=== PATIENT | female | born 1955 | race Caucasian/White ===

== ENCOUNTER 2021-01-20 15:51 | Inpatient (IN) | payer MEDICAID, SELFPAY ==
--- NOTE | ~2021-01-20 | CT_ITS ---
EXAMINATION: CT ANGIOGRAM ABDOMEN CT ANGIOGRAM PELVIS CT ANGIOGRAM LOWER EXTREMITIES CLINICAL INFORMATION: Pain out of proportion. Undetectable pedal pulses. TECHNIQUE: Noncontrast passenger flagman imaging of the abdomen, pelvis, and lower extremities was obtained. Following the administration of 100 mL of Omnipaque 350 intravenously, multiple axial images were then obtained through the abdomen, pelvis, and lower extremities. Repeat delayed axial imaging of the lower 70s below the knee was obtained secondary to issues with contrast bolus timing. Sagittal, coronal, and MIP oblique sagittal reformatted images were obtained on the CT workstation, uploaded to PACS, and reviewed. This CT examination was performed using dose optimization techniques as appropriate, variously including the following: *Automated exposure control. *Adjustment of mA and/or kV according to patient size (this includes techniques or standardized protocols for targeted exams where dose is matched to indication/reason for exam; i.e. extremities or head). *Use of iterative reconstruction technique. DLP: 643 mGy-cm. COMPARISON: CT abdomen and pelvis from 06/06/2017. Lower extremity ultrasound from 01/20/2021. FINDINGS: VASCULAR: Abdominal Aorta: The abdominal aorta is of normal contour and caliber without evidence of dissection. Celiac Trunk: A replaced left gastric and an accessory left hepatic artery arises directly from the aorta. A replaced right hepatic artery arises from the superior mesenteric artery. The hepatosplenic trunk and its branches opacify normally without evidence of dissection, obstruction, or flow-limiting stenosis. Mesenteric Arteries: As noted above, there is a replaced right hepatic artery arising from the SMA. Otherwise, the superior and inferior mesenteric arteries are normal in caliber with no focal stenosis or dissection. Renal Arteries: There is 2 right-sided and 1 left-sided renal arteries. No evidence of stenosis or dissection. Iliac Arteries: The iliac arteries are normal in course and caliber without evidence of focal stenosis or dissection. Right Lower Extremity: Normal opacification of the common femoral, superficial femoral, and profunda femoris arteries. There is a gradient decrease in opacification of the lower extremity arteries below the knee on initial CTA. However, subsequently on delayed imaging there is demonstrated normal caliber and opacification of the popliteal artery with normal trifurcation. Distal opacification of the anterior tibial, peroneal, and posterior tibial arteries. Partial opacification of the dorsalis pedis artery. Nonopacification of the plantar arch. Left Lower Extremity: Normal opacification of the common femoral, superficial femoral, and profunda femoris arteries. There is a gradient decrease in opacification of the lower extremity arteries below the knee on initial CTA. However, subsequently on delayed imaging there is demonstrated normal caliber and opacification of the popliteal artery with normal trifurcation. There is opacification of the anterior tibial, peroneal, and posterior tibial arteries to the level of the high ankle. Nonopacification of the dorsalis pedis artery and plantar arch. Venous Structures: The inferior vena cava and portal venous system are without demonstrated abnormalities. NONVASCULAR: CHEST: Visualized Lower Chest: Mild bilateral dependent atelectasis. Otherwise, no demonstrated abnormalities of the visualized lung bases or lower mediastinum. ABDOMEN/PELVIS: Liver, Biliary Ducts, and Gallbladder: The liver is normal in size and attenuation without focal hepatic lesions or biliary ductal dilatation. Status post cholecystectomy. Pancreas: Fatty atrophy of the pancreatic head. Otherwise, normal appearance of the pancreas. Adrenal Glands: The adrenal glands are normal in appearance. Spleen: The spleen is normal in appearance. Kidneys and Ureters: Chronic cortical scarring of the upper pole the right kidney. Otherwise, the kidneys demonstrate symmetric nephrograms. There is a 3.3 cm mildly complex subcapsular fluid collection posterior to the right kidney with macroscopic wall calcifications that appears similar to exam from 2017. There is a 0.3 cm nonobstructive stone in the lower pole the right kidney. No evidence of hydrocephalus. No ureterolithiasis or hydroureter. Urinary Bladder: The urinary bladder is partially distended without focal wall thickening. No bladder calculi are noted. Gastrointestinal System: Small hiatal hernia. The stomach is decompressed and therefore not well evaluated on this exam. The small bowel is of normal caliber without regions of abnormal wall enhancement. Mild pancolonic diverticulosis without evidence of diverticulitis. Otherwise, the colon is normal in appearance without focal wall thickening or pericolonic inflammatory change. The appendix is not definitively visualized. However, there is no inflammatory change in its expected location to suggest appendicitis. Genitourinary: No adnexal soft tissue masses. Intra-abdominal and Retroperitoneal Spaces: No intra-abdominal free fluid collections or gas. No mesenteric, retroperitoneal, or inguinal lymphadenopathy. MUSCULOSKELETAL: Moderate multilevel degenerative changes of the spine. Mild degenerative arthropathy of the hips and knees. No lytic or sclerotic osseous lesions demonstrated. Prior mesh repair of a right anterior abdominal wall hernia. Moderate cutaneous and subcutaneous edema of the lower extremities extending to the mid thigh bilaterally (slightly worse on the left than the right). No discrete fluid collection. Small bilateral knee joint effusions. No soft tissue masses demonstrated. CT/CT angio abd aorta runoff IMPRESSION: 1. No demonstrated focal occlusion or proximal stenosis of the lower extremity arteries. Contrast opacification of the distal vessels is somewhat delayed although there is runoff to the ankles bilaterally on delayed imaging. 2. Moderate bilateral lower extremity edema, slightly worse on the left than the right. 3. Chronic subcapsular fluid collection posterior to the right kidney. 4. Diverticulosis without evidence of diverticulitis.
--- NOTE | ~2021-01-20 | XR_ITS ---
EXAMINATION: XR ANKLE, LEFT CLINICAL INFORMATION: Pain COMPARISON: None TECHNIQUE: AP, lateral, and mortise views of the left ankle. FINDINGS: The bones and soft tissues are normal. No fracture. Alignment is anatomic. Joint spaces are maintained. No joint effusion. There is posterior calcaneal spur. Mild DJD intertarsal level. XR/XR ankle LT min 3V IMPRESSION: No fracture. There is posterior calcaneal spur. Mild degenerative changes of the intertarsal level.
--- NOTE | ~2021-01-20 | XR_ITS ---
EXAMINATION: XR FOOT, LEFT CLINICAL INFORMATION: Pain COMPARISON: None TECHNIQUE: AP, lateral, and oblique views of the left foot. FINDINGS: Small talar beaking raising possibility of intertarsal coalition. 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 No fracture. Small posterior calcaneal spur. XR/XR foot LT 2V IMPRESSION: Talar beaking raising possibility of intertarsal coalition. This could be investigated with cross-sectional imaging CT scan or MRI. DJD first metatarsophalangeal joint.
--- NOTE | ~2021-01-20 | US_ITS ---
EXAMINATION: US VENOUS ULTRASOUND WITH DOPPLER LOWER EXTREMITY, LEFT CLINICAL INFORMATION: Evaluate for deep venous thrombosis. Skin changes left lower extremity. COMPARISON: None TECHNIQUE: Ultrasound of the deep veins is performed from the hip to the calf with compression sonography and color and pulse Doppler assessment. Spectral analysis with color-flow imaging is performed. FINDINGS: The study is technically difficult. The anatomy is not well visualized. There is normal venous compression and respiratory variation and augmented flow. The visualized common femoral vein, superficial femoral vein, profunda femoral vein, popliteal vein, and the trifurcation region shows no evidence of deep venous thrombosis. There is no significant popliteal fossa cyst. If the patient's symptoms persist, followup ultrasound in 5 days 7 days might be of value to exclude proximal propagation from a non-visualized calf vein. US/US venous duplex LE LT IMPRESSION: No DVT demonstrated in the left lower extremity.
--- NOTE | ~2021-01-20 | US_ITS ---
EXAMINATION: COLOR-FLOW DUPLEX IMAGING OF THE UNILATERAL LEFT LOWER EXTREMITY ARTERIAL SYSTEM. VELOCITY MEASUREMENTS THROUGHOUT THE FEMORAL ARTERIES CLINICAL INFORMATION: This is a 65-year-old female with left lower extremity severe pain. Poor color. No palpable pedal pulses. Interventional Radiologist: Roosevelt Cardenas M.D., F.S.I.R., FMagdalene.C.R. LEFT FEMORAL RUNOFF VELOCITIES: The left common femoral artery measures 87 cm/s and biphasic. The left profunda femoral artery is 34 cm/s and is biphasic. Left proximal superficial femoral artery measures 103 cm/s and biphasic. Mid superficial femoral artery is 83 cm/s and biphasic. Distal left superficial femoral artery measures 88 cm/s and is biphasic. Left popliteal velocity measures 65 cm/s and is biphasic. The posterior tibial artery velocity measures 31 cm/s and was monophasic. US/US arterial duplex LE LT IMPRESSION: 1. No focal stenosis or filling defects are seen in the left lower extremity runoff. In this patient, the vascular duplex ultrasound gives better evaluation of the lower extremity arteries. The poor opacification of the calf arteries on the CT scan is likely due to contrast bolus timing. Therefore, the duplex ultrasound is more specific and does not demonstrate any obstruction.
[2021-01-20 16:14] VITALS: BP 136/49; BP 155/73; PULSE 71; PULSE 78; TEMP 36.9; O2SAT 97; BMI 28.3
[2021-01-20 16:25] VITALS: BP 136/49; PULSE 70; RESP 20; TEMP 36.9; O2SAT 97
--- NOTE | 2021-01-20 16:30 | PC.NURSE ---
Pt alert +oriented, VSS. Pt with LLL pain, swelling, redness started 5/7. Leg tender to touch. + pedal pulse bilaterally, unable to move toes of affected leg, able to move toes of unaffected leg without difficulty. Pt reports this is her baseline. Pt waiting to be seen by ED provider. This RN spoke with STEPHON Tijerina from service net to obtain history
--- NOTE | 2021-01-20 17:04 | ED_ITS ---
HPI - General Adult General Chief complaint: General Medical Stated complaint: left foot infection Time Seen by Provider: 01/20/21 16:42 Source: EMS and other (home visiting nurse) Mode of arrival: EMS Limitations: other (CVA at ) History of Present Illness HPI narrative: Patient comes emergency room complaining of left lower extremity pain, discoloration. Patient is unable to speak, had a CVA at baseline. I spoke with the patient's visiting nurse, patient lives in a skilled nursing, seems that yesterday patient started complaining of discomfort in her left lower extremity, this morning the staff noticed that the foot was dusky, swollen, very painful to palpation. They encouraged the patient to come to emergency room, however the patient declined and wanted to go shopping. When she returned from shopping, patient came in complaining of worsening pain in the foot and accepted to come to the emergency room. The staff states that the foot looked darker when she came back. Patient is on aspirin 81 mg, no other anticoagulation. Patient denies any trauma Related Data Home Medications Medication Instructions Recorded Confirmed No Known Home Meds 01/20/21 01/20/21 Allergies Allergy/AdvReac Type Severity Reaction Status Date / Time cephalexin [CEPHALEXIN] Allergy Unknown UNKNOWN Unverified 06/01/20 17:00 Review of Systems Review of Systems: Constitutional : No Weight loss, No Fever, No Chills, No Night Sweats, No Fatigue, No Malaise ENT/Mouth : No Hearing loss, No Ear Pain, No Nasal Congestion, No Sinus Pain, No Hoarseness, No sore throat, No Rhinorrhea, No Swallowing Difficulty Eyes: No Eye Pain, No Swelling, No Redness, No Foreign Body, No Discharge, No Vision Changes Cardiovascular : No Chest Pain, No SOB, No Dyspnea on Exertion, No Orthopnea, No Edema, No Palpitations Respiratory : No Cough, No Sputum, No Wheezing, No Smoke Exposure, No Dyspnea Gastrointestinal : No Nausea, No Vomiting, No Diarrhea, No Constipation, No abdominal Pain, No Hematochezia, No Melena Genitourinary : no irregular bleeding, No Dysuria, No Urinary Frequency, No Hematuria, No Urinary Incontinence, No Urgency, No Flank Pain, No Urinary Flow Changes, No Hesitancy Musculoskeletal : Complaining of left lower extremity severe pain, discoloration Skin : No Skin Lesions, No rash Neuro : No Weakness, No Numbness, No Paresthesias, No Loss of Consciousness, No Dizziness, No Headache Psych : No Anxiety/Panic, No Depression, No SI/HI/AH/VH, No Social Issues, Heme/Lymph: No Bruising, No Bleeding,No Lymphadenopathy Endocrine : No Polyuria, No Polydipsia, No Temperature Intolerance PMF Past Medical History Medical History CVA (cerebral vascular accident) Diabetes Hypertension Psychiatric diagnosis Social History Social History Smoking Status: Former smoker Use of substances other than those prescribed or required for medical reasons: No Advance Directives: No Advance Directives Information Provided: Yes Physical Exam Vital Signs: Vital Signs: Last Vital Signs Temp 98.5 F 01/20/21 16:25 Pulse 60 01/20/21 21:29 Resp 16 01/20/21 21:29 BP 110/58 L 01/20/21 21:29 Pulse Ox 97 01/20/21 18:00 Body Mass Index 28.3 Appearance: Alert. Oriented X3. No acute distress. Eyes: Pupils equal, round and reactive to light. ENT: Pharynx normal. Neck: Normal inspection. Neck supple. No lymph nodes noted. No crepitus CVS: Normal heart rate and rhythm. Pulses normal. Normal S1 and S2 Respiratory: No respiratory distress. Breath sounds normal. No Wheezing. No rales Abdomen: Soft and nontender. No rigidity. No distention. good BS x4 Skin: Skin warm and dry. See below Extremities: No lower extremity edema. Left foot and ankle are dusky, very painful to touch, no palpable pulses, however pedal pulses were detected with Doppler, right foot within normal limits. 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 Venous ultrasound pending. Patient's foot is cold, white blood cell count is normal, unlikely to be cellulitis. Venous ultrasound and x-rays pending. Venous ultrasound x-ray negative. Patient's foot is now the symptom for trigger as the right foot, still looks slightly discolored. I discussed the patient with our hospitalist, we will empirically treat for possible cellulitis. Patient continues having pain to touch over the foot and ankle. Sepsis is not suspected Medical Decision Making Lab Data Result diagrams: 01/20/21 17:09 01/20/21 17:09 Labs: Lab Results 01/20/21 01/20/21 01/20/21 Range/Units 17: 17:09 17:09 WBC 10.5 (4.8-10.8) X10*3/uL RBC 4.63 (4.20-5.50) X10*6/uL Hgb 12.5 (12.0-16.0) g/dl Hct 38.3 (37-47) % MCV 82.7 (80-98) fL MCH 27.0 (27.0-33.0) pg MCHC 32.6 (31.0-35.0) g/dl RDW 13.0 (11.0-16.0) % Plt Count 330 (160-400) X10*3/uL MPV 10.6 (9.4-12.3) fL Immature Gran % (Auto) 0.3 (0.0-0.4) % Neut % (Auto) 64.8 (45-73) % Lymph % (Auto) 26.6 (20-40) % [place] % (Auto) 5.4 (2-11) % Eos % (Auto) 2.5 (0-4) % Baso % (Auto) 0.4 (0-2) % Lymph # (Auto) 2.8 (1.2-4.9) X10*3/uL [place] # (Auto) 0.6 (0.1-1.2) X10*3/uL Eos # (Auto) 0.3 (0.0-0.4) X10*3/uL Baso # (Auto) 0.0 (0.0-0.2) X10*3/uL Abs Immat Gran (auto) 0.03 (0.00-0.03) X10*3/uL Absolute Neuts (auto) 6.8 (2.0-8.3) X10*3/uL Absolute Nucleated RBC 0.000 (0.0-0.012) X10*3/uL Nucleated RBC % (auto) 0.0 (0.0-0.2) /100WBC PT 12.4 (10.8-13.0) SEC INR 1.0 (0.9-1.1) APTT 38.0 (24.1-38.0) SEC Sodium 140 (135-145) mmol/L Potassium 4.2 (3.3-5.1) mmol/L Chloride 105 (96-108) mmol/L Carbon Dioxide 27 (22-29) mmol/L Anion Gap 12 (12-20) BUN 21 H (9-16) mg/dL Creatinine 0.63 (0.5-1.4) mg/dL Estim Creat Clear Calc 77.4 Estimated GFR > 60 Random Glucose 132 H (60-115) mg/dL Calcium 9.6 (8.4-10.2) mg/dL Total Bilirubin 0.6 (0.0-1.0) mg/dL Direct Bilirubin 0.2 (0.0-0.5) mg/dL AST 16 (5-31) U/L ALT 14 (0-31) U/L Alkaline Phosphatase 94 (39-117) U/L Total Protein 7.4 (6.5-8.0) g/dL Albumin 4.2 (3.5-5.0) g/dL Imaging Data Aorta with runoff CTA: Radiologist's impression: VASCULAR: Abdominal Aorta: The abdominal aorta is of normal contour and caliber without evidence of dissection. Celiac Trunk: A replaced left gastric and an accessory left hepatic artery arises directly from the aorta. A replaced right hepatic artery arises from the superior mesenteric artery. The hepatosplenic trunk and its branches opacify normally without evidence of dissection, obstruction, or flow-limiting stenosis. Mesenteric Arteries: As noted above, there is a replaced right hepatic artery arising from the SMA. Otherwise, the superior and inferior mesenteric arteries are normal in caliber with no focal stenosis or dissection. Renal Arteries: There is 2 right-sided and 1 left-sided renal arteries. No evidence of stenosis or dissection. Iliac Arteries: The iliac arteries are normal in course and caliber without evidence of focal stenosis or dissection. Right Lower Extremity: Normal opacification of the common femoral, superficial femoral, and profunda femoris arteries. There is a gradient decrease in opacification of the lower extremity arteries below the knee on initial CTA. However, subsequently on delayed imaging there is demonstrated normal caliber and opacification of the popliteal artery with normal trifurcation. Distal opacification of the anterior tibial, peroneal, and posterior tibial arteries. Partial opacification of the dorsalis pedis artery. Nonopacification of the plantar arch. Left Lower Extremity: Normal opacification of the common femoral, superficial femoral, and profunda femoris arteries. There is a gradient decrease in opacification of the lower extremity arteries below the knee on initial CTA. However, subsequently on delayed imaging there is demonstrated normal caliber and opacification of the popliteal artery with normal trifurcation. There is opacification of the anterior tibial, peroneal, and posterior tibial arteries to the level of the high ankle. Nonopacification of the dorsalis pedis artery and plantar arch. Venous Structures: The inferior vena cava and portal venous system are without demonstrated abnormalities. NONVASCULAR: CHEST: Visualized Lower Chest: Mild bilateral dependent atelectasis. Otherwise, no demonstrated abnormalities of the visualized lung bases or lower mediastinum. ABDOMEN/PELVIS: Liver, Biliary Ducts, and Gallbladder: The liver is normal in size and attenuation without focal hepatic lesions or biliary ductal dilatation. Status post cholecystectomy. Pancreas: Fatty atrophy of the pancreatic head. Otherwise, normal appearance of the pancreas. Adrenal Glands: The adrenal glands are normal in appearance. Spleen: The spleen is normal in appearance. Kidneys and Ureters: Chronic cortical scarring of the upper pole the right kidney. Otherwise, the kidneys demonstrate symmetric nephrograms. There is a 3.3 cm mildly complex subcapsular fluid collection posterior to the right kidney with macroscopic wall calcifications that appears similar to exam from 2017. There is a 0.3 cm nonobstructive stone in the lower pole the right kidney. No evidence of hydrocephalus. No ureterolithiasis or hydroureter. Urinary Bladder: The urinary bladder is partially distended without focal wall thickening. No bladder calculi are noted. Gastrointestinal System: Small hiatal hernia. The stomach is decompressed and therefore not well evaluated on this exam. The small bowel is of normal caliber without regions of abnormal wall enhancement. Mild pancolonic diverticulosis without evidence of diverticulitis. Otherwise, the colon is normal in appearance without focal wall thickening or pericolonic inflammatory change. The appendix is not definitively visualized. However, there is no inflammatory change in its expected location to suggest appendicitis. Genitourinary: No adnexal soft tissue masses. Intra-abdominal and Retroperitoneal Spaces: No intra-abdominal free fluid collections or gas. No mesenteric, retroperitoneal, or inguinal lymphadenopathy. MUSCULOSKELETAL: Moderate multilevel degenerative changes of the spine. Mild degenerative arthropathy of the hips and knees. No lytic or sclerotic osseous lesions demonstrated. Prior mesh repair of a right anterior abdominal wall hernia. Moderate cutaneous and subcutaneous edema of the lower extremities extending to the mid thigh bilaterally (slightly worse on the left than the right). No discrete fluid collection. Small bilateral knee joint effusions. No soft tissue masses demonstrated. CT/CT angio abd aorta runoff IMPRESSION: 1. No demonstrated focal occlusion or proximal stenosis of the lower extremity arteries. Contrast opacification of the distal vessels is somewhat delayed although there is runoff to the ankles bilaterally on delayed imaging. 2. Moderate bilateral lower extremity edema, slightly worse on the left than the right. 3. Chronic subcapsular fluid collection posterior to the right kidney. 4. Diverticulosis without evidence of diverticulitis. Lower extremity artery duplex: Radiologist's impression: LEFT FEMORAL RUNOFF VELOCITIES: The left common femoral artery measures 87 cm/s and biphasic. The left profunda femoral artery is 34 cm/s and is biphasic. Left proximal superficial femoral artery measures 103 cm/s and biphasic. Mid superficial femoral artery is 83 cm/s and biphasic. Distal left superficial femoral artery measures 88 cm/s and is biphasic. Left popliteal velocity measures 65 cm/s and is biphasic. The posterior tibial artery velocity measures 31 cm/s and was monophasic. US/US arterial duplex LE LT IMPRESSION: 1. No focal stenosis or filling defects are seen in the left lower extremity runoff. In this patient, the vascular duplex ultrasound gives better evaluation of the lower extremity arteries. The poor opacification of the calf arteries on the CT scan is likely due to contrast bolus timing. Therefore, the duplex ultrasound is more specific and does not demonstrate any obstruction. Venous ultrasound left lower extremity: Radiologist's impression: FINDINGS: The study is technically difficult. The anatomy is not well visualized. There is normal venous compression and respiratory variation and augmented flow. The visualized common femoral vein, superficial femoral vein, profunda femoral vein, popliteal vein, and the trifurcation region shows no evidence of deep venous thrombosis. There is no significant popliteal fossa cyst. If the patient's symptoms persist, followup ultrasound in 5 days 7 days might be of value to exclude proximal propagation from a non-visualized calf vein. US/US venous duplex LE LT IMPRESSION: No DVT demonstrated in the left lower extremity. Ankle x-ray: Radiologist's impression: FINDINGS: The bones and soft tissues are normal. No fracture. Alignment is anatomic. Joint spaces are maintained. No joint effusion. There is posterior calcaneal spur. Mild DJD intertarsal level. XR/XR ankle LT min 3V IMPRESSION: No fracture. There is posterior calcaneal spur. Mild degenerative changes of the intertarsal level. ECG Data Attestation: I personally reviewed and interpreted this ECG as follows: (And rhythm, heart 69, no ST segment depression or elevation, no T-wave inversion) Discharge Plan Discharge Clinical Impression: Acute pain of left foot Patient Disposition: Admitted As Inpatient
[2021-01-20] MEDS: ondansetron HCL 4 MG/2 ML VIAL IVPUSH (17:12)
[2021-01-20] MEDS: Morphine Sulfate 4 MG/ML CARTRIDGE IVPUSH (17:13)
--- NOTE | 2021-01-20 17:13 | PC.NURSE ---
+pedal pulses bilaterally via doppler, sl more diminished to affected foot (right side) Pt medicated for pain and nausea as charted. Awaiting angiogram
[2021-01-20 17:14] LABS: MANUAL DIFF FLAG NO
[2021-01-20 17:17] LABS: Basophils Percent Auto 0.4 % (0-2); Eosinophils Absolute Auto 0.3 X10*3/uL (0.0-0.4); Eosinophils Percent Auto 2.5 % (0-4); Hematocrit 38.3 % (37-47); Hemoglobin 12.5 g/dl (12.0-16.0); Imm Gran Abs Auto 0.03 X10*3/uL (0.00-0.03); Imm Gran Pct Auto 0.3 % (0.0-0.4); Lymphocytes Absolute Auto 2.8 X10*3/uL (1.2-4.9); Lymphocytes Percent Auto 26.6 % (20-40); Mean Corpuscular HGB Conc 32.6 g/dl (31.0-35.0); Mean Corpuscular Volume 82.7 fL (80-98); Mean Platelet Volume 10.6 fL (9.4-12.3); Monocytes Absolute Auto 0.6 X10*3/uL (0.1-1.2); Monocytes Percent Auto 5.4 % (2-11); Neutrophils Absolute Auto 6.8 X10*3/uL (2.0-8.3); Neutrophils Percent Auto 64.8 % (45-73); Platelet Count 330 X10*3/uL (160-400); Red Blood Count 4.63 X10*6/uL (4.20-5.50); White Blood Count 10.5 X10*3/uL (4.8-10.8)
--- NOTE | 2021-01-20 17:22 | ECG_ITS ---
Test Reason : DIZZYNESS Blood Pressure : / mmHG Vent. Rate : 069 BPM Atrial Rate : 069 BPM P-R Int : 132 ms QRS Dur : 104 ms QT Int : 382 ms P-R-T Axes : 043 -20 021 degrees QTc Int : 409 ms Normal sinus rhythm Minimal voltage criteria for LVH, may be normal variant Borderline ECG When compared with ECG of 05-APR-2019 19:53, Incomplete right bundle branch block is no longer Present Referred By: Paloma Lawson Electronically Signed By:PURNIMA NGUYEN
[2021-01-20] MEDS: iohexoL 350 MG/ML 100 ML INFUS..BTL IV (17:40)
[2021-01-20 17:42] LABS: Alanine Aminotransferase 14 U/L (0-31); Albumin Level 4.2 g/dL (3.5-5.0); Alkaline Phosphatase 94 U/L (39-117); Anion Gap 12 (12-20); Aspartate Amino Transferase 16 U/L (5-31); Bilirubin Direct 0.2 mg/dL (0.0-0.5); Bilirubin Total 0.6 mg/dL (0.0-1.0); Blood Urea Nitrogen 21 mg/dL (9-16); Calcium 9.6 mg/dL (8.4-10.2); Carbon Dioxide 27 mmol/L (22-29); Chloride 105 mmol/L (96-108); Creatinine Clr Calc Pharmacy 77.4; Estimated Glomerular Filt Rate > 60; Glucose Random 132 mg/dL (60-115); Potassium 4.2 mmol/L (3.3-5.1); Sodium 140 mmol/L (135-145); Total Protein 7.4 g/dL (6.5-8.0)
[2021-01-20 17:44] LABS: Prothrombin Time 12.4 SEC (10.8-13.0)
[2021-01-20 18:00] VITALS: BP 146/66; PULSE 73; RESP 20; O2SAT 97
[2021-01-20] MEDS: HYDROmorphone HCl 1 MG/ML SYRINGE IVPUSH (18:40)
[2021-01-20] MEDS: Prochlorperazine Edisylate 10 MG/2 ML VIAL IVPUSH (19:00)
[2021-01-20 20:01] VITALS: BP 102/50; PULSE 64; RESP 16
[2021-01-20 21:29] VITALS: BP 110/58; PULSE 60; RESP 16
[2021-01-20] MEDS: Doxycycline Hyclate 100 MG in 0.9 % Sodium Chloride 250 ML 166.67 MG IV (22:08)
--- NOTE | 2021-01-20 22:52 | PC.NURSE ---
PT REPOSITIONED TO RIGHT SIDE. PT FALLS BACK TO SLEEP IN NAD. PT AWAITING PENDING ADMISSION. VS OBTAINED. DOXYCYCLINE UP AND RUNNING ON PUMP W/O DIFFICULTY, SITE INTACT.
[2021-01-21] VITALS (9 sets, daily range): BP systolic 117–143; BP diastolic 58–83; PULSE 62–89; RESP 14–19; TEMP 36.1–36.8; O2SAT 95–99
[2021-01-21 01:48] LABS: COVID-19 Test Negative (Negative); IDNOW Serial# 9DD0AD1C
--- NOTE | 2021-01-21 03:26 | PC.NURSE ---
REPORT TO STEPHON GONZALEZ. PT TO FLOOR ON [facility] IN [facility].
[2021-01-21] MEDS: levoFLOXacin/D5W 750 MG/150 ML PIGGYBACK 100 MG IV (04:39)
[2021-01-21] MEDS: 0.9 % Sodium Chloride Flush 3 ML SYRINGE IVFLUSH ×3 (04:39→17:05)
[2021-01-21] MEDS: Enoxaparin Sodium 40 MG/0.4 ML SYRINGE SUBCUT (04:39)
[2021-01-21] MEDS: Morphine Sulfate 4 MG/ML CARTRIDGE 3 MG IVPUSH (05:30)
--- NOTE | 2021-01-21 05:54 | PM.IMHP ---
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 Patient is wheelchair-bound. Patient lives in a skilled nursing. It appears that patient started complaining of discomfort in her left lower extremity and this morning staff noticed that the foot was dusky swollen and very painful to palpation but patient refused to come to the hospital, she went out shopping, returned and was complaining of severe pain in her foot and therefore was transferred to the hospital. Patient denies any trauma to the foot, denies any fever or chills, no chest pain nausea or vomiting, no abdominal pain, no diarrhea, no urinary symptoms. On arrival to the ED patient WBC count of 98.5, heart rate of 71, blood pressure 136/49 satting 97% on room air. Labs overall unremarkable, COVID-19 negative, Imaging ankle x-ray showed no fracture, no misalignment, no joint effusion, Foot xray showed talar beaking raising possibility of intertarsal coalition venous duplex showed no left lower extremity DVT, Arterial duplex shows no focal stenosis or filling defects seen in the left lower extremity. Aorta with runoff CT a shows no demonstrated focal occlusion or proximal stenosis of the lower extremity arteries. Patient will be admitted for further management Review of Systems Review of Systems: Yes all other systems are reviewed and are negative FORMERLY [facility], [facility]–1983 Medical History CVA (cerebral vascular accident) Diabetes Hypertension Psychiatric diagnosis Social History Housing: Assisted Living Facility Do you presently have visiting nurse or other home services: Yes Smoking Status: Former smoker Use of substances other than those prescribed or required for medical reasons: No Advance Directives: No Advance Directives Information Provided: Yes Recently lost weight without trying: Yes How much weight loss: Unsure Eating poorly because of decreased appetite: No Nutrition screen score: 4 Nutrition Risks: Difficulty swallowing Patient : No : No Poor oral hygiene: No Meds Allergies Allergy/AdvReac Type Severity Reaction Status Date / Time cephalexin [CEPHALEXIN] Allergy Unknown UNKNOWN Unverified 06/01/20 17:00 Active Medications: Current Medications Generic Name Dose Route Start Last Admin Trade Name Pradeepq PRN Reason Stop Dose Admin Acetaminophen 650 mg 01/21/21 03:27 Acetaminophen 325 Mg Tablet PO Q6H PRN Pain, Mild (Pain Scale 1-3) Docusate Sodium 100 mg 01/21/21 03:27 Docusate Sodium 100 Mg Capsule PO DAILY PRN Constipation Enoxaparin Sodium 40 mg 01/21/21 04:00 01/21/21 04:39 Enoxaparin Sodium 40 Mg/0.4 Ml Syringe SUBCUT 40 mg Q24H ANASTASIA Administration Levofloxacin 750 mg in 150 mls @ 100 mls/hr 01/21/21 04:00 01/21/21 04:39 Levaquin IV 100 mls/hr Q24H ANASTASIA Administration Morphine Sulfate 3 mg 01/21/21 04:57 01/21/21 05:30 Morphine Sulfate 4 Mg/Ml Cartridge IVPUSH 3 mg Q4H PRN Administration Pain, Severe (Pain Scale 7-10) Ondansetron HCl 4 mg 01/21/21 03:27 Ondansetron Hcl 4 Mg/2 Ml Vial IVPUSH Q8H PRN Nausea and Vomiting Oxycodone HCl 5 mg 01/21/21 03:27 Oxycodone Hcl Immed Release 5 Mg Tablet PO Q6H PRN Pain, Severe (Pain Scale 7-10) Sodium Chloride 3 ml 01/21/21 03:27 01/21/21 04:39 0.9 % Sodium Chloride Flush 3 Ml Syringe IVFLUSH 3 ml QSHIFT ANASTASIA Administration Home Medications Medication Instructions Recorded Confirmed Last Taken Type No Known Home Meds 01/20/21 01/20/21 Unknown History Physical Exam Vital Signs and Narrative: Vital Signs: Last Vital Signs Temp 98.5 F 01/20/21 16:25 Pulse 76 01/21/21 02:00 Resp 16 01/21/21 05:30 BP 118/58 L 01/21/21 02:00 Pulse Ox 96 01/21/21 02:00 Body Mass Index 28.3 Const: Other: non-verbal General: cooperative and no acute distress Orientation/consciousness: patient oriented x3 Eyes: General: appearance normal, both eyes and all related structures Resp: Effort & Inspection: normal respiratory effort and able to speak in complete sentences Auscultation: clear to auscultation bilaterally Cardio: Rate: regular rate Rhythm: regular rhythm GI: Palpation (GI): Soft to palpation Auscultation: normal bowel sounds Skin: General skin exam: no rashes or lesions noted Neuro: General: patient oriented x3 Cognition (Neuro): normal cognition Extrem: Other: dusky, tender, cold lower extremity Results Labs CBC and Chem 7: 01/20/21 17:09 01/20/21 17:09 Labs: Laboratory Results - last 24 hr 01/20/21 01/20/21 01/20/21 17:09 17:09 17:09 MCV 82.7 MCH 27.0 MCHC 32.6 RDW 13.0 Plt Count 330 MPV 10.6 Immature Gran % (Auto) 0.3 Neut % (Auto) 64.8 Lymph % (Auto) 26.6 Sevier % (Auto) 5.4 Eos % (Auto) 2.5 Baso % (Auto) 0.4 Lymph # (Auto) 2.8 [place]vier # (Auto) 0.6 Eos # (Auto) 0.3 Baso # (Auto) 0.0 Abs Immat Gran (auto) 0.03 Absolute Neuts (auto) 6.8 Absolute Nucleated RBC 0.000 Nucleated RBC % (auto) 0.0 PT 12.4 INR 1.0 APTT 38.0 Anion Gap 12 Estim Creat Clear Calc 77.4 Estimated GFR > 60 Random Glucose 132 H Calcium 9.6 Total Bilirubin 0.6 Direct Bilirubin 0.2 AST 16 ALT 14 Alkaline Phosphatase 94 Total Protein 7.4 Albumin 4.2 COVID-19 (ANAHI) COVID-19 Clin Com 01/21/21 01:03 MCV MCH MCHC RDW Plt Count MPV Immature Gran % (Auto) Neut % (Auto) Lymph % (Auto) Sevier % (Auto) Eos % (Auto) Baso % (Auto) Lymph # (Auto) [place]vier # (Auto) Eos # (Auto) Baso # (Auto) Abs Immat Gran (auto) Absolute Neuts (auto) Absolute Nucleated RBC Nucleated RBC % (auto) PT INR APTT Anion Gap Estim Creat Clear Calc Estimated GFR Random Glucose Calcium Total Bilirubin Direct Bilirubin AST ALT Alkaline Phosphatase Total Protein Albumin COVID-19 (ANAHI) Negative COVID-19 Clin Com See Note Imaging Radiologist's Impressions: Impressions Aorta w/Runoff CTA 01/20/21 16:50 IMPRESSION: 1. No demonstrated focal occlusion or proximal stenosis of the lower extremity arteries. Contrast opacification of the distal vessels is somewhat delayed although there is runoff to the ankles bilaterally on delayed imaging. 2. Moderate bilateral lower extremity edema, slightly worse on the left than the right. 3. Chronic subcapsular fluid collection posterior to the right kidney. 4. Diverticulosis without evidence of diverticulitis. Duplex Scan Lower Extremity Artery 01/20/21 16:55 IMPRESSION: 1. No focal stenosis or filling defects are seen in the left lower extremity runoff. In this patient, the vascular duplex ultrasound gives better evaluation of the lower extremity arteries. The poor opacification of the calf arteries on the CT scan is likely due to contrast bolus timing. Therefore, the duplex ultrasound is more specific and does not demonstrate any obstruction. Foot X-Ray 01/20/21 20:04 IMPRESSION: Talar beaking raising possibility of intertarsal coalition. This could be investigated with cross-sectional imaging CT scan or MRI. DJD first metatarsophalangeal joint. Venous Duplex 01/20/21 20:04 IMPRESSION: No DVT demonstrated in the left lower extremity. Ankle X-Ray 01/20/21 20:10 IMPRESSION: No fracture. There is posterior calcaneal spur. Mild degenerative changes of the intertarsal level. 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
[2021-01-21 07:14] LABS: MANUAL DIFF FLAG NO
[2021-01-21 07:19] LABS: Basophils Percent Auto 0.3 % (0-2); Eosinophils Absolute Auto 0.2 X10*3/uL (0.0-0.4); Eosinophils Percent Auto 2.7 % (0-4); Hematocrit 37.9 % (37-47); Hemoglobin 12.1 g/dl (12.0-16.0); Imm Gran Abs Auto 0.03 X10*3/uL (0.00-0.03); Imm Gran Pct Auto 0.3 % (0.0-0.4); Lymphocytes Absolute Auto 2.1 X10*3/uL (1.2-4.9); Lymphocytes Percent Auto 24.4 % (20-40); Mean Corpuscular HGB Conc 31.9 g/dl (31.0-35.0); Mean Corpuscular Hemoglobin 26.8 pg (27.0-33.0); Mean Platelet Volume 11.8 fL (9.4-12.3); Monocytes Absolute Auto 0.4 X10*3/uL (0.1-1.2); Monocytes Percent Auto 5.1 % (2-11); Neutrophils Absolute Auto 5.8 X10*3/uL (2.0-8.3); Neutrophils Percent Auto 67.2 % (45-73); Platelet Count 200 X10*3/uL (160-400); Red Blood Count 4.51 X10*6/uL (4.20-5.50); Red Cell Distribution Width 12.9 % (11.0-16.0); White Blood Count 8.6 X10*3/uL (4.8-10.8)
[2021-01-21] MEDS: HYDROmorphone HCl 1 MG/ML SYRINGE IVPUSH (07:33)
[2021-01-21 07:56] LABS: Anion Gap 12 (12-20); Blood Urea Nitrogen 17 mg/dL (9-16); Carbon Dioxide 23 mmol/L (22-29); Chloride 107 mmol/L (96-108); Creatinine Clr Calc Pharmacy 82.5; Estimated Glomerular Filt Rate > 60; Glucose Random 141 mg/dL (60-115); Potassium 4.2 mmol/L (3.3-5.1); Sodium 138 mmol/L (135-145)
[2021-01-21] MEDS: ondansetron HCL 4 MG/2 ML VIAL IVPUSH ×2 (07:59→13:00)
[2021-01-21 08:05] LABS: Calcium 8.9 mg/dL (8.4-10.2)
[2021-01-21 08:35] LABS: Glucose, Whole Blood 156 mg/dL (60-115)
--- NOTE | 2021-01-21 11:03 | P.PNIM_ITS ---
Subjective Subjective Date of Service: 01/21/21 Interval History: Patient complaining of nausea and left foot pain, communicate through nodding, no other acute issues overnight. Unable to obtain detailed review of system since patient nonverbal Physical Exam Vital Signs: Vital Signs: Last Vital Signs Temp 97.8 F 01/21/21 08:00 Pulse 69 01/21/21 08:00 Resp 19 01/21/21 08:00 BP 135/78 01/21/21 08:00 Pulse Ox 95 01/21/21 08:00 Body Mass Index 28.3 General in pain, no acute distress. Neck no JVD. CVS regular rate rhythm, Respiratory lungs clear to auscultation, no respiratory distress Gastrointestinal abdomen soft, nontender, bowel sounds audible Extremities left foot mild swelling and mild erythema, mild bruising, no warmth. Neuro normal cognition. Skin no rash Objective Data Current Medications Generic Name Dose Route Start Last Admin Trade Name Freq PRN Reason Stop Dose Admin Acetaminophen 650 mg 01/21/21 03:27 Acetaminophen 325 Mg Tablet PO Q6H PRN Pain, Mild (Pain Scale 1-3) Docusate Sodium 100 mg 01/21/21 03:27 Docusate Sodium 100 Mg Capsule PO DAILY PRN Constipation Enoxaparin Sodium 40 mg 01/21/21 04:00 01/21/21 04:39 Enoxaparin Sodium 40 Mg/0.4 Ml Syringe SUBCUT 40 mg Q24H ANASTASIA Administration Hydromorphone HCl 0.5 mg 01/21/21 10:58 Hydromorphone Hcl 1 Mg/Ml Syringe IVPUSH Q4H PRN Pain, Severe (Pain Scale 7-10) Ibuprofen 400 mg 01/21/21 10:59 Ibuprofen 400 Mg Tablet PO Q6H PRN Pain, Moderate (Pain Scale 4-6 Insulin Human Lispro 0 unit 01/21/21 07:30 01/21/21 08:05 Insulin Lispro 100 Unit/Ml 3 Ml Vial SUBCUT Not Given QIDACHS [facility] Protocol Morphine Sulfate 3 mg 01/21/21 04:57 01/21/21 05:30 Morphine Sulfate 4 Mg/Ml Cartridge IVPUSH 3 mg Q4H PRN Administration Pain, Severe (Pain Scale 7-10) Ondansetron HCl 4 mg 01/21/21 10:58 Ondansetron Hcl 4 Mg/2 Ml Vial IVPUSH Q6H PRN Nausea and Vomiting Oxycodone HCl 5 mg 01/21/21 03:27 Oxycodone Hcl Immed Release 5 Mg Tablet PO Q6H PRN Pain, Severe (Pain Scale 7-10) Sodium Chloride 3 ml 01/21/21 03:27 01/21/21 09:10 0.9 % Sodium Chloride Flush 3 Ml Syringe IVFLUSH 3 ml QSHIFT ANASTASIA Administration Labs CBC & Chem 7: 01/21/21 06:39 01/21/21 06:39 Assessment and Plan (1) Acute pain of left foot: Status: Acute (2) Nausea and vomiting: Status: Acute Assessment and Plan: 65-year-old female with past medical history of CVA, aphasic, wheelchair-bound resident of [facility], presents to the hospital with acute left foot pain # acute pain of left foot with no history of injury or fall - unclear etiology, no evidence of fracture or misalignment on x-ray, no evidence of arterial or venous abnormality seen on lower extremity arterial duplex and venous duplex, normal pedal pulses No evidence of infection normal WBC count and no fevers - x-ray shows possible tarsal coalition, will treat patient with ibuprofen, ice and will reduce dose of Dilaudid since likely contributing to nausea vomiting. - await orthopedic surgery input for any further recommendation given possible tarsal coalition seen and foot x-ray # nausea and vomiting likely due to narcotic medications will check urinalysis to rule out UTI. # diabetes - stable blood sugars, continue low-dose sliding scale insulin and diabetic diet, no home medications documented # hypertension - stable BP not on any medication DVT prophylaxis:lovenox
[2021-01-21 11:44] LABS: Glucose, Whole Blood 189 mg/dL (60-115)
--- NOTE | 2021-01-21 12:07 | MHC.CM.PN ---
PATIENT LIVES IN A PENITENTIARY SETTING WITH THREE OTHER CLIENTS. SHE HAS [id number] STAFF AND A RIVER RAFTING GUIDE, DIANNE ([phone]) STAFF MEMBER TOMEKA ([phone]) REPORTS THAT PATIENT IS HER OWN GUARDIAN. PATIENT HAS DAILY VNA SERVICES THROUGH [facility] FOR HER INSULIN NEEDS. REFERRAL PLACED FOR AGENCY TO FOLLOW. CASE MANAGEMENT FOLLOWING FOR PATIENT'S RETURN TO PEN[facility]ENTIARY OF NOTE, CONTACT FOR BROTHER RENEE ([phone]) IS NO LONGER VALID.
[2021-01-21 13:36] LABS: Glucose Urine UA NEG (NEG); Leukocyte Esterase Urine NEG (NEG); Nitrite Urine NEG (NEG); PH 5.5 (5.0-8.0); Specific Gravity - Urine >= 1.030 (1.005-1.025); Urine Blood NEG (NEG); Urine Ketones 5 MG/DL (NEG); Urine Protein 2+ MG/DL (NEG-TRACE)
[2021-01-21 13:42] LABS: Appearance Urine CLEAR; Color Urine DARK YELLOW
[2021-01-21 13:52] LABS: Bacteria Urine 4+ /LPF; Squamous Epithelial Cell Urine 4+ /LPF
[2021-01-21 17:06] LABS: Glucose, Whole Blood 181 mg/dL (60-115)
[2021-01-21] MEDS: Insulin Lispro 100 UNIT/ML 3 ML VIAL SUBCUT (17:37)
[2021-01-21 20:30] LABS: Glucose, Whole Blood 108 mg/dL (60-115)
[2021-01-22] MEDS: 0.9 % Sodium Chloride Flush 3 ML SYRINGE IVFLUSH ×2 (00:20→09:12)
[2021-01-22] MEDS: Enoxaparin Sodium 40 MG/0.4 ML SYRINGE SUBCUT (03:21)
[2021-01-22 03:29] VITALS: BP 134/69; PULSE 75; RESP 18; TEMP 36.7; O2SAT 95
[2021-01-22 04:00] VITALS: RESP 18
--- NOTE | 2021-01-22 07:47 | P.CONOP_ITS ---
History of Present Illness HPI Consult date: 01/22/21 Consult reason: other (left foot pain ) Chief complaint: cellulitis, severe irritractable pain Narrative: Ms. Duckworth is a 65 yo female who presented to the ED with complaints of acute left foot pain. She has a PMH significant for a CVA which has caused her aphagia and is wheelchair bound. She is able to communicate with head nodding. It is unclear for how long this has been going on for. Review of Systems Review of Systems: Yes all other systems are reviewed and are negative [facility] Past Medical History Medical History CVA (cerebral vascular accident) Diabetes Hypertension Psychiatric diagnosis Social History Social History Housing: Assisted Living Facility Do you presently have visiting nurse or other home services: Yes Smoking Status: Former smoker Use of substances other than those prescribed or required for medical reasons: No Currently Displaying Signs/Symptoms of Drug Intoxication Withdrawal: No Advance Directives: No Advance Directives Information Provided: Yes Do you have thoughts of harming others: None Do you have a plan to hurt others: No Plan Recently lost weight without trying: Yes How much weight loss: Unsure Eating poorly because of decreased appetite: No Nutrition screen score: 4 Nutrition Risks: Difficulty swallowing Patient : No : No Poor oral hygiene: No service: No Current occupational status: disabled Meds Allergies Allergy/AdvReac Type Severity Reaction Status Date / Time cephalexin [CEPHALEXIN] Allergy Unknown UNKNOWN Unverified 06/01/20 17:00 Active Medications: Current Medications Generic Name Dose Route Start Last Admin Trade Name Freq PRN Reason Stop Dose Admin Acetaminophen 650 mg 01/21/21 03:27 Acetaminophen 325 Mg Tablet PO Q6H PRN Pain, Mild (Pain Scale 1-3) Docusate Sodium 100 mg 01/21/21 03:27 Docusate Sodium 100 Mg Capsule PO DAILY PRN Constipation Enoxaparin Sodium 40 mg 01/21/21 04:00 01/22/21 03:21 Enoxaparin Sodium 40 Mg/0.4 Ml Syringe SUBCUT 40 mg Q24H ANASTASIA Administration Hydromorphone HCl 0.5 mg 01/21/21 10:58 Hydromorphone Hcl 1 Mg/Ml Syringe IVPUSH Q4H PRN Pain, Severe (Pain Scale 7-10) Ibuprofen 400 mg 01/21/21 10:59 Ibuprofen 400 Mg Tablet PO Q6H PRN Pain, Moderate (Pain Scale 4-6 Insulin Human Lispro 0 unit 01/21/21 07:30 01/21/21 20:45 Insulin Lispro 100 Unit/Ml 3 Ml Vial SUBCUT Not Given QIDACHS [facility] Protocol Morphine Sulfate 3 mg 01/21/21 04:57 01/21/21 05:30 Morphine Sulfate 4 Mg/Ml Cartridge IVPUSH 3 mg Q4H PRN Administration Pain, Severe (Pain Scale 7-10) Ondansetron HCl 4 mg 01/21/21 10:58 01/21/21 13:00 Ondansetron Hcl 4 Mg/2 Ml Vial IVPUSH 4 mg Q6H PRN Administration Nausea and Vomiting Oxycodone HCl 5 mg 01/21/21 03:27 Oxycodone Hcl Immed Release 5 Mg Tablet PO Q6H PRN Pain, Severe (Pain Scale 7-10) Sodium Chloride 3 ml 01/21/21 03:27 01/22/21 00:20 0.9 % Sodium Chloride Flush 3 Ml Syringe IVFLUSH 3 ml QSHIFT [facility] Administration Home Medications Medication Instructions Recorded Confirmed Last Taken Type No Known Home Meds 01/20/21 01/20/21 Unknown History Physical Exam Vital Signs: Vital Signs: Last Vital Signs Temp 98.0 F 01/22/21 03:29 Pulse 75 01/22/21 03:29 Resp 18 01/22/21 04:00 BP 134/69 01/22/21 03:29 Pulse Ox 95 01/22/21 03:29 Body Mass Index 28.3 Const: General: cooperative, healthy appearing and no acute distress Resp: Effort & Inspection: normal respiratory effort and able to speak in complete sentences Cardio: Rate: regular rate Peripheral pulses: Peripheral pulses 2+ throughout GI: Palpation (GI): Soft to palpation Skin: Lesions: no lesions Rashes: no rashes Extrem: Other: Left foot erythema to the proximal ankle. Tenderness to palpation of all land quinones of the foot and ankle. She is unable to follow commands to dorsiflex or plantarflex. Sensation intact. Pedal pulse intact. Results Labs Result Diagrams: 01/21/21 06:39 01/21/21 06:39 Labs: Abnormal lab results 01/21/21 01/21/21 01/21/21 Range/Units 06:39 07:59 11:35 BUN 17 H (9-16) mg/dL POC Glucose 156 H 189 H (60-115) mg/dL Random Glucose 141 H (60-115) mg/dL Ur Specific [place] (1.005-1.025) Urine Protein (NEG-TRACE) MG/DL 01/21/21 01/21/21 Range/Units 13:24 16:54 BUN (9-16) mg/dL POC Glucose 181 H (60-115) mg/dL Random Glucose (60-115) mg/dL Ur Specific [place] >= 1.030 H (1.005-1.025) Urine Protein 2+ H (NEG-TRACE) MG/DL H & H 01/20/21 01/21/21 Range/Units 17:09 06:39 Hgb 12.5 12.1 (12.0-16.0) g/dl Hct 38.3 37.9 (37-47) % Coagulation 01/20/21 Range/Units 17:09 INR 1.0 (0.9-1.1) All other labs normal. Assessment and Plan (1) Cellulitis: Status: Acute Impression of the left foot at this time is cellulitis. X-rays of the left foot reviewed and are concerning for tarsal coalition and osteoarthritis. However, tarsal coalition is not something that typically causes acute left foot pain. No further orthopedic treatment needed at this time. Symptomatic treatment of left foot osteoarthritis. Medicine to continue treating for left foot cellulitis.
[2021-01-22 08:00] VITALS: BP 160/74; PULSE 77; RESP 15; TEMP 36.6; O2SAT 94
[2021-01-22 11:13] VITALS: BP 146/82; PULSE 73; RESP 16; TEMP 36.7; O2SAT 94
[2021-01-22 11:30] LABS: Glucose, Whole Blood 164 mg/dL (60-115)
[2021-01-22] MEDS: Insulin Lispro 100 UNIT/ML 3 ML VIAL SUBCUT (12:00)
--- NOTE | 2021-01-22 12:25 | PM.DS ---
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 DS: Diagnosis Discharge Diagnosis (1) Cellulitis: Status: Acute (2) Acute pain of left foot: Status: Acute DS: Medications Discharge Medications Home Medications: Previous Rx's Medication Instructions Recorded acetaminophen 650 mg PO Q6H PRN #60 tab 01/22/21 doxycycline monohydrate 100 mg PO BID #14 tab 01/22/21 DS: Summary Hospital Course Hospital Course: from the admission history and physical by hospitalist Katie Medrano, 01/20/21: This is a Citizen Of [place] 65-year-old female with 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 Patient is wheelchair-bound. Patient lives in a snf. It appears that patient started complaining of discomfort in her left lower extremity and this morning staff noticed that the foot was dusky swollen and very painful to palpation but patient refused to come to the hospital, she went out shopping, returned and was complaining of severe pain in her foot and therefore was transferred to the hospital. Patient denies any trauma to the foot, denies any fever or chills, no chest pain nausea or vomiting, no abdominal pain, no diarrhea, no urinary symptoms. On arrival to the ED patient WBC count of [9.8] heart rate of 71, blood pressure 136/49 satting 97% on room air. Labs overall unremarkable, COVID-19 negative, Imaging ankle x-ray showed no fracture, no misalignment, no joint effusion, Foot xray showed talar beaking raising possibility of intertarsal coalition venous duplex showed no left lower extremity DVT, Arterial duplex shows no focal stenosis or filling defects seen in the left lower extremity. Aorta with runoff CT a shows no demonstrated focal occlusion or proximal stenosis of the lower extremity arteries. Patient will be admitted for further management The patient was admitted to the medical/surigcal floor. Orthopedics was consulted and in their opinion, the patient most likely was suffering from acute cellulitis rather than chronic tarsal coalition. Ultimately, she was thought to have nonpurulent cellulitis and was started on doxycycline for a total of 7 days. Her pain improved during her hospitalization. She was prescribed acetaminophen for pain and should keep the left foot iced and elevated frequentlyShe should follow up with her primary care provider within 1 week and consider orthopedics referral if the pain does not resolve. Time Spent with Patient Time attestation: Total time spent providing and/or coordinating discharge services: 35 Discharge coordination time: Greater than 30 minutes Physical Exam Vital Signs: Vital Signs: Last Vital Signs Temp 98.1 F 01/22/21 11:13 Pulse 73 01/22/21 11:13 Resp 16 01/22/21 11:13 BP 146/82 H 01/22/21 11:13 Pulse Ox 94 01/22/21 11:13 Body Mass Index 28.3 Gen: in no acute distress HEENT: sclera anicteric, moist mucus membranes Neck: supple Lungs: clear to auscultation bilaterally Heart: regular rate and rhythm, no murmurs Abd: soft, non-tender, non-distended Ext: no edema Skin: warm/well-perfused, erythema of dorsum of L foot from midfoot to ankle with no purulence and no skin breaks, no ankle effusion Neuro: expressive aphasia, communicates with nods/shaking head DS: Data Data Completed and Pending Labs on day of discharge: Laboratory Results WBC 8.6 X10*3/uL (4.8-10.8) 01/21/21 06:39 RBC 4.51 X10*6/uL (4.20-5.50) 01/21/21 06:39 Hgb 12.1 g/dl (12.0-16.0) 01/21/21 06:39 Hct 37.9 % (37-47) 01/21/21 06:39 MCV 84.0 fL (80-98) 01/21/21 06:39 MCH 26.8 pg (27.0-33.0) L 01/21/21 06:39 MCHC 31.9 g/dl (31.0-35.0) 01/21/21 06:39 RDW 12.9 % (11.0-16.0) 01/21/21 06:39 Plt Count 200 X10*3/uL (160-400) D 01/21/21 06:39 MPV 11.8 fL (9.4-12.3) 01/21/21 06:39 Immature Gran % (Auto) 0.3 % (0.0-0.4) 01/21/21 06:39 Neut % (Auto) 67.2 % (45-73) 01/21/21 06:39 Lymph % (Auto) 24.4 % (20-40) 01/21/21 06:39 [place] % (Auto) 5.1 % (2-11) 01/21/21 06:39 Eos % (Auto) 2.7 % (0-4) 01/21/21 06:39 Baso % (Auto) 0.3 % (0-2) 01/21/21 06:39 Lymph # (Auto) 2.1 X10*3/uL (1.2-4.9) 01/21/21 06:39 [place] # (Auto) 0.4 X10*3/uL (0.1-1.2) 01/21/21 06:39 Eos # (Auto) 0.2 X10*3/uL (0.0-0.4) 01/21/21 06:39 Baso # (Auto) 0.0 X10*3/uL (0.0-0.2) 01/21/21 06:39 Abs Immat Gran (auto) 0.03 X10*3/uL (0.00-0.03) 01/21/21 06:39 Absolute Neuts (auto) 5.8 X10*3/uL (2.0-8.3) 01/21/21 06:39 Absolute Nucleated RBC 0.000 X10*3/uL (0.0-0.012) 01/21/21 06:39 Nucleated RBC % (auto) 0.0 /100WBC (0.0-0.2) 01/21/21 06:39 PT 12.4 SEC (10.8-13.0) 01/20/21 17:09 INR 1.0 (0.9-1.1) 01/20/21 17:09 APTT 38.0 SEC (24.1-38.0) 01/20/21 17:09 Sodium 138 mmol/L (135-145) 01/21/21 06:39 Potassium 4.2 mmol/L (3.3-5.1) 01/21/21 06:39 Chloride 107 mmol/L (96-108) 01/21/21 06:39 Carbon Dioxide 23 mmol/L (22-29) 01/21/21 06:39 Anion Gap 12 (12-20) 01/21/21 06:39 BUN 17 mg/dL (9-16) H 01/21/21 06:39 Creatinine 0.59 mg/dL (0.5-1.4) 01/21/21 06:39 Estim Creat Clear Calc 82.5 01/21/21 06:39 Estimated GFR > 60 01/21/21 06:39 POC Glucose 164 mg/dL (60-115) H 01/22/21 11:13 Random Glucose 141 mg/dL (60-115) H 01/21/21 06:39 Calcium 8.9 mg/dL (8.4-10.2) D 01/21/21 06:39 Total Bilirubin 0.6 mg/dL (0.0-1.0) 01/20/21 17:09 Direct Bilirubin 0.2 mg/dL (0.0-0.5) 01/20/21 17:09 AST 16 U/L (5-31) 01/20/21 17:09 ALT 14 U/L (0-31) 01/20/21 17:09 Alkaline Phosphatase 94 U/L (39-117) 01/20/21 17:09 Total Protein 7.4 g/dL (6.5-8.0) 01/20/21 17:09 Albumin 4.2 g/dL (3.5-5.0) 01/20/21 17:09 Urine Color DARK YELLOW 01/21/21 13:24 Urine Appearance CLEAR 01/21/21 13:24 Urine pH 5.5 (5.0-8.0) 01/21/21 13:24 Ur Specific [place] >= 1.030 (1.005-1.025) H 01/21/21 13:24 Urine Protein 2+ MG/DL (NEG-TRACE) H 01/21/21 13:24 Urine Glucose (UA) NEG MG/DL (NEG) 01/21/21 13:24 Urine Ketones 5 MG/DL (NEG) 01/21/21 13:24 Urine Blood NEG (NEG) 01/21/21 13:24 Urine Nitrite NEG (NEG) 01/21/21 13:24 Ur Leukocyte Esterase NEG (NEG) 01/21/21 13:24 Urine RBC 1-4 /HPF (0) 01/21/21 13:24 Urine WBC 1-4 /HPF (0-4) 01/21/21 13:24 Ur Squamous Epith Cells 4+ /LPF 01/21/21 13:24 Urine Bacteria 4+ /LPF 01/21/21 13:24 COVID-19 (ANAHI) Negative (Negative) 01/21/21 01:03 COVID-19 Clin Com See Note 01/21/21 01:03 Impressions Aorta w/Runoff CTA 01/20/21 16:50 IMPRESSION: 1. No demonstrated focal occlusion or proximal stenosis of the lower extremity arteries. Contrast opacification of the distal vessels is somewhat delayed although there is runoff to the ankles bilaterally on delayed imaging. 2. Moderate bilateral lower extremity edema, slightly worse on the left than the right. 3. Chronic subcapsular fluid collection posterior to the right kidney. 4. Diverticulosis without evidence of diverticulitis. Duplex Scan Lower Extremity Artery 01/20/21 16:55 IMPRESSION: 1. No focal stenosis or filling defects are seen in the left lower extremity runoff. In this patient, the vascular duplex ultrasound gives better evaluation of the lower extremity arteries. The poor opacification of the calf arteries on the CT scan is likely due to contrast bolus timing. Therefore, the duplex ultrasound is more specific and does not demonstrate any obstruction. Foot X-Ray 01/20/21 20:04 IMPRESSION: Talar beaking raising possibility of intertarsal coalition. This could be investigated with cross-sectional imaging CT scan or MRI. DJD first metatarsophalangeal joint. Venous Duplex 01/20/21 20:04 IMPRESSION: No DVT demonstrated in the left lower extremity. Ankle X-Ray 01/20/21 20:10 IMPRESSION: No fracture. There is posterior calcaneal spur. Mild degenerative changes of the intertarsal level. Discharge Plan Discharge Patient Disposition: Xfer Other Discharge Diagnosis: cellulitis, foot pain Referrals: Sushant Goldstein MD [Physician] - 1 Week Discharge Medications: New acetaminophen 325 mg Tablet 650 mg PO Q6H PRN (Reason: Pain, Mild (Pain Scale 1-3)) Qty: 60 RF: 0 doxycycline monohydrate 100 mg tablet 100 mg PO BID Qty: 14 RF: 0 Discharge Orders: Discharge Order (Routine); Ordered 01/22/21 Ordered By: Kim Baez Diet: diabetic diet and low salt diet Activity on Discharge: ice Stand Alone Forms: Patient Portal Discharge page Care Plan Goals: relief of left foot pain Health Concerns: acute left foot pain, suspected cellulitis Plan of Treatment: doxycycline 100 mg twice daily for 7 days acetaminophen as needed for pain ice and elevate L foot follow up with primary care doctor (Dr Camacho) in 1 week Assessment: see above
--- NOTE | 2021-01-22 12:49 | MHC.CM.PN ---
Addendum entered by Tayla Tomlin 01/22/21 13:25: Abril CALLE notified of DC and summary sent via [employer] Addendum entered by Tayla Tomlin 01/22/21 13:20: PRESCRIPTIONS FAXED TO [facility]. PT AWARE DC SET FOR 1500 BUT REQUESTS T/W TRY TO MAKE IT SOONER. Original Note: Pt will DC today back to assisted. Luis Antonio, assisted director, was notified via t/c ([phone]). Pts meds will need to be sent to [facility] on [facility] in [place] (P:[phone] F:[phone]) as pts meds must be bubble packed and delivered to assisted. Pt will require BLS transport. PCP: Sushant Goldstein in [place]
== END 2021-01-22 15:43 | disposition other institution (70) | DRG 383 ==
LOC: HO.ED 21:59 → HO.EDOVER 23:53 → HO.S3 01-21 02:00
PROVIDERS: Hospitalist; Admitting Provider Internal Medicine; Emergency Provider Emergency Medicine; PCP Family Medicine; Visit Provider Family Medicine
DX: L03.116 Cellulitis of left lower limb (principal); E11.9 Type 2 diabetes mellitus without complications; M79.672 Pain in left foot; I10 Essential (primary) hypertension; Z99.3 Dependence on wheelchair; Z20.822 Contact with and (suspected) exposure to COVID-19; I69.920 Aphasia following unspecified cerebrovascular disease; Z87.891 Personal history of nicotine dependence; Z79.899 Other long term (current) drug therapy
CPT/HCPCS: 36415; 73610; 73620; 75635; 80048; 80076; 81001; 82947; 85025; 85610; 85730; 87635; 93005; 93926; 93971; 96365; 96366; 96375; 99218; 99285; J1170; J1650; J1956; J2270; J2405; Q9967

== ENCOUNTER 2021-01-24 19:45 | Emergency (ER) | payer MEDICAID, SELFPAY ==
--- NOTE | 2021-01-24 19:49 | PC.NURSE ---
PRIOR TO PATIENT ARRIVAL,JEANNE (NURSING PROGRAM DIRECTOR) CALLS TO INFORM [facility] ED OF PATIENT'S IMPENDING ARRIVAL. LEAVES CALL BACK NUMBER:
[2021-01-24 20:01] VITALS: BP 155/73; BP 160/86; PULSE 75; PULSE 78; RESP 20; TEMP 36.2; O2SAT 100; O2SAT 97; BMI 75.3
--- NOTE | 2021-01-24 20:21 | PC.NURSE ---
PT C/O NAUSEA VOMITING ABD PAIN AND HEADACHE. PT REMAINS IN [facility]. CHARGE NURSE AWARE. NO STAFF PRESENT FROM [facility].
[2021-01-25 03:05] VITALS: BP 123/64; PULSE 66; RESP 16; O2SAT 99
--- NOTE | 2021-01-25 03:53 | ED.LOWEXIN ---
HPI - Extremity Injury (Lower) General Chief Complaint: Extremity Injury, Lower Stated Complaint: LT FOOT PAIN Time Seen by Provider: 01/25/21 03:47 Source: patient and EMS Mode of arrival: EMS Limitations: other (Unable to speak, chronic CVA) History of Present Illness HPI Narrative: Patient comes emergency room complaining of left foot pain. Patient states the whole foot hurts. Patient was admitted to the hospital from July 24 through the for the same etiology. Patient was diagnosed with cellulitis and doxycycline. I initially saw the patient when she came in on January 21, her foot looks much improved. Today her foot looks normal, as opposed to the last visit it looked purple. Patient is unable to give significant history due to her CVA. Related Data Previous Rx's Medication Instructions Recorded acetaminophen 650 mg PO Q6H PRN #60 tab 01/22/21 doxycycline monohydrate 100 mg PO BID #14 tab 01/22/21 Allergies Allergy/AdvReac Type Severity Reaction Status Date / Time cephalexin [CEPHALEXIN] Allergy Unknown UNKNOWN Unverified 01/24/21 20:08 Review of Systems Review of Systems: Yes Unobtainable due to mental condition [facility] Past Medical History Medical History CVA (cerebral vascular accident) Diabetes Hypertension Psychiatric diagnosis Social History Social History Housing: Assisted Living Facility Do you presently have visiting nurse or other home services: Yes Smoking Status: Former smoker Advance Directives: No Advance Directives Information Provided: No service: No Current occupational status: disabled Physical Exam Vital Signs: Vital Signs: Last Vital Signs Temp 97.1 F 01/24/21 20:01 Pulse 66 01/25/21 03:05 Resp 16 01/25/21 03:05 BP 123/64 01/25/21 03:05 Pulse Ox 99 01/25/21 03:05 Body Mass Index 75.3 Appearance: Alert. Oriented X3. No acute distress. Eyes: Pupils equal, round and reactive to light. ENT: Pharynx normal. Neck: Normal inspection. Neck supple. No lymph nodes noted. No crepitus CVS: Normal heart rate and rhythm. Pulses normal. Normal S1 and S2 Respiratory: No respiratory distress. Breath sounds normal. No Wheezing. No rales Abdomen: Soft and nontender. No rigidity. No distention. good BS x4 Skin: Skin warm and dry. Normal skin color. Normal skin turgor. Extremities: No lower extremity edema. Patient has bilateral pedal palpable pulses. Both feet are the same color, warm to touch. Neuro: patient has chronic extremity weakness on the left from CVA. Course Course Course Narrative: I discussed with the patient that per her discharge instructions, if the pain returned, she is to be seen by Orthopedics. During her admission she was evaluated by Orthopedics and recommended follow-up p.r.n. pain returning. Patient will be given IM morphine for pain, at this time, cellulitis is not suspected, the foot looks normal, good pulses. Patient already had a thorough workup including venous lower extremity ultrasound, arterial ultrasound, runoff, all negative. Discharge Plan Discharge Clinical Impression: Chronic pain in left foot Patient Disposition: Home, Self-Care Instructions: Arthralgia (ED) Additional Instructions: Continue taking your antibiotics as prescribed. Please call the orthopedics office to schedule a follow-up appointment. Please follow-up with your primary care physician tomorrow. If you have any worsening or new symptoms, please return to the emergency room or call 911 Prescriptions: No Action acetaminophen 325 mg Tablet 650 mg PO Q6H PRN (Reason: Pain, Mild (Pain Scale 1-3)) Qty: 60 RF: 0 doxycycline monohydrate 100 mg tablet 100 mg PO BID Qty: 14 RF: 0 Referrals: Akhil Smith MD [Physician] - 2 days
[2021-01-25] MEDS: Morphine Sulfate 2 MG/ML CARTRIDGE IM (04:12)
== END 2021-01-25 05:38 | disposition home or self-care (01) ==
PROVIDERS: Emergency Provider Emergency Medicine
DX: G89.29 Other chronic pain (principal); M79.672 Pain in left foot; E11.9 Type 2 diabetes mellitus without complications; I10 Essential (primary) hypertension; Z86.73 Personal history of transient ischemic attack (TIA), and cerebral infarction without residual deficits
CPT/HCPCS: 96372; 99284; J2270

== ENCOUNTER 2021-01-26 17:15 | Emergency (ER) | payer MEDICAID, SELFPAY ==
[2021-01-26 19:04] VITALS: BP 153/80; PULSE 70; RESP 16; TEMP 36.4; O2SAT 99; BMI 78.0
--- NOTE | 2021-01-26 20:07 | ED_ITS ---
HPI - Extremity Problem General Chief complaint: Extremity Problem <SUZETTE Krause - Last Filed: 01/26/21 21:12> Stated complaint: FOOT PAIN <SUZETTE Krause - Last Filed: 01/26/21 21:12> Time Seen by Provider: 01/26/21 20:05 <SUZETTE Krause - Last Filed: 01/26/21 21:12> Source: patient and EMS <SUZETTE Krause - Last Filed: 01/26/21 21:12> Mode of arrival: EMS <SUZETTE Krause - Last Filed: 01/26/21 21:12> Limitations: no limitations <SUZETTE Krause Last Filed: 01/26/21 21:12> History of Present Illness HPI Narrative: 65 y/o female presents back to the ER with persistent left foot pain. She was recently admitted here from 01/21 - 01/22 for left foot cellultiis. She had an extensive workup and was seen by Orthopedics. 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 LE U/S negative for DVT and CT with runoff showed no focal occlusion or stenosis of the arteries. Ortho thought it was more cellulitis so she was treated with doxycycline with improvement. She was seen here again last night for persistent left foot pain. <SUZETTE Krause - Last Filed: 01/26/21 21:12> MD Complaint: extremity pain <SUZETTE Krause - Last Filed: 01/26/21 21:12> Onset (ago): year(s) <SUZETTE Krause - Last Filed: 01/26/21 21:12> Pain Consistency: constant <SUZETTE Krause - Last Filed: 01/26/21 21:12> Location: left <SUZETTE Krause Last Filed: 01/26/21 21:12> Quality: aching <SUZETTE Krause Last Filed: 01/26/21 21:12> Radiation: proximal <SUZETTE Krause Last Filed: 01/26/21 21:12> Relieving factors: nothing <SUZETTE Krause Last Filed: 01/26/21 21:12> Exacerbating factors: nothing <SUZETTE Krause - Last Filed: 01/26/21 21:12> Associated symptoms: denies other symptoms <SUZETTE Krause - Last Filed: 01/26/21 21:12> Related Data Home medications: Previous Rx's Medication Instructions Recorded acetaminophen 650 mg PO Q6H PRN #60 tab 01/22/21 doxycycline monohydrate 100 mg PO BID #14 tab 01/22/21 ondansetron 4 mg PO Q8H PRN #10 tab 01/26/21 docusate sodium [Colace] 100 mg PO BID #30 cap 02/10/21 polyethylene glycol 3350 [Miralax] 17 g PO BID #238 g 02/10/21 <SUZETTE Krause - Last Filed: 01/26/21 21:12> Allergies/Adverse reactions: Allergies Allergy/AdvReac Type Severity Reaction Status Date / Time cephalexin [CEPHALEXIN] Allergy Unknown UNKNOWN Verified 02/03/21 19:46 <SUZETTE Krause - Last Filed: 01/26/21 21:12> Review of Systems Review of Systems: Constitutional: No Fever, No Chills Cardiovascular: No Chest Pain Gastrointestinal: + Nausea, + Vomiting, No Diarrhea, No abdominal Pain Musculoskeletal: + joint pain, + Myalgias Skin: No Skin Lesions, No rash Psych: + Anxiety/Panic, No Depression Heme/Lymph: No Bruising, No Lymphadenopathy <SUZETTE Krause Last Filed: 01/26/21 21:12> [facility] Past Medical History Attestation statement: The following information was validated with the patient. <SUZETTE Krause - Last Filed: 01/26/21 21:12> Medical History: Medical History CVA (cerebral vascular accident) Diabetes Hypertension Psychiatric diagnosis <SUZETTE Krause - Last Filed: 01/26/21 21:12> Social History Social History: Social History Housing: Assisted Living Facility Do you presently have visiting nurse or other home services: Yes Patient Tobacco Use Status: Former Tobacco user Advance Directives: No Advance Directives Information Provided: Yes service: No Current occupational status: disabled <SUZETTE Krause - Last Filed: 01/26/21 21:12> Physical Exam Vital Signs: Vital Signs: Last Vital Signs Temp 97.5 F 01/26/21 19:04 Pulse 70 01/26/21 19:04 Resp 16 01/26/21 19:04 BP 153/80 H 01/26/21 19:04 Pulse Ox 99 01/26/21 19:04 Body Mass Index 78.0 Appearance: Alert. Oriented X3. No acute distress. HEENT: normal inspection, dentition absent. CVS: Normal heart rate and rhythm. Pulses normal. Respiratory: No respiratory distress. Skin: Skin warm and dry. Normal skin color. Normal skin turgor. No rashes. Extremities: left foot with generalized erythema and mild tenderness, mild edema. 1+ DP pulses. cool to touch to mid-metzger. Neuro: aphasic, able to communicate with gestures and noises. alert. <SUZETTE Krause - Last Filed: 01/26/21 21:12> Vital Signs: Last Vital Signs Temp 97.5 F 01/26/21 19:04 Pulse 70 01/26/21 19:04 Resp 16 01/26/21 19:04 BP 153/80 H 01/26/21 19:04 Pulse Ox 99 01/26/21 19:04 Body Mass Index 78.0 <Dario Shaikh MD - Last Filed: 02/19/21 08:38> Course Course Course Narrative: 65 y/o female presenting with ongoing left foot pain. She is currently being treated for cellulitis. Her foot is cool but has adeuqate pulses. No new trauma. She had extensive workup recently and Ortho evaluation. No new changes. Will plan to medicate with SL Zofran for reports of nausea and IM Toradol for pain. Was plan to add keflex for additional cellulitis coverage, however she is allergic with unknown reaction. Foot is not hot, no concern for gas forming infection or osteo. Doxycycline is adequate coverage. Anticipate d/c home. <SUZETTE Krause - Last Filed: 01/26/21 21:12> I have reviewed the chart <Dario Shaikh MD - Last Filed: 02/19/21 08:38> Discharge Plan Discharge Clinical Impression: Acute pain of left foot Cellulitis Qualifiers: Site of cellulitis: extremity Site of cellulitis of extremity: lower extremity Laterality: left Qualified Code(s): L03.116 - Cellulitis of left lower limb <SUZETTE Krause - Last Filed: 01/26/21 21:12> Patient Disposition: Home, Self-Care <SUZETTE Krause - Last Filed: 01/26/21 21:12> Instructions: Cellulitis (ED), Arthralgia (ED) <SUZETTE Krause - Last Filed: 01/26/21 21:12> Additional Instructions: Keep your foot warm with blankets to help increase circulation. Take the prescribed medication as needed for nausea and vomiting. Continue taking the doxycycline as prescribed. Take Motrin and/or Tylenol as needed for pain. Follow up with your doctor on Friday. Follow up with the social security specialist. <SUZETTE Krause - Last Filed: 01/26/21 21:12> Prescriptions: New ondansetron 4 mg tablet,disintegrating 4 mg PO Q8H PRN (Reason: nausea and vomiting) Qty: 10 RF: 0 No Action acetaminophen 325 mg Tablet 650 mg PO Q6H PRN (Reason: Pain, Mild (Pain Scale 1-3)) Qty: 60 RF: 0 doxycycline monohydrate 100 mg tablet 100 mg PO BID Qty: 14 RF: 0 polyethylene glycol 3350 [Miralax] 17 gram/dose powder 17 g PO BID Qty: 238 RF: 0 docusate sodium [Colace] 100 mg capsule 100 mg PO BID Qty: 30 RF: 0 <SUZETTE Krause - Last Filed: 01/26/21 21:12> Referrals: Akhil Smith MD [Physician] - 2 days (foot pain) <SUZETTE Krause - Last Filed: 01/26/21 21:12> Interventions: ED Discharge Assessment Last Done: 01/26/21 21:55 <SUZETTE Krause - Last Filed: 01/26/21 21:12> Discharge Date/Time: 01/26/21 21:36 <SUZETTE Krause Last Filed: 01/26/21 21:12>
[2021-01-26] MEDS: Ketorolac Tromethamine 30 MG/ML VIAL IM (20:49)
--- NOTE | 2021-01-26 21:54 | PC.NURSE ---
PT EATING AND DRINKING WITHOUT ISSUE ATE HAM SANDWICH AND DRANK MILK. PT CLEARED TO GO HOME BY EMT.
== END 2021-01-26 21:36 | disposition home or self-care (01) ==
PROVIDERS: Emergency Provider Emergency Medicine
DX: L03.116 Cellulitis of left lower limb (principal); M79.672 Pain in left foot; Z79.899 Other long term (current) drug therapy; Z87.891 Personal history of nicotine dependence
CPT/HCPCS: 96372; 99284; J1885

== ENCOUNTER 2021-02-01 00:42 | Emergency (ER) | payer MEDICAID, SELFPAY ==
--- NOTE | ~2021-02-01 | CT_ITS ---
EXAMINATION: CT ABDOMEN AND PELVIS WITHOUT CONTRAST CLINICAL INFORMATION: Possible diffuse abdominal pain COMPARISON: 01/20/2021 TECHNIQUE: Multidetector volumetric imaging was performed from the superior aspect of the liver through the pubic symphysis. Sagittal and coronal reformatted images were obtained on the technologist's workstation. This CT examination was performed using dose optimization techniques as appropriate, variously including the following: *Automated exposure control *Adjustment of mA and/or kV according to patient size (this includes techniques or standardized protocols for targeted exams where dose is matched to indication/reason for exam; i.e. extremities or head) *Use of iterative reconstruction technique DLP: 1045 mGy-cm FINDINGS: LUNG BASES: The visualized lung bases are unremarkable. Coronary artery calcifications are present. LIVER, GALLBLADDER, AND BILIARY TREE: The liver is normal in size, shape, and attenuation. No focal hepatic lesion or biliary ductal dilatation is identified. Status post cholecystectomy. PANCREAS: There is partial fatty atrophy of the pancreas. SPLEEN: Unremarkable. ADRENAL GLANDS: Unremarkable. KIDNEYS AND URETERS: No hydronephrosis or obstructing calculus bilaterally. Small right lower pole renal calculi noted measuring up to 0.3 cm. Redemonstrated subcapsular fluid collection posterior to the lower right kidney measuring approximately 3.1 cm in diameter with some peripheral calcification, unchanged from prior. BLADDER: Unremarkable. GASTROINTESTINAL TRACT: There is mild colonic diverticulosis. The small and large bowel are otherwise unremarkable without evidence of obstruction or pericolonic inflammatory change. No free fluid or free air is seen. ABDOMINAL WALL: No significant hernia is appreciated. Status post right-sided abdominal wall hernia repair. LYMPH NODES: Normal. VASCULAR: Unremarkable. PELVIC VISCERA: Unremarkable. OSSEOUS STRUCTURES: Degenerative changes are noted in the spine. CT/CT abdomen pelvis wo con IMPRESSION: No acute findings identified in the abdomen/pelvis. Chronic changes as noted above.
[2021-02-01 00:53] VITALS: BP 132/49; PULSE 88; PULSE 89; RESP 18; TEMP 36.4; O2SAT 97; BMI 47.2
--- NOTE | 2021-02-01 02:22 | ED_ITS ---
HPI - Nausea/Vomiting/Diarrhea General Chief complaint: Nausea/Vomiting/Diarrhea Stated complaint: N/V/D X'S 2DAYS,NO FEVER,NO CONCERN FOR COVID Time Seen by Provider: 02/01/21 02:15 Source: EMS Mode of arrival: EMS Limitations: other (Nonverbal due to chronic CVA) History of Present Illness HPI Narrative: Patient is brought to emergency room by EMS from a group home. Per caretakers, the patient has been complaining vomiting and diarrhea. Patient is unable to speak due to a previous CVA, however she gestures that she has been vomiting, having diarrhea and seems to be having abdominal discomfort. When asked, patient denies fever Related Data Previous Rx's Medication Instructions Recorded acetaminophen 650 mg PO Q6H PRN #60 tab 01/22/21 doxycycline monohydrate 100 mg PO BID #14 tab 01/22/21 ondansetron 4 mg PO Q8H PRN #10 tab 01/26/21 Allergies Allergy/AdvReac Type Severity Reaction Status Date / Time cephalexin [CEPHALEXIN] Allergy Unknown UNKNOWN Verified 01/26/21 19:04 Review of Systems Review of Systems: Constitutional : Denies fever earing loss, No Ear Pain, No Nasal Congestion, No Sinus Pain, No Hoarseness, denies sore throat Eyes: Denies eye pain Cardiovascular : Denies chest pain or shortness of breath Respiratory : Denies cough Gastrointestinal : Complaining of vomiting and diarrhea, abdominal pain Genitourinary : Denies dysuria Musculoskeletal : Complaining of chronic left foot pain Skin : Denies rash Neuro : Chronic weakness from previous CVA Psych : Denies SI or HI Heme/Lymph: Denies easy bruising Endocrine : Denies polyuria or polydipsia PMFSH Past Medical History Medical History CVA (cerebral vascular accident) Diabetes Hypertension Psychiatric diagnosis Social History Social History Housing: Assisted Living Facility Do you presently have visiting nurse or other home services: Yes Smoking Status: Former smoker Advance Directives: No Advance Directives Information Provided: No Patient : No service: No Current occupational status: disabled Physical Exam Vital Signs: Vital Signs: Last Vital Signs Temp 97.6 F 02/01/21 00:53 Pulse 88 02/01/21 00:53 Resp 18 02/01/21 00:53 BP 132/49 L 02/01/21 00:53 Pulse Ox 97 02/01/21 00:53 Body Mass Index 47.2 Appearance: Alert. No acute distress. Eyes: Pupils equal, round and reactive to light. ENT: Pharynx normal. Neck: Normal inspection. Neck supple. No lymph nodes noted. No crepitus CVS: Normal heart rate and rhythm. Pulses normal. Normal S1 and S2 Respiratory: No respiratory distress. Breath sounds normal. No Wheezing. No rales Abdomen: Soft and nontender. Abdomen seems diffusely distended Skin: Skin warm and dry. Normal skin color. Normal skin turgor. Lower extremities: Lower extremities have good pedal pulses, normal temperature Neuro: Chronic neurological deficits due to CVA, Course Course Course Narrative: Labs are pending and CT scan is pending as well. Has received 1 L of normal saline, Zofran. Sign-out given to Dr. Gonzales Discharge Plan Discharge Prescriptions: No Action acetaminophen 325 mg Tablet 650 mg PO Q6H PRN (Reason: Pain, Mild (Pain Scale 1-3)) Qty: 60 RF: 0 doxycycline monohydrate 100 mg tablet 100 mg PO BID Qty: 14 RF: 0 ondansetron 4 mg tablet,disintegrating 4 mg PO Q8H PRN (Reason: nausea and vomiting) Qty: 10 RF: 0
[2021-02-01] MEDS: 0.9 % Sodium Chloride 1,000 ML 999 ML IVCONT (03:19)
[2021-02-01] MEDS: ondansetron HCL 4 MG/2 ML VIAL IVPUSH (03:27)
[2021-02-01 03:32] LABS: MANUAL DIFF FLAG NO
[2021-02-01 03:33] LABS: Basophils Absolute Auto 0.1 X10*3/uL (0.0-0.2); Basophils Percent Auto 0.4 % (0-2); Eosinophils Absolute Auto 0.3 X10*3/uL (0.0-0.4); Eosinophils Percent Auto 2.6 % (0-4); Hematocrit 37.7 % (37-47); Imm Gran Abs Auto 0.03 X10*3/uL (0.00-0.03); Imm Gran Pct Auto 0.2 % (0.0-0.4); Lymphocytes Absolute Auto 3.6 X10*3/uL (1.2-4.9); Lymphocytes Percent Auto 29.4 % (20-40); Mean Corpuscular HGB Conc 31.8 g/dl (31.0-35.0); Mean Corpuscular Hemoglobin 26.7 pg (27.0-33.0); Mean Corpuscular Volume 83.8 fL (80-98); Mean Platelet Volume 10.8 fL (9.4-12.3); Monocytes Absolute Auto 0.7 X10*3/uL (0.1-1.2); Monocytes Percent Auto 5.8 % (2-11); Neutrophils Absolute Auto 7.5 X10*3/uL (2.0-8.3); Neutrophils Percent Auto 61.6 % (45-73); Platelet Count 306 X10*3/uL (160-400); Red Cell Distribution Width 12.8 % (11.0-16.0); White Blood Count 12.2 X10*3/uL (4.8-10.8)
[2021-02-01 03:53] LABS: Lipase 44 U/L (8-78)
[2021-02-01 03:57] LABS: Alanine Aminotransferase 14 U/L (0-31); Albumin Level 3.9 g/dL (3.5-5.0); Alkaline Phosphatase 92 U/L (39-117); Anion Gap 13 (12-20); Aspartate Amino Transferase 13 U/L (5-31); Bilirubin Direct < 0.2 mg/dL (0.0-0.5); Bilirubin Total 0.2 mg/dL (0.0-1.0); Blood Urea Nitrogen 22 mg/dL (9-16); Calcium 9.4 mg/dL (8.4-10.2); Carbon Dioxide 28 mmol/L (22-29); Chloride 106 mmol/L (96-108); Creatinine Clr Calc Pharmacy 97.5; Estimated Glomerular Filt Rate > 60; Glucose Random 136 mg/dL (60-115); Potassium 4.5 mmol/L (3.3-5.1); Sodium 142 mmol/L (135-145); Total Protein 6.8 g/dL (6.5-8.0)
[2021-02-01 05:01] VITALS: BP 131/66; PULSE 72; RESP 18; O2SAT 97
[2021-02-01 05:09] LABS: Glucose Urine UA NEG (NEG); Leukocyte Esterase Urine NEG (NEG); Nitrite Urine NEG (NEG); PH 5.5 (5.0-8.0); Specific Gravity - Urine >= 1.030 (1.005-1.025); Urine Blood NEG (NEG); Urine Ketones NEG (NEG); Urine Protein NEG (NEG-TRACE)
[2021-02-01 05:11] LABS: Appearance Urine CLEAR; Color Urine YELLOW
--- NOTE | 2021-02-01 05:21 | PC.NURSE ---
MD AT BEDSIDE FOR REEVAL. PLAN TO DC HOME.
[2021-02-01 05:56] VITALS: BP 132/70; PULSE 85; RESP 20; O2SAT 97
== END 2021-02-01 06:52 | disposition skilled nursing facility (03) ==
PROVIDERS: Emergency Provider Emergency Medicine
DX: R10.9 Unspecified abdominal pain (principal); R11.2 Nausea with vomiting, unspecified; R19.7 Diarrhea, unspecified; E11.9 Type 2 diabetes mellitus without complications; I10 Essential (primary) hypertension; Z86.73 Personal history of transient ischemic attack (TIA), and cerebral infarction without residual deficits
CPT/HCPCS: 36415; 51701; 74176; 80048; 80076; 81003; 83690; 85025; 96361; 96374; 99283; 99284; J2405

== ENCOUNTER 2021-02-03 19:13 | Emergency (ER) | payer MEDICAID, SELFPAY ==
--- NOTE | ~2021-02-03 | XR_ITS ---
EXAMINATION: CR FOOT, LEFT CLINICAL INFORMATION: Pain. Injury. COMPARISON: Left foot films dated 01/20/2021. TECHNIQUE: 4 views of the left foot. FINDINGS: Diffuse osteopenia. No acute fracture or dislocation. Prominent dorsal soft tissue swelling. Moderate degenerative change at the first MTP joint. Exaggeration of the plantar arch. Talar beaking again seen. Prominent ossification along the Achilles tendon insertion site upon the calcaneus. Linear calcifications seen within the distal Achilles tendon with thickening of the Achilles tendon shadow, consistent with tendinopathy. XR/XR foot LT min 3V IMPRESSION: Dorsal soft tissue swelling over the midfoot. No definite underlying acute fracture appreciated.
[2021-02-03 19:37] VITALS: BP 146/75; BP 164/86; PULSE 78; PULSE 92; RESP 20; TEMP 36.6; O2SAT 97; O2SAT 98; BMI 25.7
--- NOTE | 2021-02-03 21:13 | ED.LOWEXIN ---
HPI - Extremity Injury (Lower) General Chief Complaint: Extremity Injury, Lower Stated Complaint: LT FOOT PAIN Time Seen by Provider: 02/03/21 21:13 Source: patient and EMS Mode of arrival: EMS Limitations: no limitations History of Present Illness HPI Narrative: chronic L foot pain prior surgeries states she fell last night and hurt her foot, NV intact, no other injuries MD complaint: foot injury Onset (ago): day(s) (last night) Injury: Left: foot Type of Injury: blunt Place: home Severity: moderate Relieving factors: nothing Exacerbating factors: weight bearing Context: fall Associated symptoms: swelling Other symptoms: none Related Data Previous Rx's Medication Instructions Recorded acetaminophen 650 mg PO Q6H PRN #60 tab 01/22/21 doxycycline monohydrate 100 mg PO BID #14 tab 01/22/21 ondansetron 4 mg PO Q8H PRN #10 tab 01/26/21 Allergies Allergy/AdvReac Type Severity Reaction Status Date / Time cephalexin [CEPHALEXIN] Allergy Unknown UNKNOWN Verified 02/03/21 19:46 Review of Systems Review of Systems: Constitutional : No Fever, No Chills ENT/Mouth : No Ear Pain, No Hoarseness, No sore throat Eyes: No Eye Pain, No Swelling, No Redness, No Foreign Body Cardiovascular : No Chest Pain, No SOB Respiratory : No Cough, No Dyspnea Gastrointestinal : No Nausea, No Vomiting, No Diarrhea, No abdominal Pain Genitourinary : No Dysuria, No Hematuria Musculoskeletal : positive joint pain, No Myalgias, No Joint Swelling Skin : No Skin lacerations, No rash Neuro : No Weakness, No Numbness, No Loss of Consciousness, No Dizziness, No Headache Psych : No Anxiety/Panic, No Depression All other systems reviewed and are negative [facility] Past Medical History Attestation statement: The following information was validated with the patient. Medical History CVA (cerebral vascular accident) Diabetes Hypertension Psychiatric diagnosis Social History Social History Housing: Assisted Living Facility Do you presently have visiting nurse or other home services: Yes Smoking Status: Former smoker Advance Directives: No Advance Directives Information Provided: No Patient : No service: No Current occupational status: disabled Physical Exam Vital Signs: Vital Signs: Last Vital Signs Temp 97.9 F 02/03/21 19:37 Pulse 78 02/03/21 19:37 Resp 20 02/03/21 19:37 BP 146/75 H 02/03/21 19:37 Pulse Ox 98 02/03/21 19:37 Body Mass Index 25.7 Appearance: Alert. Oriented X3. No acute distress. Eyes: Pupils equal, round and reactive to light. ENT: Pharynx normal. Neck: Normal inspection. Neck supple. CVS: Normal heart rate and rhythm. Pulses normal. Respiratory: No respiratory distress. Breath sounds normal. Abdomen: Soft and nontender. Skin: Skin warm and dry. Normal skin color. Normal skin turgor. Extremities: No lower extremity edema. No calf ttp L foot mild erythema NV intact, ttp along dorsum of foot, no warmth, no signs of ifnection Neuro: Oriented X 3. prior CVA, diff speaking MDM - Extremity Injury (Lower) MDM Narrative Medical decision making narrative: 65 yo female hx of DVA< chronic pain issues repeat visits for foot pain - states she fell and hurt her foot last night, NV intact, will give tylenol, xrays ordered and are negative, stable for DC Discharge Plan Discharge Clinical Impression: Acute pain of left foot, Foot sprain Patient Disposition: Home, Self-Care Instructions: Foot Sprain (ED) Additional Instructions: return to ED for any worsening symptoms or concerns Prescriptions: No Action acetaminophen 325 mg Tablet 650 mg PO Q6H PRN (Reason: Pain, Mild (Pain Scale 1-3)) Qty: 60 RF: 0 doxycycline monohydrate 100 mg tablet 100 mg PO BID Qty: 14 RF: 0 ondansetron 4 mg tablet,disintegrating 4 mg PO Q8H PRN (Reason: nausea and vomiting) Qty: 10 RF: 0 Referrals: Physician,Unknown [Primary Care Provider] - 2 days (if not better)
--- NOTE | 2021-02-03 22:09 | PC.NURSE ---
PT WILL BE HOMING BY EMS CALL THEY SHOULD BE HERE IN 1 HOUR.
--- NOTE | 2021-02-03 22:54 | PC.NURSE ---
PT REFUSED TYLENOL TOOK ZOFRAN FOR CRONIC NAUSEA TOLERATED JUICE AFTER ZOFRAN MD AREA. PT REFUSED WALKING BOOT SAID IT WAS TOO HEAVY PT WILL BE GOING HOME BY EMS FOR CRONIC FOOT PAIN.
== END 2021-02-03 23:01 | disposition home or self-care (01) ==
PROVIDERS: Emergency Provider Emergency Medicine
DX: S93.602A Unspecified sprain of left foot, initial encounter (principal); W22.09XA Striking against other stationary object, initial encounter; M79.672 Pain in left foot; E11.9 Type 2 diabetes mellitus without complications; I10 Essential (primary) hypertension; Y93.E1 Activity, personal bathing and showering; Y92.012 Bathroom of single-family (private) house as the place of occurrence of the external cause; Y99.9 Unspecified external cause status
CPT/HCPCS: 73630; 99283; 99284; 99285

== ENCOUNTER 2021-02-08 18:55 | Emergency (ER) | payer MEDICAID, SELFPAY ==
[2021-02-08 19:02] VITALS: BP 142/66; PULSE 84; RESP 18; TEMP 36.8; O2SAT 97; BMI 44.9
--- NOTE | 2021-02-08 19:35 | PC.NURSE ---
pt reports anxiety and nausea. pt denies sob/chest pain/diff breathing or sob.
--- NOTE | 2021-02-08 19:44 | ED.GENADULT ---
HPI - General Adult General Chief complaint: Anxiety Stated complaint: ANXIETY Time Seen by Provider: 02/08/21 19:15 History of Present Illness HPI narrative: Patient has a history of anxiety. Patient also had a history of CVA in the past. History of leg pain in the past. Patient has left-sided weakness secondary to the CVA. Denies any suicidal homicidal ideation. Patient from home. Related Data Previous Rx's Medication Instructions Recorded acetaminophen 650 mg PO Q6H PRN #60 tab 01/22/21 doxycycline monohydrate 100 mg PO BID #14 tab 01/22/21 ondansetron 4 mg PO Q8H PRN #10 tab 01/26/21 Allergies Allergy/AdvReac Type Severity Reaction Status Date / Time cephalexin [CEPHALEXIN] Allergy Unknown UNKNOWN Verified 02/03/21 19:46 Review of Systems Review of Systems: Constitutional: No Weight loss, No Fever, No Chills, No Night Sweats, No Fatigue, No Malaise ENT/Mouth: No Hearing loss, No Ear Pain, No Nasal Congestion, No Sinus Pain, No Hoarseness, No sore throat, No Rhinorrhea, No Swallowing Difficulty Eyes: No Eye Pain, No Swelling, No Redness, No Foreign Body, No Discharge, No Vision Changes Cardiovascular: No Chest Pain, No SOB, No Dyspnea on Exertion, No Orthopnea, No Edema, No Palpitations Respiratory: No Cough, No Sputum, No Wheezing, No Smoke Exposure, No Dyspnea Gastrointestinal: No Nausea, No Vomiting, No Diarrhea, No Constipation, No abdominal Pain, No Hematochezia, No Melena Genitourinary: no irregular bleeding, No Dysuria, No Urinary Frequency, No Hematuria, No Urinary Incontinence, No Urgency, No Flank Pain, No Urinary Flow Changes, No Hesitancy Musculoskeletal: No joint pain, No Myalgias, No Joint Swelling Skin: No Skin Lesions, No rash Neuro: No Weakness, No Numbness, No Paresthesias, No Loss of Consciousness, No Dizziness, No Headache Psych: No Anxiety/Panic, No Depression, No SI/HI/AH/VH, No Social Issues, Heme/Lymph: No Bruising, No Bleeding,No Lymphadenopathy Endocrine: No Polyuria, No Polydipsia, No Temperature Intolerance PMFSH Past Medical History Medical History CVA (cerebral vascular accident) Diabetes Hypertension Psychiatric diagnosis Social History Social History Housing: Assisted Living Facility Do you presently have visiting nurse or other home services: Yes Patient Tobacco Use Status: Former Tobacco user Smoked in Last 30 Days: No Use of substances other than those prescribed or required for medical reasons: No Patient : No service: No Current occupational status: disabled Physical Exam Vital Signs: Vital Signs: Last Vital Signs Temp 98.2 F 02/08/21 19:02 Pulse 84 02/08/21 19:02 Resp 18 02/08/21 19:02 BP 142/66 H 02/08/21 19:02 Pulse Ox 97 02/08/21 19:02 Body Mass Index 44.9 Appearance: Alert. Oriented X3. No acute distress. Eyes: Pupils equal, round and reactive to light. ENT: Pharynx normal. Neck: Normal inspection. Neck supple. No lymph nodes noted. No crepitus CVS: Normal heart rate and rhythm. Pulses normal. Normal S1 and S2 Respiratory: No respiratory distress. Breath sounds normal. No Wheezing. No rales Abdomen: Soft and nontender. No rigidity. No distention. good BS x4 Skin: Skin warm and dry. Normal skin color. Normal skin turgor. Extremities: No lower extremity edema. Neurovascular intact to all extremities. No Lacerations. No Rash Neuro: Oriented X 3. No motor deficit. No sensory deficit. Positive weakness in left upper and lower extremity. Positive slurred speech. Medical Decision Making MDM Narrative Medical decision making narrative: Patient fair peering no acute distress. Positive history of anxiety. Symptom improved on arrival. Will discharge patient back home. Currently in stable condition. Lab Data Labs: Lab Results 02/08/21 Range/Units 19:55 POC Glucose 235 H (60-115) mg/dL Discharge Plan Discharge Clinical Impression: Acute anxiety Patient Disposition: Home, Self-Care Instructions: Anxiety (ED) Prescriptions: No Action acetaminophen 325 mg Tablet 650 mg PO Q6H PRN (Reason: Pain, Mild (Pain Scale 1-3)) Qty: 60 RF: 0 doxycycline monohydrate 100 mg tablet 100 mg PO BID Qty: 14 RF: 0 ondansetron 4 mg tablet,disintegrating 4 mg PO Q8H PRN (Reason: nausea and vomiting) Qty: 10 RF: 0 Referrals: Physician,Unknown [Primary Care Provider] - 2 days Interventions: ED Discharge Assessment Last Done: 02/08/21 20:42 Discharge Date/Time: 02/08/21 20:43
[2021-02-08 19:59] LABS: Glucose, Whole Blood 235 mg/dL (60-115)
--- NOTE | 2021-02-08 20:14 | PC.NURSE ---
pt reports wanting to leave. plan to book ambulance back home.
--- NOTE | 2021-02-08 20:17 | PC.NURSE ---
per doug at action 30min eta
== END 2021-02-08 20:43 | disposition home or self-care (01) ==
PROVIDERS: Emergency Provider Emergency Medicine Emergency Medical Services
DX: F41.1 Generalized anxiety disorder (principal); F43.0 Acute stress reaction; E11.9 Type 2 diabetes mellitus without complications; I10 Essential (primary) hypertension; Z86.73 Personal history of transient ischemic attack (TIA), and cerebral infarction without residual deficits; Z79.899 Other long term (current) drug therapy
CPT/HCPCS: 82947; 99284

== ENCOUNTER 2021-02-10 11:38 | Emergency (ER) | payer MEDICAID, SELFPAY ==
--- NOTE | ~2021-02-10 | XR_ITS ---
EXAMINATION: XR ABDOMEN KUB CLINICAL INDICATION: Evaluate for stool burden COMPARISON: CT of the abdomen and pelvis 02/01/2021 TECHNIQUE: AP view of the abdomen. FINDINGS: There is surgical mesh in the right upper quadrant. There is a surgical clip in the pelvis. Nonobstructive bowel gas pattern. There is a moderate to large stool burden. No acute osseous abnormality. XR/XR KUB IMPRESSION: Nonobstructive bowel gas pattern. Large stool burden.
[2021-02-10 11:45] VITALS: BP 148/64; BP 170/82; PULSE 81; PULSE 88; RESP 20; TEMP 36.8; O2SAT 96; O2SAT 98; BMI 42.2
--- NOTE | 2021-02-10 12:22 | ECG_ITS ---
Test Reason : ANXIETY Blood Pressure : / mmHG Vent. Rate : 068 BPM Atrial Rate : 068 BPM P-R Int : 134 ms QRS Dur : 100 ms QT Int : 390 ms P-R-T Axes : 052 -15 033 degrees QTc Int : 414 ms Normal sinus rhythm Incomplete right bundle branch block Minimal voltage criteria for LVH, may be normal variant Borderline ECG When compared with ECG of 20-JAN-2021 18:49, Incomplete right bundle branch block is now Present Referred By: Pamela Miller Electronically Signed By:PURNIMA NGUYEN
--- NOTE | 2021-02-10 12:25 | ED_ITS ---
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 Patient comes from a long term where she resides. She is her own guardian. I called and spoke to the long term director who tells me the patient ran out of money today and ran out of minutes on her cellphone. She does say she has a pattern of calling the ambulance when this happens and has been seen in the ER here at [facility] and were seen many times for complaints of abdominal pain seeking morphine. She tells me the patient has been complaining of anxiety for quite some time as well as depression. She tells me that unfortunately the patient has declined all mental health care and as she is her own guardian and they cannot force it on her. The patient does not take any medications for her mental health. Patient does report anxiety but denies depression. Denies suicidal thoughts. She is complaining of some upper abdominal pain with some nausea but no vomiting. Per long term staff she has been eating normally. Last BM this morning. No diarrhea, constipation, fevers, chills, urinary symptoms Related Data Previous Rx's Medication Instructions Recorded acetaminophen 650 mg PO Q6H PRN #60 tab 01/22/21 doxycycline monohydrate 100 mg PO BID #14 tab 01/22/21 ondansetron 4 mg PO Q8H PRN #10 tab 01/26/21 docusate sodium [Colace] 100 mg PO BID #30 cap 02/10/21 polyethylene glycol 3350 [Miralax] 17 g PO BID #238 g 02/10/21 Allergies Allergy/AdvReac Type Severity Reaction Status Date / Time cephalexin [CEPHALEXIN] Allergy Unknown UNKNOWN Verified 02/03/21 19:46 Review of Systems Review of Systems: Yes all other systems are reviewed and are negative Constitutional: Constitutional: Reports no additional constitutional complaints, Denies body ache(s), Denies chills, Denies fever(s), Denies headache(s) and Denies weakness Eyes: Eyes: Reports no additional eye complaints and Denies change in vision ENT: Reports system reviewed and no additional complaints, except as documented, Denies dizziness, Denies headache(s), Denies nasal congestion, Denies nasal discharge and Denies neck pain Cardiovascular: Cardiovascular: Reports no additional cardiovascular complaints, Denies chest pain, Denies leg edema and Denies dyspnea Respiratory: Respiratory: Reports no additional respiratory complaints, Denies cough and Denies dyspnea Gastrointestinal: Gastrointestinal: Reports no additional gastrointestinal complaints, Reports abdominal pain, Denies diarrhea, Reports nausea and Denies vomiting Genitourinary: Genitourinary: Reports no additional female genitourinary complaints and Denies urinary incontinence Musculoskeletal: Musculoskeletal: Reports no additional musculoskeletal complaints, Denies back pain, Denies arthralgias, Denies joint swelling, Denies neck pain, Denies numbness and Denies tingling Integumentary/Breasts: Skin/Breast: Reports system reviewed and no additional complaints, except as docu and Denies rash Neurologic: Reports system reviewed and no additional complaints, except as documented, Denies Abnormal speech present, Denies dizziness, Denies headache(s), Denies numbness, Denies tingling and Denies weakness Psychiatric: Psychiatric: Reports anxiety, Denies depression, Denies homicidal ideation and Denies suicidal ideation [facility] Past Medical History Attestation statement: The following information was validated with the patient. Source: old records reviewed and nursing notes reviewed Medical History CVA (cerebral vascular accident) Diabetes Hypertension Psychiatric diagnosis Social History Social History Housing: Assisted Living Facility Do you presently have visiting nurse or other home services: Yes Patient Tobacco Use Status: Former Tobacco user Advance Directives: No Advance Directives Information Provided: Yes service: No Current occupational status: disabled Physical Exam Vital Signs: Vital Signs: Last Vital Signs Temp 98.2 F 02/10/21 11:45 Pulse 81 02/10/21 11:45 Resp 20 02/10/21 11:45 BP 170/82 H 02/10/21 11:45 Pulse Ox 98 02/10/21 11:45 Body Mass Index 42.2 Const: General: cooperative, healthy appearing, comfortable and no acute distress Orientation/consciousness: patient oriented x3 Limitations: no limitations HENMT: Head: Yes normal to inspection Ears: hearing grossly normal bilaterally General nose exam: Normal external nose present Face and sinu s: Yes normal facial exam Mouth: Normal oral and palatal mucosa present Throat: Yes posterior oropharynx normal Eyes: General: appearance normal, both eyes and all related structures Pupils: Equal, round and reactive pupils present Neck: Neck: Yes normal visual inspection Chest: Chest palpation & inspection: normal inspection of the chest Resp: Effort & Inspection: normal respiratory effort Auscultation: clear to auscultation bilaterally Cardio: Rate: regular rate Rhythm: regular rhythm Peripheral pulses: Peripheral pulses 2+ throughout GI: Inspection: Yes normal to inspection Palpation (GI): Soft to palpation and Tenderness to palpation present (GI) (Mild epigastric. No rebound or guarding) Auscultation: normal bowel sounds Back/Spine/Pelvis: Thoracic/Lumbar Spine: thoracic and lumbar spine normal to inspection Skin: General skin exam: no rashes or lesions noted Neuro: Other: Left-sided weakness at baseline. Aphasia at baseline General: patient oriented x3 Cranial nerves: Yes Equal, round and reactive pupils present Cognition (Neuro): normal cognition Speech: No Abnormal speech present Extrem: General: Yes normal to inspection, Yes no pedal edema and Yes no calf tenderness Psych: Other: ++++anxious Course Course Course Narrative: 65-year-old female here with past medical history of CVA with left-sided deficits, anxiety, depression and bipolar disease not currently taking any medications for her psychiatric diagnosis is here with complaints of anxiety, upper abdominal pain and nausea for the last several days. ON exam very anxious. Has some mild epigastric tenderess with no rebound or guarding. Denies SI. Spoke to long term staff and director who tell me this is a pattern for the patient in which she seeks care in the ER frequently requesting narcotics when she runs out of her monthly money and minutes on her phone. Also tell me patient is her own guardian and refuses all psychiatric care. Will check labs, EKG, UA, KUB 1330-Refusing all medications offered. Refusing all care offered by social work. Labs are pending. 1415-patient tells me she is nauseas and can't tolerate anything by mouth although long term staff tells me she is tolerating all PO at home. Will give dose of SL zofran. Seen by care team and no concerns for safety after discussion with patient and long term. Patient is refusing all outpatient resources. 1500-labs and urine are all unremarkable. The EKG shows no ischemic changes. KUB shows moderate to large amounts of constipation with no obstruction. I discussed these findings with the patient but she tells me that she does not have constipation and will not take medication for it. Lengthy discussion with patient about her opposition to all medical care although she called the ambulance to come here for her complaints and tells me she is seeking help. Discussed patient with long term staff and long term director who or where she will be returning via ambulance. MDM - Anxiety Medical Records Attestation: I reviewed the patient's medical records. Lab Data Attestation: I reviewed the patient's lab results. Result diagrams: 02/10/21 13:40 02/10/21 13:40 Labs: Lab Results 02/10/21 02/10/21 02/10/21 Range/Units 13:40 13:40 13:40 WBC 9.4 (4.8-10.8) X10*3/uL RBC 4.59 (4.20-5.50) X10*6/uL Hgb 12.3 (12.0-16.0) g/dl Hct 38.3 (37-47) % MCV 83.4 (80-98) fL MCH 26.8 L (27.0-33.0) pg MCHC 32.1 (31.0-35.0) g/dl RDW 12.6 (11.0-16.0) % Plt Count 299 (160-400) X10*3/uL MPV 10.4 (9.4-12.3) fL Immature Gran % (Auto) 0.3 (0.0-0.4) % Neut % (Auto) 66.1 (45-73) % Lymph % (Auto) 24.9 (20-40) % [place] % (Auto) 5.3 (2-11) % Eos % (Auto) 2.8 (0-4) % Baso % (Auto) 0.6 (0-2) % Lymph # (Auto) 2.3 (1.2-4.9) X10*3/uL [place] # (Auto) 0.5 (0.1-1.2) X10*3/uL Eos # (Auto) 0.3 (0.0-0.4) X10*3/uL Baso # (Auto) 0.1 (0.0-0.2) X10*3/uL Abs Immat Gran (auto) 0.03 (0.00-0.03) X10*3/uL Absolute Neuts (auto) 6.2 (2.0-8.3) X10*3/uL Absolute Nucleated RBC 0.000 (0.0-0.012) X10*3/uL Nucleated RBC % (auto) 0.0 (0.0-0.2) /100WBC Sodium 142 (135-145) mmol/L Potassium 4.0 (3.3-5.1) mmol/L Chloride 106 (96-108) mmol/L Carbon Dioxide 29 (22-29) mmol/L Anion Gap 11 L (12-20) BUN 20 H (9-16) mg/dL Creatinine 0.69 (0.5-1.4) mg/dL Estim Creat Clear Calc 87.6 Estimated GFR > 60 Random Glucose 183 H (60-115) mg/dL Calcium 9.6 (8.4-10.2) mg/dL Total Bilirubin 0.4 (0.0-1.0) mg/dL Direct Bilirubin < 0.2 (0.0-0.5) mg/dL AST 13 (5-31) U/L ALT 11 (0-31) U/L Alkaline Phosphatase 91 (39-117) U/L Troponin I High Sens < 3.5 (<3.5-17.0) ng/L Total Protein 6.9 (6.5-8.0) g/dL Albumin 3.9 (3.5-5.0) g/dL Lipase 37 (8-78) U/L Urine Color Urine Appearance Urine pH (5.0-8.0) Ur Specific [place] (1.005-1.025) Urine Protein (NEG-TRACE) MG/DL Urine Glucose (UA) (NEG) MG/DL Urine Ketones (NEG) MG/DL Urine Blood (NEG) Urine Nitrite (NEG) Ur Leukocyte Esterase (NEG) 02/10/21 Range/Units 14:38 WBC (4.8-10.8) X10*3/uL RBC (4.20-5.50) X10*6/uL Hgb (12.0-16.0) g/dl Hct (37-47) % MCV (80-98) fL MCH (27.0-33.0) pg MCHC (31.0-35.0) g/dl RDW (11.0-16.0) % Plt Count (160-400) X10*3/uL MPV (9.4-12.3) fL Immature Gran % (Auto) (0.0-0.4) % Neut % (Auto) (45-73) % Lymph % (Auto) (20-40) % [place] % (Auto) (2-11) % Eos % (Auto) (0-4) % Baso % (Auto) (0-2) % Lymph # (Auto) (1.2-4.9) X10*3/uL [place] # (Auto) (0.1-1.2) X10*3/uL Eos # (Auto) (0.0-0.4) X10*3/uL Baso # (Auto) (0.0-0.2) X10*3/uL Abs Immat Gran (auto) (0.00-0.03) X10*3/uL Absolute Neuts (auto) (2.0-8.3) X10*3/uL Absolute Nucleated RBC (0.0-0.012) X10*3/uL Nucleated RBC % (auto) (0.0-0.2) /100WBC Sodium (135-145) mmol/L Potassium (3.3-5.1) mmol/L Chloride (96-108) mmol/L Carbon Dioxide (22-29) mmol/L Anion Gap (12-20) BUN (9-16) mg/dL Creatinine (0.5-1.4) mg/dL Estim Creat Clear Calc Estimated GFR Random Glucose (60-115) mg/dL Calcium (8.4-10.2) mg/dL Total Bilirubin (0.0-1.0) mg/dL Direct Bilirubin (0.0-0.5) mg/dL AST (5-31) U/L ALT (0-31) U/L Alkaline Phosphatase (39-117) U/L Troponin I High Sens (<3.5-17.0) ng/L Total Protein (6.5-8.0) g/dL Albumin (3.5-5.0) g/dL Lipase (8-78) U/L Urine Color YELLOW Urine Appearance CLEAR Urine pH 6.0 (5.0-8.0) Ur Specific [place] 1.025 (1.005-1.025) Urine Protein NEG (NEG-TRACE) MG/DL Urine Glucose (UA) 500 H (NEG) MG/DL Urine Ketones NEG (NEG) MG/DL Urine Blood NEG (NEG) Urine Nitrite NEG (NEG) Ur Leukocyte Esterase NEG (NEG) Imaging Data Abdominal x-ray: Attestation: I personally reviewed and interpreted this imaging study as follows: Radiologist's impression: [address] [id number] ReportSigned Patient: Kurtis Duckworth#: [id number]: 1955cct:[id number]/Sex: 65 / FADM Date: 02/10/21Loc: HO.EDAttending Dr: Ordering Physician: NUVIA LORENZO NP Date of Service: 02/10/21 Procedure(s): XR KUB Accession Number(s): [id number] cc: NUVIA LORENZO NP~ EXAMINATION: XR ABDOMEN KUB CLINICAL INDICATION: Evaluate for stool burden COMPARISON: CT of the abdomen and pelvis 02/01/2021 TECHNIQUE: AP view of the abdomen. FINDINGS: There is surgical mesh in the right upper quadrant. There is a surgical clip in the pelvis. Nonobstructive bowel gas pattern. There is a moderate to large stool burden. No acute osseous abnormality. XR/XR KUB IMPRESSION: Nonobstructive bowel gas pattern. Large stool burden. ECG Data Attestation: I personally reviewed and interpreted this ECG as follows: ECG interpretation date: 02/10/21 ECG interpretation time: 13:44 Interpretation: NSR with rate 68, normal pr, normal qrs Discharge Plan Discharge Clinical Impression: Constipation, Anxiety Patient Disposition: Home, Self-Care Instructions: Constipation (ED), Anxiety (ED) Additional Instructions: Your lab work and urine tests look very good today. Your x-ray shows a lot of stool which is consistent with constipation. We are starting you on some medications to help him move your bowels. You were seen by a social sciences research scientist today and we offered to outpatient resources to help with your anxiety but you would climb use. Your also offered several medications to help with her abdominal pain and anxiety which she also refused today. Prescriptions: New polyethylene glycol 3350 [Miralax] 17 gram/dose powder 17 g PO BID Qty: 238 RF: 0 docusate sodium [Colace] 100 mg capsule 100 mg PO BID Qty: 30 RF: 0 No Action acetaminophen 325 mg Tablet 650 mg PO Q6H PRN (Reason: Pain, Mild (Pain Scale 1-3)) Qty: 60 RF: 0 doxycycline monohydrate 100 mg tablet 100 mg PO BID Qty: 14 RF: 0 ondansetron 4 mg tablet,disintegrating 4 mg PO Q8H PRN (Reason: nausea and vomiting) Qty: 10 RF: 0 Referrals: Sushant Goldstein MD [Primary Care Provider] - 2 days Interventions: ED Discharge Assessment Last Done: 02/10/21 15:47 Discharge Date/Time: 02/10/21 15:47
[2021-02-10 13:43] LABS: MANUAL DIFF FLAG NO
[2021-02-10 13:51] LABS: Basophils Absolute Auto 0.1 X10*3/uL (0.0-0.2); Basophils Percent Auto 0.6 % (0-2); Eosinophils Absolute Auto 0.3 X10*3/uL (0.0-0.4); Eosinophils Percent Auto 2.8 % (0-4); Hematocrit 38.3 % (37-47); Hemoglobin 12.3 g/dl (12.0-16.0); Imm Gran Abs Auto 0.03 X10*3/uL (0.00-0.03); Imm Gran Pct Auto 0.3 % (0.0-0.4); Lymphocytes Absolute Auto 2.3 X10*3/uL (1.2-4.9); Lymphocytes Percent Auto 24.9 % (20-40); Mean Corpuscular HGB Conc 32.1 g/dl (31.0-35.0); Mean Corpuscular Hemoglobin 26.8 pg (27.0-33.0); Mean Corpuscular Volume 83.4 fL (80-98); Mean Platelet Volume 10.4 fL (9.4-12.3); Monocytes Absolute Auto 0.5 X10*3/uL (0.1-1.2); Monocytes Percent Auto 5.3 % (2-11); Neutrophils Absolute Auto 6.2 X10*3/uL (2.0-8.3); Neutrophils Percent Auto 66.1 % (45-73); Platelet Count 299 X10*3/uL (160-400); Red Blood Count 4.59 X10*6/uL (4.20-5.50); Red Cell Distribution Width 12.6 % (11.0-16.0); White Blood Count 9.4 X10*3/uL (4.8-10.8)
[2021-02-10 14:14] LABS: Troponin-I High Sensitivity < 3.5 ng/L (<3.5-17.0)
[2021-02-10 14:22] LABS: Alanine Aminotransferase 11 U/L (0-31); Albumin Level 3.9 g/dL (3.5-5.0); Alkaline Phosphatase 91 U/L (39-117); Anion Gap 11 (12-20); Aspartate Amino Transferase 13 U/L (5-31); Bilirubin Direct < 0.2 mg/dL (0.0-0.5); Bilirubin Total 0.4 mg/dL (0.0-1.0); Blood Urea Nitrogen 20 mg/dL (9-16); Calcium 9.6 mg/dL (8.4-10.2); Carbon Dioxide 29 mmol/L (22-29); Chloride 106 mmol/L (96-108); Creatinine Clr Calc Pharmacy 87.6; Estimated Glomerular Filt Rate > 60; Glucose Random 183 mg/dL (60-115); Lipase 37 U/L (8-78); Sodium 142 mmol/L (135-145); Total Protein 6.9 g/dL (6.5-8.0)
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
[2021-02-10 14:44] LABS: Glucose Urine UA 500 MG/DL (NEG); Leukocyte Esterase Urine NEG (NEG); Nitrite Urine NEG (NEG); Specific Gravity - Urine 1.025 (1.005-1.025); Urine Blood NEG (NEG); Urine Ketones NEG (NEG); Urine Protein NEG (NEG-TRACE)
[2021-02-10 14:45] LABS: Appearance Urine CLEAR; Color Urine YELLOW
== END 2021-02-10 15:47 | disposition home or self-care (01) ==
PROVIDERS: Nurse Practitioner Family; Emergency Provider Emergency Medicine Emergency Medical Services; PCP Internal Medicine
DX: K59.00 Constipation, unspecified (principal); R10.13 Epigastric pain; F41.9 Anxiety disorder, unspecified; R11.0 Nausea; I69.320 Aphasia following cerebral infarction; I69.354 Hemiplegia and hemiparesis following cerebral infarction affecting left non-dominant side; I10 Essential (primary) hypertension; E11.9 Type 2 diabetes mellitus without complications; F33.9 Major depressive disorder, recurrent, unspecified
CPT/HCPCS: 36415; 74018; 80048; 80076; 81003; 83690; 84484; 85025; 93005; 99283; 99285

== ENCOUNTER 2021-02-22 16:55 | Emergency (ER) | payer MEDICAID, SELFPAY ==
--- NOTE | ~2021-02-22 | CT_ITS ---
EXAMINATION: CT ABDOMEN AND PELVIS WITHOUT CONTRAST CLINICAL INFORMATION: Question obstruction COMPARISON: CT abdomen 02/01/2021 TECHNIQUE: Multidetector volumetric imaging was performed from the superior aspect of the liver through the pubic symphysis. Sagittal and coronal reformatted images were obtained on the technologist's workstation. This CT examination was performed using dose optimization techniques as appropriate, variously including the following: *Automated exposure control *Adjustment of mA and/or kV according to patient size (this includes techniques or standardized protocols for targeted exams where dose is matched to indication/reason for exam; i.e. extremities or head) *Use of iterative reconstruction technique DLP: 902 mGy-cm FINDINGS: LUNG BASES: Mild bibasilar atelectasis. Normal heart size. No pericardial or pleural effusion. LIVER, GALLBLADDER, AND BILIARY TREE: The liver is normal in size, shape, and attenuation. No focal hepatic lesion or biliary ductal dilatation is present. Status postcholecystectomy. PANCREAS: Fatty atrophy of the pancreas. SPLEEN: Unremarkable. ADRENAL GLANDS: Unremarkable. KIDNEYS AND URETERS: Small right renal lower pole nonobstructing calculi larger measuring up to 3 mm. Redemonstrated is a sub capsular fluid collection posterior to the lower right kidney measuring approximately 3.1 cm in diameter, with some peripheral calcifications, not appreciably changed as compared to prior. No ureteral calculi. No hydronephrosis. BLADDER: Unremarkable. GASTROINTESTINAL TRACT: Mild colonic diverticulosis without evidence of diverticulitis. The small and large bowel loops otherwise appear unremarkable without obstruction or acute inflammatory changes. No free fluid. No free air. ABDOMINAL WALL: Status post right sided abdominal wall hernia repair. No significant hernia is appreciated. LYMPH NODES: No enlarged lymph nodes are seen. VASCULAR: Normal caliber aorta. PELVIC VISCERA: Unremarkable. OSSEOUS STRUCTURES: Degenerative changes in the spine. CT/CT abdomen pelvis wo con IMPRESSION: 1. No acute intra-abdominal findings seen. 2. Colonic diverticulosis without diverticulitis. 3. Chronic changes as detailed above.
[2021-02-22 17:03] VITALS: BMI 39.0
[2021-02-22 17:07] VITALS: BP 156/91; PULSE 76; RESP 16; TEMP 36.9; O2SAT 96
--- NOTE | 2021-02-22 17:35 | ECG_ITS ---
Test Reason : ABD PAIN Blood Pressure : / mmHG Vent. Rate : 070 BPM Atrial Rate : 070 BPM P-R Int : 128 ms QRS Dur : 100 ms QT Int : 392 ms P-R-T Axes : 041 -14 029 degrees QTc Int : 423 ms Normal sinus rhythm Incomplete right bundle branch block Borderline ECG When compared with ECG of 10-FEB-2021 13:44, No significant change was found Referred By: Clem Rojas Electronically Signed By:EVAN CASTORENA MD
[2021-02-22 17:59] VITALS: BP 155/82; PULSE 66; RESP 16; TEMP 36.6; O2SAT 97
[2021-02-22 18:32] LABS: MANUAL DIFF FLAG NO
[2021-02-22 18:39] LABS: Basophils Percent Auto 0.4 % (0-2); Eosinophils Absolute Auto 0.3 X10*3/uL (0.0-0.4); Eosinophils Percent Auto 2.7 % (0-4); Hematocrit 39.3 % (37-47); Hemoglobin 12.7 g/dl (12.0-16.0); Imm Gran Abs Auto 0.07 X10*3/uL (0.00-0.03); Imm Gran Pct Auto 0.6 % (0.0-0.4); Lymphocytes Absolute Auto 2.4 X10*3/uL (1.2-4.9); Lymphocytes Percent Auto 21.6 % (20-40); Mean Corpuscular HGB Conc 32.3 g/dl (31.0-35.0); Mean Corpuscular Hemoglobin 26.7 pg (27.0-33.0); Mean Corpuscular Volume 82.7 fL (80-98); Mean Platelet Volume 10.7 fL (9.4-12.3); Monocytes Absolute Auto 0.6 X10*3/uL (0.1-1.2); Monocytes Percent Auto 5.1 % (2-11); Neutrophils Absolute Auto 7.8 X10*3/uL (2.0-8.3); Neutrophils Percent Auto 69.6 % (45-73); Platelet Count 308 X10*3/uL (160-400); Red Blood Count 4.75 X10*6/uL (4.20-5.50); Red Cell Distribution Width 12.5 % (11.0-16.0); White Blood Count 11.2 X10*3/uL (4.8-10.8)
[2021-02-22 18:47] LABS: INTERNATIONAL NORM RATIO 1.1 (0.9-1.1); Prothrombin Time 12.7 SEC (10.8-13.0)
[2021-02-22 18:50] LABS: Partial Thromboplastin Time 37.1 SEC (24.1-38.0)
[2021-02-22 19:00] LABS: Alanine Aminotransferase 8 U/L (0-31); Alkaline Phosphatase 88 U/L (39-117); Aspartate Amino Transferase 14 U/L (5-31); Bilirubin Direct 0.2 mg/dL (0.0-0.5); Bilirubin Total 0.3 mg/dL (0.0-1.0); Lipase 75 U/L (8-78)
[2021-02-22 19:07] LABS: Troponin-I High Sensitivity < 3.5 ng/L (<3.5-17.0)
--- NOTE | 2021-02-22 21:35 | ED.NAVMDI ---
HPI - Nausea/Vomiting/Diarrhea General Chief complaint: Nausea/Vomiting/Diarrhea Stated complaint: WEAKNESS,NAUSEA,SEEN RECENTLY FOR SAME Time Seen by Provider: 02/22/21 17:11 Source: patient Mode of arrival: ambulatory Limitations: no limitations History of Present Illness HPI Narrative: Patient presents to the ED for mid abdominal pain with nausea and vomiting since early this morning. Patient was seen here recently for the same thing. Patient states no diarrhea, blood in stool, chest pain, shortness of breath, fever, or chills. Patient denies any dysuria or hematuria flank pain, fever, or chills. EMS informed us that prison the patient never vomiting throughout the whole day. Patient pointed to mid abdomen to say she have pain. Associated nausea: Yes Related Data Previous Rx's Medication Instructions Recorded acetaminophen 650 mg PO Q6H PRN #60 tab 01/22/21 doxycycline monohydrate 100 mg PO BID #14 tab 01/22/21 ondansetron 4 mg PO Q8H PRN #10 tab 01/26/21 docusate sodium [Colace] 100 mg PO BID #30 cap 02/10/21 polyethylene glycol 3350 [Miralax] 17 g PO BID #238 g 02/10/21 alum-mag hydroxide-simeth [Maalox 10 ml PO Q6H PRN #3000 ml 02/22/21 Advanced] famotidine [Pepcid] 20 mg PO BID #30 tab 02/22/21 Allergies Allergy/AdvReac Type Severity Reaction Status Date / Time cephalexin [CEPHALEXIN] Allergy Unknown UNKNOWN Verified 02/03/21 19:46 Review of Systems Review of Systems: Yes all other systems are reviewed and are negative Constitutional: Constitutional: Reports as per HPI and Reports no additional constitutional complaints Eyes: Eyes: Reports as per HPI and Reports no additional eye complaints ENT: Reports system reviewed and no additional complaints, except as documented and Reports as per HPI Cardiovascular: Cardiovascular: Reports as per HPI and Reports no additional cardiovascular complaints Respiratory: Respiratory: Reports as per HPI and Reports no additional respiratory complaints Gastrointestinal: Gastrointestinal: Reports as per HPI, Reports no additional gastrointestinal complaints, Reports abdominal pain (Mid gastric) and Reports nausea Musculoskeletal: Musculoskeletal: Reports no additional musculoskeletal complaints and Reports as per HPI Neurologic: Reports system reviewed and no additional complaints, except as documented and Reports as per HPI Psychiatric: Psychiatric: Reports no additional psychiatric complaints and Reports as per HPI [facility] Past Medical History Medical History CVA (cerebral vascular accident) Diabetes Hypertension Psychiatric diagnosis Social History Social History Housing: Assisted Living Facility Do you presently have visiting nurse or other home services: Yes Alcohol intake: unknown Patient Tobacco Use Status: Former Tobacco user Use of substances other than those prescribed or required for medical reasons: No Advance Directives: No Advance Directives Information Provided: No service: No Current occupational status: disabled Physical Exam Vital Signs: Vital Signs: Last Vital Signs Temp 97.9 F 02/22/21 17:59 Pulse 66 02/22/21 17:59 Resp 16 02/22/21 17:59 BP 155/82 H 02/22/21 17:59 Pulse Ox 97 02/22/21 17:59 Body Mass Index 39.0 Const: General: cooperative, healthy appearing, comfortable, no acute distress, well developed, alert and awake Orientation/consciousness: patient oriented x3 HENMT: Head: Yes normal to inspection, Yes No palpable skull fracture present, Yes normocephalic, Yes atraumatic and No abrasion Eyes: General: appearance normal, both eyes and all related structures Neck: Neck: Yes normal visual inspection, Yes full ROM, Yes no lymphadenopathy, Yes no meningeal signs, Yes trachea midline, Yes supple and No tender Chest: Chest palpation & inspection: normal inspection of the chest and normal palpation of entire chest wall Resp: Effort & Inspection: normal respiratory effort and able to speak in complete sentences Auscultation: clear to auscultation bilaterally Cardio: Jugular venous distension: no JVD Heart sounds: S1 normal heart sound present and S2 normal heart sound present GI: Inspection: Yes normal to inspection and No abdominal wall ecchymosis Palpation (GI): Soft to palpation, not firm, Tenderness to palpation present (GI) (Mid gastric) not in the epigastrum, not in the LLQ, not in the RLQ, not in the LUQ, not in the RUQ, not periumbilically, not suprapubicly, Shaw's sign negative, obturator sign negative, psoas sign negative, with no rebound tenderness and Rovsing's sign negative, no guarding and not rigid : General: No CVA tenderness and Yes no CVA tenderness Back/Spine/Pelvis: Back: no CVA tenderness, No CVA tenderness and No back tenderness Skin: General skin exam: no rashes or lesions noted and elasticity normal Neuro: Other: Patient is bedbound General: patient oriented x3, no meningeal signs and CN's II-XI intact bilaterally Cranial nerves: Yes CN's II-XII intact bilaterally Extrem: General: Yes normal to inspection and Yes full ROM Psych: Appearance: grossly normal, well kempt and not disheveled Course Course Course Narrative: Patient able to read lips. Patient patient able to make clear speech is upright on paper due to 2 strokes in the past. Will have medical evaluation. Reevaluation(s) Reevaluation #1: EKG negative STEMI. Troponin is negative. Liver enzymes and rest of chemistry is normal. Waiting for UA abdominal CT scan results Time: 18:21 Reevaluation #2: Abdominal CT scan negative for obstruction or any other abdominal etiology. UA negative for UTI. Patient is safe for discharge. Will give patient GI cocktail due to patient's stated history of acid reflux. Patient also like to eat after receiving meds. Patient is safe for discharge. Patient states having mid abdominal pain since this morning. Troponin after 6 hours of mid abdominal pain sensitive for negative heart attack. Time: 21:49 MDM - Nausea/Vomiting/Diarrhea MDM Narrative Medical decision making narrative: GERD Lab Data Result diagrams: 02/22/21 18:21 02/22/21 18:21 Labs: Lab Results 02/22/21 02/22/21 02/22/21 Range/Units 18:21 18:21 18:21 WBC 11.2 H (4.8-10.8) X10*3/uL RBC 4.75 (4.20-5.50) X10*6/uL Hgb 12.7 (12.0-16.0) g/dl Hct 39.3 (37-47) % MCV 82.7 (80-98) fL MCH 26.7 L (27.0-33.0) pg MCHC 32.3 (31.0-35.0) g/dl RDW 12.5 (11.0-16.0) % Plt Count 308 (160-400) X10*3/uL MPV 10.7 (9.4-12.3) fL Immature Gran % (Auto) 0.6 H (0.0-0.4) % Neut % (Auto) 69.6 (45-73) % Lymph % (Auto) 21.6 (20-40) % [place] % (Auto) 5.1 (2-11) % Eos % (Auto) 2.7 (0-4) % Baso % (Auto) 0.4 (0-2) % Lymph # (Auto) 2.4 (1.2-4.9) X10*3/uL [place] # (Auto) 0.6 (0.1-1.2) X10*3/uL Eos # (Auto) 0.3 (0.0-0.4) X10*3/uL Baso # (Auto) 0.0 (0.0-0.2) X10*3/uL Abs Immat Gran (auto) 0.07 H (0.00-0.03) X10*3/uL Absolute Neuts (auto) 7.8 (2.0-8.3) X10*3/uL Absolute Nucleated RBC 0.000 (0.0-0.012) X10*3/uL Nucleated RBC % (auto) 0.0 (0.0-0.2) /100WBC PT 12.7 (10.8-13.0) SEC INR 1.1 (0.9-1.1) APTT 37.1 (24.1-38.0) SEC Sodium 140 (135-145) mmol/L Potassium 4.0 (3.3-5.1) mmol/L Chloride 105 (96-108) mmol/L Carbon Dioxide 25 (22-29) mmol/L Anion Gap 14 (12-20) BUN 18 H (9-16) mg/dL Creatinine 0.62 (0.5-1.4) mg/dL Estim Creat Clear Calc 93.2 Estimated GFR > 60 Random Glucose 126 H (60-115) mg/dL Calcium 9.5 (8.4-10.2) mg/dL Total Bilirubin 0.3 (0.0-1.0) mg/dL Direct Bilirubin 0.2 (0.0-0.5) mg/dL AST 14 (5-31) U/L ALT 8 (0-31) U/L Alkaline Phosphatase 88 (39-117) U/L Troponin I High Sens (<3.5-17.0) ng/L Total Protein 7.0 (6.5-8.0) g/dL Albumin 4.0 (3.5-5.0) g/dL Lipase 75 (8-78) U/L Urine Color Urine Appearance Urine pH (5.0-8.0) Ur Specific [place] (1.005-1.025) Urine Protein (NEG-TRACE) MG/DL Urine Glucose (UA) (NEG) MG/DL Urine Ketones (NEG) MG/DL Urine Blood (NEG) Urine Nitrite (NEG) Ur Leukocyte Esterase (NEG) 02/22/21 02/22/21 Range/Units 18:21 21:30 WBC (4.8-10.8) X10*3/uL RBC (4.20-5.50) X10*6/uL Hgb (12.0-16.0) g/dl Hct (37-47) % MCV (80-98) fL MCH (27.0-33.0) pg MCHC (31.0-35.0) g/dl RDW (11.0-16.0) % Plt Count (160-400) X10*3/uL MPV (9.4-12.3) fL Immature Gran % (Auto) (0.0-0.4) % Neut % (Auto) (45-73) % Lymph % (Auto) (20-40) % [place] % (Auto) (2-11) % Eos % (Auto) (0-4) % Baso % (Auto) (0-2) % Lymph # (Auto) (1.2-4.9) X10*3/uL [place] # (Auto) (0.1-1.2) X10*3/uL Eos # (Auto) (0.0-0.4) X10*3/uL Baso # (Auto) (0.0-0.2) X10*3/uL Abs Immat Gran (auto) (0.00-0.03) X10*3/uL Absolute Neuts (auto) (2.0-8.3) X10*3/uL Absolute Nucleated RBC (0.0-0.012) X10*3/uL Nucleated RBC % (auto) (0.0-0.2) /100WBC PT (10.8-13.0) SEC INR (0.9-1.1) APTT (24.1-38.0) SEC Sodium (135-145) mmol/L Potassium (3.3-5.1) mmol/L Chloride (96-108) mmol/L Carbon Dioxide (22-29) mmol/L Anion Gap (12-20) BUN (9-16) mg/dL Creatinine (0.5-1.4) mg/dL Estim Creat Clear Calc Estimated GFR Random Glucose (60-115) mg/dL Calcium (8.4-10.2) mg/dL Total Bilirubin (0.0-1.0) mg/dL Direct Bilirubin (0.0-0.5) mg/dL AST (5-31) U/L ALT (0-31) U/L Alkaline Phosphatase (39-117) U/L Troponin I High Sens < 3.5 (<3.5-17.0) ng/L Total Protein (6.5-8.0) g/dL Albumin (3.5-5.0) g/dL Lipase (8-78) U/L Urine Color YELLOW Urine Appearance CLEAR Urine pH 6.0 (5.0-8.0) Ur Specific [place] >= 1.030 H (1.005-1.025) Urine Protein NEG (NEG-TRACE) MG/DL Urine Glucose (UA) NEG (NEG) MG/DL Urine Ketones NEG (NEG) MG/DL Urine Blood NEG (NEG) Urine Nitrite NEG (NEG) Ur Leukocyte Esterase NEG (NEG) ECG Data Interpretation: Normal sinus rhythm. Incomplete right bundle branch block. Ventricular rate 70. Pr interval 128. QRS of 100. QTC 423. Negative STEMI Discharge Plan Discharge Clinical Impression: GERD (gastroesophageal reflux disease), Abdominal pain Patient Disposition: Home, Self-Care Instructions: Gastroesophageal Reflux Disease (ED), Abdominal Pain (ED) Additional Instructions: Return to the ED immediately for worsening abdominal pain, nausea, vomiting, fever, chills, slurred speech, loss of vision, paralysis of extremities, flank pain, dysuria, hematuria, chest pain, shortness of breath, or any other concerning symptoms. Prescriptions: New famotidine [Pepcid] 20 mg tablet 20 mg PO BID Qty: 30 RF: 0 alum-mag hydroxide-simeth [Maalox Advanced] 200-200-20 mg/5 mL suspension 10 ml PO Q6H PRN (Reason: GERD) Qty: 3000 RF: 0 No Action acetaminophen 325 mg Tablet 650 mg PO Q6H PRN (Reason: Pain, Mild (Pain Scale 1-3)) Qty: 60 RF: 0 doxycycline monohydrate 100 mg tablet 100 mg PO BID Qty: 14 RF: 0 polyethylene glycol 3350 [Miralax] 17 gram/dose powder 17 g PO BID Qty: 238 RF: 0 docusate sodium [Colace] 100 mg capsule 100 mg PO BID Qty: 30 RF: 0 ondansetron 4 mg tablet,disintegrating 4 mg PO Q8H PRN (Reason: nausea and vomiting) Qty: 10 RF: 0 Referrals: Sushant Goldstein MD [Primary Care Provider] - 2 days (GERD. EKG negative for STEMI. Troponin negative. Abdominal CT came back normal. UA normal) Print Language: [place]
[2021-02-22 21:36] LABS: Glucose Urine UA NEG (NEG); Leukocyte Esterase Urine NEG (NEG); Nitrite Urine NEG (NEG); Specific Gravity - Urine >= 1.030 (1.005-1.025); Urine Blood NEG (NEG); Urine Ketones NEG (NEG); Urine Protein NEG (NEG-TRACE)
[2021-02-22 21:37] LABS: Appearance Urine CLEAR; Color Urine YELLOW
[2021-02-22] MEDS: Ketorolac Tromethamine 30 MG/ML VIAL IM (21:41)
[2021-02-22] MEDS: PHENobarb/Hyoscy/Atropine/Scop 10 ML ELIXIR PO (22:18)
[2021-02-22] MEDS: Famotidine 20 MG TABLET PO (22:18)
[2021-02-22] MEDS: Lidocaine HCl Viscous 2 % 15 ML SOLUTION MUCOUS MEM (22:18)
[2021-02-22] MEDS: Magnesium Hydrox/Alum Hydrox 30 ML ORAL.SUSP PO (22:18)
[2021-02-22 22:25] LABS: Anion Gap 14 (12-20); Blood Urea Nitrogen 18 mg/dL (9-16); Calcium 9.5 mg/dL (8.4-10.2); Carbon Dioxide 25 mmol/L (22-29); Chloride 105 mmol/L (96-108); Creatinine Clr Calc Pharmacy 93.2; Estimated Glomerular Filt Rate > 60; Glucose Random 126 mg/dL (60-115); Sodium 140 mmol/L (135-145)
== END 2021-02-22 23:54 | disposition home or self-care (01) ==
PROVIDERS: Physician Assistant; Emergency Provider Emergency Medicine; PCP Internal Medicine
DX: K21.9 Gastro-esophageal reflux disease without esophagitis (principal); R10.9 Unspecified abdominal pain; R11.0 Nausea; R53.1 Weakness; E11.9 Type 2 diabetes mellitus without complications; I10 Essential (primary) hypertension; Z87.891 Personal history of nicotine dependence
CPT/HCPCS: 36415; 51701; 74176; 80048; 80076; 81003; 83690; 84484; 85025; 85610; 85730; 93005; 96372; 99285; J1885

== ENCOUNTER 2021-03-01 18:28 | Emergency (ER) | payer MEDICAID, SELFPAY ==
--- NOTE | ~2021-03-01 | XR_ITS ---
EXAMINATION: XR ABDOMEN KUB CLINICAL INDICATION: Abdominal pain COMPARISON: Abdomen 02/10/2021 TECHNIQUE: AP view of the abdomen. FINDINGS: Surgical coils and surgical clips again noted right upper quadrant. No abnormal dilated bowel loop. Nonobstructive bowel pattern. Moderate volume of stool in the colon. No radiopaque urinary calculi. Multilevel degenerative spondylosis of the spine. Mild degenerative joint disease of hips. XR/XR KUB IMPRESSION: No acute abnormality the abdomen.
[2021-03-01 18:41] VITALS: BP 130/62; PULSE 75; RESP 18; TEMP 36.3; O2SAT 99; BMI 43.4
--- NOTE | 2021-03-01 18:48 | ED.NAVMDI ---
HPI - Nausea/Vomiting/Diarrhea General Chief complaint: Nausea/Vomiting/Diarrhea Stated complaint: nausea vomiting x 2 days Source: patient and EMS Mode of arrival: EMS Limitations: language barrier History of Present Illness HPI Narrative: 65-year-old female from a correction presents via EMS for nausea, vomiting, and abdominal pain. Has been worked up several times in the past 2 weeks for similar circumstances with negative CT scans. Patient stated that she has not been taking her medications because she did not feel well. She does not report any fevers, chills, chest pain or pressure, palpitations, shortness of breath, shortness of breath on exertion, abdominal distention, dysuria, hematuria, constipation, diarrhea, edema, dizziness, weakness, or any other concerning symptoms. MD elicited complaint: nausea, vomiting and abdominal pain Onset (ago): hour(s) (Several hours prior to arrival) Associated nausea: Yes Associated abdominal pain: Yes Location of pain: diffuse Pain consistency: intermittent Severity: mild Quality: cramping Exacerbating factors: vomiting Relieving factors: none Associated symptoms: denies other symptoms Related Data Previous Rx's Medication Instructions Recorded acetaminophen 650 mg PO Q6H PRN #60 tab 01/22/21 doxycycline monohydrate 100 mg PO BID #14 tab 01/22/21 ondansetron 4 mg PO Q8H PRN #10 tab 01/26/21 docusate sodium [Colace] 100 mg PO BID #30 cap 02/10/21 polyethylene glycol 3350 [Miralax] 17 g PO BID #238 g 02/10/21 alum-mag hydroxide-simeth [Maalox 10 ml PO Q6H PRN #3000 ml 02/22/21 Advanced] famotidine [Pepcid] 20 mg PO BID #30 tab 02/22/21 dicyclomine 20 mg PO BID PRN #20 tab 03/01/21 ondansetron HCl [Zofran] 4 mg PO Q8H PRN #20 tab 03/01/21 Allergies Allergy/AdvReac Type Severity Reaction Status Date / Time cephalexin [CEPHALEXIN] Allergy Unknown UNKNOWN Verified 02/03/21 19:46 Review of Systems Review of Systems: Constitutional: No Fever, No Chills ENT/Mouth: No Ear Pain, No Nasal Congestion, No sore throat Eyes: No Eye Pain, No Swelling, No Redness Cardiovascular: No Chest Pain, No SOB Respiratory: No Cough, No Sputum, No Dyspnea Gastrointestinal: Positive abdominal cramping, Positive Nausea, positive Vomiting, No Diarrhea, No Hematochezia, No Melena Genitourinary: No Dysuria, No Urinary Frequency, No Hematuria Musculoskeletal: No Myalgias Skin: No Skin Lesions, No rash Neuro: No Weakness, No Numbness, No Paresthesias, No Dizziness, No Headache Psych: positive Anxiety, positive Depression, positive SI/HI Heme/Lymph: No Lymphadenopathy Endocrine: No Polyuria, No Polydipsia Yes all other systems are reviewed and are negative Gastrointestinal: Gastrointestinal: Reports nausea PMFSH Past Medical History Attestation statement: The following information was validated with the patient. Source: old records reviewed Medical History CVA (cerebral vascular accident) Diabetes Hypertension Psychiatric diagnosis Social History Social History Housing: Assisted Living Facility Do you presently have visiting nurse or other home services: Yes Alcohol intake: unknown Patient Tobacco Use Status: Former Tobacco user Advance Directives: No Advance Directives Information Provided: Yes Patient : No service: No Current occupational status: disabled Physical Exam Vital Signs: Vital Signs: Last Vital Signs Temp 97.3 F 03/01/21 18:41 Pulse 75 03/01/21 18:41 Resp 18 03/01/21 18:41 BP 130/62 03/01/21 18:41 Pulse Ox 99 03/01/21 18:41 Body Mass Index 43.4 Appearance: Alert. Oriented X3. No acute distress. Eyes: Pupils equal, round and reactive to light. ENT: Pharynx normal. Neck: Normal inspection. Neck supple. CVS: Normal heart rate and rhythm. Pulses normal. Respiratory: No respiratory distress. Breath sounds normal. Abdomen: Soft and nontender. Skin: Skin warm and dry. Normal skin color. Normal skin turgor. Extremities: Left-sided weakness per baseline status post CVA Neuro: No motor deficit. No sensory deficit. Course Course Course Narrative: Patient presents via EMS for nausea, vomiting, and abdominal pain. Has been evaluated several times this past week for similar circumstances. Patient has not been compliant with her medications at the [facility]. This could possibly be behavioral rather than infectious or acute abdomen. CT scan on the was negative for acute findings. She does not report any fevers or chills, and is able to eat and drink without difficulty. Will order KUB, labs, and urinalysis. Labs are negative. KUB is negative. Plan of care is to discharge home with prescription for Zofran and Bentyl for abdominal pain and cramping. Patient verbalized understanding of and agrees to plan of care discharge home. MDM - Nausea/Vomiting/Diarrhea Differential Diagnosis Differential diagnosis: Likely gastroenteritis and dehydration Medical Records Attestation: I reviewed the patient's medical records. Lab Data Attestation: I reviewed the patient's lab results. Result diagrams: 03/01/21 19:29 03/01/21 19:29 Labs: Lab Results 03/01/21 03/01/21 Range/Units 19:29 19:29 WBC 10.9 H (4.8-10.8) X10*3/uL RBC 4.76 (4.20-5.50) X10*6/uL Hgb 12.7 (12.0-16.0) g/dl Hct 39.2 (37-47) % MCV 82.4 (80-98) fL MCH 26.7 L (27.0-33.0) pg MCHC 32.4 (31.0-35.0) g/dl RDW 12.5 (11.0-16.0) % Plt Count 251 (160-400) X10*3/uL MPV 11.0 (9.4-12.3) fL Immature Gran % (Auto) 0.4 (0.0-0.4) % Neut % (Auto) 65.6 (45-73) % Lymph % (Auto) 25.3 (20-40) % [place] % (Auto) 5.3 (2-11) % Eos % (Auto) 3.0 (0-4) % Baso % (Auto) 0.4 (0-2) % Lymph # (Auto) 2.8 (1.2-4.9) X10*3/uL [place] # (Auto) 0.6 (0.1-1.2) X10*3/uL Eos # (Auto) 0.3 (0.0-0.4) X10*3/uL Baso # (Auto) 0.0 (0.0-0.2) X10*3/uL Abs Immat Gran (auto) 0.04 H (0.00-0.03) X10*3/uL Absolute Neuts (auto) 7.2 (2.0-8.3) X10*3/uL Absolute Nucleated RBC 0.000 (0.0-0.012) X10*3/uL Nucleated RBC % (auto) 0.0 (0.0-0.2) /100WBC Sodium 140 (135-145) mmol/L Potassium 4.4 (3.3-5.1) mmol/L Chloride 106 (96-108) mmol/L Carbon Dioxide 26 (22-29) mmol/L Anion Gap 12 (12-20) BUN 22 H (9-16) mg/dL Creatinine 0.65 (0.5-1.4) mg/dL Estim Creat Clear Calc 94.6 Estimated GFR > 60 Random Glucose 114 (60-115) mg/dL Calcium 9.5 (8.4-10.2) mg/dL Total Bilirubin 0.5 (0.0-1.0) mg/dL Direct Bilirubin 0.2 (0.0-0.5) mg/dL AST 15 (5-31) U/L ALT 8 (0-31) U/L Alkaline Phosphatase 89 (39-117) U/L Total Protein 7.1 (6.5-8.0) g/dL Albumin 4.0 (3.5-5.0) g/dL Lipase 25 (8-78) U/L Imaging Data KUB: Attestation: I personally reviewed and interpreted this imaging study as follows: Radiologist's impression: EXAMINATION: XR ABDOMEN KUB CLINICAL INDICATION: Abdominal pain COMPARISON: Abdomen 02/10/2021 TECHNIQUE: AP view of the abdomen. FINDINGS: Surgical coils and surgical clips again noted right upper quadrant. No abnormal dilated bowel loop. Nonobstructive bowel pattern. Moderate volume of stool in the colon. No radiopaque urinary calculi. Multilevel degenerative spondylosis of the spine. Mild degenerative joint disease of hips. XR/XR KUB IMPRESSION: No acute abnormality the abdome Discharge Plan Discharge Clinical Impression: Abdominal pain Qualifiers: Abdominal location: generalized Qualified Code(s): R10.84 - Generalized abdominal pain Nausea & vomiting Qualifiers: Vomiting type: unspecified Vomiting Intractability: unspecified Qualified Code(s): R11.2 - Nausea with vomiting, unspecified Patient Disposition: Home, Self-Care Instructions: Acute Nausea and Vomiting (ED), Abdominal Pain (ED) Additional Instructions: You were evaluated for nausea and vomiting with abdominal pain. Please take Zofran as needed to help with nauseousness. Please take Bentyl for abdominal pain and cramping. Your lab values were normal. Thank you for choosing this emergency department for evaluation. Please follow-up with primary care physician as needed. Return to the emergency department for any new, concerning, or worsening symptoms. Prescriptions: New dicyclomine 20 mg tablet 20 mg PO BID PRN (Reason: Abdominal cramping and pain) Qty: 20 RF: 0 ondansetron HCl [Zofran] 4 mg tablet 4 mg PO Q8H PRN (Reason: nausea and vomiting) Qty: 20 RF: 0 No Action acetaminophen 325 mg Tablet 650 mg PO Q6H PRN (Reason: Pain, Mild (Pain Scale 1-3)) Qty: 60 RF: 0 doxycycline monohydrate 100 mg tablet 100 mg PO BID Qty: 14 RF: 0 polyethylene glycol 3350 [Miralax] 17 gram/dose powder 17 g PO BID Qty: 238 RF: 0 docusate sodium [Colace] 100 mg capsule 100 mg PO BID Qty: 30 RF: 0 ondansetron 4 mg tablet,disintegrating 4 mg PO Q8H PRN (Reason: nausea and vomiting) Qty: 10 RF: 0 famotidine [Pepcid] 20 mg tablet 20 mg PO BID Qty: 30 RF: 0 alum-mag hydroxide-simeth [Maalox Advanced] 200-200-20 mg/5 mL suspension 10 ml PO Q6H PRN (Reason: GERD) Qty: 3000 RF: 0 Interventions: ED Discharge Assessment Last Done: 03/01/21 22:31 Discharge Date/Time: 03/01/21 22:34
[2021-03-01 19:33] LABS: MANUAL DIFF FLAG NO
[2021-03-01 19:35] LABS: Basophils Percent Auto 0.4 % (0-2); Eosinophils Absolute Auto 0.3 X10*3/uL (0.0-0.4); Hematocrit 39.2 % (37-47); Hemoglobin 12.7 g/dl (12.0-16.0); Imm Gran Abs Auto 0.04 X10*3/uL (0.00-0.03); Imm Gran Pct Auto 0.4 % (0.0-0.4); Lymphocytes Absolute Auto 2.8 X10*3/uL (1.2-4.9); Lymphocytes Percent Auto 25.3 % (20-40); Mean Corpuscular HGB Conc 32.4 g/dl (31.0-35.0); Mean Corpuscular Hemoglobin 26.7 pg (27.0-33.0); Mean Corpuscular Volume 82.4 fL (80-98); Monocytes Absolute Auto 0.6 X10*3/uL (0.1-1.2); Monocytes Percent Auto 5.3 % (2-11); Neutrophils Absolute Auto 7.2 X10*3/uL (2.0-8.3); Neutrophils Percent Auto 65.6 % (45-73); Platelet Count 251 X10*3/uL (160-400); Red Blood Count 4.76 X10*6/uL (4.20-5.50); Red Cell Distribution Width 12.5 % (11.0-16.0); White Blood Count 10.9 X10*3/uL (4.8-10.8)
[2021-03-01 19:56] LABS: Alanine Aminotransferase 8 U/L (0-31); Alkaline Phosphatase 89 U/L (39-117); Anion Gap 12 (12-20); Aspartate Amino Transferase 15 U/L (5-31); Bilirubin Direct 0.2 mg/dL (0.0-0.5); Bilirubin Total 0.5 mg/dL (0.0-1.0); Blood Urea Nitrogen 22 mg/dL (9-16); Calcium 9.5 mg/dL (8.4-10.2); Carbon Dioxide 26 mmol/L (22-29); Chloride 106 mmol/L (96-108); Creatinine Clr Calc Pharmacy 94.6; Estimated Glomerular Filt Rate > 60; Glucose Random 114 mg/dL (60-115); Lipase 25 U/L (8-78); Potassium 4.4 mmol/L (3.3-5.1); Sodium 140 mmol/L (135-145); Total Protein 7.1 g/dL (6.5-8.0)
[2021-03-01] MEDS: Acetaminophen Oral Liquid 650 MG/20.3 ML SOLUTION PO (20:58)
[2021-03-01] MEDS: Dicyclomine HCl 10 MG CAPSULE 20 MG PO (20:58)
== END 2021-03-01 22:34 | disposition home or self-care (01) ==
PROVIDERS: Nurse Practitioner Family; Emergency Provider Emergency Medicine Emergency Medical Services; PCP Internal Medicine
DX: R10.84 Generalized abdominal pain (principal); R11.2 Nausea with vomiting, unspecified; E11.9 Type 2 diabetes mellitus without complications; I10 Essential (primary) hypertension; Z86.73 Personal history of transient ischemic attack (TIA), and cerebral infarction without residual deficits; Z79.899 Other long term (current) drug therapy
CPT/HCPCS: 36415; 74018; 80048; 80076; 83690; 85025; 99283

== ENCOUNTER 2021-03-10 19:39 | Emergency (ER) | payer MEDICAID, SELFPAY ==
[2021-03-10 19:55] VITALS: BP 152/70; BP 152/86; PULSE 80; PULSE 88; RESP 16; TEMP 37.2; O2SAT 97; O2SAT 98; BMI 36.6
--- NOTE | 2021-03-10 20:00 | ED.NAVMDI ---
HPI - Nausea/Vomiting/Diarrhea General Chief complaint: Nausea/Vomiting/Diarrhea Stated complaint: diarrhea Time Seen by Provider: 03/10/21 19:59 Source: patient Mode of arrival: EMS Limitations: no limitations History of Present Illness HPI Narrative: patient with frequent ED visits for nausea vomiting and diarrhea and abdominal pain was seen here on 03/01 for similar symptoms with workup negative in the past and last time also had 4-5 times diarrhea and 4-5 vomiting no fever no chills no urinary symptoms no flank pain Related Data Previous Rx's Medication Instructions Recorded acetaminophen 650 mg PO Q6H PRN #60 tab 01/22/21 doxycycline monohydrate 100 mg PO BID #14 tab 01/22/21 ondansetron 4 mg PO Q8H PRN #10 tab 01/26/21 docusate sodium [Colace] 100 mg PO BID #30 cap 02/10/21 polyethylene glycol 3350 [Miralax] 17 g PO BID #238 g 02/10/21 alum-mag hydroxide-simeth [Maalox 10 ml PO Q6H PRN #3000 ml 02/22/21 Advanced] famotidine [Pepcid] 20 mg PO BID #30 tab 02/22/21 dicyclomine 20 mg PO BID PRN #20 tab 03/01/21 ondansetron HCl [Zofran] 4 mg PO Q8H PRN #20 tab 03/01/21 Allergies Allergy/AdvReac Type Severity Reaction Status Date / Time cephalexin [CEPHALEXIN] Allergy Unknown UNKNOWN Verified 03/10/21 19:59 Review of Systems Review of Systems: Yes all other systems are reviewed and are negative PMFSH Past Medical History Medical History CVA (cerebral vascular accident) Diabetes Hypertension Psychiatric diagnosis Social History Social History Housing: Assisted Living Facility Do you presently have visiting nurse or other home services: Yes Alcohol intake: unknown Patient Tobacco Use Status: Former Tobacco user Advance Directives: No Patient : No service: No Current occupational status: disabled Physical Exam Vital Signs: Vital Signs: Last Vital Signs Temp 98.9 F 03/10/21 19:55 Pulse 82 03/10/21 20:30 Resp 16 03/10/21 20:30 BP 138/69 03/10/21 20:30 Pulse Ox 98 03/10/21 20:30 Body Mass Index 36.6 Appearance: Alert. Oriented X3. No acute distress. Eyes: PERRLA, No Nystagmus ENT: Pharynx normal. Oral Mucosa moist Neck: Normal inspection. Neck supple. CVS: Normal heart rate and rhythm. Pulses normal. Respiratory: No respiratory distress. Equal air entry bilateral, no wheezing/rales/rhonchi Abdomen: Soft and nontender. Bowel sounds are present, no mass palpable, no CVA tenderness Skin: Skin warm and dry. Normal skin color. Normal skin turgor. Extremities: No lower extremity edema. No calf tenderness Neuro: Oriented X 3. No motor deficit. Discharge Plan Discharge Clinical Impression: Gastroenteritis Patient Disposition: Home, Self-Care Instructions: Gastroenteritis (ED) Additional Instructions: drink plenty of fluids take medication for nausea as prescribed during last visit Prescriptions: No Action acetaminophen 325 mg Tablet 650 mg PO Q6H PRN (Reason: Pain, Mild (Pain Scale 1-3)) Qty: 60 RF: 0 doxycycline monohydrate 100 mg tablet 100 mg PO BID Qty: 14 RF: 0 polyethylene glycol 3350 [Miralax] 17 gram/dose powder 17 g PO BID Qty: 238 RF: 0 docusate sodium [Colace] 100 mg capsule 100 mg PO BID Qty: 30 RF: 0 dicyclomine 20 mg tablet 20 mg PO BID PRN (Reason: Abdominal cramping and pain) Qty: 20 RF: 0 ondansetron HCl [Zofran] 4 mg tablet 4 mg PO Q8H PRN (Reason: nausea and vomiting) Qty: 20 RF: 0 ondansetron 4 mg tablet,disintegrating 4 mg PO Q8H PRN (Reason: nausea and vomiting) Qty: 10 RF: 0 famotidine [Pepcid] 20 mg tablet 20 mg PO BID Qty: 30 RF: 0 alum-mag hydroxide-simeth [Maalox Advanced] 200-200-20 mg/5 mL suspension 10 ml PO Q6H PRN (Reason: GERD) Qty: 3000 RF: 0
[2021-03-10 20:30] VITALS: BP 138/69; PULSE 82; RESP 16; O2SAT 98
[2021-03-10] MEDS: Acetaminophen 325 MG TABLET 650 MG PO (21:53)
== END 2021-03-10 22:12 | disposition home or self-care (01) ==
PROVIDERS: Emergency Provider Internal Medicine
DX: K52.9 Noninfective gastroenteritis and colitis, unspecified (principal); I10 Essential (primary) hypertension; E11.9 Type 2 diabetes mellitus without complications; Z86.73 Personal history of transient ischemic attack (TIA), and cerebral infarction without residual deficits
CPT/HCPCS: 99282; 99284

== ENCOUNTER 2021-03-16 12:04 | Emergency (ER) | payer MEDICAID, SELFPAY ==
[2021-03-16 12:22] VITALS: BP 150/94; PULSE 74; RESP 20; TEMP 36.2; O2SAT 99; BMI 86.0
[2021-03-16 14:29] VITALS: BP 149/50; PULSE 60; RESP 18; TEMP 36.8; O2SAT 99
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
[2021-03-16] MEDS: Fluconazole 150 MG TABLET PO (16:36)
== END 2021-03-16 17:02 | disposition home or self-care (01) ==
PROVIDERS: Emergency Provider Emergency Medicine Emergency Medical Services; PCP Internal Medicine
DX: B37.49 Other urogenital candidiasis (principal); L03.314 Cellulitis of groin; I69.954 Hemiplegia and hemiparesis following unspecified cerebrovascular disease affecting left non-dominant side; I10 Essential (primary) hypertension; E11.9 Type 2 diabetes mellitus without complications
CPT/HCPCS: 99284

== ENCOUNTER 2021-04-20 14:27 | Emergency (ER) | payer MEDICAID, SELFPAY ==
--- NOTE | ~2021-04-20 | CT_ITS ---
EXAMINATION: CT ABDOMEN AND PELVIS WITHOUT CONTRAST CLINICAL INFORMATION: Right flank and lower quadrant pain. Dysuria. COMPARISON: [facility] 03/01/2021, CT abdomen and pelvis noncontrast 02/22/2021, CT abdomen and pelvis with IV contrast 06/06/2017. TECHNIQUE: Multidetector volumetric imaging was performed from the superior aspect of the liver through the pubic symphysis. No oral or intravenous contrast. Sagittal and coronal reformatted images were obtained on the technologist's workstation. This CT examination was performed using dose optimization techniques as appropriate, variously including the following: *Automated exposure control *Adjustment of mA and/or kV according to patient size (this includes techniques or standardized protocols for targeted exams where dose is matched to indication/reason for exam; i.e. extremities or head) *Use of iterative reconstruction technique DLP: 1164 mGy-cm FINDINGS: LUNG BASES: The visualized lung bases are unremarkable. LIVER, GALLBLADDER, AND BILIARY TREE: The liver is upper limits of normal size and smooth in contour and homogeneous. There is no focal hepatic parenchymal lesion or intrahepatic ductal dilatation. The gallbladder is surgically absent. The common duct is unremarkable. PANCREAS: There is fatty infiltration in the pancreatic head and neck similar to prior exams. No pancreatic ductal distention or peripancreatic inflammatory changes. SPLEEN: Unremarkable. ADRENAL GLANDS: Unremarkable. KIDNEYS AND URETERS: The the kidneys are stable. There is no hydronephrosis, hydroureter, or perinephric stranding. The right kidney again has a chronic subcapsular fluid collection posterior medial lower pole measuring approximately 2 x 3 x 4 cm. There is peripheral rim calcification and internal density 3 HU. There are 2 small nonobstructing calculi right lower pole, the larger 4 x 5 mm. No right ureteral calculi. 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 There are no left urinary tract calculi. BLADDER: Unremarkable. GASTROINTESTINAL TRACT: There are no inflammatory changes in the bowel or mesentery. No ascites or fluid collection. No pneumatosis or free air. The appendix is not visualized and not seen on prior CT. No inflammatory changes around terminal ileum or cecum. ABDOMINAL WALL: No significant hernia demonstrated. There is an stable oval oval rim with central fat in the right subcutaneous space in the area of prior hernia upper abdomen with adjacent abdominal mesh. No recurrent hernia. LYMPH NODES: No lymphadenopathy. VASCULAR: Unremarkable. PELVIC VISCERA: Unremarkable. OSSEOUS STRUCTURES: Degenerative changes spine. No acute bony abnormality. Small bone island right ilium stable. CT/CT abdomen pelvis wo con IMPRESSION: 1. No hydronephrosis or perinephric stranding. Small nonobstructing calculi right renal lower pole. Chronic right subcapsular fluid collection stable. 2. No inflammatory changes in bowel or mesentery. No ascites or fluid collection. 3. Prior cholecystectomy. No ductal dilatation.
--- NOTE | 2021-04-20 15:20 | ED.GENADULT ---
HPI - General Adult General Chief complaint: General Medical Stated complaint: crisis eval Time Seen by Provider: 04/20/21 15:14 Source: patient, EMS, RN notes reviewed and old records reviewed Mode of arrival: EMS Limitations: altered mental status History of Present Illness HPI narrative: 65 y/o wheelchair bound female with history of CVA in childhood with residual left sided hemiparesis and aphasia, history of DM, HTN, foot cellulitis, who presents to the ER via EMS from her senior living with right sided flank pain. When speaking with the patient who communicates with head nods and shakes reports right sided flank pain that started today as well we right sided abdominal pain, nausea and painful urination. She denies fevers, vomiting, blood in her urine. MD complaint: right sided flank pain Onset (ago): hour(s) Location: abdomen Radiation: non-radiation Severity: moderate Pain Consistency: constant Relieving factors: none Exacerbating factors: movement Associated symptoms: nausea/vomiting Treatments prior to arrival: none Related Data Home Medications Medication Instructions Recorded Confirmed sulfamethoxazole 800 1 tab PO BID 04/20/21 04/20/21 mg-trimethoprim 160 mg tablet Previous Rx's Medication Instructions Recorded ondansetron 4 mg disintegrating 4 mg PO Q8H PRN #10 tab 01/26/21 tablet famotidine 20 mg tablet (Pepcid) 20 mg PO BID #30 tab 02/22/21 diphenhydramine HCl 25 mg tablet 50 mg PO TID PRN #90 tab 03/16/21 (Benadryl Allergy) Allergies Allergy/AdvReac Type Severity Reaction Status Date / Time cephalexin [CEPHALEXIN] Allergy Unknown UNKNOWN Verified 03/10/21 19:59 Review of Systems Constitutional: Constitutional: Denies chills and Denies fever(s) Eyes: Eyes: Reports no additional eye complaints ENT: Denies dizziness Cardiovascular: Cardiovascular: Denies chest pain and Denies dyspnea Respiratory: Respiratory: Denies cough and Denies dyspnea Gastrointestinal: Gastrointestinal: Reports abdominal pain, Denies constipation, Denies diarrhea, Reports nausea and Denies vomiting Genitourinary: Genitourinary: Denies hematuria, Reports dysuria, Reports flank pain and Reports urinary urgency Neurologic: Denies dizziness Psychiatric: Psychiatric: Reports anxiety PMFSH Past Medical History Attestation statement: The following information was validated with the patient. Medical History CVA (cerebral vascular accident) Diabetes Hypertension Psychiatric diagnosis Social History Social History Housing: Assisted Living Facility Do you presently have visiting nurse or other home services: Yes Alcohol intake: unknown Patient Tobacco Use Status: Former Tobacco user Advance Directives: No Advance Directives Information Provided: No service: No Current occupational status: disabled Physical Exam Vital Signs: Vital Signs: Last Vital Signs Pulse 72 04/20/21 15:36 Resp 20 04/20/21 15:36 BP 139/75 04/20/21 15:36 Pulse Ox 98 04/20/21 15:36 Body Mass Index 33.2 Appearance: Alert. No acute distress. Eyes: Pupils equal, round and reactive to light. ENT: Pharynx normal. Neck: Normal inspection. Neck supple. CVS: Normal heart rate and rhythm. Pulses normal. Respiratory: No respiratory distress. Breath sounds normal. Abdomen: Obese, Soft with right sided flank tenderness, mild right lower quadrant tenderness, no rebound or guarding, normal BS x4. Skin: Skin warm and dry. Normal skin color. Normal skin turgor. No rashes. Extremities: No lower extremity edema. Neuro: Awake and alert, left sided weakness, aphasic, nods and shakes head to communicate, follows commands. Course Course Course Narrative: 65 y/o female presenting with right sided flank pain radiating to right lower abdomen along with painful urination. Concern for possible kidney stone vs pyelonephritis vs MSK pain. Doubt acute appendicitis. Will check UA and labs as well as CT and/pelvis. She does not appear to be septic, non-toxic appearing. She is on chronic oxycodone 10 mg Q6 PRN. Will order dose now as well as small dose IM toradol for pain. Reevaluation(s) Reevaluation #1: CT abd/pelvis is negative for acute causes of pain. UA and labs are pending. Signed out to Neetu DOAN who will assume care and f/u results. Discharge Plan Discharge Clinical Impression: Flank pain Prescriptions: No Action ondansetron 4 mg tablet,disintegrating 4 mg PO Q8H PRN (Reason: nausea and vomiting) Qty: 10 RF: 0 famotidine [Pepcid] 20 mg tablet 20 mg PO BID Qty: 30 RF: 0 diphenhydramine HCl [Benadryl Allergy] 25 mg tablet 50 mg PO TID PRN (Reason: itching) Qty: 90 RF: 0 sulfamethoxazole-trimethoprim 800-160 mg tablet 1 tab PO BID RF: 0
[2021-04-20 15:36] VITALS: BP 139/75; PULSE 72; RESP 20; O2SAT 98; BMI 33.2
[2021-04-20 15:52] VITALS: BP 146/72; PULSE 71; RESP 18; TEMP 36.7; O2SAT 95
[2021-04-20] MEDS: Ondansetron ODT 4 MG TAB.RAPDIS TRANSLINGU (17:02)
[2021-04-20] MEDS: oxyCODONE HCl Immed Release 5 MG TABLET 10 MG PO (17:56)
[2021-04-20] MEDS: Ketorolac Tromethamine 15 MG/ML VIAL IM (17:57)
[2021-04-20 18:41] LABS: MANUAL DIFF FLAG NO
[2021-04-20 19:04] LABS: Basophils Percent Auto 0.4 % (0-2); Eosinophils Absolute Auto 0.3 X10*3/uL (0.0-0.4); Eosinophils Percent Auto 2.5 % (0-4); Hematocrit 37.2 % (37-47); Hemoglobin 12.1 g/dl (12.0-16.0); Imm Gran Abs Auto 0.05 X10*3/uL (0.00-0.03); Imm Gran Pct Auto 0.5 % (0.0-0.4); Lymphocytes Absolute Auto 2.6 X10*3/uL (1.2-4.9); Lymphocytes Percent Auto 26.4 % (20-40); Mean Corpuscular HGB Conc 32.5 g/dl (31.0-35.0); Mean Corpuscular Hemoglobin 26.8 pg (27.0-33.0); Mean Corpuscular Volume 82.5 fL (80-98); Monocytes Absolute Auto 0.5 X10*3/uL (0.1-1.2); Monocytes Percent Auto 5.1 % (2-11); Neutrophils Absolute Auto 6.4 X10*3/uL (2.0-8.3); Neutrophils Percent Auto 65.1 % (45-73); Platelet Count 284 X10*3/uL (160-400); Red Blood Count 4.51 X10*6/uL (4.20-5.50); Red Cell Distribution Width 12.9 % (11.0-16.0); White Blood Count 9.9 X10*3/uL (4.8-10.8)
[2021-04-20 19:23] LABS: Alanine Aminotransferase 15 U/L (0-31); Alkaline Phosphatase 87 U/L (39-117); Anion Gap 11 (12-20); Aspartate Amino Transferase 18 U/L (5-31); Bilirubin Direct 0.2 mg/dL (0.0-0.5); Bilirubin Total 0.5 mg/dL (0.0-1.0); Blood Urea Nitrogen 23 mg/dL (9-16); Calcium 9.1 mg/dL (8.4-10.2); Carbon Dioxide 27 mmol/L (22-29); Chloride 107 mmol/L (96-108); Creatinine Clr Calc Pharmacy 77.7; Estimated Glomerular Filt Rate > 60; Glucose Random 112 mg/dL (60-115); Magnesium 1.9 mg/dL (1.6-2.6); Potassium 4.3 mmol/L (3.3-5.1); Sodium 141 mmol/L (135-145); Total Protein 6.8 g/dL (6.5-8.0)
[2021-04-20 19:51] VITALS: BP 138/84; PULSE 71; RESP 18; TEMP 36.7; O2SAT 98
--- NOTE | 2021-04-20 19:52 | PC.NURSE ---
client ate 80% of dinner, pending candy assistant finance manager disposition home. Client is in nad, denies any pain at this time.
[2021-04-20 20:13] LABS: Influenza A PCR NEGATIVE (Negative); Influenza B PCR NEGATIVE (Negative); Resp Syncy Virus RNA Qual PCR NEGATIVE (Negative); SARS COV2 PCR INHOUSE NEGATIVE (Negative)
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
== END 2021-04-20 22:17 | disposition home or self-care (01) ==
PROVIDERS: Physician Assistant; Emergency Provider Emergency Medicine Emergency Medical Services
DX: R10.9 Unspecified abdominal pain (principal); E11.9 Type 2 diabetes mellitus without complications; I10 Essential (primary) hypertension; I69.954 Hemiplegia and hemiparesis following unspecified cerebrovascular disease affecting left non-dominant side; I69.920 Aphasia following unspecified cerebrovascular disease; Z99.3 Dependence on wheelchair; Z20.822 Contact with and (suspected) exposure to COVID-19
CPT/HCPCS: 0241U; 36415; 74176; 80048; 80076; 83735; 85025; 96372; 99284; J1885

== ENCOUNTER 2021-05-06 13:04 | Emergency (ER) | payer MEDICAID, SELFPAY ==
[2021-05-06 13:14] VITALS: BP 164/80; PULSE 74; RESP 18; TEMP 36.6; O2SAT 97; BMI 41.3
[2021-05-06 13:21] VITALS: BP 147/72; PULSE 74; O2SAT 98
--- NOTE | 2021-05-06 13:29 | ED_ITS ---
HPI - General Adult General Chief complaint: Back Pain/Injury Stated complaint: back pain Time Seen by Provider: 05/06/21 13:18 History of Present Illness HPI narrative: Patient comes complaining of right-sided back pain with movement and urinating more frequently than normal She is a resident of a intermediate and has pre-existing aphasia, and left-sided weakness and does not ambulate or speak but has good comprehension Related Data Home Medications Medication Instructions Recorded Confirmed sulfamethoxazole 800 1 tab PO BID 04/20/21 04/20/21 mg-trimethoprim 160 mg tablet Previous Rx's Medication Instructions Recorded ondansetron 4 mg disintegrating 4 mg PO Q8H PRN #10 tab 01/26/21 tablet famotidine 20 mg tablet (Pepcid) 20 mg PO BID #30 tab 02/22/21 diphenhydramine HCl 25 mg tablet 50 mg PO TID PRN #90 tab 03/16/21 (Benadryl Allergy) Allergies Allergy/AdvReac Type Severity Reaction Status Date / Time cephalexin [CEPHALEXIN] Allergy Unknown UNKNOWN Verified 03/10/21 19:59 Review of Systems Review of Systems: Positive for back pain and urinary frequency No fever no chills no dizziness no weakness no fainting no feeling faint no headache no neck pain no chest pain no shortness of breath no abdominal pain no burning with urination no pain with urination no blood in the urine no skin rash no joint pains no new weakness Yes all other systems are reviewed and are negative [facility] Past Medical History Source: nursing notes reviewed Medical History CVA (cerebral vascular accident) Diabetes Hypertension Psychiatric diagnosis Social History Social History Housing: Assisted Living Facility Do you presently have visiting nurse or other home services: Yes Alcohol intake: unknown Patient Tobacco Use Status: Former Tobacco user Advance Directives: No Advance Directives Information Provided: No Patient : No service: No Current occupational status: disabled Physical Exam Vital Signs: Vital Signs: Last Vital Signs Temp 98.0 F 05/06/21 14:01 Pulse 60 05/06/21 14:01 Resp 18 05/06/21 15:51 BP 140/64 H 05/06/21 14:01 Pulse Ox 97 05/06/21 14:01 Body Mass Index 41.3 General appearance is no acute distress, the patient cannot express herself verbally but has very good understanding and responds appropriately to questions Head is normocephalic atraumatic The neck is supple The chest is clear There is no tenderness to chest wall Heart no murmur Abdomen soft nontender The back there is some tenderness to the right paraspinal soft tissue upper gluteal area, the skin is normal color no redness no warmth no wound no rash, pain is reproduced with certain movements There is no focal bony tenderness, there is no CVA tenderness Extremities no tender nests swelling or deformity There is left-sided weakness, the patient is aphasic but does understand well, there is normal range of motion in right lower extremity and right arm Course Course Course Narrative: Urinalysis was normal Patient was improved after analgesic morphine administration, and was discharged home at her baseline She does have analgesics to use as needed and the should be appropriate for her back pain Medical Decision Making Lab Data Labs: Lab Results 05/06/21 Range/Units 14:32 Urine Color YELLOW Urine Appearance CLEAR Urine pH 6.0 (5.0-8.0) Ur Specific [place] >= 1.030 H (1.005-1.025) Urine Protein TRACE (NEG-TRACE) MG/DL Urine Glucose (UA) NEG (NEG) MG/DL Urine Ketones NEG (NEG) MG/DL Urine Blood NEG (NEG) Urine Nitrite NEG (NEG) Ur Leukocyte Esterase NEG (NEG) Discharge Plan Discharge Clinical Impression: Back pain Patient Disposition: Home, Self-Care Additional Instructions: We gave medication for pain relief There is no sign of any dangerous infection The urine was clear with no sign of infection You can use the prescribed medicines at the intermediate for pain Return if worse Prescriptions: No Action ondansetron 4 mg tablet,disintegrating 4 mg PO Q8H PRN (Reason: nausea and vomiting) Qty: 10 RF: 0 famotidine [Pepcid] 20 mg tablet 20 mg PO BID Qty: 30 RF: 0 diphenhydramine HCl [Benadryl Allergy] 25 mg tablet 50 mg PO TID PRN (Reason: itching) Qty: 90 RF: 0 sulfamethoxazole-trimethoprim 800-160 mg tablet 1 tab PO BID RF: 0 Interventions: ED Discharge Assessment Last Done: 05/06/21 15:52 Discharge Date/Time: 05/06/21 15:59
[2021-05-06 13:45] VITALS: RESP 17
[2021-05-06] MEDS: Morphine Sulfate 4 MG/ML CARTRIDGE SUBCUT (13:45)
[2021-05-06 14:01] VITALS: BP 140/64; PULSE 60; RESP 18; TEMP 36.7; O2SAT 97
[2021-05-06 14:45] LABS: Glucose Urine UA NEG (NEG); Leukocyte Esterase Urine NEG (NEG); Nitrite Urine NEG (NEG); Specific Gravity - Urine >= 1.030 (1.005-1.025); Urine Blood NEG (NEG); Urine Ketones NEG (NEG); Urine Protein TRACE MG/DL (NEG-TRACE)
[2021-05-06 14:46] LABS: Appearance Urine CLEAR; Color Urine YELLOW
[2021-05-06 15:01] VITALS: RESP 17
--- NOTE | 2021-05-06 15:18 | PC.NURSE ---
THIS RN GAVE REPORT TO SHIPPING SUPERVISOR AT [facility] LETTING THEM KNOW PATIENT WILL BE RETURNING VIA AMBULANCE.
[2021-05-06] MEDS: Morphine Sulfate 2 MG/ML CARTRIDGE SUBCUT (15:35)
[2021-05-06 15:51] VITALS: RESP 18
== END 2021-05-06 15:59 | disposition home or self-care (01) ==
PROVIDERS: Physician Assistant Medical; Emergency Provider Emergency Medicine; PCP Internal Medicine
DX: M54.5 Low back pain (principal); R35.0 Frequency of micturition; I10 Essential (primary) hypertension; Z79.899 Other long term (current) drug therapy; Z87.891 Personal history of nicotine dependence; Z86.73 Personal history of transient ischemic attack (TIA), and cerebral infarction without residual deficits
CPT/HCPCS: 81003; 96372; 99284; J2270

== ENCOUNTER 2021-05-17 20:45 | Emergency (ER) | payer MEDICAID, SELFPAY ==
--- NOTE | ~2021-05-17 | CT_ITS ---
EXAMINATION: CT ABDOMEN AND PELVIS WITHOUT CONTRAST CLINICAL INFORMATION: Abdominal pain. COMPARISON: CT scan abdomen pelvis 04/20/2021 TECHNIQUE: Multidetector volumetric imaging was performed from the superior aspect of the liver through the pubic symphysis. Sagittal and coronal reformatted images were obtained on the technologist's workstation. This CT examination was performed using dose optimization techniques as appropriate, variously including the following: *Automated exposure control *Adjustment of mA and/or kV according to patient size (this includes techniques or standardized protocols for targeted exams where dose is matched to indication/reason for exam; i.e. extremities or head) *Use of iterative reconstruction technique DLP: 1026 mGy-cm FINDINGS: LUNG BASES: The visualized lung bases are unremarkable. LIVER, GALLBLADDER, AND BILIARY TREE: The liver is normal in size, shape, and attenuation. No focal hepatic lesion or biliary ductal dilatation is present. Status post cholecystectomy PANCREAS: Fatty atrophy of the pancreas. No acute abnormality of pancreas. No inflammation or mass. No pancreatic duct dilatation. SPLEEN: Unremarkable. ADRENAL GLANDS: Unremarkable. KIDNEYS AND URETERS: Right kidney: Chronic subcapsular fluid collection at the posterior medial lower pole unchanged measuring approximately 2 x 3 x 4 cm. This collection has peripheral rim calcifications. There are 2 small nonobstructive stones in the lower pole the right kidney. Largest measuring about 3 mm. No hydronephrosis. No ureteral stone. Left kidney: Left kidney is normal size and contour. No renal or ureteral calculus. No hydronephrosis. 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 BLADDER: Unremarkable. GASTROINTESTINAL TRACT: There are scattered diverticula of the left colon. There is no diverticulitis. There is no bowel wall thickening /edema. There is no bowel obstruction. There is a moderate volume of stool in the colon. The appendix is nonvisualized . The small bowel loops are unremarkable. The stomach is normal. There is no hiatal hernia. ABDOMINAL WALL: Surgical mesh right upper quadrant abdomen. Stable oval subcutaneous nodule containing fat adjacent to the surgical mesh. LYMPH NODES: Normal. VASCULAR: Unremarkable. PELVIC VISCERA: Unremarkable. OSSEOUS STRUCTURES: Multilevel degenerative spondylosis spine. CT/CT abdomen pelvis wo con IMPRESSION: 1. No acute abnormality. 2. 2 small nonobstructive stones lower pole right kidney unchanged since prior study. No hydronephrosis. Stable subcapsular chronic fluid collection in the lower pole right kidney. 3. Diverticulosis of the colon. No acute changes of bowel. 4. Surgical mesh right upper quadrant abdomen. Adjacent small fat-containing nodule in the subcutaneous tissue. 5. Status post cholecystectomy. No bile duct dilatation.
[2021-05-17 20:48] VITALS: BP 148/92; PULSE 86; O2SAT 97
[2021-05-17 21:40] VITALS: BP 94/59; PULSE 75; RESP 18; TEMP 36.8; O2SAT 97; BMI 36.1
--- NOTE | 2021-05-17 22:11 | PC.NURSE ---
ASSISTED PT TO BATHROOM AND BACK TO WAITING ROOM. PT HAS DIFFICULTY AMBULATING AND WAS ABLE TO STAND AND PIVOT FROM WHEELCHAIR WITH 1 ASSIST.. URINE SAMPLE COLLECTED AND SENT.
[2021-05-17 22:14] LABS: Glucose Urine UA >=1000 MG/DL (NEG); Leukocyte Esterase Urine NEG (NEG); Nitrite Urine NEG (NEG); Specific Gravity - Urine 1.015 (1.005-1.025); Urine Blood NEG (NEG); Urine Ketones NEG (NEG); Urine Protein NEG (NEG-TRACE)
[2021-05-17 22:15] LABS: Appearance Urine CLEAR; Color Urine YELLOW
[2021-05-17 22:20] LABS: RBC Urine 0 /HPF (0); Squamous Epithelial Cell Urine 1+ /LPF; WBC Urine 0 /HPF (0-4)
--- NOTE | 2021-05-17 23:41 | ED_ITS ---
HPI - Nausea/Vomiting/Diarrhea General Chief complaint: Abdominal Pain Stated complaint: abd pain Time Seen by Provider: 05/17/21 23:39 Source: patient and EMS Mode of arrival: EMS Limitations: no limitations History of Present Illness HPI Narrative: 65-year-old female came in for evaluation of nausea, vomiting, diarrhea, abdominal pain. Patient's symptoms started 2 days ago. Constant, describes the pain as diffuse crampy pain, associated with nausea, vomiting and diarrhea. Nothing makes the pain worse or better. Patient of in a skilled nursing reportedly there is a sick contact with similar symptoms at the skilled nursing. Related Data Home Medications Medication Instructions Recorded Confirmed sulfamethoxazole 800 1 tab PO BID 04/20/21 04/20/21 mg-trimethoprim 160 mg tablet Previous Rx's Medication Instructions Recorded ondansetron 4 mg disintegrating 4 mg PO Q8H PRN #10 tab 01/26/21 tablet famotidine 20 mg tablet (Pepcid) 20 mg PO BID #30 tab 02/22/21 diphenhydramine HCl 25 mg tablet 50 mg PO TID PRN #90 tab 03/16/21 (Benadryl Allergy) Allergies Allergy/AdvReac Type Severity Reaction Status Date / Time cephalexin [CEPHALEXIN] Allergy Unknown Vomiting Verified 05/17/21 21:40 Review of Systems Review of Systems: All other systems are reviewed and are negative Constitutional: Reports as per HPI and Reports no additional constitutional complaints Eyes: Reports as per HPI and Reports no additional eye complaints Reports system reviewed and no additional complaints, except as documented Cardiovascular: Reports as per HPI and Reports no additional cardiovascular complaints Respiratory: Reports as per HPI and Reports no additional respiratory complaints Gastrointestinal: Reports as per HPI and Reports no additional gastrointestinal complaints Genitourinary: Reports no additional female genitourinary complaints Musculoskeletal: Reports no additional musculoskeletal complaints Skin/Breast: Reports system reviewed and no additional complaints, except as docu Psychiatric: Reports no additional psychiatric complaints Endocrine: Reports no additional endocrine complaints Hematologic/Lymphatic: Reports no additional hematologic/lymphatic complaints Allergic/Immunologic: Reports no additional allergic/immunologic complaints Reports system reviewed and no additional complaints, except as documented and Reports Abnormal speech present [facility] Past Medical History Medical History CVA (cerebral vascular accident) Diabetes Hypertension Psychiatric diagnosis Social History Social History Housing: Assisted Living Facility Do you presently have visiting nurse or other home services: Yes Alcohol intake: unknown Patient Tobacco Use Status: Former Tobacco user Advance Directives: Yes Advance Directives Information Provided: Yes Advance Directives on File: Yes Advance Directives Date on File: 03/17/21 Patient : No service: No Current occupational status: disabled Physical Exam Vital Signs: Vital Signs: Last Vital Signs Temp 97.5 F 05/18/21 00:00 Pulse 70 05/18/21 00:00 Resp 17 05/18/21 00:00 BP 172/74 H 05/18/21 00:00 Pulse Ox 97 05/18/21 00:00 Body Mass Index 36.1 Vital signs have been reviewed as appeared to be correct. Blood pressure normal. Heart rate normal. Respiration rate normal. Temperature normal. Oxygen saturation normal. Appearance: Alert. Oriented X3. No acute distress. Head: Normal external exam. Normocephalic. Atraumatic. No Mayer signs noted. No raccoon eyes noted Eyes: PERRLA. EOMI. Conjunctiva and sclera normal. Eyelids normal. ENT: TM's Normal. Pharynx normal. Uvula midline. Moist mucous membranes. No trismus noted. No drooling noted. No muffled voice noted. Neck: Normal inspection. Neck supple. FROM. No adenopathy. Thyroid Normal. No meningeal signs. No neck mass noted. CVS: Normal heart rate and rhythm. Heart sound normal. No murmurs noted. Pulses normal throughout. Respiratory: No respiratory distress. Painless inspiration. Breath sounds normal. No wheezes/rales/rhonchi noted. Chest nontender. No accessory muscle usage noted or decreased air movement noted. Abdomen: Soft and nontender. Bowel sounds normal in all 4 quadrants. No distention noted. No organomegaly noted. No visible injury noted. Back: No CVA tenderness. Full range of motion noted. Skin: Skin warm and dry. Normal skin color. Normal skin turgor. No rashes/lesions/lacerations noted. Extremities: No lower extremity edema. Extremities exhibit normal range of motion. Extremities nontender. Neuro: Oriented X 3. Cranial nerve exam: II-XII are grossly intact No motor deficit. No sensory deficit. Reflexes normal. Course Course Course Narrative: Assessment and plan. 65-year-old female came in for evaluation of abdominal pain, nausea, vomiting, nonbloody watery diarrhea. Patient in the emergency department received IV fluid, and Toradol, patient's symptoms has improved, able to tolerate p.o. intake, labs are unremarkable, CT abdomen pelvis was unremarkable. Impression: Patient contracted gastroenteritis likely to be viral, able to tolerate p.o. intake. Will discharge to skilled nursing. MDM - Nausea/Vomiting/Diarrhea Lab Data Attestation: I reviewed the patient's lab results. Result diagrams: 05/18/21 00:10 05/18/21 00:56 Labs: Lab Results 05/17/21 05/17/21 05/18/21 Range/Units 22:06 23:56 00:10 WBC 9.7 (4.8-10.8) X10*3/uL RBC 4.66 (4.20-5.50) X10*6/uL Hgb 12.4 (12.0-16.0) g/dl Hct 38.3 (37-47) % MCV 82.2 (80-98) fL MCH 26.6 L (27.0-33.0) pg MCHC 32.4 (31.0-35.0) g/dl RDW 13.0 (11.0-16.0) % Plt Count 241 (160-400) X10*3/uL MPV 11.0 (9.4-12.3) fL Immature Gran % (Auto) 0.4 (0.0-0.4) % Neut % (Auto) 65.0 (45-73) % Lymph % (Auto) 26.4 (20-40) % [place] % (Auto) 5.9 (2-11) % Eos % (Auto) 1.8 (0-4) % Baso % (Auto) 0.5 (0-2) % Lymph # (Auto) 2.6 (1.2-4.9) X10*3/uL [place] # (Auto) 0.6 (0.1-1.2) X10*3/uL Eos # (Auto) 0.2 (0.0-0.4) X10*3/uL Baso # (Auto) 0.1 (0.0-0.2) X10*3/uL Abs Immat Gran (auto) 0.04 H (0.00-0.03) X10*3/uL Absolute Neuts (auto) 6.3 (2.0-8.3) X10*3/uL Absolute Nucleated RBC 0.000 (0.0-0.012) X10*3/uL Nucleated RBC % (auto) 0.0 (0.0-0.2) /100WBC Sodium (135-145) mmol/L Potassium (3.3-5.1) mmol/L Chloride (96-108) mmol/L Carbon Dioxide (22-29) mmol/L Anion Gap (12-20) BUN (9-16) mg/dL Creatinine (0.5-1.4) mg/dL Estim Creat Clear Calc Estimated GFR Random Glucose (60-115) mg/dL Calcium (8.4-10.2) mg/dL Total Bilirubin (0.0-1.0) mg/dL Direct Bilirubin (0.0-0.5) mg/dL AST (5-31) U/L ALT (0-31) U/L Alkaline Phosphatase (39-117) U/L Total Protein (6.5-8.0) g/dL Albumin (3.5-5.0) g/dL Lipase (8-78) U/L Urine Color YELLOW Urine Appearance CLEAR Urine pH 7.0 (5.0-8.0) Ur Specific [place] 1.015 (1.005-1.025) Urine Protein NEG (NEG-TRACE) MG/DL Urine Glucose (UA) >=1000 H (NEG) MG/DL Urine Ketones NEG (NEG) MG/DL Urine Blood NEG (NEG) Urine Nitrite NEG (NEG) Ur Leukocyte Esterase NEG (NEG) Urine RBC 0 (0) /HPF Urine WBC 0 (0-4) /HPF Ur Squamous Epith Cells 1+ /LPF Urine Bacteria NONE /LPF COVID-19 (ANAHI) Negative (Negative) COVID-19 Clin Com See Note 05/18/21 Range/Units 00:56 WBC (4.8-10.8) X10*3/uL RBC (4.20-5.50) X10*6/uL Hgb (12.0-16.0) g/dl Hct (37-47) % MCV (80-98) fL MCH (27.0-33.0) pg MCHC (31.0-35.0) g/dl RDW (11.0-16.0) % Plt Count (160-400) X10*3/uL MPV (9.4-12.3) fL Immature Gran % (Auto) (0.0-0.4) % Neut % (Auto) (45-73) % Lymph % (Auto) (20-40) % [place] % (Auto) (2-11) % Eos % (Auto) (0-4) % Baso % (Auto) (0-2) % Lymph # (Auto) (1.2-4.9) X10*3/uL [place] # (Auto) (0.1-1.2) X10*3/uL Eos # (Auto) (0.0-0.4) X10*3/uL Baso # (Auto) (0.0-0.2) X10*3/uL Abs Immat Gran (auto) (0.00-0.03) X10*3/uL Absolute Neuts (auto) (2.0-8.3) X10*3/uL Absolute Nucleated RBC (0.0-0.012) X10*3/uL Nucleated RBC % (auto) (0.0-0.2) /100WBC Sodium 142 (135-145) mmol/L Potassium 4.2 (3.3-5.1) mmol/L Chloride 109 H (96-108) mmol/L Carbon Dioxide 26 (22-29) mmol/L Anion Gap 11 L (12-20) BUN 17 H (9-16) mg/dL Creatinine 0.75 (0.5-1.4) mg/dL Estim Creat Clear Calc 73.7 Estimated GFR > 60 Random Glucose 165 H D (60-115) mg/dL Calcium 9.4 (8.4-10.2) mg/dL Total Bilirubin 0.3 (0.0-1.0) mg/dL Direct Bilirubin < 0.2 (0.0-0.5) mg/dL AST 16 (5-31) U/L ALT 15 (0-31) U/L Alkaline Phosphatase 88 (39-117) U/L Total Protein 6.6 (6.5-8.0) g/dL Albumin 3.9 (3.5-5.0) g/dL Lipase 47 (8-78) U/L Urine Color Urine Appearance Urine pH (5.0-8.0) Ur Specific [place] (1.005-1.025) Urine Protein (NEG-TRACE) MG/DL Urine Glucose (UA) (NEG) MG/DL Urine Ketones (NEG) MG/DL Urine Blood (NEG) Urine Nitrite (NEG) Ur Leukocyte Esterase (NEG) Urine RBC (0) /HPF Urine WBC (0-4) /HPF Ur Squamous Epith Cells /LPF Urine Bacteria /LPF COVID-19 (ANAHI) (Negative) COVID-19 Clin Com Imaging Data CT scan - abdomen: Radiologist's impression: 1. No acute abnormality. 2. 2 small nonobstructive stones lower pole right kidney unchanged since prior study. No hydronephrosis. Stable subcapsular chronic fluid collection in the lower pole right kidney. 3. Diverticulosis of the colon. No acute changes of bowel. 4. Surgical mesh right upper quadrant abdomen. Adjacent small fat-containing nodule in the subcutaneous tissue. 5. Status post cholecystectomy. No bile duct dilatation.? Discharge Plan Discharge Clinical Impression: Gastroenteritis Patient Disposition: Home, Self-Care Instructions: Gastroenteritis (ED) Prescriptions: No Action ondansetron 4 mg tablet,disintegrating 4 mg PO Q8H PRN (Reason: nausea and vomiting) Qty: 10 RF: 0 famotidine [Pepcid] 20 mg tablet 20 mg PO BID Qty: 30 RF: 0 diphenhydramine HCl [Benadryl Allergy] 25 mg tablet 50 mg PO TID PRN (Reason: itching) Qty: 90 RF: 0 sulfamethoxazole-trimethoprim 800-160 mg tablet 1 tab PO BID RF: 0 Referrals: Physician,Unknown [Primary Care Provider] - 2 days
[2021-05-18] VITALS: BP 172/74; PULSE 70; RESP 17; TEMP 36.4; O2SAT 97
[2021-05-18 00:15] LABS: MANUAL DIFF FLAG NO
[2021-05-18 00:16] LABS: Basophils Absolute Auto 0.1 X10*3/uL (0.0-0.2); Basophils Percent Auto 0.5 % (0-2); Eosinophils Absolute Auto 0.2 X10*3/uL (0.0-0.4); Eosinophils Percent Auto 1.8 % (0-4); Hematocrit 38.3 % (37-47); Hemoglobin 12.4 g/dl (12.0-16.0); Imm Gran Abs Auto 0.04 X10*3/uL (0.00-0.03); Imm Gran Pct Auto 0.4 % (0.0-0.4); Lymphocytes Absolute Auto 2.6 X10*3/uL (1.2-4.9); Lymphocytes Percent Auto 26.4 % (20-40); Mean Corpuscular HGB Conc 32.4 g/dl (31.0-35.0); Mean Corpuscular Hemoglobin 26.6 pg (27.0-33.0); Mean Corpuscular Volume 82.2 fL (80-98); Monocytes Absolute Auto 0.6 X10*3/uL (0.1-1.2); Monocytes Percent Auto 5.9 % (2-11); Neutrophils Absolute Auto 6.3 X10*3/uL (2.0-8.3); Platelet Count 241 X10*3/uL (160-400); Red Blood Count 4.66 X10*6/uL (4.20-5.50); White Blood Count 9.7 X10*3/uL (4.8-10.8)
[2021-05-18] MEDS: 0.9 % Sodium Chloride 1,000 ML 999 ML IVCONT (00:29)
[2021-05-18] MEDS: ondansetron HCL 4 MG/2 ML VIAL IVPUSH (00:30)
[2021-05-18 00:31] LABS: COVID-19 Test Negative (Negative); IDNOW Serial# 55D5AD1C
[2021-05-18] MEDS: Ketorolac Tromethamine 15 MG/ML VIAL 30 MG IVPUSH (00:59)
[2021-05-18 01:40] LABS: Alanine Aminotransferase 15 U/L (0-31); Albumin Level 3.9 g/dL (3.5-5.0); Alkaline Phosphatase 88 U/L (39-117); Anion Gap 11 (12-20); Aspartate Amino Transferase 16 U/L (5-31); Bilirubin Direct < 0.2 mg/dL (0.0-0.5); Bilirubin Total 0.3 mg/dL (0.0-1.0); Blood Urea Nitrogen 17 mg/dL (9-16); Calcium 9.4 mg/dL (8.4-10.2); Carbon Dioxide 26 mmol/L (22-29); Chloride 109 mmol/L (96-108); Creatinine Clr Calc Pharmacy 73.7; Estimated Glomerular Filt Rate > 60; Glucose Random 165 mg/dL (60-115); Lipase 47 U/L (8-78); Potassium 4.2 mmol/L (3.3-5.1); Sodium 142 mmol/L (135-145); Total Protein 6.6 g/dL (6.5-8.0)
--- NOTE | 2021-05-18 02:18 | PC.NURSE ---
PT SLEEPING FOLLOWING MEDICATION, FLUIDS AND APPLE JUICE. NO VOMITING WITNESSED WHILE PT PRESENT IN ER.
--- NOTE | 2021-05-18 03:15 | PC.NURSE ---
IV REMOVED, PT TRANSFERRED TO EMS STRETCHER. PT TRANSFERRED BACK TO LONG-TERM BY EMS.
[2021-05-18 03:17] VITALS: BP 138/65; PULSE 76; RESP 16; O2SAT 95
== END 2021-05-18 03:18 | disposition home or self-care (01) ==
PROVIDERS: Emergency Provider Emergency Medicine
DX: K52.9 Noninfective gastroenteritis and colitis, unspecified (principal); Z20.822 Contact with and (suspected) exposure to COVID-19; Z79.899 Other long term (current) drug therapy
CPT/HCPCS: 36415; 74176; 80048; 80076; 81001; 83690; 85025; 87635; 96361; 96374; 96375; 99284; J1885; J2405

== ENCOUNTER 2021-05-26 11:51 | Emergency (ER) | payer MEDICAID, SELFPAY ==
--- NOTE | ~2021-05-26 | XR_ITS ---
EXAMINATION: XR ABDOMEN KUB CLINICAL INDICATION: Chronic right abdominal pain. COMPARISON: CT abdomen pelvis 05/17/2021. TECHNIQUE: AP view of the abdomen. FINDINGS: There is scattered stool and gas in the colon without distention. A solitary prominent small bowel loop is seen in left midabdomen. There is no organomegaly. No radiopaque calculi visualized. There cholecystectomy changes noted. There is focal mass seen in the right upper quadrant from abdominal wall hernia repair. XR/XR KUB IMPRESSION: There is mild constipation. Evidence of previous cholecystectomy and right upper quadrant hernia mesh. No radiopaque renal calculi seen.
[2021-05-26 12:00] VITALS: BP 117/54; BP 170/76; PULSE 77; PULSE 88; RESP 16; TEMP 36.9; O2SAT 96; O2SAT 97; BMI 37.0
--- NOTE | 2021-05-26 12:33 | ECG_ITS ---
Test Reason : ABD PAIN Blood Pressure : / mmHG Vent. Rate : 069 BPM Atrial Rate : 069 BPM P-R Int : 126 ms QRS Dur : 102 ms QT Int : 380 ms P-R-T Axes : 043 -08 029 degrees QTc Int : 407 ms Normal sinus rhythm Incomplete right bundle branch block Borderline ECG When compared with ECG of 22-FEB-2021 18:28, No significant change was found Referred By: Paloma Lawson Electronically Signed By:RADHAMES GRAVES
--- NOTE | 2021-05-26 12:50 | ED.ABDPAIN ---
HPI - Abdominal Pain General Chief Complaint: Abdominal Pain Stated Complaint: abd pain x 3 days Time Seen by Provider: 05/26/21 12:22 Source: EMS Mode of arrival: EMS Limitations: other (Nonverbal, due to stroke) History of Present Illness HPI narrative: Patient comes to the emergency room complaining of right abdominal pain. Patient has been evaluated multiple times for abdominal pain. Unfortunately, patient is unable to verbalize anything due to her old stroke. Patient points towards the right abdomen. Patient was seen here 1 week ago with the same issues. Patient had a CT scan done which did not show any acute pathology. For EMS, seems that the patient has been complaining of nausea/vomiting for [facility] Related Data Home Medications Medication Instructions Recorded Confirmed sulfamethoxazole 800 1 tab PO BID 04/20/21 04/20/21 mg-trimethoprim 160 mg tablet Previous Rx's Medication Instructions Recorded ondansetron 4 mg disintegrating 4 mg PO Q8H PRN #10 tab 01/26/21 tablet famotidine 20 mg tablet (Pepcid) 20 mg PO BID #30 tab 02/22/21 diphenhydramine HCl 25 mg tablet 50 mg PO TID PRN #90 tab 03/16/21 (Benadryl Allergy) Allergies Allergy/AdvReac Type Severity Reaction Status Date / Time cephalexin [CEPHALEXIN] Allergy Unknown Vomiting Verified 05/17/21 21:40 Review of Systems Review of Systems Yes Unobtainable due to mental condition Physical Exam Vital Signs: Vital Signs: Last Vital Signs Temp 98.5 F 05/26/21 12:00 Pulse 77 05/26/21 12:00 Resp 16 05/26/21 12:00 BP 117/54 L 05/26/21 12:00 Pulse Ox 97 05/26/21 12:00 Body Mass Index 37.0 Const: Other: Appearance: Alert. Oriented X3. No acute distress. Eyes: Pupils equal, round and reactive to light. ENT: Pharynx normal. Neck: Normal inspection. Neck supple. No lymph nodes noted. No crepitus CVS: Normal heart rate and rhythm. Pulses normal. Normal S1 and S2 Respiratory: No respiratory distress. Breath sounds normal. No Wheezing. No rales Abdomen: Soft, no distention, no rigidity, no guarding, no rebound, seems nontender, seems to not have any flank pain on the right side Skin: Skin warm and dry. Normal skin color. Normal skin turgor. Extremities: No lower extremity edema. Chronic left lower extremity discoloration, purplish hue bilateral Neuro: Oriented X 3. No motor deficit. No sensory deficit. Moving all extermities. No slurred speech. Course Course Course Narrative: Patient's nurse called the prison to get more information about the patient's recurrent abdominal pain. We were informed that the patient goes to 3 different hospitals 3 times a week, including [facility], [facility] and [facility]. It seems that patient has problem of seeking opioids, according to prison. Patient usually requests IV morphine. Patient has an appointment pending with Gastroenterology, her PCP. Patient's labs are at base line. Urine pending I was informed by the patient's nurse that she walked into the patient's room. Around requested a urine sample. Patient said pain . Patient's RN offered Tylenol, pt got upset and threw her pulse ox at the patient's face, declined to give a urine sample. MDM - Abdominal Pain Lab Data Result diagrams: 05/26/21 14:10 05/26/21 14:10 Labs: Lab Results 05/26/21 05/26/21 05/26/21 Range/Units 14:10 14:10 14:10 WBC 10.1 (4.8-10.8) X10*3/uL RBC 4.65 (4.20-5.50) X10*6/uL Hgb 12.3 (12.0-16.0) g/dl Hct 37.8 (37-47) % MCV 81.3 (80-98) fL MCH 26.5 L (27.0-33.0) pg MCHC 32.5 (31.0-35.0) g/dl RDW 13.1 (11.0-16.0) % Plt Count 264 (160-400) X10*3/uL MPV 10.7 (9.4-12.3) fL Immature Gran % (Auto) 0.6 H (0.0-0.4) % Neut % (Auto) 73.3 H (45-73) % Lymph % (Auto) 19.4 L (20-40) % [place] % (Auto) 4.4 (2-11) % Eos % (Auto) 2.0 (0-4) % Baso % (Auto) 0.3 (0-2) % Lymph # (Auto) 2.0 (1.2-4.9) X10*3/uL [place] # (Auto) 0.4 (0.1-1.2) X10*3/uL Eos # (Auto) 0.2 (0.0-0.4) X10*3/uL Baso # (Auto) 0.0 (0.0-0.2) X10*3/uL Abs Immat Gran (auto) 0.06 H (0.00-0.03) X10*3/uL Absolute Neuts (auto) 7.4 (2.0-8.3) X10*3/uL Absolute Nucleated RBC 0.000 (0.0-0.012) X10*3/uL Nucleated RBC % (auto) 0.0 (0.0-0.2) /100WBC Sodium 140 (135-145) mmol/L Potassium 4.2 (3.3-5.1) mmol/L Chloride 104 (96-108) mmol/L Carbon Dioxide 28 (22-29) mmol/L Anion Gap 12 (12-20) BUN 18 H (9-16) mg/dL Creatinine 0.68 (0.5-1.4) mg/dL Estim Creat Clear Calc 82.5 Estimated GFR > 60 Random Glucose 144 H (60-115) mg/dL Calcium 9.8 (8.4-10.2) mg/dL Total Bilirubin 0.3 (0.0-1.0) mg/dL Direct Bilirubin 0.2 (0.0-0.5) mg/dL AST 20 (5-31) U/L ALT 17 (0-31) U/L Alkaline Phosphatase 98 (39-117) U/L Total Protein 7.1 (6.5-8.0) g/dL Albumin 4.1 (3.5-5.0) g/dL Discharge Plan Discharge Clinical Impression: Chronic abdominal pain Patient Disposition: Home, Self-Care Instructions: Abdominal Pain (ED) Additional Instructions: Please follow-up with your primary care physician tomorrow. If you have any worsening or new symptoms, please return to the emergency room or call 911 Prescriptions: No Action ondansetron 4 mg tablet,disintegrating 4 mg PO Q8H PRN (Reason: nausea and vomiting) Qty: 10 RF: 0 famotidine [Pepcid] 20 mg tablet 20 mg PO BID Qty: 30 RF: 0 diphenhydramine HCl [Benadryl Allergy] 25 mg tablet 50 mg PO TID PRN (Reason: itching) Qty: 90 RF: 0 sulfamethoxazole-trimethoprim 800-160 mg tablet 1 tab PO BID RF: 0 PMFSH Past Medical History Medical History Bipolar disorder CVA (cerebral vascular accident) Diabetes Hypertension Psychiatric diagnosis Social History Social History Housing: Assisted Living Facility Do you presently have visiting nurse or other home services: Yes Alcohol intake: never Patient Tobacco Use Status: Former Tobacco user Use of substances other than those prescribed or required for medical reasons: No Advance Directives: Yes Advance Directives on File: Yes Advance Directives Date on File: 03/17/21 service: No Current occupational status: disabled
[2021-05-26] MEDS: Ondansetron ODT 4 MG TAB.RAPDIS TRANSLINGU (13:16)
--- NOTE | 2021-05-26 13:25 | PC.NURSE ---
attempt to call correction x 3 no answer, call placed to director anna on paperwork provided and she states why are you calling me and how did you get my number. awaiting call back from cheko the director. pt denies being able to swallow pills. unsure of diet and medications d/t no information other than limited paperwork provided from ems.
--- NOTE | 2021-05-26 13:35 | PC.NURSE ---
[facility] contacted again- director of content and programming states pt is at the er 3 times a week requesting ivs and iv pain medications. states she takes po meds tid and eats a regular diet. md stevens
[2021-05-26 14:15] LABS: MANUAL DIFF FLAG NO
[2021-05-26 14:18] LABS: Basophils Percent Auto 0.3 % (0-2); Eosinophils Absolute Auto 0.2 X10*3/uL (0.0-0.4); Hematocrit 37.8 % (37-47); Hemoglobin 12.3 g/dl (12.0-16.0); Imm Gran Abs Auto 0.06 X10*3/uL (0.00-0.03); Imm Gran Pct Auto 0.6 % (0.0-0.4); Lymphocytes Percent Auto 19.4 % (20-40); Mean Corpuscular HGB Conc 32.5 g/dl (31.0-35.0); Mean Corpuscular Hemoglobin 26.5 pg (27.0-33.0); Mean Corpuscular Volume 81.3 fL (80-98); Mean Platelet Volume 10.7 fL (9.4-12.3); Monocytes Absolute Auto 0.4 X10*3/uL (0.1-1.2); Monocytes Percent Auto 4.4 % (2-11); Neutrophils Absolute Auto 7.4 X10*3/uL (2.0-8.3); Neutrophils Percent Auto 73.3 % (45-73); Platelet Count 264 X10*3/uL (160-400); Red Blood Count 4.65 X10*6/uL (4.20-5.50); Red Cell Distribution Width 13.1 % (11.0-16.0); White Blood Count 10.1 X10*3/uL (4.8-10.8)
[2021-05-26 14:30] LABS: Anion Gap 12 (12-20); Blood Urea Nitrogen 18 mg/dL (9-16); Calcium 9.8 mg/dL (8.4-10.2); Carbon Dioxide 28 mmol/L (22-29); Chloride 104 mmol/L (96-108); Creatinine Clr Calc Pharmacy 82.5; Estimated Glomerular Filt Rate > 60; Glucose Random 144 mg/dL (60-115); Potassium 4.2 mmol/L (3.3-5.1); Sodium 140 mmol/L (135-145)
[2021-05-26 14:32] LABS: Alanine Aminotransferase 17 U/L (0-31); Albumin Level 4.1 g/dL (3.5-5.0); Alkaline Phosphatase 98 U/L (39-117); Aspartate Amino Transferase 20 U/L (5-31); Bilirubin Direct 0.2 mg/dL (0.0-0.5); Bilirubin Total 0.3 mg/dL (0.0-1.0); Total Protein 7.1 g/dL (6.5-8.0)
--- NOTE | 2021-05-26 15:03 | PC.NURSE ---
pt reports pain- offered tylenol. pt refusing. asked to provide urine sample. pt threw pulse ox at this rn. aware. plan for dc home.
== END 2021-05-26 18:15 | disposition home or self-care (01) ==
PROVIDERS: Emergency Provider Emergency Medicine
DX: G89.29 Other chronic pain (principal); R10.9 Unspecified abdominal pain; Z76.5 Malingerer [conscious simulation]; I10 Essential (primary) hypertension; E11.9 Type 2 diabetes mellitus without complications; Z86.73 Personal history of transient ischemic attack (TIA), and cerebral infarction without residual deficits
CPT/HCPCS: 36415; 74018; 80048; 80076; 85025; 93005; 99283; 99284

== ENCOUNTER 2021-06-21 13:15 | Emergency (ER) | payer MEDICAID, SELFPAY ==
[2021-06-21 14:54] VITALS: BP 121/94; BP 146/96; PULSE 81; PULSE 88; RESP 18; TEMP 37; O2SAT 98; BMI 29.9
[2021-06-21 17:19] LABS: Glucose, Whole Blood 118 mg/dL (60-115)
[2021-06-21 18:19] VITALS: BP 132/65; PULSE 88; RESP 16; TEMP 36.8; BMI 38.2
[2021-06-21 22:02] VITALS: BP 150/77; PULSE 68; RESP 18; TEMP 36.4; O2SAT 97
--- NOTE | 2021-06-21 22:35 | ED.GENADULT ---
HPI - General Adult General Chief complaint: General Medical Stated complaint: LOW BACK PAIN X'S 1 MONTH Source: patient and EMS Mode of arrival: EMS Limitations: physical limitation (Left-sided weakness per baseline) History of Present Illness HPI narrative: 65-year-old female presents with multiple complaints, states that her blood sugar is high, and that she has chronic back pain. Patient states that she is more concerned about her back pain that her blood sugar. She was evaluated an [facility] last night for upper respiratory symptoms and has been steroids. Onset (ago): month(s) Location: back Radiation: non-radiation Severity: moderate Severity scale (1-10): 5 Quality: aching Pain Consistency: constant Relieving factors: none Exacerbating factors: movement Associated symptoms: denies other symptoms Treatments prior to arrival: none Related Data Home Medications Medication Instructions Recorded Confirmed sulfamethoxazole 800 1 tab PO BID 04/20/21 04/20/21 mg-trimethoprim 160 mg tablet Previous Rx's Medication Instructions Recorded ondansetron 4 mg disintegrating 4 mg PO Q8H PRN #10 tab 01/26/21 tablet famotidine 20 mg tablet (Pepcid) 20 mg PO BID #30 tab 02/22/21 diphenhydramine HCl 25 mg tablet 50 mg PO TID PRN #90 tab 03/16/21 (Benadryl Allergy) Allergies Allergy/AdvReac Type Severity Reaction Status Date / Time cephalexin [CEPHALEXIN] Allergy Unknown Vomiting Verified 06/21/21 14:54 Review of Systems Review of Systems: Constitutional: No Fever, No Chills ENT/Mouth: No Ear Pain, No Hoarseness, No sore throat Eyes: No Eye Pain, No Swelling, No Redness, No Foreign Body Cardiovascular: No Chest Pain, No SOB Respiratory: No Cough, No Dyspnea Gastrointestinal: No Nausea, No Vomiting, No Diarrhea, No abdominal Pain Genitourinary: No Dysuria, No Hematuria Musculoskeletal: positive lower back pain, No Myalgias, No Joint Swelling Skin: No Skin lacerations, No rash Neuro: No Weakness, No Numbness, No Paresthesias, No Loss of Consciousness, No Dizziness, No Headache Psych: No Anxiety/Panic, No Depression Heme/Lymph: no easy bruising, no Lymphadenopathy Endocrine: No Polyuria, No Polydipsia Yes all other systems are reviewed and are negative [facility] Past Medical History Source: old records reviewed Medical History Bipolar disorder CVA (cerebral vascular accident) Diabetes Hypertension Psychiatric diagnosis Social History Social History Housing: Assisted Living Facility Do you presently have visiting nurse or other home services: Yes Alcohol intake: never Patient Tobacco Use Status: Former Tobacco user Advance Directives: Yes Advance Directives on File: Yes Advance Directives Date on File: 03/17/21 Patient : No service: No Current occupational status: disabled Physical Exam Vital Signs: Vital Signs: Last Vital Signs Temp 97.5 F 06/21/21 22:02 Pulse 68 06/21/21 22:02 Resp 18 06/21/21 22:02 BP 150/77 H 06/21/21 22:02 Pulse Ox 97 06/21/21 22:02 Body Mass Index 38.2 Other: Appearance: Alert.? Oriented X3.? No acute distress.? Eyes: Pupils equal, round and reactive to light. ENT: Pharynx normal. Neck: Normal inspection.? Neck supple. No lymph nodes noted. No crepitus CVS: Normal heart rate and rhythm.? Pulses normal. Normal S1 and S2 Respiratory: No respiratory distress.? Breath sounds normal. No Wheezing. No rales Abdomen: Soft, no distention, no rigidity, no guarding, no rebound, seems nontender, seems to not have any flank pain on the right side Skin: Skin warm and dry.? Normal skin color.? Normal skin turgor. Extremities: No lower extremity edema.? Chronic left lower extremity discoloration, purplish hue bilateral. Left-sided contracture noted per baseline. Neuro: Oriented X 3.? No motor deficit.? No sensory deficit. Moving all extermities. Speech is aphasic but is able to make her needs known per patient baseline Course Course Course Narrative: 65-year-old female presents to the emergency department multiple times, approximately 3 times a week rotating between hospitals. EMS report states that she felt dizzy with elevated blood sugar and is currently on steroids. During my evaluation, patient stated that she did not feel dizzy that she has 10/10 back pain. She has been evaluated for back pain in the past. We will order urinalysis to rule out UTI. I feel that this patient is medication seeking, and has had this behavior in the past. Patient is ambulatory, afebrile, vital signs are within normal limits. Appears nontoxic and is acting per her baseline. This patient is well-known to this facility. Plan of care is Toradol and discharged home. Patient dissatisfied with care, requesting narcotics, patient request was respectfully declined. Patient discharged to intermediate. Medical Decision Making Differential Diagnosis Differential Diagnosis: UTI, chronic back pain Medical Records Medical records reviewed: Yes I reviewed the patient's medical records. Lab Data Lab results reviewed: Yes I reviewed the patient's lab results. 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 Please follow-up with pain management for chronic pain. I referred you to Dr. Veliz. Thank you for choosing this emergency department for evaluation. Please follow-up with primary care physician as needed. Return to the emergency department for any new, concerning, or worsening symptoms. Prescriptions: No Action ondansetron 4 mg tablet,disintegrating 4 mg PO Q8H PRN (Reason: nausea and vomiting) Qty: 10 RF: 0 famotidine [Pepcid] 20 mg tablet 20 mg PO BID Qty: 30 RF: 0 diphenhydramine HCl [Benadryl Allergy] 25 mg tablet 50 mg PO TID PRN (Reason: itching) Qty: 90 RF: 0 sulfamethoxazole-trimethoprim 800-160 mg tablet 1 tab PO BID RF: 0 Referrals: Simone Veliz MD [Physician] - 2 days (Chronic pain)
[2021-06-21 23:03] LABS: Appearance Urine CLEAR; Color Urine YELLOW; Glucose Urine UA 100 MG/DL (NEG); Leukocyte Esterase Urine NEG (NEG); Nitrite Urine NEG (NEG); Specific Gravity - Urine >= 1.030 (1.005-1.025); Urine Blood NEG (NEG); Urine Ketones NEG (NEG); Urine Protein NEG (NEG-TRACE)
[2021-06-21] MEDS: Ketorolac Tromethamine 15 MG/ML VIAL 30 MG IM (23:28)
[2021-06-21 23:33] LABS: Glucose, Whole Blood 130 mg/dL (60-115)
== END 2021-06-22 01:45 | disposition home or self-care (01) ==
PROVIDERS: Nurse Practitioner Family; Emergency Provider Emergency Medicine
DX: S39.012D Strain of muscle, fascia and tendon of lower back, subsequent encounter (principal); X58.XXXD Exposure to other specified factors, subsequent encounter; R47.01 Aphasia; E11.9 Type 2 diabetes mellitus without complications; I10 Essential (primary) hypertension; Z86.73 Personal history of transient ischemic attack (TIA), and cerebral infarction without residual deficits
CPT/HCPCS: 81003; 82947; 96372; 99284; J1885

== ENCOUNTER 2021-07-16 21:00 | Emergency (ER) | payer MEDICAID, SELFPAY ==
--- NOTE | ~2021-07-16 | XR_ITS ---
EXAMINATION: XR CHEST CLINICAL INFORMATION: Chest pain COMPARISON: 06/24/2017 TECHNIQUE: Frontal view of the chest was obtained. FINDINGS: No significant abnormality is noted involving the heart, lungs, mediastinum, bony thorax or soft tissues. XR/XR chest 1V IMPRESSION: Unremarkable examination.
--- NOTE | ~2021-07-16 | CT_ITS ---
EXAMINATION: CT CHEST WITHOUT CONTRAST CLINICAL INFORMATION: Chest wall pain COMPARISON: Chest radiograph earlier today, CT abdomen pelvis 05/17/2021 TECHNIQUE: Multidetector volumetric CT imaging of the chest was done. Axial MIP volume rendering provided. Sagittal and coronal reformatted images were obtained. This CT examination was performed using dose optimization techniques as appropriate, variously including the following: *Automated exposure control *Adjustment of mA and/or kV according to patient size (this includes techniques or standardized protocols for targeted exams where dose is matched to indication/reason for exam; i.e. extremities or head) *Use of iterative reconstruction technique DLP: 448 mGy-cm FINDINGS: LUNGS: There is a calcified subpleural right upper lobe small granuloma present. The lungs are otherwise clear with no evidence of inflammation or nodules. MEDIASTINUM: Heart size normal. A dense focus of calcification is present in the mid left anterior descending artery. No mediastinal or hilar lymphadenopathy. PLEURA: There is no pleural effusion. No pleural mass or thickening. AXILLA/CHEST WALL: No lymphadenopathy. No chest wall masses seen. UPPER ABDOMEN: A small hiatal hernia is present. Previous abdominal wall surgery is seen with multiple clips. Patient status post median sternotomy. OSSEOUS STRUCTURES: Degenerative changes present in the spine. No bony destructive lesions. No rib fractures. CT/CT chest wo con IMPRESSION: A cause for the patient's chest wall pain has not been found. Incidental findings as described above.
[2021-07-16 21:11] VITALS: BP 146/100; BP 146/82; PULSE 74; PULSE 75; RESP 18; TEMP 36.6; O2SAT 97; O2SAT 99; BMI 36.3
--- NOTE | 2021-07-16 21:20 | ED_ITS ---
HPI - Chest Pain General Chief Complaint: Chest Pain Stated Complaint: CP Time Seen by Provider: 07/16/21 21:09 Source: patient Mode of arrival: EMS History of Present Illness HPI narrative: This is a 65-year-old female with history of hypertension, diabetes, asthma who presents with substernal chest pressure for 2 days that radiates into her left arm and has been associated with deep inspiration as well as movement, patient reports cough, subjective fever as well as chills but denies any nausea/vomiting/abdominal pain. Patient also reports some pain on urination. Related Data Home Medications Medication Instructions Recorded Confirmed sulfamethoxazole 800 1 tab PO BID 04/20/21 04/20/21 mg-trimethoprim 160 mg tablet Previous Rx's Medication Instructions Recorded ondansetron 4 mg disintegrating 4 mg PO Q8H PRN #10 tab 01/26/21 tablet famotidine 20 mg tablet (Pepcid) 20 mg PO BID #30 tab 02/22/21 diphenhydramine HCl 25 mg tablet 50 mg PO TID PRN #90 tab 03/16/21 (Benadryl Allergy) Allergies Allergy/AdvReac Type Severity Reaction Status Date / Time cephalexin [CEPHALEXIN] Allergy Unknown Vomiting Verified 06/21/21 14:54 Review of Systems Review of Systems: Pertinent positives and negatives as stated in HPI 10 point review of systems is otherwise negative. COUNTS INCLUDE 234 BEDS AT THE [facility] Past Medical History Source: nursing notes reviewed Medical History Bipolar disorder CVA (cerebral vascular accident) Diabetes Hypertension Psychiatric diagnosis Social History Social History Housing: Assisted Living Facility Do you presently have visiting nurse or other home services: Yes Alcohol intake: never Patient Tobacco Use Status: Former Tobacco user Advance Directives: Yes Advance Directives on File: Yes Advance Directives Date on File: 03/17/21 Patient : No service: No Current occupational status: disabled Physical Exam Vital Signs: Vital Signs: Last Vital Signs Temp 97.9 F 07/16/21 21:11 Pulse 75 07/16/21 21:11 Resp 18 07/16/21 21:11 BP 146/100 H 07/16/21 21:11 Pulse Ox 97 07/16/21 21:11 Body Mass Index 36.3 VITAL SIGNS: Reviewed. GENERAL: Elderly, chronically ill, mild distress secondary to pain HEAD: Normocephalic/atraumatic EYES: PERRLA, EOMI OROPHARYNX: no oral lesions noted, posterior pharynx clear NECK: Supple, no adenopathy LUNGS: Normal breath sounds, no tachypnea, no wheeze/rhonchi/rales noted. SpO2<97> CARDIOVASCULAR: Regular rate and rhythm without noted murmurs, no JVD or lower extremity edema. ABDOMEN: Obese, Soft, non-tender, non-distended with bowel sounds. MUSCULOSKELETAL: No tenderness, deformities, or effusions noted on gross inspection. EXTREMITIES: No cyanosis, clubbing or edema. SKIN: Inspection of the skin reveals no rashes. NEUROLOGIC: Alert and oriented x 4. Baseline left-sided hemiparesis, speech aphasia Course Course Course Narrative: 65-year-old female with history and clinical presentation most suggestive of pneumonia, and less likely ischemia or acid reflux. She denies traumatic events. Review of all investigations negative for acute findings. On re-evaluation patient reports improvement in pain after provided with analgesics. MDM - Chest Pain Lab Data Result diagrams: 07/16/21 22:20 07/16/21 22:20 Labs: Lab Results 07/16/21 07/16/21 07/16/21 Range/Units 21:47 22:20 22:20 WBC 9.0 (4.8-10.8) X10*3/uL RBC 4.51 (4.20-5.50) X10*6/uL Hgb 12.0 (12.0-16.0) g/dl Hct 36.7 L (37.0-47.0) % MCV 81.4 (80.0-98.0) fL MCH 26.6 L (27.0-33.0) pg MCHC 32.7 (31.0-35.0) g/dl RDW 13.1 (11.0-16.0) % Plt Count 289 (160-400) X10*3/uL MPV 10.4 (9.4-12.3) fL Immature Gran % (Auto) 0.3 (0.0-0.4) % Neut % (Auto) 64.8 (45-73) % Lymph % (Auto) 25.4 (20-40) % Burke % (Auto) 6.6 (2-11) % Eos % (Auto) 2.6 (0-4) % Baso % (Auto) 0.3 (0-2) % Lymph # (Auto) 2.3 (1.2-4.9) X10*3/uL Burke # (Auto) 0.6 (0.1-1.2) X10*3/uL Eos # (Auto) 0.2 (0.0-0.4) X10*3/uL Baso # (Auto) 0.0 (0.0-0.2) X10*3/uL Abs Immat Gran (auto) 0.03 (0.00-0.03) X10*3/uL Absolute Neuts (auto) 5.83 (2.0-8.3) x10*3/uL Absolute Nucleated RBC 0.000 (0.0-0.012) X10*3/uL Nucleated RBC % (auto) 0.0 (0.0-0.2) /100WBC Sodium 141 (135-145) mmol/L Potassium 4.1 (3.3-5.1) mmol/L Chloride 109 H (96-108) mmol/L Carbon Dioxide 25 (22-29) mmol/L Anion Gap 11 L (12-20) BUN 19 H (9-16) mg/dL Creatinine 0.69 (0.5-1.4) mg/dL Estim Creat Clear Calc 97.2 Estimated GFR > 60 Random Glucose 195 H (60-115) mg/dL Lactic Acid (0.5-2.0) mmol/L Calcium 9.1 D (8.4-10.2) mg/dL Troponin I High Sens (<3.5-17.0) ng/L Influenza Type A (PCR) NEGATIVE (Negative) Influenza Type B (PCR) NEGATIVE (Negative) RSV RNA Qual (PCR) NEGATIVE (Negative) SARS-CoV-2 RNA (RT-PCR) NEGATIVE (Negative) 07/16/21 07/16/21 Range/Units 22:20 22:20 WBC (4.8-10.8) X10*3/uL RBC (4.20-5.50) X10*6/uL Hgb (12.0-16.0) g/dl Hct (37.0-47.0) % MCV (80.0-98.0) fL MCH (27.0-33.0) pg MCHC (31.0-35.0) g/dl RDW (11.0-16.0) % Plt Count (160-400) X10*3/uL MPV (9.4-12.3) fL Immature Gran % (Auto) (0.0-0.4) % Neut % (Auto) (45-73) % Lymph % (Auto) (20-40) % Burke % (Auto) (2-11) % Eos % (Auto) (0-4) % Baso % (Auto) (0-2) % Lymph # (Auto) (1.2-4.9) X10*3/uL Burke # (Auto) (0.1-1.2) X10*3/uL Eos # (Auto) (0.0-0.4) X10*3/uL Baso # (Auto) (0.0-0.2) X10*3/uL Abs Immat Gran (auto) (0.00-0.03) X10*3/uL Absolute Neuts (auto) (2.0-8.3) x10*3/uL Absolute Nucleated RBC (0.0-0.012) X10*3/uL Nucleated RBC % (auto) (0.0-0.2) /100WBC Sodium (135-145) mmol/L Potassium (3.3-5.1) mmol/L Chloride (96-108) mmol/L Carbon Dioxide (22-29) mmol/L Anion Gap (12-20) BUN (9-16) mg/dL Creatinine (0.5-1.4) mg/dL Estim Creat Clear Calc Estimated GFR Random Glucose (60-115) mg/dL Lactic Acid 1.2 (0.5-2.0) mmol/L Calcium (8.4-10.2) mg/dL Troponin I High Sens < 3.5 (<3.5-17.0) ng/L Influenza Type A (PCR) (Negative) Influenza Type B (PCR) (Negative) RSV RNA Qual (PCR) (Negative) SARS-CoV-2 RNA (RT-PCR) (Negative) ECG Data ECG #1: Attestation: I personally reviewed and interpreted this ECG as follows: Prior ECG tracings: available for review (05/26/2021 no acute changes on comparison) Interpretation: Normal sinus rhythm, incomplete right bundle branch block, HR-73, no STEMI, AR/QRS/QTC are within normal limits. Discharge Plan Discharge Clinical Impression: Chest pain, atypical Patient Disposition: [facility] Instructions: Chest Wall Pain (ED), Chest Pain (ED) Additional Instructions: 1. Resume all home medications. 2. Recommend Tylenol/ibuprofen as needed for pain control. 3. Follow-up with your primary care provider tomorrow morning for re-evaluation and further outpatient management. Return to the ER for acute worsening of symptoms. Prescriptions: No Action ondansetron 4 mg tablet,disintegrating 4 mg PO Q8H PRN (Reason: nausea and vomiting) Qty: 10 RF: 0 famotidine [Pepcid] 20 mg tablet 20 mg PO BID Qty: 30 RF: 0 diphenhydramine HCl [Benadryl Allergy] 25 mg tablet 50 mg PO TID PRN (Reason: itching) Qty: 90 RF: 0 sulfamethoxazole-trimethoprim 800-160 mg tablet 1 tab PO BID RF: 0
--- NOTE | 2021-07-16 21:53 | PC.NURSE ---
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
[2021-07-16 22:25] LABS: MANUAL DIFF FLAG NO
[2021-07-16 22:26] LABS: Basophils Percent Auto 0.3 % (0-2); Eosinophils Absolute Auto 0.2 X10*3/uL (0.0-0.4); Eosinophils Percent Auto 2.6 % (0-4); Hematocrit 36.7 % (37.0-47.0); Imm Gran Abs Auto 0.03 X10*3/uL (0.00-0.03); Imm Gran Pct Auto 0.3 % (0.0-0.4); Lymphocytes Absolute Auto 2.3 X10*3/uL (1.2-4.9); Lymphocytes Percent Auto 25.4 % (20-40); Mean Corpuscular HGB Conc 32.7 g/dl (31.0-35.0); Mean Corpuscular Hemoglobin 26.6 pg (27.0-33.0); Mean Corpuscular Volume 81.4 fL (80.0-98.0); Mean Platelet Volume 10.4 fL (9.4-12.3); Monocytes Absolute Auto 0.6 X10*3/uL (0.1-1.2); Monocytes Percent Auto 6.6 % (2-11); Neutrophils Absolute Auto 5.83 x10*3/uL (2.0-8.3); Neutrophils Percent Auto 64.8 % (45-73); Platelet Count 289 X10*3/uL (160-400); Red Blood Count 4.51 X10*6/uL (4.20-5.50); Red Cell Distribution Width 13.1 % (11.0-16.0)
[2021-07-16 22:36] LABS: Lactic Acid 1.2 mmol/L (0.5-2.0)
[2021-07-16 22:39] LABS: Anion Gap 11 (12-20); Blood Urea Nitrogen 19 mg/dL (9-16); Calcium 9.1 mg/dL (8.4-10.2); Carbon Dioxide 25 mmol/L (22-29); Chloride 109 mmol/L (96-108); Creatinine Clr Calc Pharmacy 97.2; Estimated Glomerular Filt Rate > 60; Glucose Random 195 mg/dL (60-115); Potassium 4.1 mmol/L (3.3-5.1); Sodium 141 mmol/L (135-145)
[2021-07-16 22:43] LABS: Influenza A PCR NEGATIVE (Negative); Influenza B PCR NEGATIVE (Negative); Resp Syncy Virus RNA Qual PCR NEGATIVE (Negative); SARS COV2 PCR INHOUSE NEGATIVE (Negative)
[2021-07-16 22:45] LABS: Troponin-I High Sensitivity < 3.5 ng/L (<3.5-17.0)
--- NOTE | 2021-07-16 23:36 | PC.NURSE ---
Pt off to CT on hospital bed.
[2021-07-16] MEDS: Ketorolac Tromethamine 15 MG/ML VIAL IM (23:58)
--- NOTE | 2021-07-17 00:02 | PC.NURSE ---
Pt medicated per NOV. Pt aware of plan to await CT results.
[2021-07-17 01:45] VITALS: BP 146/62; PULSE 64; RESP 16; O2SAT 97
== END 2021-07-17 01:56 | disposition skilled nursing facility (03) ==
PROVIDERS: Emergency Provider Student in an Organized Health Care Education/Training Program
DX: R07.89 Other chest pain (principal); I10 Essential (primary) hypertension; E11.9 Type 2 diabetes mellitus without complications; J45.909 Unspecified asthma, uncomplicated; Z86.73 Personal history of transient ischemic attack (TIA), and cerebral infarction without residual deficits; Z20.822 Contact with and (suspected) exposure to COVID-19
CPT/HCPCS: 0241U; 36415; 71045; 71250; 80048; 83605; 84484; 85025; 87040; 96361; 96374; 99284; J1885

== ENCOUNTER 2021-08-13 08:16 | Emergency (ER) | payer MEDICAID, SELFPAY ==
--- NOTE | ~2021-08-13 | CT_ITS ---
EXAMINATION: CT ABDOMEN AND PELVIS WITHOUT CONTRAST CLINICAL INFORMATION: Abdominal pain. Enlarged liver. COMPARISON: Previous CT of the abdomen and pelvis most recent May 2021 TECHNIQUE: Multidetector volumetric imaging was performed from the superior aspect of the liver through the pubic symphysis. Sagittal and coronal reformatted images were obtained on the technologist's workstation. This CT examination was performed using dose optimization techniques as appropriate, variously including the following: *Automated exposure control *Adjustment of mA and/or kV according to patient size (this includes techniques or standardized protocols for targeted exams where dose is matched to indication/reason for exam; i.e. extremities or head) *Use of iterative reconstruction technique DLP: 1120 mGy-cm FINDINGS: LUNG BASES: The visualized lung bases are unremarkable. LIVER, GALLBLADDER, AND BILIARY TREE: The liver is slightly enlarged, right lobe measuring 19 cm in length. The liver is normal in contour and attenuation. No focal hepatic lesion or biliary ductal dilatation is present. The gallbladder has been removed. PANCREAS: There is fatty infiltration of the head of the pancreas. Pancreas is otherwise unremarkable. SPLEEN: Unremarkable. ADRENAL GLANDS: Unremarkable. KIDNEYS AND URETERS: There are 2 stones in the lower pole of the right kidney. There is a chronic subcapsular fluid collection adjacent to the posterior lower pole of the right kidney. This has peripheral wall calcification and appears unchanged. This measures approximately 2 x 3 cm in AP and transverse dimension. There is a duplicated left renal collecting system. BLADDER: Unremarkable. GASTROINTESTINAL TRACT: There is diverticulosis of the colon. The small and large bowel are otherwise unremarkable. The appendix is is not seen. The stomach is unremarkable. ABDOMINAL WALL: There is evidence of previous right upper quadrant abdominal wall hernia repair with mesh. There is increased attenuation in the overlying fat probably representing postoperative change or fat necrosis. Unchanged. There is a small umbilical hernia containing fat. LYMPH NODES: Normal. VASCULAR: Unremarkable. PELVIC VISCERA: Unremarkable. OSSEOUS STRUCTURES: There are degenerative changes of the spine. CT/CT abdomen pelvis wo con IMPRESSION: Slightly enlarged liver. Right renal stones. Stable old subcapsular fluid collection adjacent to the lower pole right kidney with peripheral wall calcification. Diverticulosis. Fleischner guidelines were followed.
[2021-08-13 08:19] VITALS: BP 140/67; PULSE 67; RESP 18; TEMP -13.6; TEMP 7.6; O2SAT 100; BMI 39.0
--- NOTE | 2021-08-13 08:19 | ED_ITS ---
HPI - Nausea/Vomiting/Diarrhea General Chief complaint: Nausea/Vomiting/Diarrhea Stated complaint: DIARRHEA X3 DAYS (POSSIBLE BLOOD IN STOOL) Time Seen by Provider: 08/13/21 08:18 Source: EMS Mode of arrival: EMS Limitations: altered mental status History of Present Illness HPI Narrative: Patient at a skilled nursing, non verbal sent in for diarrhea MD elicited complaint: nausea, vomiting and diarrhea Onset (ago): day(s) Associated nausea: Yes Associated abdominal pain: Yes Location of pain: diffuse Severity: mild Associated symptoms: malaise and nausea/vomiting Related Data Home Medications Medication Instructions Recorded Confirmed sulfamethoxazole 800 1 tab PO BID 04/20/21 04/20/21 mg-trimethoprim 160 mg tablet Previous Rx's Medication Instructions Recorded ondansetron 4 mg disintegrating 4 mg PO Q8H PRN #10 tab 01/26/21 tablet famotidine 20 mg tablet (Pepcid) 20 mg PO BID #30 tab 02/22/21 diphenhydramine HCl 25 mg tablet 50 mg PO TID PRN #90 tab 03/16/21 (Benadryl Allergy) Allergies Allergy/AdvReac Type Severity Reaction Status Date / Time cephalexin [CEPHALEXIN] Allergy Unknown Vomiting Verified 06/21/21 14:54 Review of Systems Constitutional: Constitutional: Reports no additional constitutional complaints Eyes: Eyes: Reports no additional eye complaints ENT: Denies dizziness Cardiovascular: Cardiovascular: Reports no additional cardiovascular complaints Respiratory: Respiratory: Reports as per HPI Gastrointestinal: Gastrointestinal: Reports nausea Genitourinary: Genitourinary: Reports no additional female genitourinary complaints Musculoskeletal: Musculoskeletal: Reports no additional musculoskeletal complaints Integumentary/Breasts: Skin/Breast: Denies rash Neurologic: Reports system reviewed and no additional complaints, except as documented and Denies dizziness Psychiatric: Psychiatric: Denies anxiety PMFSH Past Medical History Medical History Bipolar disorder CVA (cerebral vascular accident) Diabetes Hypertension Psychiatric diagnosis Social History Social History Housing: Assisted Living Facility Do you presently have visiting nurse or other home services: Yes Alcohol intake: never Patient Tobacco Use Status: Former Tobacco user Advance Directives: Yes Advance Directives on File: Yes Advance Directives Date on File: 03/17/21 service: No Current occupational status: disabled Physical Exam Vital Signs: Vital Signs: Last Vital Signs Temp 7.6 F L 08/13/21 08:19 Pulse 67 08/13/21 08:19 Resp 18 08/13/21 08:19 BP 140/67 H 08/13/21 08:19 Pulse Ox 100 08/13/21 08:19 Body Mass Index 39.0 Const: Other: obese female chronically ill, non verbal from old CVA Nutritional Appearance: obese Limitations: behavioral limitations, language barrier and physical limitations HENMT: Head: Yes normal to inspection Ears: external ears normal General nose exam: Normal external nose present Mouth: Normal oral and palatal mucosa present and oropharynx normal Throat: Yes posterior oropharynx normal Eyes: General: appearance normal, both eyes and all related structures Neck: Other: supple Neck: Yes normal visual inspection Chest: Chest palpation & inspection: normal inspection of the chest Resp: Auscultation: clear to auscultation bilaterally Cardio: Jugular venous distension: no JVD Rate: regular rate Rhythm: regular rhythm Heart sounds: S1 normal heart sound present and S2 normal heart sound present GI: Other: obese diffuse tenderness but soft, right hepatomegaly tender Auscultation: normal bowel sounds : General: Yes no CVA tenderness Back/Spine/Pelvis: Back: no CVA tenderness Skin: General skin exam: no rashes or lesions noted Neuro: Other: non verbal from stroke old left hemiparesis Extrem: General: Yes normal to inspection Psych: Appearance: grossly normal Course Reevaluation(s) Reevaluation #1: still awaiting blood draw Time: 10:24 Reevaluation #2: no abnormalities in her LFT's will obtain a CT scan of abdoment Time: 11:46 Reevaluation #3: CT scan negative, vitals and bloods negative. No acute disease will dc home. Time: 13:20 MDM - Nausea/Vomiting/Diarrhea Lab Data Result diagrams: 08/13/21 11:13 08/13/21 11:13 Labs: Lab Results 08/13/21 08/13/21 08/13/21 Range/Units 08:30 11:13 11:13 WBC 8.4 (4.8-10.8) X10*3/uL RBC 5.00 (4.20-5.50) X10*6/uL Hgb 13.2 (12.0-16.0) g/dl Hct 41.0 (37.0-47.0) % MCV 82.0 (80.0-98.0) fL MCH 26.4 L (27.0-33.0) pg MCHC 32.2 (31.0-35.0) g/dl RDW 13.1 (11.0-16.0) % Plt Count 195 D (160-400) X10*3/uL MPV 11.5 (9.4-12.3) fL Immature Gran % (Auto) 0.4 (0.0-0.4) % Neut % (Auto) 65.9 (45-73) % Lymph % (Auto) 25.9 (20-40) % Door % (Auto) 5.1 (2-11) % Eos % (Auto) 2.3 (0-4) % Baso % (Auto) 0.4 (0-2) % Lymph # (Auto) 2.2 (1.2-4.9) X10*3/uL Door # (Auto) 0.4 (0.1-1.2) X10*3/uL Eos # (Auto) 0.2 (0.0-0.4) X10*3/uL Baso # (Auto) 0.0 (0.0-0.2) X10*3/uL Abs Immat Gran (auto) 0.03 (0.00-0.03) X10*3/uL Absolute Neuts (auto) 5.5 (2.0-8.3) x10*3/uL Absolute Nucleated RBC 0.000 (0.0-0.012) X10*3/uL Nucleated RBC % (auto) 0.0 (0.0-0.2) /100WBC Sodium 139 (135-145) mmol/L Potassium 4.5 (3.3-5.1) mmol/L Chloride 106 (96-108) mmol/L Carbon Dioxide 24 (22-29) mmol/L Anion Gap 14 (12-20) BUN 18 H (9-16) mg/dL Creatinine 0.67 (0.5-1.4) mg/dL Estim Creat Clear Calc 85.1 Estimated GFR > 60 POC Glucose 174 H (60-115) mg/dL Random Glucose 195 H (60-115) mg/dL Calcium 9.5 (8.4-10.2) mg/dL Total Bilirubin 0.5 (0.0-1.0) mg/dL Direct Bilirubin 0.2 (0.0-0.5) mg/dL AST 23 (5-31) U/L ALT 23 (0-31) U/L Alkaline Phosphatase 83 (39-117) U/L Total Protein 7.4 (6.5-8.0) g/dL Albumin 4.0 (3.5-5.0) g/dL Lipase 33 (8-78) U/L Imaging Data CT scan - abdomen: Radiologist's impression: IMPRESSION: Slightly enlarged liver. Right renal stones. Stable old subcapsular fluid collection adjacent to the lower pole right kidney with peripheral wall calcification. Diverticulosis. ? Fleischner guidelines were followed. Discharge Plan Discharge Clinical Impression: Abdominal pain Qualifiers: Abdominal location: unspecified location Qualified Code(s): R10.9 - Unspecified abdominal pain Patient Disposition: Home, Self-Care Instructions: Abdominal Pain (ED) Additional Instructions: tylenol for pain Prescriptions: No Action ondansetron 4 mg tablet,disintegrating 4 mg PO Q8H PRN (Reason: nausea and vomiting) Qty: 10 RF: 0 famotidine [Pepcid] 20 mg tablet 20 mg PO BID Qty: 30 RF: 0 diphenhydramine HCl [Benadryl Allergy] 25 mg tablet 50 mg PO TID PRN (Reason: itching) Qty: 90 RF: 0 sulfamethoxazole-trimethoprim 800-160 mg tablet 1 tab PO BID RF: 0 Referrals: Sushant Goldstein MD [Primary Care Provider] - 1 week
[2021-08-13 08:33] LABS: Glucose, Whole Blood 174 mg/dL (60-115)
[2021-08-13] MEDS: 0.9 % Sodium Chloride 1,000 ML 999 ML IVCONT ×2 (09:31→12:09)
[2021-08-13] MEDS: ondansetron HCL 4 MG/2 ML VIAL IVPUSH (09:35)
[2021-08-13] MEDS: Ketorolac Tromethamine 30 MG/ML VIAL IVPUSH (10:51)
[2021-08-13 11:16] LABS: MANUAL DIFF FLAG NO
[2021-08-13 11:20] LABS: Basophils Percent Auto 0.4 % (0-2); Eosinophils Absolute Auto 0.2 X10*3/uL (0.0-0.4); Eosinophils Percent Auto 2.3 % (0-4); Hemoglobin 13.2 g/dl (12.0-16.0); Imm Gran Abs Auto 0.03 X10*3/uL (0.00-0.03); Imm Gran Pct Auto 0.4 % (0.0-0.4); Lymphocytes Absolute Auto 2.2 X10*3/uL (1.2-4.9); Lymphocytes Percent Auto 25.9 % (20-40); Mean Corpuscular HGB Conc 32.2 g/dl (31.0-35.0); Mean Corpuscular Hemoglobin 26.4 pg (27.0-33.0); Mean Platelet Volume 11.5 fL (9.4-12.3); Monocytes Absolute Auto 0.4 X10*3/uL (0.1-1.2); Monocytes Percent Auto 5.1 % (2-11); Neutrophils Absolute Auto 5.5 x10*3/uL (2.0-8.3); Neutrophils Percent Auto 65.9 % (45-73); Platelet Count 195 X10*3/uL (160-400); Red Cell Distribution Width 13.1 % (11.0-16.0); White Blood Count 8.4 X10*3/uL (4.8-10.8)
[2021-08-13 11:39] LABS: Alanine Aminotransferase 23 U/L (0-31); Alkaline Phosphatase 83 U/L (39-117); Anion Gap 14 (12-20); Aspartate Amino Transferase 23 U/L (5-31); Bilirubin Direct 0.2 mg/dL (0.0-0.5); Bilirubin Total 0.5 mg/dL (0.0-1.0); Blood Urea Nitrogen 18 mg/dL (9-16); Calcium 9.5 mg/dL (8.4-10.2); Carbon Dioxide 24 mmol/L (22-29); Chloride 106 mmol/L (96-108); Creatinine Clr Calc Pharmacy 85.1; Estimated Glomerular Filt Rate > 60; Glucose Random 195 mg/dL (60-115); Lipase 33 U/L (8-78); Potassium 4.5 mmol/L (3.3-5.1); Sodium 139 mmol/L (135-145); Total Protein 7.4 g/dL (6.5-8.0)
--- NOTE | 2021-08-13 11:48 | PC.NURSE ---
pt c/o of abdominal pain, diarrhea, nausea, dizziness x3 days. pt is from jail and reports the pain comes and goes a lot. she denies sob/headache/dizziness. pt is a difficult stick which resulted in delayed blood draws. meds given as documented, fluids hung. pt alert and oriented. hx of stroke.
[2021-08-13 13:54] VITALS: BP 170/86; PULSE 64; RESP 16; TEMP 36.6; O2SAT 97
--- NOTE | 2021-08-13 14:02 | PC.NURSE ---
report given to receiving nurse STEPHON Minor. pt will be transported to room 379 by special needs tutor. pt alert and oriented, vss, denies pain.
--- NOTE | 2021-08-13 15:17 | PC.NURSE ---
pt given lunch. iv fluids infusion completed, tolerated well. pt medically cleared for discharge. ambulance booked pt aware, report given to care home by this telegraphic typewriter operator. pt currently awaiting ambulance arrival.
== END 2021-08-13 16:15 | disposition home or self-care (01) ==
PROVIDERS: Emergency Provider Emergency Medicine; PCP Internal Medicine
DX: R19.7 Diarrhea, unspecified (principal); I10 Essential (primary) hypertension; R11.2 Nausea with vomiting, unspecified; Z79.899 Other long term (current) drug therapy; Z87.891 Personal history of nicotine dependence
CPT/HCPCS: 36415; 74176; 80048; 80076; 82947; 83690; 85025; 96361; 96374; 96375; 99283; 99284; J1885; J2405

== ENCOUNTER 2021-09-15 19:22 | Emergency (ER) | payer MEDICAID, SELFPAY ==
--- NOTE | 2021-09-15 23:06 | ED.ABDPAIN ---
HPI - Abdominal Pain General Chief Complaint: Abdominal Pain Stated Complaint: abdominal pain Source: patient and EMS Mode of arrival: EMS Limitations: no limitations History of Present Illness HPI narrative: 66-year-old female presents via EMS for abdominal pain. MD elicited complaint: abdominal pain Pertinent past history: kidney stones Onset (ago): year(s) Pain Consistency: constant Location: diffuse Severity: severe Pain scale (0-10): 10 Quality: aching Migration to: no migration Relieving factors: nothing Context: history of similar episodes Associated symptoms: denies other symptoms Related Data Home Medications Medication Instructions Recorded Confirmed sulfamethoxazole 800 1 tab PO BID 04/20/21 04/20/21 mg-trimethoprim 160 mg tablet Previous Rx's Medication Instructions Recorded ondansetron 4 mg disintegrating 4 mg PO Q8H PRN #10 tab 01/26/21 tablet famotidine 20 mg tablet (Pepcid) 20 mg PO BID #30 tab 02/22/21 diphenhydramine HCl 25 mg tablet 50 mg PO TID PRN #90 tab 03/16/21 (Benadryl Allergy) Allergies Allergy/AdvReac Type Severity Reaction Status Date / Time cephalexin [CEPHALEXIN] Allergy Unknown Vomiting Verified 06/21/21 14:54 Review of Systems Review of Systems Constitutional: No Weight loss, No Fever, No Chills, No Night Sweats, No Fatigue, No Malaise ENT/Mouth: No Hearing loss, No Ear Pain, No Nasal Congestion, No Sinus Pain, No Hoarseness, No sore throat, No Rhinorrhea, No Swallowing Difficulty Eyes: No Eye Pain, No Swelling, No Redness, No Foreign Body, No Discharge, No Vision Changes Cardiovascular: No Chest Pain, No SOB, No Dyspnea on Exertion, No Orthopnea, No Edema, No Palpitations Respiratory: No Cough, No Sputum, No Wheezing, No Smoke Exposure, No Dyspnea Gastrointestinal: No Nausea, no Vomiting, no Diarrhea, positive abdominal Pain, No Hematochezia, No Melena Genitourinary: no irregular bleeding, positive Dysuria, No Urinary Frequency, No Hematuria, No Urinary Incontinence, No Urgency, No Flank Pain, No Urinary Flow Changes, No Hesitancy Musculoskeletal: No joint pain, No Myalgias, No Joint Swelling Skin: No Skin Lesions, No rash Neuro: No Weakness, No Numbness, No Paresthesias, No Loss of Consciousness, No Dizziness, No Headache Psych: No Anxiety/Panic, No Depression, No SI/HI/AH/VH, No Social Issues Heme/Lymph: No Bruising, No Bleeding,No Lymphadenopathy Endocrine: No Polyuria, No Polydipsia, No Temperature Intolerance Yes all other systems are reviewed and are negative Physical Exam Vital Signs: Vital Signs: Last Vital Signs Temp 98.4 F 09/15/21 23:08 Pulse 71 09/15/21 23:08 Resp 16 09/15/21 23:08 BP 134/75 09/15/21 23:08 Pulse Ox 100 09/15/21 23:08 BMI result Body Mass Index 30.4 Appearance: Alert. Oriented X3. obese, chronically ill, aphasia per baseline. Eyes: Pupils equal, round and reactive to light. ENT: Pharynx normal. Neck: Normal inspection. Neck supple. CVS: Normal heart rate and rhythm. Pulses normal. Respiratory: No respiratory distress. Breath sounds normal. Abdomen: Soft and nontender. Skin: Skin warm and dry. Normal skin color. Normal skin turgor. Extremities: Left hemiparesis Her baseline from old CVA. Neuro: No motor deficit. No sensory deficit. Nonverbal. Course Course Course Narrative: 66-year-old female well-known to multiple facilities presents for recurrent chronic abdominal pain. Patient has a history of visiting local hospitals on regular basis. I did discuss her recent hospital visits with longterm staff. She has been seen at [facility] twice this week with a preop visit on for kidney stones. Over the past week all of the studies at [facility] were negative. Patient is known to ask for IV pain medications. I did discuss with longterm staff that he would not be giving her any medications via IV, that I would be doing lab values without imaging. Patient is afebrile. Even unlabored respirations. Heart rate 71 regular rhythm. States to have 10/10 pain on slightest palpation which is consistent with her prior presentations. O2 sat is 100% on room air. Urinalysis is negative. 12:23 a.m. lab values indicate leukocytosis of 14.6. Patient is afebrile, even unlabored respirations. No indication of sepsis. Could possibly be viral nature. Plan of care is to discharge home. MDM - Abdominal Pain Differential Diagnosis Differential diagnosis: Likely abdominal pain, calculus of kidney and gastroenteritis Medical Records Attestation: I reviewed the patient's medical records. Lab Data Attestation: I reviewed the patient's lab results. Result diagrams: 09/15/21 23:20 09/15/21 23:20 Labs: Lab Results 09/15/21 09/15/21 09/15/21 Range/Units 23:20 23:20 23:50 WBC 14.6 H (4.8-10.8) X10*3/uL RBC 4.71 (4.20-5.50) X10*6/uL Hgb 12.6 (12.0-16.0) g/dl Hct 38.4 (37.0-47.0) % MCV 81.5 (80.0-98.0) fL MCH 26.8 L (27.0-33.0) pg MCHC 32.8 (31.0-35.0) g/dl RDW 12.9 (11.0-16.0) % Plt Count 291 D (160-400) X10*3/uL MPV 10.6 (9.4-12.3) fL Immature Gran % (Auto) 0.4 (0.0-0.4) % Neut % (Auto) 75.8 H (45-73) % Lymph % (Auto) 17.6 L (20-40) % [place] % (Auto) 4.3 (2-11) % Eos % (Auto) 1.6 (0-4) % Baso % (Auto) 0.3 (0-2) % Lymph # (Auto) 2.6 (1.2-4.9) X10*3/uL [place] # (Auto) 0.6 (0.1-1.2) X10*3/uL Eos # (Auto) 0.2 (0.0-0.4) X10*3/uL Baso # (Auto) 0.0 (0.0-0.2) X10*3/uL Abs Immat Gran (auto) 0.06 H (0.00-0.03) X10*3/uL Absolute Neuts (auto) 11.1 H (2.0-8.3) x10*3/uL Absolute Nucleated RBC 0.000 (0.0-0.012) X10*3/uL Nucleated RBC % (auto) 0.0 (0.0-0.2) /100WBC Sodium 140 (135-145) mmol/L Potassium 4.1 (3.3-5.1) mmol/L Chloride 106 (96-108) mmol/L Carbon Dioxide 28 (22-29) mmol/L Anion Gap 10 L (12-20) BUN 17 H (9-16) mg/dL Creatinine 0.80 (0.5-1.4) mg/dL Estim Creat Clear Calc 83.6 Estimated GFR > 60 Random Glucose 247 H (60-115) mg/dL Calcium 9.3 (8.4-10.2) mg/dL Total Bilirubin 0.3 (0.0-1.0) mg/dL AST 15 (5-31) U/L ALT 14 (0-31) U/L Alkaline Phosphatase 100 D (39-117) U/L Total Protein 7.3 (6.5-8.0) g/dL Albumin 4.1 (3.5-5.0) g/dL Lipase 43 (8-78) U/L Urine Color YELLOW Urine Appearance CLEAR Urine pH 6.0 (5.0-8.0) Ur Specific [place] 1.025 (1.005-1.025) Urine Protein TRACE (NEG-TRACE) MG/DL Urine Glucose (UA) 500 H (NEG) MG/DL Urine Ketones 5 (NEG) MG/DL Urine Blood NEG (NEG) Urine Nitrite NEG (NEG) Ur Leukocyte Esterase NEG (NEG) Discharge Plan Discharge Clinical Impression: Abdominal pain Qualifiers: Abdominal location: generalized Qualified Code(s): R10.84 - Generalized abdominal pain Patient Disposition: Home, Self-Care Instructions: Abdominal Pain (ED) Additional Instructions: Please follow-up your primary care physician. Thank you for choosing this emergency department for evaluation. Please follow-up with primary care physician as needed. Return to the emergency department for any new, concerning, or worsening symptoms. Prescriptions: No Action ondansetron 4 mg tablet,disintegrating 4 mg PO Q8H PRN (Reason: nausea and vomiting) Qty: 10 RF: 0 famotidine [Pepcid] 20 mg tablet 20 mg PO BID Qty: 30 RF: 0 diphenhydramine HCl [Benadryl Allergy] 25 mg tablet 50 mg PO TID PRN (Reason: itching) Qty: 90 RF: 0 sulfamethoxazole-trimethoprim 800-160 mg tablet 1 tab PO BID RF: 0 PMFSH Past Medical History Attestation statement: The following information was validated with the patient. Source: old records reviewed Medical History Bipolar disorder CVA (cerebral vascular accident) Diabetes Hypertension Psychiatric diagnosis Social History Social History Housing: Assisted Living Facility Do you presently have visiting nurse or other home services: Yes Alcohol intake: never Patient Tobacco Use Status: Former Tobacco user Advance Directives: Yes Advance Directives on File: Yes Advance Directives Date on File: 03/17/21 service: No Current occupational status: disabled
[2021-09-15 23:08] VITALS: BP 134/75; PULSE 71; RESP 16; TEMP 36.9; O2SAT 100; BMI 30.4
[2021-09-15 23:28] LABS: MANUAL DIFF FLAG NO
[2021-09-15 23:29] LABS: Basophils Percent Auto 0.3 % (0-2); Eosinophils Absolute Auto 0.2 X10*3/uL (0.0-0.4); Eosinophils Percent Auto 1.6 % (0-4); Hematocrit 38.4 % (37.0-47.0); Hemoglobin 12.6 g/dl (12.0-16.0); Imm Gran Abs Auto 0.06 X10*3/uL (0.00-0.03); Imm Gran Pct Auto 0.4 % (0.0-0.4); Lymphocytes Absolute Auto 2.6 X10*3/uL (1.2-4.9); Lymphocytes Percent Auto 17.6 % (20-40); Mean Corpuscular HGB Conc 32.8 g/dl (31.0-35.0); Mean Corpuscular Hemoglobin 26.8 pg (27.0-33.0); Mean Corpuscular Volume 81.5 fL (80.0-98.0); Mean Platelet Volume 10.6 fL (9.4-12.3); Monocytes Absolute Auto 0.6 X10*3/uL (0.1-1.2); Monocytes Percent Auto 4.3 % (2-11); Neutrophils Absolute Auto 11.1 x10*3/uL (2.0-8.3); Neutrophils Percent Auto 75.8 % (45-73); Platelet Count 291 X10*3/uL (160-400); Red Blood Count 4.71 X10*6/uL (4.20-5.50); Red Cell Distribution Width 12.9 % (11.0-16.0); White Blood Count 14.6 X10*3/uL (4.8-10.8)
[2021-09-15 23:43] LABS: Alanine Aminotransferase 14 U/L (0-31); Albumin Level 4.1 g/dL (3.5-5.0); Alkaline Phosphatase 100 U/L (39-117); Anion Gap 10 (12-20); Aspartate Amino Transferase 15 U/L (5-31); Bilirubin Total 0.3 mg/dL (0.0-1.0); Blood Urea Nitrogen 17 mg/dL (9-16); Calcium 9.3 mg/dL (8.4-10.2); Carbon Dioxide 28 mmol/L (22-29); Chloride 106 mmol/L (96-108); Creatinine Clr Calc Pharmacy 83.6; Estimated Glomerular Filt Rate > 60; Glucose Random 247 mg/dL (60-115); Lipase 43 U/L (8-78); Potassium 4.1 mmol/L (3.3-5.1); Sodium 140 mmol/L (135-145); Total Protein 7.3 g/dL (6.5-8.0)
[2021-09-15 23:58] LABS: Appearance Urine CLEAR; Color Urine YELLOW; Glucose Urine UA 500 MG/DL (NEG); Leukocyte Esterase Urine NEG (NEG); Nitrite Urine NEG (NEG); Specific Gravity - Urine 1.025 (1.005-1.025); Urine Blood NEG (NEG); Urine Ketones 5 MG/DL (NEG); Urine Protein TRACE MG/DL (NEG-TRACE)
[2021-09-16] MEDS: Acetaminophen 325 MG TABLET 650 MG PO (00:30)
== END 2021-09-16 02:15 | disposition home or self-care (01) ==
PROVIDERS: Emergency Provider Internal Medicine
DX: R10.84 Generalized abdominal pain (principal); Z79.899 Other long term (current) drug therapy
CPT/HCPCS: 36415; 80053; 81003; 83690; 85025; 99283; 99284

== ENCOUNTER 2021-10-11 14:01 | Emergency (ER) | payer MEDICAID, SELFPAY ==
--- NOTE | ~2021-10-11 | XR_ITS ---
EXAMINATION: XR WRIST, LEFT CLINICAL INFORMATION: Fall, trauma, pain COMPARISON: Radiographs left forearm 06/20/2015 TECHNIQUE: Left wrist is imaged in 4 views. FINDINGS: There is no acute fracture or dislocation. There is old healed fracture again suggested distal radius. There is some rotation again suggested of the lunate with proximal migration capitate similar to prior study. The ulnar variance is neutral. There is no erosive change. No acute bony abnormality. XR/XR wrist LT min 3V IMPRESSION: Chronic changes similar to prior exam 2014. No acute fracture or dislocation.
--- NOTE | ~2021-10-11 | XR_ITS ---
EXAMINATION: XR SHOULDER, LEFT XR HUMERUS, LEFT CLINICAL INFORMATION: Fall, trauma, pain COMPARISON: Chest radiograph 07/16/2021 TECHNIQUE: Left shoulder is imaged in 3 views. There are 2 frontal views of the left humerus and 2 transverse thoracic views of the humerus. FINDINGS: The left shoulder radiographs show no fracture or anterior dislocation. The acromioclavicular alignment is normal. Left lung apex is clear. There are no visible rotator cuff calcifications. 2 frontal views left humerus show no fracture or anterior shoulder dislocation. The transverse thoracic views show no posterior shoulder dislocation. The humeral shaft is not well visualized on the transthoracic views due to overlying soft tissues. XR/XR shoulder LT min 2V IMPRESSION: No visible fracture or dislocation.
--- NOTE | ~2021-10-11 | CT_ITS ---
EXAMINATION: CT CERVICAL SPINE WITHOUT CONTRAST CLINICAL INFORMATION: Fall, trauma, pain COMPARISON: CT head 10/11/2021 TECHNIQUE: Multidetector volumetric CT imaging of the cervical spine is performed without contrast in the axial plane. Additional 2D reformatted coronal and sagittal images are generated on the CT workstation and uploaded to PACS. Images are repeated due to motion. This CT examination was performed using dose optimization techniques as appropriate, variously including the following: *Automated exposure control *Adjustment of mA and/or kV according to patient size (this includes techniques or standardized protocols for targeted exams where dose is matched to indication/reason for exam; i.e. extremities or head) *Use of iterative reconstruction technique DLP: 1157 mGy-cm FINDINGS: There is no vertebral compression fracture, fracture line, spondylolisthesis, or prevertebral soft tissue swelling. The craniocervical junction appears normal. The odontoid appears intact. There is straightening of the cervical lordosis with mild) with tilting likely related to muscle spasm. There are multilevel degenerative disc changes with disc narrowing and vertebral spurring C3-T1. No perched facet. There is no apical pneumothorax. CT/CT cervical spine wo con IMPRESSION: 1. No acute bony abnormality or prevertebral soft tissue swelling. 2. Multilevel degenerative disc changes.
--- NOTE | ~2021-10-11 | XR_ITS ---
EXAMINATION: XR SHOULDER, LEFT XR HUMERUS, LEFT CLINICAL INFORMATION: Fall, trauma, pain COMPARISON: Chest radiograph 07/16/2021 TECHNIQUE: Left shoulder is imaged in 3 views. There are 2 frontal views of the left humerus and 2 transverse thoracic views of the humerus. FINDINGS: The left shoulder radiographs show no fracture or anterior dislocation. The acromioclavicular alignment is normal. Left lung apex is clear. There are no visible rotator cuff calcifications. 2 frontal views left humerus show no fracture or anterior shoulder dislocation. The transverse thoracic views show no posterior shoulder dislocation. The humeral shaft is not well visualized on the transthoracic views due to overlying soft tissues. XR/XR humerus LT IMPRESSION: No visible fracture or dislocation.
--- NOTE | ~2021-10-11 | CT_ITS ---
EXAMINATION: CT HEAD WITHOUT CONTRAST CLINICAL INFORMATION: Fall, trauma, headache, loss of consciousness. COMPARISON: CT head 04/05/2017. TECHNIQUE: Contiguous axial imaging was performed from the skull base to vertex without intravenous administration of contrast. Additional 2-D coronal and sagittal reformatted images are generated on the CT workstation and uploaded to PACS. This CT examination was performed using dose optimization techniques as appropriate, variously including the following: *Automated exposure control *Adjustment of mA and/or kV according to patient size (this includes techniques or standardized protocols for targeted exams where dose is matched to indication/reason for exam; i.e. 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 The ventricles are similar to prior exam. There is no intracranial hemorrhage or hematoma. No interval hydrocephalus. The wesley-white matter differentiation is preserved. No mass effect or edema. No midline shift. There is no visible acute territorial infarct or mass lesion. The calvarium appears intact. There is no pneumocephalus or orbital emphysema. The visualized sinuses and middle ears and mastoid air cells show no significant mucosal thickening. There are no air-fluid levels. CT/CT head/brain wo con IMPRESSION: No acute intracranial abnormality.
--- NOTE | ~2021-10-11 | XR_ITS ---
EXAMINATION: XR CHEST CLINICAL INFORMATION: Shortness of breath, fall, pain COMPARISON: Chest radiographs 07/16/2021, 06/24/2017 TECHNIQUE: Upright AP and lateral views of the chest are obtained. FINDINGS: There are low lung volumes. There is no pneumothorax or pleural reaction. No airspace consolidation or effusion. Tapering at the cardiophrenic angles is likely related to areolar tissue. The vascularity is normal. The visualized hilar and mediastinal contours and bony structures are unremarkable. There are multilevel degenerative changes thoracic spine again noted. XR/XR chest 2V IMPRESSION: Unremarkable examination.
[2021-10-11 14:13] VITALS: BP 134/98; BP 157/70; PULSE 67; PULSE 87; RESP 18; TEMP 36.7; O2SAT 98; O2SAT 99; BMI 38.6
--- NOTE | 2021-10-11 14:58 | ED_ITS ---
HPI - Fall General Chief Complaint: General Medical Stated Complaint: LT ARM PAIN S/P FALL 2 DAYS AGO Time Seen by Provider: 10/11/21 14:10 Source: patient and EMS Mode of arrival: EMS Limitations: physical limitation (Aphasia) History of Present Illness HPI Narrative: Patient is a 66-year-old female with history of CVA with residual left-sided deficit, hypertension, diabetes, asthma presents to the emergency department from her custodial via EMS. She has significant aphasia, though she is able to answer yes and no to questions seemingly appropriately. There was report of a non witnessed fall 2 days ago. Per EMS report from her custodial staff they had reported that she rolled out of bed. When asked, she reports hitting her head for plan reports syncope. Complaining of headache and posterior neck pain. Currently. she is reporting left arm pain, pointing to the shoulder, upper arm, and wrist. She has limited range of motion to the arm at baseline to 2 deficits status post CVA. She is also endorsing dizziness, chest pain and shortness of breath for a couple of days. MD complaint: fall Onset (ago): day(s) Fall from: out of bed Fall witnessed: no Place fall occurred: home ([facility]irement) Loss of consciousness: yes (Per patient report, unknown duration) Prolonged down time: unclear Location of injury: head, neck and other (Left arm) Location of injury - extremities: left: shoulder and arm Severity: moderate Severity scale (1-10): 5 Associated symptoms (after fall): headache, neck pain and chest pain Related Data Home Medications Medication Instructions Recorded Confirmed sulfamethoxazole 800 1 tab PO BID 04/20/21 04/20/21 mg-trimethoprim 160 mg tablet Previous Rx's Medication Instructions Recorded ondansetron 4 mg disintegrating 4 mg PO Q8H PRN #10 tab 01/26/21 tablet famotidine 20 mg tablet (Pepcid) 20 mg PO BID #30 tab 02/22/21 diphenhydramine HCl 25 mg tablet 50 mg PO TID PRN #90 tab 03/16/21 (Benadryl Allergy) Allergies Allergy/AdvReac Type Severity Reaction Status Date / Time cephalexin [CEPHALEXIN] Allergy Unknown Vomiting Verified 06/21/21 14:54 Review of Systems Verdana 4l Review of Systems: Verdana 4d [place] 4Bd Constitutional: [place] 4d No weight loss, fever, chills, weakness or fatigue. [place] 4Bd HEENT: [place] 4d No visual loss, blurred vision, double vision or yellow sclera. No hearing loss, sneezing, congestion, runny nose or sore throat. ArialArial 4Bd Skin: No rash or itching. Cardiovascular: + chest pain. No palpitations or pedal edema. Respiratory: + shortness of breath. No cough or sputum production. Gastrointestinal: No anorexia, nausea, vomiting or diarrhea. No abdominal pain or blood in stool. Genitourinary: No burning micturition. No urinary frequency or incontinence. Neurologic: + headache, dizziness, wheelchair bound unable to ambulate at baseline. No numbness or tingling in the extremities. No change in bowel or bladder control. Musculoskeletal: + left arm pain Hematologic: No bleeding or bruising. Lymphatics: No enlarged lymph nodes. Psychiatric:No depression or anxiety. Endocrine: No polyuria or polydipsia. [facility] Past Medical History Attestation statement: The following information was validated with the patient. Source: old records reviewed Medical History Bipolar disorder CVA (cerebral vascular accident) Diabetes Hypertension Psychiatric diagnosis Social History Social History Housing: Assisted Living Facility Do you presently have visiting nurse or other home services: Yes Alcohol intake: unknown Patient Tobacco Use Status: Former Tobacco user Use of substances other than those prescribed or required for medical reasons: No Advance Directives: Yes Advance Directives on File: Yes Advance Directives Date on File: 03/17/21 Patient : No service: No Current occupational status: disabled Physical Exam Verdana 4l Vital Signs: Verdana 4d Verdana 4d Vital Signs: Verdana 4d Verdana 4Bd Last Vital Signs Verdana 4d Business Professor New 4d Business Professor New 4d Temp 98.5 F 10/11/21 15:13 Business Professor New 4d Pulse 68 10/11/21 15:13 Business Professor New 4d Resp 18 10/11/21 16:00 BP 143/74 H 10/11/21 15:13 Pulse Ox 99 10/11/21 15:13 BMI result Body Mass Index 38.6 Vital signs have been reviewed and appeared to be correct. Blood pressure initially elevated 157/70. Heart rate normal.? Respiration rate normal. Temp erature normal.? Oxygen saturation normal. Appearance: Alert.?Oriented to person, place and time. No acute distress.?Normal affect. Head: Normocephalic, atraumatic. No head, sinus or TMJ tenderness.? Eyes: Sclera white, conjunctiva pink. PERRL, 3 mm bilaterally. EOMi.?No Nystagmus. Ears: Bilateral ear canals clear, TM visible with good cone of light.? Throat: Pharynx normal without exudate Neck: Normal inspection.? Neck supple.?+ tenderness to palpation down the midline, no step-offs, or obvious deformity CVS: Heart sounds normal. Normal heart rate and rhythm.? Pulses normal.?? Respiratory: No respiratory distress.? Lung sounds clear to auscultation bilaterally?? Abdomen: Soft and non-tender. Normoactive bowel sounds. No pulsatile mass.?? Skin: Skin warm and dry.? Normal skin color.? Normal skin turgor.? MSK: Limited passive range of motion to left shoulder, elbow, right wrist. Palpable radial pulse 2 +.? Extremities: No lower extremity edema.? Neuro: Moves all extremities spontaneously. Sensation intact bilaterally. No focal neuro deficits. Wheelchair-bound, does not ambulate at baseline. Course Course Course Narrative: Patient is a 66-year-old male being evaluated after an unwitnessed fall. Given pain to left arm will obtain x-rays to exclude fracture dislocation. In setting of reported LOC and complains of head and neck pain will obtain a CT without contrast. Serum labs to be obtained to exclude infection, anemia, electrolyte abnormality, abnormal renal function. Chest x-ray, Troponin and EKG to be obtained to exclude ACS, arrhythmia, infiltrate/consolidation/mass as she is currently experiencing dizziness, chest pain and shortness of breath. Disposition pending results. Reevaluation(s) Reevaluation #1: Spoke with retirement medical assisting program director, Luis Antonio, and she advised that patient only this morning did she reported her fall that occurred 2 days ago. States that patient was not reporting any pain to the staff until this afternoon. Luis Antonio does additionally provide that this is common to happen with the patient, that she has presented to local emergency departments 5 times within the past 2 weeks with delayed reports of fall and pain. She also provides that patient has care plans in place at [facility], and [facility] regarding pain management. At time of discharge patient will require ambulance transfer back to custodial. Time: 15:23 Reevaluation #2: X-ray of the left shoulder, humerus, and wrist unremarkable for any fracture dislocation. History and physical exam is not consistent with a cellulitis or DVT. Suspect this to be related to contusion after fall. Covid-19 testing negative. Chest x-ray unremarkable for acute disease. CT of head negative. CT of C-spine without any acute process. CBC and BMP is unremarkable. EKG and troponin is normal, not consistent with ACS, as her symptoms have been present for 2 days. She is not in any acute distress, is well appearing, not tachycardic, nor febrile. Her pain has improved with the use of ibuprofen. The patient is to be discharged back to custodial, she is agreeable with plan of care, discussed return precautions. Time: 16:54 MDM - Fall Medical Records Attestation: I reviewed the patient's medical records. Lab Data Attestation: I reviewed the patient's lab results. Result diagrams: 10/11/21 16:46 10/11/21 16:46 Labs: Lab Results 10/11/21 10/11/21 10/11/21 Range/Units 16:25 16:46 16:46 WBC 10.6 (4.8-10.8) X10*3/uL RBC 4.68 (4.20-5.50) X10*6/uL Hgb 12.3 (12.0-16.0) g/dl Hct 38.3 (37.0-47.0) % MCV 81.8 (80.0-98.0) fL MCH 26.3 L (27.0-33.0) pg MCHC 32.1 (31.0-35.0) g/dl RDW 13.0 (11.0-16.0) % Plt Count 281 (160-400) X10*3/uL MPV 10.5 (9.4-12.3) fL Immature Gran % (Auto) 0.5 H (0.0-0.4) % Neut % (Auto) 67.0 (45-73) % Lymph % (Auto) 24.9 (20-40) % [place]ion % (Auto) 4.7 (2-11) % Eos % (Auto) 2.5 (0-4) % Baso % (Auto) 0.4 (0-2) % Lymph # (Auto) 2.6 (1.2-4.9) X10*3/uL [place] # (Auto) 0.5 (0.1-1.2) X10*3/uL Eos # (Auto) 0.3 (0.0-0.4) X10*3/uL Baso # (Auto) 0.0 (0.0-0.2) X10*3/uL Abs Immat Gran (auto) 0.05 H (0.00-0.03) X10*3/uL Absolute Neuts (auto) 7.1 (2.0-8.3) x10*3/uL Absolute Nucleated RBC 0.000 (0.0-0.012) X10*3/uL Nucleated RBC % (auto) 0.0 (0.0-0.2) /100WBC Sodium 137 (135-145) mmol/L Potassium 4.6 (3.3-5.1) mmol/L Chloride 102 (96-108) mmol/L Carbon Dioxide 29 (22-29) mmol/L Anion Gap 11 L (12-20) BUN 15 (9-16) mg/dL Creatinine 0.70 (0.5-1.4) mg/dL Estim Creat Clear Calc 94.4 Estimated GFR > 60 Random Glucose 176 H (60-115) mg/dL Calcium 9.7 (8.4-10.2) mg/dL Troponin I High Sens (<3.5-17.0) ng/L COVID-19 (ANAHI) Negative (Negative) COVID-19 Clin Com See Note 10/11/21 Range/Units 16:46 WBC (4.8-10.8) X10*3/uL RBC (4.20-5.50) X10*6/uL Hgb (12.0-16.0) g/dl Hct (37.0-47.0) % MCV (80.0-98.0) fL MCH (27.0-33.0) pg MCHC (31.0-35.0) g/dl RDW (11.0-16.0) % Plt Count (160-400) X10*3/uL MPV (9.4-12.3) fL Immature Gran % (Auto) (0.0-0.4) % Neut % (Auto) (45-73) % Lymph % (Auto) (20-40) % [place] % (Auto) (2-11) % Eos % (Auto) (0-4) % Baso % (Auto) (0-2) % Lymph # (Auto) (1.2-4.9) X10*3/uL [place]ion # (Auto) (0.1-1.2) X10*3/uL Eos # (Auto) (0.0-0.4) X10*3/uL Baso # (Auto) (0.0-0.2) X10*3/uL Abs Immat Gran (auto) (0.00-0.03) X10*3/uL Absolute Neuts (auto) (2.0-8.3) x10*3/uL Absolute Nucleated RBC (0.0-0.012) X10*3/uL Nucleated RBC % (auto) (0.0-0.2) /100WBC Sodium (135-145) mmol/L Potassium (3.3-5.1) mmol/L Chloride (96-108) mmol/L Carbon Dioxide (22-29) mmol/L Anion Gap (12-20) BUN (9-16) mg/dL Creatinine (0.5-1.4) mg/dL Estim Creat Clear Calc Estimated GFR Random Glucose (60-115) mg/dL Calcium (8.4-10.2) mg/dL Troponin I High Sens < 3.5 (<3.5-17.0) ng/L COVID-19 (ANAHI) (Negative) COVID-19 Clin Com Imaging Data right upper extremity XR: Attestation: I personally reviewed and interpreted this imaging study as follows: Radiologist's impression: Left shoulder with no visible fracture dislocation, left humerus with no visible fracture dislocation, left wrist with no acute fracture dislocation. Chest x-ray: Attestation: I personally reviewed and interpreted this imaging study as follows: Radiologist's impression: IMPRESSION: Unremarkable examination. CT head and c-spine: Radiologist's impression: Head: IMPRESSION: No acute intracranial abnormality. C-spine: IMPRESSION: 1.? No acute bony abnormality or prevertebral soft tissue swelling. 2.? Multilevel degenerative disc changes. ECG Data Attestation: I personally reviewed and interpreted this ECG as follows: ECG interpretation date: 10/11/21 ECG interpretation time: 15:31 Prior ECG tracings: available for review Interpretation: Rate: 66 Rhythm:? Normal sinus rhythm [place]:? Normal Normal P waves.? Normal VICKI.?? Normal QRS complex.?? ST T wave :??No ST elevation or T-wave inversion qTC: 402 prior studies:?07/2021 The study has been interpreted contemporaneously by me. Discharge Plan Discharge Clinical Impression: Contusion of left wrist, Fall, Chest pain of uncertain etiology Patient Disposition: Home, Self-Care Instructions: Wrist Injury (ED), Noncardiac Chest Pain (ED), Fall Prevention (ED) Additional Instructions: You were evaluated in the emergency department after a fall 2 days ago with reports of left arm pain, head and neck pain, and chest pain. X-rays of your left shoulder, humerus, wrist did not indicate any fracture or dislocation. Your blood work, and EKG was normal. A CT scan of your head or neck indicated no injuries. At this time you are being discharged back to your custodial with no changes to your medication regimen. You may return to the emergency department with any new or worsening symptoms or concerns, please contact your primary care provider to schedule a follow-up visit in 1-3 days. Prescriptions: No Action ondansetron 4 mg tablet,disintegrating 4 mg PO Q8H PRN (Reason: nausea and vomiting) Qty: 10 0RF famotidine [Pepcid] 20 mg tablet 20 mg PO BID Qty: 30 0RF diphenhydramine HCl [Benadryl Allergy] 25 mg tablet 50 mg PO TID PRN (Reason: itching) Qty: 90 0RF sulfamethoxazole-trimethoprim 800-160 mg tablet 1 tab PO BID 0RF
--- NOTE | 2021-10-11 14:59 | ECG_ITS ---
Test Reason : CHEST PAIN Blood Pressure : / mmHG Vent. Rate : 066 BPM Atrial Rate : 066 BPM P-R Int : 128 ms QRS Dur : 100 ms QT Int : 384 ms P-R-T Axes : 042 -07 030 degrees QTc Int : 402 ms Normal sinus rhythm Incomplete right bundle branch block Borderline ECG When compared with ECG of 26-MAY-2021 13:07, No significant change was found Referred By: Frances Burden Electronically Signed By:EVAN CASTORENA MD
[2021-10-11 15:13] VITALS: BP 143/74; PULSE 68; RESP 16; TEMP 36.9; O2SAT 99
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
[2021-10-11 16:00] VITALS: RESP 18
[2021-10-11 16:50] LABS: MANUAL DIFF FLAG NO
[2021-10-11 16:50] LABS: COVID-19 Test Negative (Negative)
[2021-10-11 16:58] LABS: Basophils Percent Auto 0.4 % (0-2); Eosinophils Absolute Auto 0.3 X10*3/uL (0.0-0.4); Eosinophils Percent Auto 2.5 % (0-4); Hematocrit 38.3 % (37.0-47.0); Hemoglobin 12.3 g/dl (12.0-16.0); Imm Gran Abs Auto 0.05 X10*3/uL (0.00-0.03); Imm Gran Pct Auto 0.5 % (0.0-0.4); Lymphocytes Absolute Auto 2.6 X10*3/uL (1.2-4.9); Lymphocytes Percent Auto 24.9 % (20-40); Mean Corpuscular HGB Conc 32.1 g/dl (31.0-35.0); Mean Corpuscular Hemoglobin 26.3 pg (27.0-33.0); Mean Corpuscular Volume 81.8 fL (80.0-98.0); Mean Platelet Volume 10.5 fL (9.4-12.3); Monocytes Absolute Auto 0.5 X10*3/uL (0.1-1.2); Monocytes Percent Auto 4.7 % (2-11); Neutrophils Absolute Auto 7.1 x10*3/uL (2.0-8.3); Platelet Count 281 X10*3/uL (160-400); Red Blood Count 4.68 X10*6/uL (4.20-5.50); White Blood Count 10.6 X10*3/uL (4.8-10.8)
[2021-10-11 17:06] LABS: Anion Gap 11 (12-20); Blood Urea Nitrogen 15 mg/dL (9-16); Calcium 9.7 mg/dL (8.4-10.2); Carbon Dioxide 29 mmol/L (22-29); Chloride 102 mmol/L (96-108); Creatinine Clr Calc Pharmacy 94.4; Estimated Glomerular Filt Rate > 60; Glucose Random 176 mg/dL (60-115); Potassium 4.6 mmol/L (3.3-5.1); Sodium 137 mmol/L (135-145)
[2021-10-11 17:12] LABS: Troponin-I High Sensitivity < 3.5 ng/L (<3.5-17.0)
[2021-10-11] MEDS: Ibuprofen 600 MG TABLET PO (17:20)
== END 2021-10-11 18:11 | disposition home or self-care (01) ==
PROVIDERS: Nurse Practitioner Family; Emergency Provider Emergency Medicine Emergency Medical Services; PCP Internal Medicine
DX: S60.212A Contusion of left wrist, initial encounter (principal); W06.XXXA Fall from bed, initial encounter; R07.9 Chest pain, unspecified; M79.602 Pain in left arm; M54.2 Cervicalgia; Z20.822 Contact with and (suspected) exposure to COVID-19; I10 Essential (primary) hypertension; E11.9 Type 2 diabetes mellitus without complications; I69.334 Monoplegia of upper limb following cerebral infarction affecting left non-dominant side; Z91.81 History of falling; Y93.84 Activity, sleeping; Y92.092 Bedroom in other non-institutional residence as the place of occurrence of the external cause; Y99.9 Unspecified external cause status
CPT/HCPCS: 36415; 70450; 71046; 72125; 73030; 73060; 73110; 80048; 84484; 85025; 87635; 93005; 99284; 99285

== ENCOUNTER 2021-12-25 15:27 | Emergency (ER) | payer MEDICAID, SELFPAY ==
--- NOTE | ~2021-12-25 | CT_ITS ---
EXAMINATION: CT cervical spine wo con, CT head/brain wo con INDICATION INFORMATION: Reason for Exam fall out of bed. COMPARISON: CT brain 10/11/2021 TECHNIQUE: Separate noncontrast CT examinations of the head and cervical spine were performed. Coronal and sagittal images were created for each examination at the technologist workstation. This CT examination was performed using dose optimization techniques as appropriate, variously including the following: *Automated exposure control *Adjustment of mA and/or kV according to patient size (this includes techniques or standardized protocols for targeted exams where dose is matched to indication/reason for exam; i.e. extremities or head) *Use of iterative reconstruction technique DLP: 2847 mGy-cm FINDINGS: Head: No acute osseous or soft tissue abnormality. The mastoid air cells and visualized portions of the paranasal sinuses are well aerated. 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 There is no evidence of acute intracranial hemorrhage or territorial infarction. No abnormal mass effect or midline shift is seen. Sol to white matter differentiation is well preserved. No extra-axial fluid collections are identified. Ventricles are unchanged in morphology. Cervical spine: There is no evidence of acute cervical spine fracture. Vertebral bodies remain normal in height. Loss of the usual cervical spine lordosis. Multilevel loss of disc space height. No pre- or paravertebral soft tissue abnormality is identified. Visualized portions of the lung apices are unremarkable. The thyroid gland is unremarkable. CT/CT head/brain wo con IMPRESSION: 1. No acute intracranial abnormality. 2. No cervical spine fracture. 3. 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
--- NOTE | ~2021-12-25 | CT_ITS ---
EXAMINATION: CT cervical spine wo con, CT head/brain wo con INDICATION INFORMATION: Reason for Exam fall out of bed. COMPARISON: CT brain 10/11/2021 TECHNIQUE: Separate noncontrast CT examinations of the head and cervical spine were performed. Coronal and sagittal images were created for each examination at the technologist workstation. This CT examination was performed using dose optimization techniques as appropriate, variously including the following: *Automated exposure control *Adjustment of mA and/or kV according to patient size (this includes techniques or standardized protocols for targeted exams where dose is matched to indication/reason for exam; i.e. extremities or head) *Use of iterative reconstruction technique DLP: 2847 mGy-cm FINDINGS: Head: No acute osseous or soft tissue abnormality. The mastoid air cells and visualized portions of the paranasal sinuses are well aerated. 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 There is no evidence of acute intracranial hemorrhage or territorial infarction. No abnormal mass effect or midline shift is seen. Sol to white matter differentiation is well preserved. No extra-axial fluid collections are identified. Ventricles are unchanged in morphology. Cervical spine: There is no evidence of acute cervical spine fracture. Vertebral bodies remain normal in height. Loss of the usual cervical spine lordosis. Multilevel loss of disc space height. No pre- or paravertebral soft tissue abnormality is identified. Visualized portions of the lung apices are unremarkable. The thyroid gland is unremarkable. CT/CT cervical spine wo con IMPRESSION: 1. No acute intracranial abnormality. 2. No cervical spine fracture. 3. 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
--- NOTE | ~2021-12-25 | XR_ITS ---
EXAMINATION: XR KNEE, LEFT CLINICAL INFORMATION: Fall. Pain. COMPARISON: Previous x-ray March 2017 TECHNIQUE: Four views of the left knee. FINDINGS: Bone alignment is normal. No fracture or dislocation is seen. The femoral tibial joints are normal. There are small osteophytes at the patellofemoral joint. There are small osteophytes at the quadriceps tendon insertion and patellar tendon insertion and origin. There is no joint effusion. XR/XR knee LT 3V IMPRESSION: Degenerative changes. No fracture or dislocation seen.
--- NOTE | ~2021-12-25 | CT_ITS ---
EXAMINATION: CT CHEST, ABDOMEN AND PELVIS WITHOUT CONTRAST. CLINICAL INFORMATION: fall out of bed. hip fractures? . COMPARISON: 08/13/2021 CT scan. TECHNIQUE: Multidetector volumetric imaging was performed from the thoracic inlet through the pubic symphysis without intravenous contrast. Sagittal and coronal reformatted images were obtained on the technologist workstation. This CT examination was performed using dose optimization techniques as appropriate, variously including the following: *Automated exposure control *Adjustment of mA and/or kV according to patient size (this includes techniques or standardized protocols for targeted exams where dose is matched to indication/reason for exam; i.e. extremities or head) *Use of iterative reconstruction technique DLP: 1614 mGy-cm FINDINGS: CHEST: Lungs: Minimal dependent bibasilar atelectasis but no focal airspace disease appreciated. No significant effusion or pneumothorax Mediastinum: Mild vascular calcification. No bulky adenopathy Pericardium/Pleura: No significant effusion. No pleural mass or thickening. Chest Wall/Axilla: Unremarkable. ABDOMEN/PELVIS: Peritoneal Space:No significant free air or free fluid identified. Liver, Gallbladder, Biliary Tree: Diffuse fatty infiltration of the liver. No focal hepatic lesion nor biliary ductal dilatation gallbladder surgically absent. Pancreas: Fatty atrophy of the pancreas again noted Spleen: Unremarkable. Adrenal Glands: Unremarkable. Kidneys and Ureters: Chronic partially rim calcified likely complex cyst in the lower pole posterior right kidney similar to the 2020 CT scan but difficult to define further on this noncontrast study. Otherwise the kidneys are normal in size, shape, and attenuation. No hydronephrosis, hydroureter, or calculi seen. No perinephric stranding. Bladder: Unremarkable. Gastrointestinal Tract: Few scattered colonic diverticula are seen but there is no evidence for diverticulitis. No obstructive changes to the bowel. Abdominal Wall: Hernia mesh anchors seen along the right upper quadrant anterior abdominal wall with a small region of fat necrosis in the superficial abdominal wall in this region. This appears similar to the prior study. No new herniation Lymphovascular Structures: No lymphadenopathy. The aorta is unremarkable.. Pelvic Viscera: Unremarkable. Osseus Structures: Evaluation of the ribs is difficult due to the patient respiratory motion artifact but no significant displaced rib fracture was appreciated on the study. Degenerative changes in the sacroiliac joints and bilateral hips. I do not appreciate any definitive pelvic fracture. This is subtle irregularity along the lateral left acetabulum but this is more likely due to degenerative change. Multilevel degenerative changes in the spine with prominent anterior osteophyte formation and sclerotic degenerative changes the posterior elements. I do not appreciate any acute fracture or spondylolisthesis with vertebral body heights preserved. CT/CT abdomen pelvis wo con IMPRESSION: Chronic appearing and degenerative changes as described. I do not appreciate any acute organ injury or acute bony abnormality on this noncontrast study..
[2021-12-25 16:06] VITALS: BP 182/82; PULSE 69; RESP 18; TEMP 36.9; O2SAT 98; BMI 39.0
[2021-12-25] MEDS: Ondansetron ODT 4 MG TAB.RAPDIS TRANSLINGU (17:09)
--- NOTE | 2021-12-25 17:13 | ED_ITS ---
HPI - General Adult General Chief complaint: Extremity Problem Stated complaint: left knee pain Time Seen by Provider: 12/25/21 16:39 Source: patient Mode of arrival: EMS Limitations: no limitations History of Present Illness HPI narrative: 66 yold female with pmh of Stroke with left sided residual weakness and aphasia, diabetes, and psych presents to the ED for left knee pain. patient states 4 days ago she rolled out the bed and fell of the floor. patient states she does not ambulate at baseling and gets around by wheel chair. Patient denies having any chest pain, shortness of breath, abdominal pain, dizzines, or headache before rolling out the bed. Patient state also slight headache and posterior neck pain since fall. Related Data Home Medications Medication Instructions Recorded Confirmed sulfamethoxazole 800 1 tab PO BID 04/20/21 04/20/21 mg-trimethoprim 160 mg tablet Previous Rx's Medication Instructions Recorded ondansetron 4 mg disintegrating 4 mg PO Q8H PRN #10 tab 01/26/21 tablet famotidine 20 mg tablet (Pepcid) 20 mg PO BID #30 tab 02/22/21 diphenhydramine HCl 25 mg tablet 50 mg PO TID PRN #90 tab 03/16/21 (Benadryl Allergy) Allergies Allergy/AdvReac Type Severity Reaction Status Date / Time cephalexin [CEPHALEXIN] Allergy Unknown Vomiting Verified 06/21/21 14:54 Review of Systems Review of Systems: left knee pain. posterior headache and posterior neck pain. Yes all other systems are reviewed and are negative PMFSH Past Medical History Medical History Bipolar disorder CVA (cerebral vascular accident) Diabetes Hypertension Psychiatric diagnosis Social History Social History Housing: Assisted Living Facility Do you presently have visiting nurse or other home services: Yes Alcohol intake: unknown Patient Tobacco Use Status: Former Tobacco user Advance Directives: Yes Advance Directives on File: Yes Advance Directives Date on File: 03/17/21 service: No Current occupational status: disabled Physical Exam ED Vital Signs: Vital Signs - 24 hr 12/25/21 16:06 12/25/21 18:32 Temperature 98.4 F Pulse Rate 69 62 Respiratory Rate 18 17 Blood Pressure 182/82 H 172/92 H Pulse Oximetry 98 99 BMI result Body Mass Index 39.0 Const General: cooperative, healthy appearing, comfortable, no acute distress, well developed, alert, awake and Physically active [facility] Head: Yes normal to inspection, Yes No palpable skull fracture present, Yes normocephalic, Yes atraumatic and No abrasion Eyes General: appearance normal, both eyes and all related structures Neck Neck: Yes normal visual inspection, Yes full ROM, Yes no lymphadenopathy, Yes no meningeal signs, Yes trachea midline, Yes supple, No anterior neck swelling and Yes tender (posterior cervical tenderness) Chest Chest palpation & inspection: normal inspection of the chest and normal palpation of entire chest wall Resp Effort & Inspection: normal respiratory effort and able to speak in complete sentences Auscultation: clear to auscultation bilaterally Cardio Jugular venous distension: no JVD Heart sounds: S1 normal heart sound present and S2 normal heart sound present GI Inspection: Yes normal to inspection and No abdominal wall ecchymosis Palpation (GI): Soft to palpation, not firm, nontender, no guarding and not rigid General: No CVA tenderness and Yes no CVA tenderness Back/Spine/Pelvis Back: no CVA tenderness, No CVA tenderness and No back tenderness Skin General skin exam: no rashes or lesions noted and elasticity normal Neuro Other: patient has baseline left sided upper and lower extremity weakness. Patient has baseline aphasia. negative for facial droop. negative for any right sided weakness. negative for any new deficits. General: no meningeal signs Extrem Knee images: 1. positive for left knee tenderness on palpation. negative for any ecchymosis, erythema, deformity, hotness, or coldness. Due to left sided weakness from stroke patient able to elevated left leg but with limitation. Patient able to flex knee. Vascular exam intact. Motor and neuro exam lilmitied due to chronic weakness from stroke. Psych Appearance: grossly normal, well kempt and not disheveled Course Course Course Narrative: Patient is sent for imaging. Reevaluation(s) Reevaluation #1: Patient's images could all came back normal negative for signs of fracture. Patient moving extremities, but of course left lower extremity less than right due to history of chronic left-sided upper and lower extremity weakness from stroke. Patient states painful better and now ate 2 sandwiches and drank 2 sodas. Patient is pleasant. Spoke with half-way states patient only prefer Tylenol and had Tylenol at home for her. Patient placed in knee brace. patient is well appearing. Time: 21:05 Medical Decision Making MDM Narrative Medical decision making narrative: Knee contusion Discharge Plan Discharge Clinical Impression: Fall, Contusion of knee, left Patient Disposition: Home, Self-Care Instructions: Fall Prevention for Older Adults (ED), Contusion in Adults (ED) Additional Instructions: All images came back normal. You can take over counter Tylenol for pain relief. I spoke with your half-way who states they would be able to provide me with Tylenol. Return to the ED for worsening pain, redness of knee, swelling, headache, dizziness, chest pain, shortness of breath, abdominal pain, rectal bleeding, vomiting blood, coughing up blood, bloody urine, altered mental status, or any other concerning symptoms. Please follow-up with primary care provider Prescriptions: No Action ondansetron 4 mg tablet,disintegrating 4 mg PO Q8H PRN (Reason: nausea and vomiting) Qty: 10 0RF famotidine [Pepcid] 20 mg tablet 20 mg PO BID Qty: 30 0RF diphenhydramine HCl [Benadryl Allergy] 25 mg tablet 50 mg PO TID PRN (Reason: itching) Qty: 90 0RF sulfamethoxazole-trimethoprim 800-160 mg tablet 1 tab PO BID 0RF Interventions: ED Discharge Assessment Last Done: 12/25/21 22:54 Discharge Date/Time: 12/25/21 23:33 Print Language: Korean
[2021-12-25] MEDS: Acetaminophen 325 MG TABLET 975 MG PO (17:39)
[2021-12-25 18:32] VITALS: BP 172/92; PULSE 62; RESP 17; O2SAT 99
[2021-12-25] MEDS: oxyCODONE HCl Immed Release 5 MG TABLET PO (18:33)
--- NOTE | 2021-12-25 22:58 | PC.NURSE ---
SUZETTE CORNELIUS SPOKE WITH [facility]ISON AND GAVE REPORT. PT TO RETURN BY AMBULANCE.
== END 2021-12-25 23:33 | disposition home or self-care (01) ==
PROVIDERS: Emergency Provider Internal Medicine; PCP Internal Medicine
DX: S80.02XA Contusion of left knee, initial encounter (principal); W06.XXXA Fall from bed, initial encounter; Y93.89 Activity, other specified; Y92.013 Bedroom of single-family (private) house as the place of occurrence of the external cause; Y99.9 Unspecified external cause status
CPT/HCPCS: 70450; 71250; 72125; 73562; 74176; 99284

== ENCOUNTER 2022-08-26 10:31 | Emergency (ER) | payer MEDICARE, MEDICAID, SELFPAY ==
[2022-08-26 10:47] VITALS: BP 150/73; BP 152/78; PULSE 79; RESP 18; TEMP 36.8; O2SAT 98; O2SAT 99; BMI 27.4
--- NOTE | 2022-08-26 10:55 | ED_ITS ---
HPI - Psych General Chief Complaint: Psychiatric Symptoms Stated Complaint: CRISIS W/SELF HARM PER EMS Source: patient and old records reviewed Mode of arrival: EMS Limitations: other (aphasia and dysarthria at times make interview hard) History of Present Illness MD complaint: suicidal ideation, feels depressed and anxiety Onset (ago): week(s) Duration: getting worse History of same: Yes Relieving factors: none Exacerbating factors: other (hates her shelter) Context: significant life stressor Associated psychiatric symptoms: depression and suicidal ideation Associated symptoms: denies other symptoms Treatments prior to arrival: none If self harm: admits thoughts of self harm and self-inflicted trauma Related Data Home Medications Medication Instructions Recorded Confirmed albuterol sulfate 90 mcg/actuation 2 puff inhalation Q4H PRN Wheezing 08/26/22 08/26/22 aerosol inhaler calcium carbonate 300 mg (750 mg) 1 tab PO Q2H PRN STOMACHE UPSET 08/26/22 08/26/22 chewable tablet (Tums) hydroxyzine HCl 50 mg tablet 50 mg PO QID PRN Anxiety 08/26/22 08/26/22 insulin glargine 100 unit/mL 12 unit subcut QAM 08/26/22 08/26/22 subcutaneous solution (Lantus U-100 Insulin) losartan 25 mg tablet 1 tab PO DAILY 08/26/22 08/26/22 multivitamin 1 tab PO DAILY 08/26/22 08/26/22 Allergies Allergy/AdvReac Type Severity Reaction Status Date / Time cephalexin [CEPHALEXIN] Allergy Unknown Vomiting Verified 06/21/21 14:54 Review of Systems Review of Systems: Constitutional : No Fever, No Chills ENT/Mouth : No Ear Pain, No Nasal Congestion, No sore throat Eyes: No Eye Pain, No Swelling, No Redness Cardiovascular : No Chest Pain, No SOB Respiratory : No Cough, No Sputum, No Dyspnea Gastrointestinal : No Nausea, No Vomiting, No Diarrhea, No Hematochezia, No Melena Genitourinary : No Dysuria, No Urinary Frequency, No Hematuria Musculoskeletal : No Myalgias Skin : No Skin Lesions, No rash, pos abrasions Neuro : No Weakness, No Numbness, No Paresthesias, No Dizziness, No Headache Psych : positive Anxiety, positive Depression, positive SI no HI Heme/Lymph: No Lymphadenopathy Endocrine : No Polyuria, No Polydipsia All other systems reviewed and are negative [facility] Past Medical History Attestation statement: The following information was validated with the patient. Medical History Bipolar disorder CVA (cerebral vascular accident) Diabetes Hypertension Psychiatric diagnosis Social History Social History Housing: Assisted Living Facility Do you presently have visiting nurse or other home services: Yes Alcohol intake: unknown Patient Tobacco Use Status: Former Tobacco user Advance Directives: Yes Advance Directives on File: Yes Advance Directives Date on File: 03/17/21 service: No Current occupational status: disabled Physical Exam Vital Signs: Vital Signs: Last Vital Signs Temp 97.8 F 08/26/22 15:30 Pulse 72 08/26/22 15:30 Resp 16 08/26/22 15:30 BP 123/47 L 08/26/22 15:30 Pulse Ox 96 08/26/22 15:30 O2 Del Method 08/26/22 15:30 BMI result Body Mass Index 27.4 Appearance: Alert. Oriented X3. No acute distress. Eyes: Pupils equal, round and reactive to light. ENT: Pharynx normal. Neck: Normal inspection. Neck supple. CVS: Normal heart rate and rhythm. Pulses normal. Chest wall: superficial abrasions to anterior chest Respiratory: No respiratory distress. Breath sounds normal. Abdomen: Soft and non-tender. Skin: Skin warm and dry. Normal skin color. Normal skin turgor. L wrist superficial abrasions noted Extremities: No lower extremity edema. No calf ttp Neuro: Oriented X 3. aphasia and dysarthria, baseline neuro deficits, CN not intact due to her prior CVA, L sided hemiparesis noted Course Course Course Narrative: Physician observation started at 118pm Patient placed in physician observation because the patient needed more time for [facility]N to assess the need for admission. At the time observation was started the patient's vitals were stable, patient is alert and oriented but slightly anxious, Neuro: at baseline. Medical Decision Making Medical Decision Making MDM Narrative: 67 yo female with PMH of CVA, aphasia, HTN, DM unhappy at her shelter states they are mean to her and she is now suicidal and wants to hurt herself - at this time will need labs, and BHN consult - dispo per their recommendations, denies medical complaints other than chronic knee pain. Lab Data MDM Lab Attestation statement: I reviewed the patient's lab results. Labs: Lab Results 08/26/22 08/26/22 Range/Units 12:28 14:07 Urine Opiates Screen Not Detected (Not Detect) Urine Fentanyl Screen Not Detected (Not Detect) Ur Barbiturates Screen Not Detected (Not Detect) Ur Phencyclidine Scrn Not Detected (Not Detect) Ur Amphetamines Screen Not Detected (Not Detect) U Benzodiazepines Scrn Not Detected (Not Detect) Urine Cocaine Screen Not Detected (Not Detect) U Marijuana (THC) Screen Not Detected (Not Detect) COVID-19 (ANAHI) Negative (Negative) COVID-19 Clin Com See Note Independent Historian Clinical information obtained from an independent historian. History obtained from or confirmed by: EMS External Record Review External record reviewed: Inpatient record Social Determinants Patient?s care significantly limited by Social Determinants of Health including: Low income and Problems related to primary support group Discharge Plan Discharge Clinical Impression: Suicidal ideation Patient Disposition: Still a Patient Prescriptions: No Action insulin glargine [Lantus U-100 Insulin] 100 unit/mL solution 12 unit subcut QAM hydroxyzine HCl 50 mg Tablet 50 mg PO QID PRN (Reason: Anxiety) calcium carbonate [Tums] 300 mg (750 mg) Tablet,Chewable 1 tab PO Q2H PRN (Reason: STOMACHE UPSET) losartan 25 mg tablet 1 tab PO DAILY albuterol sulfate 90 mcg/actuation Hfa Aerosol Inhaler 2 puff INHALATION Q4H PRN (Reason: Wheezing) multivitamin Tablet 1 tab PO DAILY
--- NOTE | 2022-08-26 12:20 | PC.NURSE ---
attempted to draw labs but pt, continued to move and jerk her wrist creating an unsafe draw. notified RN
--- NOTE | 2022-08-26 12:29 | PC.NURSE ---
Pt non-compliant with blood draw. Pt pulling away arm when attempting to draw blood causing unsafe environment for potential accident needle stick to staff. MD aware stating we do not need blood draw, COVID sample is sufficent.
[2022-08-26 12:55] LABS: COVID-19 Test Negative (Negative); IDNOW Serial# 16C4AD1C
--- NOTE | 2022-08-26 13:12 | MHC.CARE ---
Care Team completed [facility] smart sheet.
[2022-08-26 14:35] LABS: Amphetamine Screen Urine Not Detected (Not Detect); Barbiturates, Urine Not Detected (Not Detect); Benzodiazepines Screen Urine Not Detected (Not Detect); Cannabinoid Screen Urine Not Detected (Not Detect); Cocaine Screen Urine Not Detected (Not Detect); Fentanyl, urine Not Detected (Not Detect); Opiate Screen Urine Not Detected (Not Detect); Phencyclidine Screen Urine Not Detected (Not Detect)
--- NOTE | 2022-08-26 15:13 | PHA.MEDREC ---
Pharmacy Consult ? Medication Reconciliation Pharmacy has completed the medication reconciliation. Patient came from a senior living with a medication list. Patient is suppose to be on isosorbide mononitrate er 30mg, but per Dara at group patient refuses. Luisa Gutiérrez, PharmD
[2022-08-26 15:30] VITALS: BP 123/47; PULSE 72; RESP 16; TEMP 36.6; O2SAT 96
--- NOTE | 2022-08-26 15:32 | MHC.EDTECH ---
this pct assumed care of pt at 1500 ,i ask chidi mendez about the labs that was not drawn ,chidi mendez said provider said not to bother with getting labs as pt kept on moving hands and does not want anyone to get stuck .
[2022-08-26] MEDS: Acetaminophen 325 MG TABLET 650 MG PO (16:51)
--- NOTE | 2022-08-26 17:09 | MHC.CARE ---
Pt was evaluated by MAIK and cleared for [facility] to her [facility]. CARE team completed ED worksheet for ambulance transfer to be arranged.
== END 2022-08-26 19:01 | disposition other institution (70) ==
PROVIDERS: Emergency Provider Emergency Medicine; PCP Internal Medicine
DX: R45.851 Suicidal ideations (principal); S60.812A Abrasion of left wrist, initial encounter; X83.8XXA Intentional self-harm by other specified means, initial encounter; F31.9 Bipolar disorder, unspecified; F41.9 Anxiety disorder, unspecified; F99 Mental disorder, not otherwise specified; I69.320 Aphasia following cerebral infarction; I69.352 Hemiplegia and hemiparesis following cerebral infarction affecting left dominant side; I10 Essential (primary) hypertension; E11.9 Type 2 diabetes mellitus without complications; Z72.89 Other problems related to lifestyle; Z87.891 Personal history of nicotine dependence; Y93.9 Activity, unspecified; Y92.049 Unspecified place in boarding-house as the place of occurrence of the external cause; Y99.9 Unspecified external cause status; Z20.822 Contact with and (suspected) exposure to COVID-19; Z79.4 Long term (current) use of insulin; Z79.899 Other long term (current) drug therapy
CPT/HCPCS: 80307; 87635; 99284

== ENCOUNTER 2022-10-08 17:51 | Observation (INO) | payer MEDICARE, MEDICAID, SELFPAY ==
--- NOTE | ~2022-10-08 | CT_ITS ---
EXAMINATION: CT ABDOMEN AND PELVIS WITH CONTRAST CLINICAL INFORMATION: Abdominal pain COMPARISON: 12/25/2021 TECHNIQUE: Multidetector volumetric images were obtained from the superior aspect of the liver through the pubic symphysis following administration 100 mL of Omnipaque 350 intravenous contrast. Sagittal and coronal reformatted images were obtained on the technologist's workstation. Oral contrast: No This CT examination was performed using dose optimization techniques as appropriate, variously including the following: *Automated exposure control *Adjustment of mA and/or kV according to patient size (this includes techniques or standardized protocols for targeted exams where dose is matched to indication/reason for exam; i.e. extremities or head) *Use of iterative reconstruction technique DLP: 1071 mGy-cm FINDINGS: LUNG BASES: The visualized lung bases are not well assessed due to motion artifact. LIVER, GALLBLADDER, AND BILIARY TREE: The liver demonstrates hypoattenuation suggesting steatosis. No focal hepatic lesion or biliary ductal dilatation is present. Status post cholecystectomy. PANCREAS: Partially atrophic. SPLEEN: Unremarkable. ADRENAL GLANDS: Unremarkable. KIDNEYS AND URETERS: Bilateral nephrograms are symmetric. Duplicated left renal collecting system. No obstructing calculus is seen. Redemonstrated low-density collection abutting the posterior right mid to lower kidney with some peripheral calcification, without significant change from prior. There is an approximately 6 mm right lower pole renal calculus. BLADDER: Unremarkable. GASTROINTESTINAL TRACT: Colonic diverticulosis is noted. The small and large bowel are otherwise unremarkable without evidence of obstruction or pericolonic inflammatory change. No free fluid or free air is seen. ABDOMINAL WALL: No significant hernia is appreciated. LYMPH NODES: Normal. VASCULAR: Unremarkable. PELVIC VISCERA: Unremarkable. OSSEOUS STRUCTURES: Scattered degenerative changes noted in the spine. CT/CT abdomen pelvis w IV con IMPRESSION: 1. No acute findings identified in the abdomen/pelvis. 2. Redemonstrated low-density collection abutting the posterior right mid to lower kidney, without significant change from 12/25/2021. 3. Right lower pole renal calculus measuring 6 mm.
--- NOTE | ~2022-10-08 | CT_ITS ---
EXAMINATION: CT HEAD WITHOUT CONTRAST CLINICAL INFORMATION: Question headache. Nonverbal COMPARISON: Head CT 12/25/2021 TECHNIQUE: Imaging was performed from the skull base to vertex without intravenous administration of contrast. This CT examination was performed using dose optimization techniques as appropriate, variously including the following: *Automated exposure control *Adjustment of mA and/or kV according to patient size (this includes techniques or standardized protocols for targeted exams where dose is matched to indication/reason for exam; i.e. extremities or head) *Use of iterative reconstruction technique Total exam dose length product: 591 mGy-cm FINDINGS: No intra or extra-axial fluid collection, hemorrhage, or mass. 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 No change in ventricular caliber. No midline shift or herniation. Basal cisterns are patent. The wesley-white matter differentiation is maintained. No territorial encephalomalacia. No significant volume loss. There is minimal patchy hypoattenuation in the supratentorial white matter, nonspecific, likely sequela of mild chronic small vessel ischemic change. No calvarial fracture or soft tissue abnormality. Small mucous retention cyst in the right maxillary sinus. Paranasal sinuses and mastoid air cells otherwise normally aerated. CT/CT head/brain wo IV con IMPRESSION: 1. No acute intracranial pathology. 2. 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
[2022-10-08 18:09] VITALS: BP 156/91; BP 180/110; PULSE 84; PULSE 88; RESP 16; TEMP 36.6; O2SAT 97; BMI 34.4
--- NOTE | 2022-10-08 18:27 | ECG_ITS ---
Test Reason : chest pain Blood Pressure : / mmHG Vent. Rate : 078 BPM Atrial Rate : 078 BPM P-R Int : 132 ms QRS Dur : 100 ms QT Int : 374 ms P-R-T Axes : 050 -14 038 degrees QTc Int : 426 ms Normal sinus rhythm Incomplete right bundle branch block Borderline ECG When compared with ECG of 11-OCT-2021 15:15, No significant change was found Referred By: Cassandra Newell Electronically Signed By:PURNIMA NGUYEN
--- NOTE | 2022-10-08 18:30 | PC.NURSE ---
patient non verbal . tearful , pointing to chest and head . pearrla . heart rate regular at 67 beats per minutes . breathing even and unlabored . lungs clear throughout . rash noted throughout under abdomen and down thigh , provider aware . abdomen soft . positive bowel sounds in all quadrants . patient placed on sleeping room cleaner .patient medicated with IVP morphine for pain . patient aware of plan of care .
--- NOTE | 2022-10-08 18:30 | ED.GENADULT ---
HPI - General Adult General Chief complaint: General Medical Stated complaint: hyperglycemic Time Seen by Provider: 10/08/22 18:07 Source: patient Mode of arrival: ambulatory Limitations: other (Patient nonverbal) History of Present Illness HPI narrative: This is a 67-year-old female history of CVA w. residual L. sided deficit, cerebral palsy, diabetes, presbyopia, peripheral vascular disease, a nuclear sclerotic cataract, nail hypertrophy, hypertension, hyperopia, GERD, gait instability, expressive aphasia, dysphasia, with stigmatism, asthma, obesity, soft a ROXANNA spasm, contracture presenting from a jail she was noted to be hyperglycemic, patient has also been vomiting. Patient is nonverbal. Patient is pointing at her head and her chest when I ask her if she has a headache and chest pain she tells me yes. She nods her head no when I ask if she has shortness of breath. Patient also points her groin area and I ask her if she has a rash she nods her head yes. Patient is on insulin based off medication. Related Data Home Medications Medication Instructions Recorded Confirmed albuterol sulfate 90 mcg/actuation 2 puff inhalation Q4H PRN Wheezing 08/26/22 08/26/22 aerosol inhaler calcium carbonate 300 mg (750 mg) 1 tab PO Q2H PRN STOMACHE UPSET 08/26/22 08/26/22 chewable tablet (Tums) hydroxyzine HCl 50 mg tablet 50 mg PO QID PRN Anxiety 08/26/22 08/26/22 insulin glargine 100 unit/mL 12 unit subcut QAM 08/26/22 08/26/22 subcutaneous solution (Lantus U-100 Insulin) losartan 25 mg tablet 1 tab PO DAILY 08/26/22 08/26/22 multivitamin 1 tab PO DAILY 08/26/22 08/26/22 Allergies Allergy/AdvReac Type Severity Reaction Status Date / Time cephalexin [CEPHALEXIN] Allergy Unknown Vomiting Verified 06/21/21 14:54 Review of Systems Review of Systems: patient was able to nod yes or no to answer these questions Constitutional : No Weight loss, No Fever, No Chills, No Fatigue, No Malaise ENT/Mouth : No sore throat, No Rhinorrhea Eyes: No Eye Pain, No Swelling, No Redness Cardiovascular : + Chest Pain, No SOB, No Dyspnea on Exertion, No Orthopnea, No Edema, No Palpitations Respiratory : No Cough, No Sputum, No Wheezing Gastrointestinal : No Nausea, No Vomiting, No Diarrhea, No Constipation, No abdominal Pain, No Hematochezia, No Melena Genitourinary : No Dysuria, No Urinary Frequency, No Hematuria, Musculoskeletal : No joint pain, No Myalgias, No Joint Swelling Skin : No Skin Lesions, + rash Neuro : No Weakness, No Numbness, No Dizziness, + Headache All other systems reviewed and are negative Yes all other systems are reviewed and are negative [facility] Past Medical History Attestation statement: The following information was validated with the patient. Source: old records reviewed and nursing notes reviewed Medical History Bipolar disorder CVA (cerebral vascular accident) Diabetes Hypertension Psychiatric diagnosis Social History Social History Housing: Assisted Living Facility Do you presently have visiting nurse or other home services: Yes Alcohol intake: never Patient Tobacco Use Status: Former Tobacco user Smoked in Last 30 Days: No Use of substances other than those prescribed or required for medical reasons: No Advance Directives: Yes Advance Directives on File: Yes Advance Directives Date on File: 03/17/21 service: No Current occupational status: disabled Physical Exam ED Vital Signs: Vital Signs - 24 hr 10/08/22 18:09 10/08/22 21:28 10/08/22 21:33 Temperature 97.8 F 98.0 F Pulse Rate 84 77 Respiratory Rate 16 16 18 Blood Pressure 156/91 H 141/77 H Pulse Oximetry 97 97 Oxygen Delivery Method Room Air Room Air 10/09/22 00:34 Temperature 97.9 F Pulse Rate 75 Respiratory Rate 14 Blood Pressure 122/61 Pulse Oximetry 96 Oxygen Delivery Method Room Air BMI result Body Mass Index 34.4 Vital signs stable Appearance: Alert.? Awake. No acute distress.? Head: Normocephalic, atraumatic, no step-offs or deformities Eyes: Pupils equal, round and reactive to light.? ENT: Pharynx normal.? Neck: Normal inspection.? Neck supple.? CVS: Normal heart rate and rhythm.? Pulses normal.? Respiratory: No respiratory distress.? Breath sounds normal.? Abdomen: Soft and diffuse tenderness .? Skin: Skin warm and dry.? Normal skin color.? Normal skin turgor.?+ erythematous, warm rash in the groin area bilaterally and spreading into b/l thighs Extremities: No lower extremity edema.? No calf ttp. Global weakness and L. Sided weakness to UE and LE ( patients baseline) Back: No midline tenderness, no C-spine tenderness, full range of motion, no CVA tenderness bilaterally Neuro: Alert, awake.? No motor deficit.? No sensory deficit. Following commands. Appropriately nodding her head when answering questions. Course Reevaluation(s) Reevaluation #1: CBC appears to be around normal limits. Chemistry initially with elevated blood glucose, patient was given insulin, sugar now to 92, will obtain repeat point of care. Initial troponin less than 3.5, patient continued to complain of chest pain therefore 2nd troponin was ordered still negative, EKG nonischemic unlikely ACS. D-dimer negative unlikely that this is PE. Normal BNP. Patient's lipase is noted to be 252, when I ask her her stomach hurts she nods her head yes. Again her abdomen is diffusely tender, not localized to the left upper quadrant. Will obtain CT of the abdomen pelvis with contrast. Patient's urine also grossly infected with white blood cells and nitrates. Patient was given ceftriaxone. Patient's VBG without acidosis, no ketones in the urine, no anion gap unlikely that this is DKA. CT head at patients baseline. Pending triglycerides and CT of the abdomen and pelvis. Time: 01:14 Reevaluation #2: Triglycerides 126. Only thing pending at this time a CT of the abdomen pelvis. Patient is still complaining of nausea will give rule Reglan and Benadryl and hopefully this will also help patient sleep as she is feeling restless. prison staff member at bedside. Reevaluation #3: CT of the abdomen pelvis pending. Report given to doctors [facility] admission Time: 01:37 Medications Administered Discontinued Medications Generic Name Dose Route Start Last Admin Trade Name Freq PRN Reason Stop Dose Admin Sodium Chloride 1,000 mls @ 999 mls/hr 10/08/22 18:45 10/08/22 21:19 Ns IV 10/08/22 19:45 Infused .Q1H1M ANASTASIA Infusion Ceftriaxone Sodium 1 gm/ 50 mls @ 100 mls/hr 10/08/22 18:45 10/08/22 21:22 Sodium Chloride IV 10/08/22 19:14 Infused ONCE ONE Infusion Morphine Sulfate 4 mg 10/08/22 18:32 10/08/22 18:35 Morphine Sulfate 4 Mg/Ml Cartridge IVPUSH 10/08/22 18:33 4 mg ONCE ONE Administration Protocol Morphine Sulfate 4 mg 10/08/22 21:09 10/08/22 21:28 Morphine Sulfate 4 Mg/Ml Cartridge IVPUSH 10/08/22 21:10 4 mg ONCE ONE Administration Protocol Nystatin 1 appl 10/08/22 18:32 10/08/22 20:18 Nystatin Powder 15 Gm Bottle TOPICAL 10/08/22 18:33 1 appl ONCE ONE Administration Protocol Ondansetron HCl 4 mg 10/08/22 21:18 10/08/22 21:28 Ondansetron Hcl 4 Mg/2 Ml Vial IVPUSH 10/08/22 21:19 4 mg ONCE ONE Administration Medical Decision Making Medical Decision Making [facility] Narrative: 1834 67-year-old nonverbal female presents from jail wit nausea, vomiting, and elevated sugars at the jail. Patient pointing at her head and chest suggesting that she has chest pain and headache. Denies shortness of breath. There is some difficulty obtaining history and review of systems due to patient being nonverbal. Physical examination reveals an erythematous warm rash to bilateral groin areas, spreading into the inner thigh.Global weakness and L. Sided weakness to UE and LE ( patients baseline). Diffuse abd tendernesss. Will rule out ACS, PE, uncontrolled diabetes or DKA. Rashes likely fungal with overlying cellulitis will give nystatin powder and given antibiotics as it does cover a large area of patients groin and inner thighs . Unlikely that this is a necrotizing infection. Other differentials include diabetic gastroparesis, intra abdominal etiologies. Will rule out infection and electrolyte abnormalities. Diffuse abdominal tenderness unlikely acute abdomen, appendicitis, cholecystitis, pancreatitis. Plan at this time labs, lipase, urine, troponin, D-dimer, EKG. Obtain point of care. And initiate fluid Differential Diagnosis Differential Diagnoses: The differential diagnosis associated with the presentation includes Will rule out ACS, PE, uncontrolled diabetes or DKA. Rashes likely fungal with overlying cellulitis will give nystatin powder and given antibiotics as it does cover a large area of patients groin and inner thighs . Unlikely that this is a necrotizing infection. Other differentials include diabetic gastroparesis. Will rule out infection and electrolyte abnormalities. Diffuse abdominal tenderness unlikely acute abdomen, appendicitis, cholecystitis, pancreatitis Admission/Observation Consideration of admission/observation: Escalation of care including admission/observation considered Consult Healthcare Provider Management of the patient was discussed with: Hospitalist Lab Data MDM Lab Attestation statement: I reviewed the patient's lab results. 10/08/22 18:30 Labs: Lab Results 10/08/22 10/08/22 10/08/22 Range/Units 18:05 18:30 18:30 WBC 10.3 (4.8-10.8) X10*3/uL RBC 4.80 (4.20-5.50) X10*6/uL Hgb 13.3 (12.0-16.0) g/dl Hct 39.1 (37.0-47.0) % MCV 81.5 (80.0-98.0) fL MCH 27.7 (27.0-33.0) pg MCHC 34.0 (31.0-35.0) g/dl RDW 12.2 (11.0-16.0) % Plt Count 390 D (160-400) X10*3/uL MPV 11.2 (9.4-12.3) fL Immature Gran % (Auto) 0.5 H (0.0-0.4) % Neut % (Auto) 64.9 (45-73) % Lymph % (Auto) 27.2 (20-40) % [place] % (Auto) 4.7 (2-11) % Eos % (Auto) 2.2 (0-4) % Baso % (Auto) 0.5 (0-2) % Lymph # (Auto) 2.8 (1.2-4.9) X10*3/uL [place] # (Auto) 0.5 (0.1-1.2) X10*3/uL Eos # (Auto) 0.2 (0.0-0.4) X10*3/uL Baso # (Auto) 0.1 (0.0-0.2) X10*3/uL Abs Immat Gran (auto) 0.05 H (0.00-0.03) X10*3/uL Absolute Neuts (auto) 6.7 (2.0-8.3) x10*3/uL Absolute Nucleated RBC 0.000 (0.0-0.012) X10*3/uL Nucleated RBC % (auto) 0.0 (0.0-0.2) /100WBC D-Dimer High Sensitivty < 150 NG/ML VBG pH (7.32-7.43) VBG pCO2 mmHg VBG pO2 mmHg VBG HCO3 (22-26) mmol/L VBG O2 Saturation % VBG Base Excess mmol/L Sodium (135-145) mmol/L Potassium (3.3-5.1) mmol/L Chloride (96-108) mmol/L Carbon Dioxide (22-29) mmol/L Anion Gap (12-20) BUN (9-16) mg/dL Creatinine (0.5-1.4) mg/dL Estim Creat Clear Calc Estimated GFR POC Glucose 444 H* (60-115) mg/dL Random Glucose (60-115) mg/dL Calcium (8.4-10.2) mg/dL Total Bilirubin (0.0-1.0) mg/dL AST (5-31) U/L ALT (0-31) U/L Alkaline Phosphatase (39-117) U/L Troponin I High Sens (<3.5-17.0) ng/L B-Natriuretic Peptide (<100) pg/mL Total Protein (6.5-8.0) g/dL Albumin (3.5-5.0) g/dL Triglycerides mg/dL Lipase (8-78) U/L Urine Color Urine Appearance Urine pH (5.0-9.0) Ur Specific [place] (1.005-1.025) Urine Protein (Neg-Trace) mg/dL Urine Glucose (UA) (Negative) mg/dL Urine Ketones (Negative) mg/dL Urine Blood (Negative) Urine Nitrite (Negative) Ur Leukocyte Esterase (Negative) Urine RBC (0-2) /HPF Urine WBC (0-5) /HPF Ur Squamous Epith Cells (0-2) /HPF Urine Bacteria (None Seen) Hyaline Casts (0-2) /LPF Acetone, Qual (Negative) 10/08/22 10/08/22 10/08/22 Range/Units 18:30 18:30 18:35 WBC (4.8-10.8) X10*3/uL RBC (4.20-5.50) X10*6/uL Hgb (12.0-16.0) g/dl Hct (37.0-47.0) % MCV (80.0-98.0) fL MCH (27.0-33.0) pg MCHC (31.0-35.0) g/dl RDW (11.0-16.0) % Plt Count (160-400) X10*3/uL MPV (9.4-12.3) fL Immature Gran % (Auto) (0.0-0.4) % Neut % (Auto) (45-73) % Lymph % (Auto) (20-40) % [place] % (Auto) (2-11) % Eos % (Auto) (0-4) % Baso % (Auto) (0-2) % Lymph # (Auto) (1.2-4.9) X10*3/uL [place] # (Auto) (0.1-1.2) X10*3/uL Eos # (Auto) (0.0-0.4) X10*3/uL Baso # (Auto) (0.0-0.2) X10*3/uL Abs Immat Gran (auto) (0.00-0.03) X10*3/uL Absolute Neuts (auto) (2.0-8.3) x10*3/uL Absolute Nucleated RBC (0.0-0.012) X10*3/uL Nucleated RBC % (auto) (0.0-0.2) /100WBC D-Dimer High Sensitivty NG/ML VBG pH 7.42 (7.32-7.43) VBG pCO2 50 mmHg VBG pO2 46 mmHg VBG HCO3 33 H (22-26) mmol/L VBG O2 Saturation 66.0 % VBG Base Excess 7.1 mmol/L Sodium (135-145) mmol/L Potassium (3.3-5.1) mmol/L Chloride (96-108) mmol/L Carbon Dioxide (22-29) mmol/L Anion Gap (12-20) BUN (9-16) mg/dL Creatinine (0.5-1.4) mg/dL Estim Creat Clear Calc Estimated GFR POC Glucose (60-115) mg/dL Random Glucose (60-115) mg/dL Calcium (8.4-10.2) mg/dL Total Bilirubin (0.0-1.0) mg/dL AST (5-31) U/L ALT (0-31) U/L Alkaline Phosphatase (39-117) U/L Troponin I High Sens < 3.5 (<3.5-17.0) ng/L B-Natriuretic Peptide 10 (<100) pg/mL Total Protein (6.5-8.0) g/dL Albumin (3.5-5.0) g/dL Triglycerides mg/dL Lipase (8-78) U/L Urine Color Urine Appearance Urine pH (5.0-9.0) Ur Specific [place] (1.005-1.025) Urine Protein (Neg-Trace) mg/dL Urine Glucose (UA) (Negative) mg/dL Urine Ketones (Negative) mg/dL Urine Blood (Negative) Urine Nitrite (Negative) Ur Leukocyte Esterase (Negative) Urine RBC (0-2) /HPF Urine WBC (0-5) /HPF Ur Squamous Epith Cells (0-2) /HPF Urine Bacteria (None Seen) Hyaline Casts (0-2) /LPF Acetone, Qual (Negative) 10/08/22 10/08/22 10/08/22 Range/Units 20:17 20:17 23:25 WBC (4.8-10.8) X10*3/uL RBC (4.20-5.50) X10*6/uL Hgb (12.0-16.0) g/dl Hct (37.0-47.0) % MCV (80.0-98.0) fL MCH (27.0-33.0) pg MCHC (31.0-35.0) g/dl RDW (11.0-16.0) % Plt Count (160-400) X10*3/uL MPV (9.4-12.3) fL Immature Gran % (Auto) (0.0-0.4) % Neut % (Auto) (45-73) % Lymph % (Auto) (20-40) % [place] % (Auto) (2-11) % Eos % (Auto) (0-4) % Baso % (Auto) (0-2) % Lymph # (Auto) (1.2-4.9) X10*3/uL [place] # (Auto) (0.1-1.2) X10*3/uL Eos # (Auto) (0.0-0.4) X10*3/uL Baso # (Auto) (0.0-0.2) X10*3/uL Abs Immat Gran (auto) (0.00-0.03) X10*3/uL Absolute Neuts (auto) (2.0-8.3) x10*3/uL Absolute Nucleated RBC (0.0-0.012) X10*3/uL Nucleated RBC % (auto) (0.0-0.2) /100WBC D-Dimer High Sensitivty NG/ML VBG pH (7.32-7.43) VBG pCO2 mmHg VBG pO2 mmHg VBG HCO3 (22-26) mmol/L VBG O2 Saturation % VBG Base Excess mmol/L Sodium 136 (135-145) mmol/L Potassium 4.5 (3.3-5.1) mmol/L Chloride 100 (96-108) mmol/L Carbon Dioxide 26 (22-29) mmol/L Anion Gap 15 (12-20) BUN 16 (9-16) mg/dL Creatinine 0.81 (0.5-1.4) mg/dL Estim Creat Clear Calc 81.2 Estimated GFR > 60 POC Glucose 292 H (60-115) mg/dL Random Glucose 396 H* (60-115) mg/dL Calcium 9.2 (8.4-10.2) mg/dL Total Bilirubin 0.4 (0.0-1.0) mg/dL AST 14 (5-31) U/L ALT 12 (0-31) U/L Alkaline Phosphatase 104 (39-117) U/L Troponin I High Sens (<3.5-17.0) ng/L B-Natriuretic Peptide (<100) pg/mL Total Protein 6.8 (6.5-8.0) g/dL Albumin 3.7 (3.5-5.0) g/dL Triglycerides 126 mg/dL Lipase 252 H (8-78) U/L Urine Color Urine Appearance Urine pH (5.0-9.0) Ur Specific [place] (1.005-1.025) Urine Protein (Neg-Trace) mg/dL Urine Glucose (UA) (Negative) mg/dL Urine Ketones (Negative) mg/dL Urine Blood (Negative) Urine Nitrite (Negative) Ur Leukocyte Esterase (Negative) Urine RBC (0-2) /HPF Urine WBC (0-5) /HPF Ur Squamous Epith Cells (0-2) /HPF Urine Bacteria (None Seen) Hyaline Casts (0-2) /LPF Acetone, Qual Negative (Negative) 10/08/22 10/09/22 Range/Units 23:57 00:33 WBC (4.8-10.8) X10*3/uL RBC (4.20-5.50) X10*6/uL Hgb (12.0-16.0) g/dl Hct (37.0-47.0) % MCV (80.0-98.0) fL MCH (27.0-33.0) pg MCHC (31.0-35.0) g/dl RDW (11.0-16.0) % Plt Count (160-400) X10*3/uL MPV (9.4-12.3) fL Immature Gran % (Auto) (0.0-0.4) % Neut % (Auto) (45-73) % Lymph % (Auto) (20-40) % [place] % (Auto) (2-11) % Eos % (Auto) (0-4) % Baso % (Auto) (0-2) % Lymph # (Auto) (1.2-4.9) X10*3/uL [place] # (Auto) (0.1-1.2) X10*3/uL Eos # (Auto) (0.0-0.4) X10*3/uL Baso # (Auto) (0.0-0.2) X10*3/uL Abs Immat Gran (auto) (0.00-0.03) X10*3/uL Absolute Neuts (auto) (2.0-8.3) x10*3/uL Absolute Nucleated RBC (0.0-0.012) X10*3/uL Nucleated RBC % (auto) (0.0-0.2) /100WBC D-Dimer High Sensitivty NG/ML VBG pH (7.32-7.43) VBG pCO2 mmHg VBG pO2 mmHg VBG HCO3 (22-26) mmol/L VBG O2 Saturation % VBG Base Excess mmol/L Sodium (135-145) mmol/L Potassium (3.3-5.1) mmol/L Chloride (96-108) mmol/L Carbon Dioxide (22-29) mmol/L Anion Gap (12-20) BUN (9-16) mg/dL Creatinine (0.5-1.4) mg/dL Estim Creat Clear Calc Estimated GFR POC Glucose (60-115) mg/dL Random Glucose (60-115) mg/dL Calcium (8.4-10.2) mg/dL Total Bilirubin (0.0-1.0) mg/dL AST (5-31) U/L ALT (0-31) U/L Alkaline Phosphatase (39-117) U/L Troponin I High Sens < 3.5 (<3.5-17.0) ng/L B-Natriuretic Peptide (<100) pg/mL Total Protein (6.5-8.0) g/dL Albumin (3.5-5.0) g/dL Triglycerides mg/dL Lipase (8-78) U/L Urine Color Yellow Urine Appearance Clear Urine pH 5.5 (5.0-9.0) Ur Specific [place] >= 1.030 H (1.005-1.025) Urine Protein Negative (Neg-Trace) mg/dL Urine Glucose (UA) >=1000 H (Negative) mg/dL Urine Ketones Negative (Negative) mg/dL Urine Blood Negative (Negative) Urine Nitrite Positive H (Negative) Ur Leukocyte Esterase Trace H (Negative) Urine RBC 3-5 H (0-2) /HPF Urine WBC >50 H (0-5) /HPF Ur Squamous Epith Cells 0-2 (0-2) /HPF Urine Bacteria 4+ (None Seen) Hyaline Casts 0-2 (0-2) /LPF Acetone, Qual (Negative) Independent Interpretation I performed an independent interpretation of an: EKG (Ventricular rate 78, AR normal, QRS normal, QT/QTC normal. EKG with normal sinus rhythm and right bundle-branch block, no signs of acute ischemia at this time. No significant changes when compared to previous) Radiology Impression Discussion of test interpretation with radiology: I have reviewed the radiologist's reading. Independent Historian Clinical information obtained from an independent historian. History obtained from or confirmed by: EMS Core Measures AMI core measures followed: Yes Measure exclusions: not indicated Critical Care Time Critical Care Time Critical Care Time: No Discharge Plan Discharge Clinical Impression: Chest pain, Acute pancreatitis, Nausea & vomiting, Kristina rash of groin Patient Disposition: Admitted As Inpatient
[2022-10-08] MEDS: Morphine Sulfate 4 MG/ML CARTRIDGE IVPUSH ×2 (18:35→21:28)
[2022-10-08 18:36] LABS: MANUAL DIFF FLAG NO
[2022-10-08 18:37] LABS: Basophils Absolute Auto 0.1 X10*3/uL (0.0-0.2); Basophils Percent Auto 0.5 % (0-2); Eosinophils Absolute Auto 0.2 X10*3/uL (0.0-0.4); Eosinophils Percent Auto 2.2 % (0-4); Hematocrit 39.1 % (37.0-47.0); Hemoglobin 13.3 g/dl (12.0-16.0); Imm Gran Abs Auto 0.05 X10*3/uL (0.00-0.03); Imm Gran Pct Auto 0.5 % (0.0-0.4); Lymphocytes Absolute Auto 2.8 X10*3/uL (1.2-4.9); Lymphocytes Percent Auto 27.2 % (20-40); Mean Corpuscular Hemoglobin 27.7 pg (27.0-33.0); Mean Corpuscular Volume 81.5 fL (80.0-98.0); Mean Platelet Volume 11.2 fL (9.4-12.3); Monocytes Absolute Auto 0.5 X10*3/uL (0.1-1.2); Monocytes Percent Auto 4.7 % (2-11); Neutrophils Absolute Auto 6.7 x10*3/uL (2.0-8.3); Neutrophils Percent Auto 64.9 % (45-73); Platelet Count 390 X10*3/uL (160-400); Red Cell Distribution Width 12.2 % (11.0-16.0); White Blood Count 10.3 X10*3/uL (4.8-10.8)
[2022-10-08 18:37] LABS: Glucose, Whole Blood 444 mg/dL (60-115)
[2022-10-08 18:45] LABS: Venous Blood Gas Refer to POC result
[2022-10-08 18:45] LABS: VBG Base Excess 7.1 mmol/L; VBG HCO3 33 mmol/L (22-26); VBG pCO2 50 mmHg; VBG pH 7.42 (7.32-7.43); VBG pO2 46 mmHg
[2022-10-08 18:50] LABS: D Dimer High Sensitivity < 150 NG/ML
--- NOTE | 2022-10-08 18:58 | MHC.EDTECH ---
attempted draw on the right ac. it was unsucessful. i then tried to attempt to draw in the hand pt refused. rn aware.
[2022-10-08 19:03] LABS: B Type Natriuretic Peptide 10 pg/mL (<100)
[2022-10-08 19:04] LABS: Troponin-I High Sensitivity < 3.5 ng/L (<3.5-17.0)
[2022-10-08] MEDS: Nystatin Powder 15 GM BOTTLE 1 APPL TOPICAL (20:18)
[2022-10-08] MEDS: 0.9 % Sodium Chloride 1,000 ML 999 ML IV (20:18)
[2022-10-08 20:38] LABS: Acetone, serum QL Negative (Negative)
[2022-10-08 20:41] LABS: Lipase 252 U/L (8-78)
[2022-10-08] MEDS: cefTRIAXone sodium 1 GM in 0.9 % Sodium Chloride 50 ML IV (20:42)
[2022-10-08 20:50] LABS: Alanine Aminotransferase 12 U/L (0-31); Albumin Level 3.7 g/dL (3.5-5.0); Alkaline Phosphatase 104 U/L (39-117); Anion Gap 15 (12-20); Aspartate Amino Transferase 14 U/L (5-31); Bilirubin Total 0.4 mg/dL (0.0-1.0); Blood Urea Nitrogen 16 mg/dL (9-16); Calcium 9.2 mg/dL (8.4-10.2); Carbon Dioxide 26 mmol/L (22-29); Chloride 100 mmol/L (96-108); Creatinine Clr Calc Pharmacy 81.2; Estimated Glomerular Filt Rate > 60; Glucose Random 396 mg/dL (60-115); Potassium 4.5 mmol/L (3.3-5.1); Sodium 136 mmol/L (135-145); Total Protein 6.8 g/dL (6.5-8.0)
--- NOTE | 2022-10-08 20:54 | PC.NURSE ---
iv abx started per order float nurse
--- NOTE | 2022-10-08 21:01 | PC.NURSE ---
pt reporting chest pain, provider notified and will be to assess pt.
[2022-10-08 21:28] VITALS: RESP 16
[2022-10-08] MEDS: ondansetron HCL 4 MG/2 ML VIAL IVPUSH (21:28)
[2022-10-08 21:33] VITALS: BP 141/77; PULSE 77; RESP 18; TEMP 36.7; O2SAT 97
[2022-10-08 23:33] LABS: Glucose, Whole Blood 292 mg/dL (60-115)
[2022-10-09] VITALS (7 sets, daily range): BP systolic 122–150; BP diastolic 61–83; PULSE 67–79; RESP 10–17; TEMP 36.6–36.7; O2SAT 93–98
[2022-10-09 00:29] LABS: Troponin-I High Sensitivity < 3.5 ng/L (<3.5-17.0)
[2022-10-09 00:48] LABS: Appearance Urine Clear; Color Urine Yellow; Glucose Urine UA >=1000 mg/dL (Negative); Leukocyte Esterase Urine Trace (Negative); Nitrite Urine Positive (Negative); PH 5.5 (5.0-9.0); Specific Gravity - Urine >= 1.030 (1.005-1.025); UMIC TRIGGER UACC YES; Urine Blood Negative (Negative); Urine Ketones Negative (Negative); Urine Protein Negative (Neg-Trace)
[2022-10-09 00:59] LABS: Bacteria Urine 4+ (None Seen); Hyaline Casts Urine 0-2 /LPF (0-2); Squamous Epithelial Cell Urine 0-2 /HPF (0-2); UACC Culture Trigger YES; WBC Urine >50 /HPF (0-5)
[2022-10-09 01:22] LABS: Triglycerides 126 mg/dL
[2022-10-09] MEDS: iohexoL 350 MG/ML 100 ML INFUS..BTL IV (01:52)
--- NOTE | 2022-10-09 01:54 | MHC.EDTECH ---
PT assisted with repositioning in bed. STEPHON Herr made aware/ Son stepping out of room plz contact if need @ [phone]
[2022-10-09] MEDS: diphenhydrAMINE HCL 50 MG/ML VIAL 25 MG IVPUSH (02:09)
[2022-10-09] MEDS: 0.9 % Sodium Chloride 1,000 ML 999 ML IV (02:09)
[2022-10-09] MEDS: Metoclopramide HCl 10 MG/2 ML VIAL IVPUSH (02:10)
--- NOTE | 2022-10-09 02:14 | PC.NURSE ---
Pt used hand signal to report nausea to provider. Pt medicated per nov. While medicating pt began to vomit less than 100 cc of green colored bile.. Pt received reglan per nov.
[2022-10-09] MEDS: Lactated Ringers 1,000 ML 200 ML IVCONT ×2 (04:41→09:48)
[2022-10-09 04:55] LABS: MANUAL DIFF FLAG NO
[2022-10-09 04:56] LABS: Basophils Percent Auto 0.3 % (0-2); Eosinophils Absolute Auto 0.1 X10*3/uL (0.0-0.4); Eosinophils Percent Auto 1.2 % (0-4); Hematocrit 37.3 % (37.0-47.0); Hemoglobin 12.1 g/dl (12.0-16.0); Imm Gran Abs Auto 0.06 X10*3/uL (0.00-0.03); Imm Gran Pct Auto 0.6 % (0.0-0.4); Lymphocytes Absolute Auto 2.2 X10*3/uL (1.2-4.9); Lymphocytes Percent Auto 20.2 % (20-40); Mean Corpuscular HGB Conc 32.4 g/dl (31.0-35.0); Mean Corpuscular Hemoglobin 26.6 pg (27.0-33.0); Monocytes Absolute Auto 0.6 X10*3/uL (0.1-1.2); Monocytes Percent Auto 5.3 % (2-11); Neutrophils Absolute Auto 7.7 x10*3/uL (2.0-8.3); Neutrophils Percent Auto 72.4 % (45-73); Platelet Count 282 X10*3/uL (160-400); Red Blood Count 4.55 X10*6/uL (4.20-5.50); Red Cell Distribution Width 12.3 % (11.0-16.0); White Blood Count 10.7 X10*3/uL (4.8-10.8)
[2022-10-09 05:10] LABS: Anion Gap 12 (12-20); Blood Urea Nitrogen 14 mg/dL (9-16); Calcium 8.5 mg/dL (8.4-10.2); Carbon Dioxide 26 mmol/L (22-29); Chloride 104 mmol/L (96-108); Creatinine Clr Calc Pharmacy 83.2; Estimated Glomerular Filt Rate > 60; Glucose Random 339 mg/dL (60-115); Potassium 4.3 mmol/L (3.3-5.1); Sodium 138 mmol/L (135-145)
[2022-10-09] MEDS: Morphine Sulfate 4 MG/ML CARTRIDGE IVPUSH (05:38)
--- NOTE | 2022-10-09 05:38 | MHC.EDTECH ---
Pt assisted with repositioning in bed. Pt given warm blankets and call tariq placed in reach
--- NOTE | 2022-10-09 05:52 | PC.NURSE ---
Pt called for nurse assistance using call tariq. When nurse arrived to room pt pointed to chest and grimaced. Pt medicated with prn morphine. Pt in agreement.
[2022-10-09 06:07] LABS: COVID-19 Test Negative (Negative); IDNOW Serial# 6674DD1D
--- NOTE | 2022-10-09 06:15 | MHC.EDTECH ---
PT assisted with repositioning . Pt call tariq placed in reach and warm blanket given
--- NOTE | 2022-10-09 06:35 | PC.NURSE ---
Random blood glucose noted to be 339. Rn sent message via [employer] to Dr. Medrano.
--- NOTE | 2022-10-09 06:38 | PC.NURSE ---
Per Dr. Medrano plan is to order a insulin sliding scale.
[2022-10-09 06:50] LABS: Glucose, Whole Blood 282 mg/dL (60-115)
--- NOTE | 2022-10-09 06:53 | PM.IMHP ---
History of Present Illness Date of Service: 10/09/22 Chief Complaint: Hyperglycemia 67-year-old female with extensive past medical history that includes CVA w. residual L. sided deficit, cerebral palsy, diabetes, presbyopia, peripheral vascular disease, a nuclear sclerotic cataract, nail hypertrophy, hypertension, hyperopia, GERD, gait instability, expressive aphasia, dysphasia, with stigmatism, asthma, obesity, soft a ROXANNA spasm, contracture presenting from a [facility] with reported hyperglycemia and vomiting. Patient is nonverbal at baseline, history is obtained mostly from ED physician and EMR. She mostly points to her head and chest when she is asked about any pain or discomfort she points to her abdomen around the midsection. She is just nodding her head to most of my questions. she reports no diarrhea but points to discomfort to using the bathroom in the ED and says she wants to go home. On arrival to the ED patient hemodynamically stable with a slightly elevated BP Labs are significant for WBC count of 10.3, labs otherwise unremarkable, as a glucose of 444, troponin less than 3.5, BNP of 10, lipase of 252, UA positive for leukocyte Estrace, nitrites, WBC Abdomen pelvic CT shows no acute findings in the abdomen/pelvis, low-density collection abutting the posterior right mid lower kidney without significant change from previous imaging, and right lower pole renal calculus, with no apparent obstruction Patient being admitted for further management Review of Systems Review of Systems: Yes all other systems are reviewed and are negative [facility]LY [facility] Medical History Bipolar disorder CVA (cerebral vascular accident) Diabetes Hypertension Psychiatric diagnosis Social History Housing: Assisted Living Facility Do you presently have visiting nurse or other home services: Yes Alcohol intake: never Patient Tobacco Use Status: Former Tobacco user Smoked in Last 30 Days: No Use of substances other than those prescribed or required for medical reasons: No Advance Directives: Yes Advance Directives on File: Yes Advance Directives Date on File: 03/17/21 service: No Current occupational status: disabled Meds Allergies Allergy/AdvReac Type Severity Reaction Status Date / Time cephalexin [CEPHALEXIN] Allergy Unknown Vomiting Verified 06/21/21 14:54 Active Medications: Current Medications Acetaminophen (Acetaminophen 325 Mg Tablet) 650 mg PO Q6H PRN PRN Reason: Pain, Mild (Pain Scale 1-3) Dextrose (Dextrose 50 % 25 Gm/50 Ml Syringe) 25 gm IVPUSH Q15M PRN; Protocol PRN Reason: per Hypoglycemia Standing Ord. Docusate Sodium (Docusate Sodium 100 Mg Capsule) 100 mg PO DAILY PRN PRN Reason: Constipation Glucose (Glucose Gel 15 Gm Gel..Gram.) 15 gm PO Q15M PRN; Protocol PRN Reason: per Hypoglycemia Standing Ord. Ceftriaxone Sodium 1 gm/ (Sodium Chloride) 50 mls @ 100 mls/hr IV Q24H [facility] Lactated Ringer's (Lr) 1,000 mls @ 200 mls/hr IVCONT .Q5H [facility] Last Admin: 10/09/22 04:41 Dose: 200 mls/hr Insulin Human Lispro (Insulin Lispro 100 Unit/Ml 3 Ml Vial) 0 unit SUBCUT QIDACHS [facility]; Protocol Morphine Sulfate (Morphine Sulfate 4 Mg/Ml Cartridge) 4 mg IVPUSH Q4H PRN; Protocol PRN Reason: Pain, Severe (Pain Scale 7-10) Last Admin: 10/09/22 05:38 Dose: 4 mg Nystatin (Nystatin Cream 15 Gm Tube) 1 appl TOPICAL BID [facility]; Protocol Ondansetron HCl (Ondansetron Hcl 4 Mg/2 Ml Vial) 4 mg IVPUSH Q8H PRN PRN Reason: Nausea and Vomiting Pharmacy Consult (Consult Rx Perform Med Rec) 1 each MISCELLANE ONCE PRN PRN Reason: Consult order Sodium Chloride (0.9 % Sodium Chloride Flush 3 Ml Syringe) 3 ml IVFLUSH QSHIFT [facility] Home Medications Medication Instructions Recorded Confirmed Last Taken Type albuterol sulfate 90 mcg/actuation 2 puff inhalation Q4H PRN Wheezing 08/26/22 08/26/22 Unknown History aerosol inhaler calcium carbonate 300 mg (750 mg) 1 tab PO Q2H PRN STOMACHE UPSET 08/26/22 08/26/22 Unknown History chewable tablet (Tums) hydroxyzine HCl 50 mg tablet 50 mg PO QID PRN Anxiety 08/26/22 08/26/22 Unknown History insulin glargine 100 unit/mL 12 unit subcut QAM 08/26/22 08/26/22 Unknown History subcutaneous solution (Lantus U-100 Insulin) losartan 25 mg tablet 1 tab PO DAILY 08/26/22 08/26/22 Unknown History multivitamin 1 tab PO DAILY 08/26/22 08/26/22 Unknown History Physical Exam Vital Signs and Narrative: Vital Signs: Last Vital Signs Temp 98.1 F 10/09/22 05:51 Pulse 68 10/09/22 05:49 Resp 14 10/09/22 05:49 BP 126/69 10/09/22 05:49 Pulse Ox 96 10/09/22 05:49 O2 Del Method 10/09/22 05:49 BMI result Body Mass Index 34.4 Const: General: cooperative and no acute distress Orientation/consciousness: patient oriented x3 Eyes: General: appearance normal, both eyes and all related structures Resp: Effort & Inspection: normal respiratory effort Auscultation: clear to auscultation bilaterally Cardio: Rate: regular rate Rhythm: regular rhythm GI: Other: abd is diffusely tender. no guarding or rebound Palpation (GI): Soft to palpation Auscultation: normal bowel sounds Skin: General skin exam: no rashes or lesions noted Neuro: General: patient oriented x3 Cognition (Neuro): normal cognition Extrem: General: Yes normal to inspection and Yes no pedal edema Results Labs 10/09/22 04:50 10/09/22 04:50 Labs: Laboratory Results - last 24 hr 10/08/22 10/08/22 10/08/22 18:05 18:30 18:30 MCV 81.5 MCH 27.7 MCHC 34.0 RDW 12.2 Plt Count 390 D MPV 11.2 Immature Gran % (Auto) 0.5 H Neut % (Auto) 64.9 Lymph % (Auto) 27.2 [place] % (Auto) 4.7 Eos % (Auto) 2.2 Baso % (Auto) 0.5 Lymph # (Auto) 2.8 [place] # (Auto) 0.5 Eos # (Auto) 0.2 Baso # (Auto) 0.1 Abs Immat Gran (auto) 0.05 H Absolute Neuts (auto) 6.7 Absolute Nucleated RBC 0.000 Nucleated RBC % (auto) 0.0 D-Dimer High Sensitivty < 150 VBG pH VBG pCO2 VBG pO2 VBG HCO3 VBG O2 Saturation VBG Base Excess Anion Gap Estim Creat Clear Calc Estimated GFR POC Glucose 444 H* Random Glucose Calcium Total Bilirubin AST ALT Alkaline Phosphatase Troponin I High Sens B-Natriuretic Peptide Total Protein Albumin Triglycerides Lipase Urine Color Urine Appearance Urine pH Ur Specific [place] Urine Protein Urine Glucose (UA) Urine Ketones Urine Blood Urine Nitrite Ur Leukocyte Esterase Urine RBC Urine WBC Ur Squamous Epith Cells Urine Bacteria Hyaline Casts Acetone, Qual COVID-19 (ANAHI) COVID-19 Clin Com 10/08/22 10/08/22 10/08/22 18:30 18:30 18:35 MCV MCH MCHC RDW Plt Count MPV Immature Gran % (Auto) Neut % (Auto) Lymph % (Auto) [place] % (Auto) Eos % (Auto) Baso % (Auto) Lymph # (Auto) [place] # (Auto) Eos # (Auto) Baso # (Auto) Abs Immat Gran (auto) Absolute Neuts (auto) Absolute Nucleated RBC Nucleated RBC % (auto) D-Dimer High Sensitivty VBG pH 7.42 VBG pCO2 50 VBG pO2 46 VBG HCO3 33 H VBG O2 Saturation 66.0 VBG Base Excess 7.1 Anion Gap Estim Creat Clear Calc Estimated GFR POC Glucose Random Glucose Calcium Total Bilirubin AST ALT Alkaline Phosphatase Troponin I High Sens < 3.5 B-Natriuretic Peptide 10 Total Protein Albumin Triglycerides Lipase Urine Color Urine Appearance Urine pH Ur Specific [place] Urine Protein Urine Glucose (UA) Urine Ketones Urine Blood Urine Nitrite Ur Leukocyte Esterase Urine RBC Urine WBC Ur Squamous Epith Cells Urine Bacteria Hyaline Casts Acetone, Qual COVID-19 (ANAHI) COVID-19 Clin Com 10/08/22 10/08/22 10/08/22 20:17 20:17 23:25 MCV MCH MCHC RDW Plt Count MPV Immature Gran % (Auto) Neut % (Auto) Lymph % (Auto) [place] % (Auto) Eos % (Auto) Baso % (Auto) Lymph # (Auto) [place] # (Auto) Eos # (Auto) Baso # (Auto) Abs Immat Gran (auto) Absolute Neuts (auto) Absolute Nucleated RBC Nucleated RBC % (auto) D-Dimer High Sensitivty VBG pH VBG pCO2 VBG pO2 VBG HCO3 VBG O2 Saturation VBG Base Excess Anion Gap 15 Estim Creat Clear Calc 81.2 Estimated GFR > 60 POC Glucose 292 H Random Glucose 396 H* Calcium 9.2 Total Bilirubin 0.4 AST 14 ALT 12 Alkaline Phosphatase 104 Troponin I High Sens B-Natriuretic Peptide Total Protein 6.8 Albumin 3.7 Triglycerides 126 Lipase 252 H Urine Color Urine Appearance Urine pH Ur Specific [place] Urine Protein Urine Glucose (UA) Urine Ketones Urine Blood Urine Nitrite Ur Leukocyte Esterase Urine RBC Urine WBC Ur Squamous Epith Cells Urine Bacteria Hyaline Casts Acetone, Qual Negative COVID-19 (ANAHI) COVID-19 [employer] 10/08/22 10/09/22 10/09/22 23:57 00:33 04:50 MCV 82.0 MCH 26.6 L MCHC 32.4 RDW 12.3 Plt Count 282 D MPV 10.0 Immature Gran % (Auto) 0.6 H Neut % (Auto) 72.4 Lymph % (Auto) 20.2 [place] % (Auto) 5.3 Eos % (Auto) 1.2 Baso % (Auto) 0.3 Lymph # (Auto) 2.2 [place] # (Auto) 0.6 Eos # (Auto) 0.1 Baso # (Auto) 0.0 Abs Immat Gran (auto) 0.06 H Absolute Neuts (auto) 7.7 Absolute Nucleated RBC 0.000 Nucleated RBC % (auto) 0.0 D-Dimer High Sensitivty VBG pH VBG pCO2 VBG pO2 VBG HCO3 VBG O2 Saturation VBG Base Excess Anion Gap Estim Creat Clear Calc Estimated GFR POC Glucose Random Glucose Calcium Total Bilirubin AST ALT Alkaline Phosphatase Troponin I High Sens < 3.5 B-Natriuretic Peptide Total Protein Albumin Triglycerides Lipase Urine Color Yellow Urine Appearance Clear Urine pH 5.5 Ur Specific [place] >= 1.030 H Urine Protein Negative Urine Glucose (UA) >=1000 H Urine Ketones Negative Urine Blood Negative Urine Nitrite Positive H Ur Leukocyte Esterase Trace H Urine RBC 3-5 H Urine WBC >50 H Ur Squamous Epith Cells 0-2 Urine Bacteria 4+ Hyaline Casts 0-2 Acetone, Qual COVID-19 (ANAHI) COVID-19 [employer] 10/09/22 10/09/22 10/09/22 04:50 04:50 06:44 MCV MCH MCHC RDW Plt Count MPV Immature Gran % (Auto) Neut % (Auto) Lymph % (Auto) [place] % (Auto) Eos % (Auto) Baso % (Auto) Lymph # (Auto) [place] # (Auto) Eos # (Auto) Baso # (Auto) Abs Immat Gran (auto) Absolute Neuts (auto) Absolute Nucleated RBC Nucleated RBC % (auto) D-Dimer High Sensitivty VBG pH VBG pCO2 VBG pO2 VBG HCO3 VBG O2 Saturation VBG Base Excess Anion Gap 12 Estim Creat Clear Calc 83.2 Estimated GFR > 60 POC Glucose 282 H Random Glucose 339 H Calcium 8.5 D Total Bilirubin AST ALT Alkaline Phosphatase Troponin I High Sens B-Natriuretic Peptide Total Protein Albumin Triglycerides Lipase Urine Color Urine Appearance Urine pH Ur Specific [place] Urine Protein Urine Glucose (UA) Urine Ketones Urine Blood Urine Nitrite Ur Leukocyte Esterase Urine RBC Urine WBC Ur Squamous Epith Cells Urine Bacteria Hyaline Casts Acetone, Qual COVID-19 (ANAHI) Negative COVID-19 Clin Com See Note Imaging Radiologist's Impressions: Impressions Head CT 10/08/22 19:21 IMPRESSION: 1. No acute intracranial pathology. 2. 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 Abdomen/Pelvis CT 10/09/22 01:45 IMPRESSION: 1. No acute findings identified in the abdomen/pelvis. 2. Redemonstrated low-density collection abutting the posterior right mid to lower kidney, without significant change from 12/25/2021. 3. Right lower pole renal calculus measuring 6 mm. Assessment and Plan (1) Acute pancreatitis: Status: Acute (2) UTI (urinary tract infection): Status: Acute (3) Hyperglycemia: Status: Acute Plan 67-year-old female with past medical history as mentioned above presents to the hospital with hyperglycemia found to have UTI and likely pancreatitis # Acute pancreatitis - CT negative but given abd pain, n/v as well as elevated LIpase will treat for presumed Pancreatitis. No evidence of gallstones, and TG low, No alcohol abuse - IV fluids - NPO - Pain control # Chest pain - Trop negative - EKG shows no ACS - Monitor # Hyperglycemia - likely 2/2 poor DM control - will place on sliding scale, POC QIDACHS # UTI - IV abx - follow cultures DVT ppx: loveox Time Spent With Patient Time: Total time managing care of this patient today ____ minutes. Quality Stroke Does the patient have a stroke diagnosis?: No VTE Prior VTE?: No VTE Risk Level:: Medical - low VTE Device Contraindication: N/A - Device Ordered VTE Drug Contraindication: Treatment Not Indicated
[2022-10-09 07:15] LABS: Glucose, Whole Blood 285 mg/dL (60-115)
--- NOTE | 2022-10-09 07:29 | MHC.EDTECH ---
Pt was assisted onto the bed moore. Toilet was continent of urine. Pt tolerated activity well.
--- NOTE | 2022-10-09 07:40 | PC.NURSE ---
SPOKE WITH ROMAN SZYMANSKI FROM [facility], PHONE [phone] WOULD LIKE TO BE CONTACTED WITH UPDATES
--- NOTE | 2022-10-09 08:48 | PHA.MEDREC ---
Pharmacy Consult ? Medication Reconciliation Pharmacy has completed the medication reconciliation. Patient came from a alf with a medication list. Luisa Gutiérrez, DeondreD
[2022-10-09 09:34] LABS: Glucose, Whole Blood 274 mg/dL (60-115)
[2022-10-09] MEDS: 0.9 % Sodium Chloride Flush 3 ML SYRINGE IVFLUSH (09:47)
[2022-10-09] MEDS: Insulin Lispro 100 UNIT/ML 3 ML VIAL SUBCUT ×2 (09:47→11:39)
--- NOTE | 2022-10-09 10:55 | P.DS_ITS ---
DS: Providers Provider Date of Service: 10/09/22 Date of admission: 10/09/22 03:39 Date of discharge: 10/09/22 Primary care physician: Unknown Physician DS: Diagnosis Discharge Diagnosis (1) Acute pancreatitis: Status: Acute (2) UTI (urinary tract infection): Status: Acute (3) Hyperglycemia: Status: Acute DS: Summary Hospital Course Hospital Course: 67-year-old female with extensive past medical history that includes CVA w. residual L. sided deficit, cerebral palsy, diabetes, presbyopia, peripheral vascular disease, a nuclear sclerotic cataract, nail hypertrophy, hypertension, hyperopia, GERD, gait instability, expressive aphasia, dysphasia, with stigmatism, asthma, obesity, soft a ROXANNA spasm, contracture [facility] with [facility] and [facility].? Patient is nonverbal at baseline, history is obtained mostly from ED physician and EMR.? She mostly points to her head and chest when she is asked about any pain or discomfort she points to her abdomen around the midsection. She is just nodding her head to most of my questions. she reports no diarrhea but points to discomfort to using the bathroom in the ED and says she wants to go home. On arrival to the ED patient hemodynamically stable with a slightly elevated BP Labs are significant for WBC count of 10.3, labs otherwise unremarkable, as a glucose of 444, troponin less than 3.5, BNP of 10, lipase of 252, UA positive for leukocyte Estrace, nitrites, WBC Abdomen pelvic CT shows no acute findings in the abdomen/pelvis, low-density collection abutting the posterior right mid lower kidney without significant change from previous imaging, and right lower pole renal calculus, with no apparent obstruction Hospital Course Admitted to general medical floor; immediately motioning that she wants to leave the hospital [facility] Laboratory evaluation and CT was up without acute findings; elevated lipase likely secondary to vomiting do not feel patient had episode of pancreatitis. Patient was able to eat breakfast prior to leaving without issue. She was noted to have a fungal rash for which she will receive 200 mg a Diflucan today and can complete a course 100 mg daily starting tomorrow. She will resume all of her pre-hospital medicines Time Spent with Patient Time attestation: Total time managing care of this patient today ____ minutes. Discharge coordination time: Greater than 30 minutes Quality: Safe Use of Opioids Does Pt have an Active Cancer Diagnosis on the Problem List?: No Quality: Stroke Does the patient have a stroke diagnosis?: No Physical Exam Vital Signs: Vital Signs: Last Vital Signs Temp 98.0 F 10/09/22 09:21 Pulse 79 10/09/22 09:21 Resp 17 10/09/22 09:21 BP 150/83 H 10/09/22 09:21 Pulse Ox 97 10/09/22 09:21 O2 Del Method 10/09/22 09:21 BMI result Body Mass Index 34.4 Const: Other: Awake alert responding appropriately to questions Resp: Other: Clear to auscultation bilaterally no rales rhonchi or wheezes Cardio: Other: No S4; positive S1-S2; no S3 murmurs rubs or gallops GI: Other: Soft nontender nondistended normoactive bowel sounds. No peritoneal signs Extrem: Other: No edema bilaterally DS: Data Data Completed and Pending Labs on day of discharge: Laboratory Results - last 24 hr 10/08/22 10/08/22 10/08/22 18:05 18:30 18:30 WBC 10.3 RBC 4.80 Hgb 13.3 Hct 39.1 MCV 81.5 MCH 27.7 MCHC 34.0 RDW 12.2 Plt Count 390 D MPV 11.2 Immature Gran % (Auto) 0.5 H Neut % (Auto) 64.9 Lymph % (Auto) 27.2 [place] % (Auto) 4.7 Eos % (Auto) 2.2 Baso % (Auto) 0.5 Lymph # (Auto) 2.8 [place] # (Auto) 0.5 Eos # (Auto) 0.2 Baso # (Auto) 0.1 Abs Immat Gran (auto) 0.05 H Absolute Neuts (auto) 6.7 Absolute Nucleated RBC 0.000 Nucleated RBC % (auto) 0.0 D-Dimer High Sensitivty < 150 VBG pH VBG pCO2 VBG pO2 VBG HCO3 VBG O2 Saturation VBG Base Excess Sodium Potassium Chloride Carbon Dioxide Anion Gap BUN Creatinine Estim Creat Clear Calc Estimated GFR POC Glucose 444 H* Random Glucose Calcium Total Bilirubin AST ALT Alkaline Phosphatase Troponin I High Sens B-Natriuretic Peptide Total Protein Albumin Triglycerides Lipase Urine Color Urine Appearance Urine pH Ur Specific [place] Urine Protein Urine Glucose (UA) Urine Ketones Urine Blood Urine Nitrite Ur Leukocyte Esterase Urine RBC Urine WBC Ur Squamous Epith Cells Urine Bacteria Hyaline Casts Acetone, Qual COVID-19 (ANAHI) COVID-19 Clin Com 10/08/22 10/08/22 10/08/22 18:30 18:30 18:35 WBC RBC Hgb Hct MCV MCH MCHC RDW Plt Count MPV Immature Gran % (Auto) Neut % (Auto) Lymph % (Auto) [place] % (Auto) Eos % (Auto) Baso % (Auto) Lymph # (Auto) [place] # (Auto) Eos # (Auto) Baso # (Auto) Abs Immat Gran (auto) Absolute Neuts (auto) Absolute Nucleated RBC Nucleated RBC % (auto) D-Dimer High Sensitivty VBG pH 7.42 VBG pCO2 50 VBG pO2 46 VBG HCO3 33 H VBG O2 Saturation 66.0 VBG Base Excess 7.1 Sodium Potassium Chloride Carbon Dioxide Anion Gap BUN Creatinine Estim Creat Clear Calc Estimated GFR POC Glucose Random Glucose Calcium Total Bilirubin AST ALT Alkaline Phosphatase Troponin I High Sens < 3.5 B-Natriuretic Peptide 10 Total Protein Albumin Triglycerides Lipase Urine Color Urine Appearance Urine pH Ur Specific [place] Urine Protein Urine Glucose (UA) Urine Ketones Urine Blood Urine Nitrite Ur Leukocyte Esterase Urine RBC Urine WBC Ur Squamous Epith Cells Urine Bacteria Hyaline Casts Acetone, Qual COVID-19 (ANAHI) COVID-19 Clin [facility] 10/08/22 10/08/22 10/08/22 20:17 20:17 23:25 WBC RBC Hgb Hct MCV MCH MCHC RDW Plt Count MPV Immature Gran % (Auto) Neut % (Auto) Lymph % (Auto) [place] % (Auto) Eos % (Auto) Baso % (Auto) Lymph # (Auto) [place] # (Auto) Eos # (Auto) Baso # (Auto) Abs Immat Gran (auto) Absolute Neuts (auto) Absolute Nucleated RBC Nucleated RBC % (auto) D-Dimer High Sensitivty VBG pH VBG pCO2 VBG pO2 VBG HCO3 VBG O2 Saturation VBG Base Excess Sodium 136 Potassium 4.5 Chloride 100 Carbon Dioxide 26 Anion Gap 15 BUN 16 Creatinine 0.81 Estim Creat Clear Calc 81.2 Estimated GFR > 60 POC Glucose 292 H Random Glucose 396 H* Calcium 9.2 Total Bilirubin 0.4 AST 14 ALT 12 Alkaline Phosphatase 104 Troponin I High Sens B-Natriuretic Peptide Total Protein 6.8 Albumin 3.7 Triglycerides 126 Lipase 252 H Urine Color Urine Appearance Urine pH Ur Specific [place] Urine Protein Urine Glucose (UA) Urine Ketones Urine Blood Urine Nitrite Ur Leukocyte Esterase Urine RBC Urine WBC Ur Squamous Epith Cells Urine Bacteria Hyaline Casts Acetone, Qual Negative COVID-19 (ANAHI) COVID-19 [employer] 10/08/22 10/09/22 10/09/22 23:57 00:33 04:50 WBC 10.7 RBC 4.55 Hgb 12.1 Hct 37.3 MCV 82.0 MCH 26.6 L MCHC 32.4 RDW 12.3 Plt Count 282 D MPV 10.0 Immature Gran % (Auto) 0.6 H Neut % (Auto) 72.4 Lymph % (Auto) 20.2 [place] % (Auto) 5.3 Eos % (Auto) 1.2 Baso % (Auto) 0.3 Lymph # (Auto) 2.2 [place] # (Auto) 0.6 Eos # (Auto) 0.1 Baso # (Auto) 0.0 Abs Immat Gran (auto) 0.06 H Absolute Neuts (auto) 7.7 Absolute Nucleated RBC 0.000 Nucleated RBC % (auto) 0.0 D-Dimer High Sensitivty VBG pH VBG pCO2 VBG pO2 VBG HCO3 VBG O2 Saturation VBG Base Excess Sodium Potassium Chloride Carbon Dioxide Anion Gap BUN Creatinine Estim Creat Clear Calc Estimated GFR POC Glucose Random Glucose Calcium Total Bilirubin AST ALT Alkaline Phosphatase Troponin I High Sens < 3.5 B-Natriuretic Peptide Total Protein Albumin Triglycerides Lipase Urine Color Yellow Urine Appearance Clear Urine pH 5.5 Ur Specific [place] >= 1.030 H Urine Protein Negative Urine Glucose (UA) >=1000 H Urine Ketones Negative Urine Blood Negative Urine Nitrite Positive H Ur Leukocyte Esterase Trace H Urine RBC 3-5 H Urine WBC >50 H Ur Squamous Epith Cells 0-2 Urine Bacteria 4+ Hyaline Casts 0-2 Acetone, Qual COVID-19 (ANAHI) COVID-19 [employer] 10/09/22 10/09/22 10/09/22 04:50 04:50 06:44 WBC RBC Hgb Hct MCV MCH MCHC RDW Plt Count MPV Immature Gran % (Auto) Neut % (Auto) Lymph % (Auto) [place] % (Auto) Eos % (Auto) Baso % (Auto) Lymph # (Auto) [place] # (Auto) Eos # (Auto) Baso # (Auto) Abs Immat Gran (auto) Absolute Neuts (auto) Absolute Nucleated RBC Nucleated RBC % (auto) D-Dimer High Sensitivty VBG pH VBG pCO2 VBG pO2 VBG HCO3 VBG O2 Saturation VBG Base Excess Sodium 138 Potassium 4.3 Chloride 104 Carbon Dioxide 26 Anion Gap 12 BUN 14 Creatinine 0.79 Estim Creat Clear Calc 83.2 Estimated GFR > 60 POC Glucose 282 H Random Glucose 339 H Calcium 8.5 D Total Bilirubin AST ALT Alkaline Phosphatase Troponin I High Sens B-Natriuretic Peptide Total Protein Albumin Triglycerides Lipase Urine Color Urine Appearance Urine pH Ur Specific [place] Urine Protein Urine Glucose (UA) Urine Ketones Urine Blood Urine Nitrite Ur Leukocyte Esterase Urine RBC Urine WBC Ur Squamous Epith Cells Urine Bacteria Hyaline Casts Acetone, Qual COVID-19 (ANAHI) Negative COVID-19 Clin Com See Note 10/09/22 10/09/22 07:10 09:27 WBC RBC Hgb Hct MCV MCH MCHC RDW Plt Count MPV Immature Gran % (Auto) Neut % (Auto) Lymph % (Auto) [place] % (Auto) Eos % (Auto) Baso % (Auto) Lymph # (Auto) [place] # (Auto) Eos # (Auto) Baso # (Auto) Abs Immat Gran (auto) Absolute Neuts (auto) Absolute Nucleated RBC Nucleated RBC % (auto) D-Dimer High Sensitivty VBG pH VBG pCO2 VBG pO2 VBG HCO3 VBG O2 Saturation VBG Base Excess Sodium Potassium Chloride Carbon Dioxide Anion Gap BUN Creatinine Estim Creat Clear Calc Estimated GFR POC Glucose 285 H 274 H Random Glucose Calcium Total Bilirubin AST ALT Alkaline Phosphatase Troponin I High Sens B-Natriuretic Peptide Total Protein Albumin Triglycerides Lipase Urine Color Urine Appearance Urine pH Ur Specific [place] Urine Protein Urine Glucose (UA) Urine Ketones Urine Blood Urine Nitrite Ur Leukocyte Esterase Urine RBC Urine WBC Ur Squamous Epith Cells Urine Bacteria Hyaline Casts Acetone, Qual COVID-19 (ANAHI) COVID-19 Clin Com Discharge Plan Discharge Patient Disposition: Xfer Other Discharge Diagnosis: UTI Referrals: Physician,Unknown J [Primary Care Provider] - 1 Week Discharge Medications: New fluconazole [Diflucan] 100 mg tablet 100 mg PO DAILY Qty: 9 0RF cefuroxime axetil 500 mg tablet 500 mg PO BID 7 Days Qty: 14 0RF Continued ondansetron 4 mg Tablet,Disintegrating 4 mg PO Q8H PRN (Reason: Nausea) simethicone 80 mg Tablet,Chewable 80 mg PO DAILY PRN (Reason: flatulence) acetaminophen 325 mg Tablet 650 mg PO Q4H PRN (Reason: Pain) diclofenac sodium 1 % Gel 4 g TOPICAL BID Rx Instructions: apply to single knee, ankle, foot; for foot includes sole/toes/top of foot insulin glargine [Lantus U-100 Insulin] 100 unit/mL solution 12 unit subcut QAM hydroxyzine HCl 50 mg Tablet 50 mg PO QID PRN (Reason: Anxiety) losartan 25 mg tablet 1 tab PO DAILY albuterol sulfate 90 mcg/actuation Hfa Aerosol Inhaler 2 puff INHALATION Q4H PRN (Reason: Wheezing) multivitamin Tablet 1 tab PO DAILY Discontinued nystatin [Nystop] 100,000 unit/gram powder 1 appl topical BID PRN (Reason: Rash) Discharge Orders: Discharge Order (Routine); Ordered 10/09/22 Ordered By: Brett Lu Diet: Advance to usual diet Activity on Discharge: As tolerated Stand Alone Forms: Patient Portal Discharge page Care Plan Goals: Resume all pre-hospital medicines Health Concerns: Complete a course of Ceftin 500 twice daily for UTI Plan of Treatment: Complete course of Diflucan 100 mg daily for 9 days. . . First dose given here Assessment: See discharge summary
[2022-10-09 11:24] LABS: Glucose, Whole Blood 376 mg/dL (60-115)
--- NOTE | 2022-10-09 13:06 | MHC.CM.PN ---
EMR REVIEWED, CM MEET W/PT AT BEDSIDE AND SPOKE W/[facility] NURSE ROMAN [phone], PT REQUESTING TO GO BACK TO [facility] TODAY AND PER HOSPITALIST PT IS CLEARED TO D/C. PT REPORTS SHE CAN TRASNFER TO AND FROM [facility] IF USING A WALKER, [facility] IS ACCESSIBLE. PT VERIFIES PCP IS AURE LEE, COVID VACC X3 AND HCP ON FILE FROM PREVIOUS ADMIT. [facility] WILL TRANSPORT AT 3PM, NEW ORDERS SIGNED AND FAXED TO [facility] NURSE ROMAN [phone]
== END 2022-10-09 15:47 | disposition other institution (70) ==
LOC: HO.ED 10-09 01:37 → HO.EDOVER 10-09 03:46 → HO.S3 10-09 08:06
PROVIDERS: Emergency Medicine; Physician Assistant; Admitting Provider Internal Medicine; Emergency Provider Internal Medicine; PCP Internal Medicine; Visit Provider Hospitalist
DX: R07.9 Chest pain, unspecified (principal); B37.89 Other sites of candidiasis; K85.90 Acute pancreatitis without necrosis or infection, unspecified; R11.2 Nausea with vomiting, unspecified; N39.0 Urinary tract infection, site not specified; E11.65 Type 2 diabetes mellitus with hyperglycemia; I10 Essential (primary) hypertension; I69.354 Hemiplegia and hemiparesis following cerebral infarction affecting left non-dominant side; I69.320 Aphasia following cerebral infarction; I69.321 Dysphasia following cerebral infarction; E66.9 Obesity, unspecified; Z68.34 Body mass index [BMI] 34.0-34.9, adult; Z87.891 Personal history of nicotine dependence; Z20.822 Contact with and (suspected) exposure to COVID-19; Z79.4 Long term (current) use of insulin; Z79.899 Other long term (current) drug therapy
CPT/HCPCS: 36415; 70450; 74177; 80048; 80053; 81001; 82009; 82803; 82947; 83690; 83880; 84478; 84484; 85025; 85379; 87040; 87086; 87635; 93005; 96361; 96374; 96375; 96376; 99221; 99285; J0696; J1200; J2270; J2405; J2765; Q9967

== ENCOUNTER 2022-10-12 18:52 | Emergency (ER) | payer MEDICARE, MEDICAID, SELFPAY ==
[2022-10-12 18:57] VITALS: BP 160/70; PULSE 85; RESP 20; O2SAT 97; BMI 50.8
--- NOTE | 2022-10-12 18:58 | ED_ITS ---
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, cerebral palsy, diabetes, hypertension, asthma was admitted here on 10/09 discharged same day for abdominal pain questionable pancreatitis CT scan was negative although lipase is elevated patient went home saying that since discharge she has not feeling good she was vomiting today got worse vomited 4 times earlier today with pain which is more in the lower right quadrant and mid abdomen does not feel abdominal distension no fever no chills no urinary complaints <Sumanth Rausch MD - Last Filed: 10/13/22 01:09> Related Data Home medications: Home Medications Medication Instructions Recorded Confirmed albuterol sulfate 90 mcg/actuation 2 puff inhalation Q4H PRN Wheezing 08/26/22 10/09/22 aerosol inhaler hydroxyzine HCl 50 mg tablet 50 mg PO QID PRN Anxiety 08/26/22 10/09/22 insulin glargine 100 unit/mL 12 unit subcut QAM 08/26/22 10/09/22 subcutaneous solution (Lantus U-100 Insulin) losartan 25 mg tablet 1 tab PO DAILY 08/26/22 10/09/22 multivitamin 1 tab PO DAILY 08/26/22 10/09/22 acetaminophen 325 mg tablet 650 mg PO Q4H PRN Pain 10/09/22 10/09/22 diclofenac sodium 1 % topical gel 4 g topical BID 10/09/22 10/09/22 ondansetron 4 mg disintegrating 4 mg PO Q8H PRN Nausea 10/09/22 10/09/22 tablet simethicone 80 mg chewable tablet 80 mg PO DAILY PRN flatulence 10/09/22 10/09/22 Previous Rx's Medication Instructions Recorded cefuroxime axetil 500 mg tablet 500 mg PO BID 7 days #14 tabs 10/09/22 fluconazole 100 mg tablet 100 mg PO DAILY #9 tabs 10/09/22 (Diflucan) dicyclomine 20 mg tablet 20 mg PO QID PRN abdominal pain 10/12/22 #20 tabs ondansetron 4 mg disintegrating 4 mg PO Q6-8H PRN nausea and 10/12/22 tablet vomiting #7 tabs <SUZETTE Vigil - Last Filed: 10/12/22 19:02> Allergies/adverse reactions: Allergies Allergy/AdvReac Type Severity Reaction Status Date / Time cephalexin [CEPHALEXIN] Allergy Unknown Vomiting Verified 10/12/22 19:05 <SUZETTE Vigil - Last Filed: 10/12/22 19:02> Review of Systems Review of Systems: Yes all other systems are reviewed and are negative <Sumanth Rausch MD - Last Filed: 10/13/22 01:09> [facility] Past Medical History Medical History: Medical History Bipolar disorder CVA (cerebral vascular accident) Diabetes Hypertension Psychiatric diagnosis <SUZETTE Vigil - Last Filed: 10/12/22 19:02> Social History Social History: Social History Household Members: Other Housing: House Do you presently have visiting nurse or other home services: Yes Alcohol intake: never Patient Tobacco Use Status: Never used Tobacco Advance Directives: Yes Advance Directives on File: Yes Advance Directives Date on File: 03/17/21 service: No Current occupational status: disabled <SUZETTE Vigil - Last Filed: 10/12/22 19:02> Physical Exam ED Vital Signs: Vital Signs - 24 hr 10/12/22 18:57 10/12/22 20:00 10/12/22 20:54 Temperature 98.4 F Pulse Rate 85 85 80 Respiratory Rate 20 16 17 Blood Pressure 160/70 H 152/89 H 170/82 H Pulse Oximetry 97 98 98 Oxygen Delivery Method Room Air Room Air Room Air BMI result Body Mass Index 50.8 <SUZETTE Vigil - Last Filed: 10/12/22 19:02> Vital Signs - 24 hr 10/12/22 18:57 10/12/22 20:00 10/12/22 20:54 Temperature 98.4 F Pulse Rate 85 85 80 Respiratory Rate 20 16 17 Blood Pressure 160/70 H 152/89 H 170/82 H Pulse Oximetry 97 98 98 Oxygen Delivery Method Room Air Room Air Room Air BMI result Body Mass Index 50.8 <Sumanth Rausch MD - Last Filed: 10/13/22 01:09> Appearance: Alert. Oriented X3. No acute distress. Expressive aphasia Eyes: PERRLA, No Nystagmus ENT: Pharynx normal. Oral Mucosa moist Neck: Normal inspection. Neck supple. CVS: Normal heart rate and rhythm. Pulses normal. Respiratory: No respiratory distress. Equal air entry bilateral, no wheezing/rales/rhonchi Abdomen: Soft , deep tenderness r lq Bowel sounds are present, no mass palpable, no CVA tenderness Skin: Skin warm and dry. Normal skin color. Normal skin turgor. Extremities: No lower extremity edema. No calf tenderness Neuro: Oriented X 3. Left-sided hemiparesis No sensory deficit.No cerebellar signs , cranial nerves II-XII intact <Sumanth Rausch MD - Last Filed: 10/13/22 01:09> Course Course Course Narrative: RME performed by aCrla Andrade PA-C. Patient is a 67 year old female presenting to the emergency department with abdominal pain, nausea, and vomiting. Patient is also having blood in her urine. Labs and UA ordered. Patient placed back in the waiting room pending results and room availability. <SUZETTE Vigil - Last Filed: 10/12/22 19:02> Medications Administered Discontinued Medications Generic Name Dose Route Start Last Admin Trade Name Freq PRN Reason Stop Dose Admin Dicyclomine HCl 20 mg 10/12/22 20:45 10/12/22 20:53 Dicyclomine Hcl 10 Mg Capsule PO 10/12/22 20:46 20 mg ONCE ONE Administration Insulin Human Lispro 12 unit 10/12/22 19:56 10/12/22 20:53 Insulin Lispro 100 Unit/Ml 3 Ml Vial SUBCUT 10/12/22 19:57 12 unit ONCE ONE Administration Insulin Human Lispro 8 unit 10/12/22 21:32 10/12/22 21:44 Insulin Lispro 100 Unit/Ml 3 Ml Vial SUBCUT 10/12/22 21:33 8 unit ONCE ONE Administration <SUZETTE Vigil - Last Filed: 10/12/22 19:02> Medications Administered Discontinued Medications Generic Name Dose Route Start Last Admin Trade Name Leonid PRN Reason Stop Dose Admin Dicyclomine HCl 20 mg 10/12/22 20:45 10/12/22 20:53 Dicyclomine Hcl 10 Mg Capsule PO 10/12/22 20:46 20 mg ONCE ONE Administration Insulin Human Lispro 12 unit 10/12/22 19:56 10/12/22 20:53 Insulin Lispro 100 Unit/Ml 3 Ml Vial SUBCUT 10/12/22 19:57 12 unit ONCE ONE Administration Insulin Human Lispro 8 unit 10/12/22 21:32 10/12/22 21:44 Insulin Lispro 100 Unit/Ml 3 Ml Vial SUBCUT 10/12/22 21:33 8 unit ONCE ONE Administration <Sumanth Rausch MD - Last Filed: 10/13/22 01:09> Medical Decision Making Medical Decision Making MDM Narrative: Patient labs are stable feeling much better was given insulin for hyperglycemia advised to increase her dose of Lantus to 20 units and follow up with PCP <Sumanth Rausch MD - Last Filed: 10/13/22 01:09> Lab Data MDM Lab Attestation statement: I reviewed the patient's lab results. <Sumanth Rausch MD - Last Filed: 10/13/22 01:09> Result Diagrams: 10/12/22 19:25 10/12/22 19:25 <SUZETTE Vigil - Last Filed: 10/12/22 19:02> Labs: Lab Results 10/12/22 10/12/22 10/12/22 Range/Units 19:25 19:25 19:25 WBC 11.3 H (4.8-10.8) X10*3/uL RBC 4.97 (4.20-5.50) X10*6/uL Hgb 13.4 (12.0-16.0) g/dl Hct 40.4 (37.0-47.0) % MCV 81.3 (80.0-98.0) fL MCH 27.0 (27.0-33.0) pg MCHC 33.2 (31.0-35.0) g/dl RDW 12.4 (11.0-16.0) % Plt Count 353 D (160-400) X10*3/uL MPV 10.6 (9.4-12.3) fL Immature Gran % (Auto) 0.4 (0.0-0.4) % Neut % (Auto) 70.0 (45-73) % Lymph % (Auto) 22.6 (20-40) % Baldwin % (Auto) 4.7 (2-11) % Eos % (Auto) 1.8 (0-4) % Baso % (Auto) 0.5 (0-2) % Lymph # (Auto) 2.6 (1.2-4.9) X10*3/uL Baldwin # (Auto) 0.5 (0.1-1.2) X10*3/uL Eos # (Auto) 0.2 (0.0-0.4) X10*3/uL Baso # (Auto) 0.1 (0.0-0.2) X10*3/uL Abs Immat Gran (auto) 0.05 H (0.00-0.03) X10*3/uL Absolute Neuts (auto) 7.9 (2.0-8.3) x10*3/uL Absolute Nucleated RBC 0.000 (0.0-0.012) X10*3/uL Nucleated RBC % (auto) 0.0 (0.0-0.2) /100WBC Sodium 136 (135-145) mmol/L Potassium 4.0 (3.3-5.1) mmol/L Chloride 100 (96-108) mmol/L Carbon Dioxide 28 (22-29) mmol/L Anion Gap 12 (12-20) BUN 13 (9-16) mg/dL Creatinine 0.80 (0.5-1.4) mg/dL Estim Creat Clear Calc 82.4 Estimated GFR > 60 POC Glucose (60-115) mg/dL Random Glucose 394 H* (60-115) mg/dL Calcium 9.6 D (8.4-10.2) mg/dL Magnesium 1.9 (1.6-2.6) mg/dL Total Bilirubin 0.3 (0.0-1.0) mg/dL AST 16 (5-31) U/L ALT 15 (0-31) U/L Alkaline Phosphatase 124 H (39-117) U/L Total Protein 7.3 (6.5-8.0) g/dL Albumin 4.0 (3.5-5.0) g/dL Lipase 28 (8-78) U/L Urine Color Urine Appearance Urine pH (5.0-9.0) Ur Specific Beeler (1.005-1.025) Urine Protein (Neg-Trace) mg/dL Urine Glucose (UA) (Negative) mg/dL Urine Ketones (Negative) mg/dL Urine Blood (Negative) Urine Nitrite (Negative) Ur Leukocyte Esterase (Negative) Urine RBC (0-2) /HPF Urine WBC (0-5) /HPF Ur Squamous Epith Cells (0-2) /HPF Urine Bacteria (None Seen) Hyaline Casts (0-2) /LPF Influenza Type A (PCR) NEGATIVE (Negative) Influenza Type B (PCR) NEGATIVE (Negative) RSV RNA Qual (PCR) NEGATIVE (Negative) SARS-CoV-2 RNA (RT-PCR) NEGATIVE (Negative) 10/12/22 10/12/22 Range/Units 19:25 21:17 WBC (4.8-10.8) X10*3/uL RBC (4.20-5.50) X10*6/uL Hgb (12.0-16.0) g/dl Hct (37.0-47.0) % MCV (80.0-98.0) fL MCH (27.0-33.0) pg MCHC (31.0-35.0) g/dl RDW (11.0-16.0) % Plt Count (160-400) X10*3/uL MPV (9.4-12.3) fL Immature Gran % (Auto) (0.0-0.4) % Neut % (Auto) (45-73) % Lymph % (Auto) (20-40) % Baldwin % (Auto) (2-11) % Eos % (Auto) (0-4) % Baso % (Auto) (0-2) % Lymph # (Auto) (1.2-4.9) X10*3/uL Baldwin # (Auto) (0.1-1.2) X10*3/uL Eos # (Auto) (0.0-0.4) X10*3/uL Baso # (Auto) (0.0-0.2) X10*3/uL Abs Immat Gran (auto) (0.00-0.03) X10*3/uL Absolute Neuts (auto) (2.0-8.3) x10*3/uL Absolute Nucleated RBC (0.0-0.012) X10*3/uL Nucleated RBC % (auto) (0.0-0.2) /100WBC Sodium (135-145) mmol/L Potassium (3.3-5.1) mmol/L Chloride (96-108) mmol/L Carbon Dioxide (22-29) mmol/L Anion Gap (12-20) BUN (9-16) mg/dL Creatinine (0.5-1.4) mg/dL Estim Creat Clear Calc Estimated GFR POC Glucose 352 H* (60-115) mg/dL Random Glucose (60-115) mg/dL Calcium (8.4-10.2) mg/dL Magnesium (1.6-2.6) mg/dL Total Bilirubin (0.0-1.0) mg/dL AST (5-31) U/L ALT (0-31) U/L Alkaline Phosphatase (39-117) U/L Total Protein (6.5-8.0) g/dL Albumin (3.5-5.0) g/dL Lipase (8-78) U/L Urine Color Yellow Urine Appearance Clear Urine pH 5.5 (5.0-9.0) Ur Specific Beeler >= 1.030 H (1.005-1.025) Urine Protein Negative (Neg-Trace) mg/dL Urine Glucose (UA) >=1000 H (Negative) mg/dL Urine Ketones Negative (Negative) mg/dL Urine Blood Negative (Negative) Urine Nitrite Negative (Negative) Ur Leukocyte Esterase Negative (Negative) Urine RBC 0-2 (0-2) /HPF Urine WBC 0-5 (0-5) /HPF Ur Squamous Epith Cells 3-5 (0-2) /HPF Urine Bacteria None Seen (None Seen) Hyaline Casts 0-2 (0-2) /LPF Influenza Type A (PCR) (Negative) Influenza Type B (PCR) (Negative) RSV RNA Qual (PCR) (Negative) SARS-CoV-2 RNA (RT-PCR) (Negative) <SUZETTE Vigil - Last Filed: 10/12/22 19:02> Lab Results 10/12/22 10/12/22 10/12/22 Range/Units 19:25 19:25 19:25 WBC 11.3 H (4.8-10.8) X10*3/uL RBC 4.97 (4.20-5.50) X10*6/uL Hgb 13.4 (12.0-16.0) g/dl Hct 40.4 (37.0-47.0) % MCV 81.3 (80.0-98.0) fL MCH 27.0 (27.0-33.0) pg MCHC 33.2 (31.0-35.0) g/dl RDW 12.4 (11.0-16.0) % Plt Count 353 D (160-400) X10*3/uL MPV 10.6 (9.4-12.3) fL Immature Gran % (Auto) 0.4 (0.0-0.4) % Neut % (Auto) 70.0 (45-73) % Lymph % (Auto) 22.6 (20-40) % Baldwin % (Auto) 4.7 (2-11) % Eos % (Auto) 1.8 (0-4) % Baso % (Auto) 0.5 (0-2) % Lymph # (Auto) 2.6 (1.2-4.9) X10*3/uL Baldwin # (Auto) 0.5 (0.1-1.2) X10*3/uL Eos # (Auto) 0.2 (0.0-0.4) X10*3/uL Baso # (Auto) 0.1 (0.0-0.2) X10*3/uL Abs Immat Gran (auto) 0.05 H (0.00-0.03) X10*3/uL Absolute Neuts (auto) 7.9 (2.0-8.3) x10*3/uL Absolute Nucleated RBC 0.000 (0.0-0.012) X10*3/uL Nucleated RBC % (auto) 0.0 (0.0-0.2) /100WBC Sodium 136 (135-145) mmol/L Potassium 4.0 (3.3-5.1) mmol/L Chloride 100 (96-108) mmol/L Carbon Dioxide 28 (22-29) mmol/L Anion Gap 12 (12-20) BUN 13 (9-16) mg/dL Creatinine 0.80 (0.5-1.4) mg/dL Estim Creat Clear Calc 82.4 Estimated GFR > 60 POC Glucose (60-115) mg/dL Random Glucose 394 H* (60-115) mg/dL Calcium 9.6 D (8.4-10.2) mg/dL Magnesium 1.9 (1.6-2.6) mg/dL Total Bilirubin 0.3 (0.0-1.0) mg/dL AST 16 (5-31) U/L ALT 15 (0-31) U/L Alkaline Phosphatase 124 H (39-117) U/L Total Protein 7.3 (6.5-8.0) g/dL Albumin 4.0 (3.5-5.0) g/dL Lipase 28 (8-78) U/L Urine Color Urine Appearance Urine pH (5.0-9.0) Ur Specific Beeler (1.005-1.025) Urine Protein (Neg-Trace) mg/dL Urine Glucose (UA) (Negative) mg/dL Urine Ketones (Negative) mg/dL Urine Blood (Negative) Urine Nitrite (Negative) Ur Leukocyte Esterase (Negative) Urine RBC (0-2) /HPF Urine WBC (0-5) /HPF Ur Squamous Epith Cells (0-2) /HPF Urine Bacteria (None Seen) Hyaline Casts (0-2) /LPF Influenza Type A (PCR) NEGATIVE (Negative) Influenza Type B (PCR) NEGATIVE (Negative) RSV RNA Qual (PCR) NEGATIVE (Negative) SARS-CoV-2 RNA (RT-PCR) NEGATIVE (Negative) 10/12/22 10/12/22 Range/Units 19:25 21:17 WBC (4.8-10.8) X10*3/uL RBC (4.20-5.50) X10*6/uL Hgb (12.0-16.0) g/dl Hct (37.0-47.0) % MCV (80.0-98.0) fL MCH (27.0-33.0) pg MCHC (31.0-35.0) g/dl RDW (11.0-16.0) % Plt Count (160-400) X10*3/uL MPV (9.4-12.3) fL Immature Gran % (Auto) (0.0-0.4) % Neut % (Auto) (45-73) % Lymph % (Auto) (20-40) % Baldwin % (Auto) (2-11) % Eos % (Auto) (0-4) % Baso % (Auto) (0-2) % Lymph # (Auto) (1.2-4.9) X10*3/uL Baldwin # (Auto) (0.1-1.2) X10*3/uL Eos # (Auto) (0.0-0.4) X10*3/uL Baso # (Auto) (0.0-0.2) X10*3/uL Abs Immat Gran (auto) (0.00-0.03) X10*3/uL Absolute Neuts (auto) (2.0-8.3) x10*3/uL Absolute Nucleated RBC (0.0-0.012) X10*3/uL Nucleated RBC % (auto) (0.0-0.2) /100WBC Sodium (135-145) mmol/L Potassium (3.3-5.1) mmol/L Chloride (96-108) mmol/L Carbon Dioxide (22-29) mmol/L Anion Gap (12-20) BUN (9-16) mg/dL Creatinine (0.5-1.4) mg/dL Estim Creat Clear Calc Estimated GFR POC Glucose 352 H* (60-115) mg/dL Random Glucose (60-115) mg/dL Calcium (8.4-10.2) mg/dL Magnesium (1.6-2.6) mg/dL Total Bilirubin (0.0-1.0) mg/dL AST (5-31) U/L ALT (0-31) U/L Alkaline Phosphatase (39-117) U/L Total Protein (6.5-8.0) g/dL Albumin (3.5-5.0) g/dL Lipase (8-78) U/L Urine Color Yellow Urine Appearance Clear Urine pH 5.5 (5.0-9.0) Ur Specific Beeler >= 1.030 H (1.005-1.025) Urine Protein Negative (Neg-Trace) mg/dL Urine Glucose (UA) >=1000 H (Negative) mg/dL Urine Ketones Negative (Negative) mg/dL Urine Blood Negative (Negative) Urine Nitrite Negative (Negative) Ur Leukocyte Esterase Negative (Negative) Urine RBC 0-2 (0-2) /HPF Urine WBC 0-5 (0-5) /HPF Ur Squamous Epith Cells 3-5 (0-2) /HPF Urine Bacteria None Seen (None Seen) Hyaline Casts 0-2 (0-2) /LPF Influenza Type A (PCR) (Negative) Influenza Type B (PCR) (Negative) RSV RNA Qual (PCR) (Negative) SARS-CoV-2 RNA (RT-PCR) (Negative) <Sumanth Rausch MD - Last Filed: 10/13/22 01:09> Discharge Plan Discharge Clinical Impression: Abdominal pain, Diabetes mellitus with hyperglycemia <SUZETTE Vigil - Last Filed: 10/12/22 19:02> Patient Disposition: Home, Self-Care <SUZETTE Vigil - Last Filed: 10/12/22 19:02> Instructions: Abdominal Pain (ED), Diabetic Hyperglycemia (ED) <SUZETTE Vigil - Last Filed: 10/12/22 19:02> Additional Instructions: Drink plenty of fluids Increase the dose of Lantus insulin to 20 units in a.m. daily Check blood sugar twice daily Follow-up with PCP Glenny for diffuse abdominal pain as prescribed <SUZETTE Vigil - Last Filed: 10/12/22 19:02> Prescriptions: New dicyclomine 20 mg tablet 20 mg PO QID PRN (Reason: abdominal pain) Qty: 20 0RF ondansetron 4 mg tablet,disintegrating 4 mg PO Q6-8H PRN (Reason: nausea and vomiting) Qty: 7 0RF No Action ondansetron 4 mg Tablet,Disintegrating 4 mg PO Q8H PRN (Reason: Nausea) simethicone 80 mg Tablet,Chewable 80 mg PO DAILY PRN (Reason: flatulence) acetaminophen 325 mg Tablet 650 mg PO Q4H PRN (Reason: Pain) diclofenac sodium 1 % Gel 4 g TOPICAL BID Rx Instructions: apply to single knee, ankle, foot; for foot includes sole/toes/top of foot fluconazole [Diflucan] 100 mg tablet 100 mg PO DAILY Qty: 9 0RF cefuroxime axetil 500 mg tablet 500 mg PO BID 7 Days Qty: 14 0RF insulin glargine [Lantus U-100 Insulin] 100 unit/mL solution 12 unit subcut QAM hydroxyzine HCl 50 mg Tablet 50 mg PO QID PRN (Reason: Anxiety) losartan 25 mg tablet 1 tab PO DAILY albuterol sulfate 90 mcg/actuation Hfa Aerosol Inhaler 2 puff INHALATION Q4H PRN (Reason: Wheezing) multivitamin Tablet 1 tab PO DAILY <SUZETTE Vigil - Last Filed: 10/12/22 19:02> Interventions: ED Discharge Assessment Last Done: 10/12/22 21:46 <SUZETTE Vigil - Last Filed: 10/12/22 19:02> Discharge Date/Time: 10/12/22 21:48 <SUZETTE Vigil - Last Filed: 10/12/22 19:02>
[2022-10-12 19:32] LABS: MANUAL DIFF FLAG NO
[2022-10-12 19:38] LABS: Appearance Urine Clear; Color Urine Yellow; Glucose Urine UA >=1000 mg/dL (Negative); Leukocyte Esterase Urine Negative (Negative); Nitrite Urine Negative (Negative); PH 5.5 (5.0-9.0); Specific Gravity - Urine >= 1.030 (1.005-1.025); UMIC TRIGGER UACC YES; Urine Blood Negative (Negative); Urine Ketones Negative (Negative); Urine Protein Negative (Neg-Trace)
[2022-10-12 19:48] LABS: Basophils Absolute Auto 0.1 X10*3/uL (0.0-0.2); Basophils Percent Auto 0.5 % (0-2); Eosinophils Absolute Auto 0.2 X10*3/uL (0.0-0.4); Eosinophils Percent Auto 1.8 % (0-4); Hematocrit 40.4 % (37.0-47.0); Hemoglobin 13.4 g/dl (12.0-16.0); Imm Gran Abs Auto 0.05 X10*3/uL (0.00-0.03); Imm Gran Pct Auto 0.4 % (0.0-0.4); Lymphocytes Absolute Auto 2.6 X10*3/uL (1.2-4.9); Lymphocytes Percent Auto 22.6 % (20-40); Mean Corpuscular HGB Conc 33.2 g/dl (31.0-35.0); Mean Corpuscular Volume 81.3 fL (80.0-98.0); Mean Platelet Volume 10.6 fL (9.4-12.3); Monocytes Absolute Auto 0.5 X10*3/uL (0.1-1.2); Monocytes Percent Auto 4.7 % (2-11); Neutrophils Absolute Auto 7.9 x10*3/uL (2.0-8.3); Platelet Count 353 X10*3/uL (160-400); Red Blood Count 4.97 X10*6/uL (4.20-5.50); Red Cell Distribution Width 12.4 % (11.0-16.0); White Blood Count 11.3 X10*3/uL (4.8-10.8)
[2022-10-12 19:57] LABS: Alanine Aminotransferase 15 U/L (0-31); Alkaline Phosphatase 124 U/L (39-117); Anion Gap 12 (12-20); Aspartate Amino Transferase 16 U/L (5-31); Bilirubin Total 0.3 mg/dL (0.0-1.0); Blood Urea Nitrogen 13 mg/dL (9-16); Calcium 9.6 mg/dL (8.4-10.2); Carbon Dioxide 28 mmol/L (22-29); Chloride 100 mmol/L (96-108); Creatinine Clr Calc Pharmacy 82.4; Estimated Glomerular Filt Rate > 60; Glucose Random 394 mg/dL (60-115); Magnesium 1.9 mg/dL (1.6-2.6); Sodium 136 mmol/L (135-145); Total Protein 7.3 g/dL (6.5-8.0)
[2022-10-12 20:00] VITALS: BP 152/89; PULSE 85; RESP 16; TEMP 36.9; O2SAT 98
[2022-10-12 20:06] LABS: Lipase 28 U/L (8-78)
[2022-10-12 20:11] LABS: Influenza A PCR NEGATIVE (Negative); Influenza B PCR NEGATIVE (Negative); Resp Syncy Virus RNA Qual PCR NEGATIVE (Negative); SARS COV2 PCR INHOUSE NEGATIVE (Negative)
[2022-10-12 20:43] LABS: Bacteria Urine None Seen (None Seen); Hyaline Casts Urine 0-2 /LPF (0-2); RBC Urine 0-2 /HPF (0-2); WBC Urine 0-5 /HPF (0-5)
[2022-10-12] MEDS: Dicyclomine HCl 10 MG CAPSULE 20 MG PO (20:53)
[2022-10-12] MEDS: Insulin Lispro 100 UNIT/ML 3 ML VIAL 12 UNIT SUBCUT (20:53)
[2022-10-12 20:54] VITALS: BP 170/82; PULSE 80; RESP 17; O2SAT 98
[2022-10-12 21:22] LABS: Glucose, Whole Blood 352 mg/dL (60-115)
[2022-10-12] MEDS: Insulin Lispro 100 UNIT/ML 3 ML VIAL 8 UNIT SUBCUT (21:44)
== END 2022-10-12 21:48 | disposition home or self-care (01) ==
PROVIDERS: Physician Assistant Medical; Emergency Provider Internal Medicine; PCP Internal Medicine
DX: R10.9 Unspecified abdominal pain (principal); E11.65 Type 2 diabetes mellitus with hyperglycemia; Z20.822 Contact with and (suspected) exposure to COVID-19; Z20.828 Contact with and (suspected) exposure to other viral communicable diseases; I69.320 Aphasia following cerebral infarction; I69.354 Hemiplegia and hemiparesis following cerebral infarction affecting left non-dominant side; I10 Essential (primary) hypertension; E11.9 Type 2 diabetes mellitus without complications; J45.909 Unspecified asthma, uncomplicated; Z79.4 Long term (current) use of insulin; Z79.899 Other long term (current) drug therapy
CPT/HCPCS: 0241U; 80053; 81001; 82947; 83690; 83735; 85025; 99283; 99284

== ENCOUNTER 2022-10-21 18:32 | Emergency (ER) | payer MEDICARE, MEDICAID, SELFPAY ==
--- NOTE | ~2022-10-21 | XR_ITS ---
EXAMINATION: XR CHEST CLINICAL INFORMATION: Chest pain COMPARISON: 10/11/2021 TECHNIQUE: Frontal view of the chest was obtained. FINDINGS: No significant abnormality is noted involving the heart, lungs, mediastinum, bony thorax or soft tissues. XR/XR chest 1V IMPRESSION: Unremarkable examination.
[2022-10-21 18:48] VITALS: BP 164/94; PULSE 81; RESP 18; TEMP 36.6; O2SAT 99; BMI 39.0
--- NOTE | 2022-10-21 18:48 | ECG_ITS ---
Test Reason : CHEST PAIN Blood Pressure : / mmHG Vent. Rate : 077 BPM Atrial Rate : 077 BPM P-R Int : 128 ms QRS Dur : 110 ms QT Int : 382 ms P-R-T Axes : 044 -13 044 degrees QTc Int : 432 ms Sinus rhythm with Premature atrial complexes Incomplete right bundle branch block Moderate voltage criteria for LVH, may be normal variant ( R in aVL , Navid product ) Borderline ECG When compared with ECG of 08-OCT-2022 20:10, Premature atrial complexes are now Present Referred By: Clem Rojas Electronically Signed By:EVAN CASTORENA MD
--- NOTE | 2022-10-21 18:49 | ED_ITS ---
HPI - General Adult General Chief complaint: Chest Pain Stated complaint: sent by dr/ vomiting & high blood pressure Time Seen by Provider: 10/21/22 20:18 Related Data Home Medications Medication Instructions Recorded Confirmed albuterol sulfate 90 mcg/actuation 2 puff inhalation Q4H PRN Wheezing 08/26/22 10/09/22 aerosol inhaler hydroxyzine HCl 50 mg tablet 50 mg PO QID PRN Anxiety 08/26/22 10/09/22 insulin glargine 100 unit/mL 12 unit subcut QAM 08/26/22 10/09/22 subcutaneous solution (Lantus U-100 Insulin) losartan 25 mg tablet 1 tab PO DAILY 08/26/22 10/09/22 multivitamin 1 tab PO DAILY 08/26/22 10/09/22 acetaminophen 325 mg tablet 650 mg PO Q4H PRN Pain 10/09/22 10/09/22 diclofenac sodium 1 % topical gel 4 g topical BID 10/09/22 10/09/22 ondansetron 4 mg disintegrating 4 mg PO Q8H PRN Nausea 10/09/22 10/09/22 tablet simethicone 80 mg chewable tablet 80 mg PO DAILY PRN flatulence 10/09/22 10/09/22 Previous Rx's Medication Instructions Recorded cefuroxime axetil 500 mg tablet 500 mg PO BID 7 days #14 tabs 10/09/22 fluconazole 100 mg tablet 100 mg PO DAILY #9 tabs 10/09/22 (Diflucan) dicyclomine 20 mg tablet 20 mg PO QID PRN abdominal pain 10/12/22 #20 tabs ondansetron 4 mg disintegrating 4 mg PO Q6-8H PRN nausea and 10/12/22 tablet vomiting #7 tabs ondansetron 4 mg disintegrating 4 mg PO Q8H PRN nausea and 10/21/22 tablet vomiting #20 tabs Allergies Allergy/AdvReac Type Severity Reaction Status Date / Time cephalexin [CEPHALEXIN] Allergy Unknown Vomiting Verified 10/12/22 19:05 [facility] Past Medical History Medical History Bipolar disorder CVA (cerebral vascular accident) Diabetes Hypertension Psychiatric diagnosis Social History Social History Household Members: Other Housing: House Do you presently have visiting nurse or other home services: Yes Alcohol intake: never Patient Tobacco Use Status: Never used Tobacco Advance Directives: Yes Advance Directives on File: Yes Advance Directives Date on File: 03/17/21 service: No Current occupational status: disabled Physical Exam ED Vital Signs: BMI result Body Mass Index 39.0 Course Course Course Narrative: RME: 67 yold female presents to the ED For hyperglyecemia of 433 at facility. patient also staets chest pain. GLucose POC, labs, EKG, Ua ordered, and chest xray Medications Administered Discontinued Medications Generic Name Dose Route Start Last Admin Trade Name Freq PRN Reason Stop Dose Admin Insulin Human Lispro 5 unit 10/21/22 20:32 10/21/22 20:41 Insulin Lispro 100 Unit/Ml 3 Ml Vial SUBCUT 10/21/22 20:33 5 unit ONCE ONE Administration Ketorolac Tromethamine 30 mg 10/21/22 20:29 10/21/22 20:42 Ketorolac Tromethamine 30 Mg/Ml Vial IM 10/21/22 20:30 30 mg ONCE ONE Administration Ondansetron HCl 4 mg 10/21/22 20:29 10/21/22 20:45 Ondansetron Odt 4 Mg Tab.Rapdis TRANSLINGU 10/21/22 20:30 4 mg ONCE ONE Administration Medical Decision Making Lab Data Labs: Lab Results 10/21/22 Range/Units 20:24 POC Glucose 290 H (60-115) mg/dL Discharge Plan Discharge Clinical Impression: Gastroenteritis Patient Disposition: Home, Self-Care Instructions: Acute Nausea and Vomiting (ED), Acute Diarrhea (ED) Additional Instructions: Drink plenty of liquids. Zofran is for nausea Prescriptions: New ondansetron 4 mg tablet,disintegrating 4 mg PO Q8H PRN (Reason: nausea and vomiting) Qty: 20 0RF No Action ondansetron 4 mg Tablet,Disintegrating 4 mg PO Q8H PRN (Reason: Nausea) simethicone 80 mg Tablet,Chewable 80 mg PO DAILY PRN (Reason: flatulence) acetaminophen 325 mg Tablet 650 mg PO Q4H PRN (Reason: Pain) diclofenac sodium 1 % Gel 4 g TOPICAL BID Rx Instructions: apply to single knee, ankle, foot; for foot includes sole/toes/top of foot fluconazole [Diflucan] 100 mg tablet 100 mg PO DAILY Qty: 9 0RF cefuroxime axetil 500 mg tablet 500 mg PO BID 7 Days Qty: 14 0RF insulin glargine [Lantus U-100 Insulin] 100 unit/mL solution 12 unit subcut QAM hydroxyzine HCl 50 mg Tablet 50 mg PO QID PRN (Reason: Anxiety) losartan 25 mg tablet 1 tab PO DAILY albuterol sulfate 90 mcg/actuation Hfa Aerosol Inhaler 2 puff INHALATION Q4H PRN (Reason: Wheezing) multivitamin Tablet 1 tab PO DAILY dicyclomine 20 mg tablet 20 mg PO QID PRN (Reason: abdominal pain) Qty: 20 0RF ondansetron 4 mg tablet,disintegrating 4 mg PO Q6-8H PRN (Reason: nausea and vomiting) Qty: 7 0RF Interventions: ED Discharge Assessment Last Done: 10/21/22 21:47 Discharge Date/Time: 10/21/22 21:48
[2022-10-21 20:30] LABS: Glucose, Whole Blood 290 mg/dL (60-115)
--- NOTE | 2022-10-21 20:30 | PC.NURSE ---
per dictaphone technician, unable to obtain labs at time of arrival- this nurse attempted and was unsuccessful. provider aware
--- NOTE | 2022-10-21 20:34 | ED.GENADULT ---
HPI - General Adult General Chief complaint: Chest Pain Stated complaint: sent by dr/ vomiting & high blood pressure Time Seen by Provider: 10/21/22 20:18 Source: patient Limitations: other (Patient with baseline dysarthria, aphasia) History of Present Illness HPI narrative: Patient well known to myself and staff the emergency department presents with complaints of nausea vomiting and diarrhea. Some epigastric pain and chest pain as well. She lives in a nursing home. No other members of the home were sick per patient. She denies cough fevers or chills. Symptoms all started today. She states she is unable to drink liquids because of the nausea. Two episodes of very watery diarrhea she said. Multiple episodes of vomiting Related Data Home Medications Medication Instructions Recorded Confirmed albuterol sulfate 90 mcg/actuation 2 puff inhalation Q4H PRN Wheezing 08/26/22 10/09/22 aerosol inhaler hydroxyzine HCl 50 mg tablet 50 mg PO QID PRN Anxiety 08/26/22 10/09/22 insulin glargine 100 unit/mL 12 unit subcut QAM 08/26/22 10/09/22 subcutaneous solution (Lantus U-100 Insulin) losartan 25 mg tablet 1 tab PO DAILY 08/26/22 10/09/22 multivitamin 1 tab PO DAILY 08/26/22 10/09/22 acetaminophen 325 mg tablet 650 mg PO Q4H PRN Pain 10/09/22 10/09/22 diclofenac sodium 1 % topical gel 4 g topical BID 10/09/22 10/09/22 ondansetron 4 mg disintegrating 4 mg PO Q8H PRN Nausea 10/09/22 10/09/22 tablet simethicone 80 mg chewable tablet 80 mg PO DAILY PRN flatulence 10/09/22 10/09/22 Previous Rx's Medication Instructions Recorded cefuroxime axetil 500 mg tablet 500 mg PO BID 7 days #14 tabs 10/09/22 fluconazole 100 mg tablet 100 mg PO DAILY #9 tabs 10/09/22 (Diflucan) dicyclomine 20 mg tablet 20 mg PO QID PRN abdominal pain 10/12/22 #20 tabs ondansetron 4 mg disintegrating 4 mg PO Q6-8H PRN nausea and 10/12/22 tablet vomiting #7 tabs ondansetron 4 mg disintegrating 4 mg PO Q8H PRN nausea and 10/21/22 tablet vomiting #20 tabs Allergies Allergy/AdvReac Type Severity Reaction Status Date / Time cephalexin [CEPHALEXIN] Allergy Unknown Vomiting Verified 10/12/22 19:05 Review of Systems Constitutional: Comments: No fevers or chills Cardiovascular: Comments: Chest pain, midsternal. Sharp. Worse with movement. Worse with touch Respiratory: Comments: No cough or dyspnea Gastrointestinal: Comments: Nausea vomiting diarrhea and epigastric discomfort Integumentary/Breasts: Comments: No rash Neurologic: Comments: No new neurologic complaints Endocrine: Comments: Baseline diabetes. Says her sugars been high today 400 PMFSH Past Medical History Medical History Bipolar disorder CVA (cerebral vascular accident) Diabetes Hypertension Psychiatric diagnosis Social History Social History Household Members: Other Housing: House Do you presently have visiting nurse or other home services: Yes Alcohol intake: never Patient Tobacco Use Status: Never used Tobacco Advance Directives: Yes Advance Directives on File: Yes Advance Directives Date on File: 03/17/21 service: No Current occupational status: disabled Physical Exam ED Vital Signs: Vital Signs - 24 hr 10/21/22 18:48 Temperature 97.8 F Pulse Rate 81 Respiratory Rate 18 Blood Pressure 164/94 H Pulse Oximetry 99 Oxygen Delivery Method Room Air BMI result Body Mass Index 39.0 Const Other: Awake alert. No acute distress Chest Other: Tender in the left parasternal area. Reproduces symptoms Resp Other: Diminished but clear bilaterally Cardio Other: Regular rate and rhythm without murmurs rubs or gallops GI Other: Soft. Nondistended. Epigastric tenderness without guarding or rebound. Remainder of abdomen nontender Skin Other: Warm pink and dry Neuro Other: Baseline left hemiparesis with contractures Medications Administered Discontinued Medications Generic Name Dose Route Start Last Admin Trade Name Freq PRN Reason Stop Dose Admin Insulin Human Lispro 5 unit 10/21/22 20:32 10/21/22 20:41 Insulin Lispro 100 Unit/Ml 3 Ml Vial SUBCUT 10/21/22 20:33 5 unit ONCE ONE Administration Ketorolac Tromethamine 30 mg 10/21/22 20:29 10/21/22 20:42 Ketorolac Tromethamine 30 Mg/Ml Vial IM 10/21/22 20:30 30 mg ONCE ONE Administration Ondansetron HCl 4 mg 10/21/22 20:29 10/21/22 20:45 Ondansetron Odt 4 Mg Tab.Doreen AMAYAU 10/21/22 20:30 4 mg ONCE ONE Administration Medical Decision Making Medical Decision Making [facility] Narrative: Patient with new complaints of nausea vomiting diarrhea. Hemodynamically stable. Blood sugar here in the emergency department is 290. She is typically very challenging for blood work and or IV therapy. Will treat conservatively and symptomatically at the moment. EKG shows normal sinus rhythm without ischemic changes. Chest x-ray without infiltrate or other abnormalities. Will treat with Toradol for chest pain, Zofran for nausea, insulin for mild hyperglycemia. Will reassess and attempt p.o. challenge after Zofran 21:25. Patient is feeling better after medicine. She does not want to try drinking yet and would rather go home and try drinking in the morning. She is otherwise stable and I think this is a reasonable plan Lab Data Labs: Lab Results 10/21/22 Range/Units 20:24 POC Glucose 290 H (60-115) mg/dL Discharge Plan Discharge Clinical Impression: Gastroenteritis Patient Disposition: Home, Self-Care Instructions: Acute Nausea and Vomiting (ED), Acute Diarrhea (ED) Additional Instructions: Drink plenty of liquids. Zofran is for nausea Prescriptions: New ondansetron 4 mg tablet,disintegrating 4 mg PO Q8H PRN (Reason: nausea and vomiting) Qty: 20 0RF No Action ondansetron 4 mg Tablet,Disintegrating 4 mg PO Q8H PRN (Reason: Nausea) simethicone 80 mg Tablet,Chewable 80 mg PO DAILY PRN (Reason: flatulence) acetaminophen 325 mg Tablet 650 mg PO Q4H PRN (Reason: Pain) diclofenac sodium 1 % Gel 4 g TOPICAL BID Rx Instructions: apply to single knee, ankle, foot; for foot includes sole/toes/top of foot fluconazole [Diflucan] 100 mg tablet 100 mg PO DAILY Qty: 9 0RF cefuroxime axetil 500 mg tablet 500 mg PO BID 7 Days Qty: 14 0RF insulin glargine [Lantus U-100 Insulin] 100 unit/mL solution 12 unit subcut QAM hydroxyzine HCl 50 mg Tablet 50 mg PO QID PRN (Reason: Anxiety) losartan 25 mg tablet 1 tab PO DAILY albuterol sulfate 90 mcg/actuation Hfa Aerosol Inhaler 2 puff INHALATION Q4H PRN (Reason: Wheezing) multivitamin Tablet 1 tab PO DAILY dicyclomine 20 mg tablet 20 mg PO QID PRN (Reason: abdominal pain) Qty: 20 0RF ondansetron 4 mg tablet,disintegrating 4 mg PO Q6-8H PRN (Reason: nausea and vomiting) Qty: 7 0RF
[2022-10-21] MEDS: Insulin Lispro 100 UNIT/ML 3 ML VIAL SUBCUT (20:41)
[2022-10-21] MEDS: Ketorolac Tromethamine 30 MG/ML VIAL IM (20:42)
[2022-10-21] MEDS: Ondansetron ODT 4 MG TAB.RAPDIS TRANSLINGU (20:45)
--- NOTE | 2022-10-21 21:45 | PC.NURSE ---
pt medicated per MAR- discharged with [facility] staff, verbalizes understandign that she has a stomach virus that will resolve, encouraged pt to increase fluid intake, utilize APAP/IBU for pain zofran for nausea and vomitting
== END 2022-10-21 21:48 | disposition home or self-care (01) ==
PROVIDERS: Emergency Provider Emergency Medicine; PCP Internal Medicine
DX: K52.9 Noninfective gastroenteritis and colitis, unspecified (principal); E11.9 Type 2 diabetes mellitus without complications; I10 Essential (primary) hypertension; Z79.4 Long term (current) use of insulin; Z79.899 Other long term (current) drug therapy
CPT/HCPCS: 71045; 82947; 93005; 96372; 99283; 99284; J1885

== ENCOUNTER 2022-12-06 16:49 | Emergency (ER) | payer MEDICARE, MEDICAID, SELFPAY ==
[2022-12-06 17:53] VITALS: BP 171/81; PULSE 70; RESP 16; TEMP 36.5; O2SAT 98; BMI 39.0
--- NOTE | 2022-12-06 17:59 | ECG_ITS ---
Test Reason : HYPERTENSION Blood Pressure : / mmHG Vent. Rate : 074 BPM Atrial Rate : 074 BPM P-R Int : 134 ms QRS Dur : 106 ms QT Int : 390 ms P-R-T Axes : 030 -12 033 degrees QTc Int : 432 ms Normal sinus rhythm with sinus arrhythmia Incomplete right bundle branch block Moderate voltage criteria for LVH, may be normal variant ( R in aVL , [place] product ) Borderline ECG When compared with ECG of 21-OCT-2022 19:13, Premature atrial complexes are no longer Present Referred By: Generic ED Physician Electronically Signed By:EVAN CASTORENA MD
[2022-12-06 18:47] LABS: Appearance Urine Hazy; Color Urine Yellow; Glucose Urine UA >=1000 mg/dL (Negative); Leukocyte Esterase Urine Negative (Negative); Nitrite Urine Positive (Negative); PH 6.5 (5.0-9.0); UMIC TRIGGER UACC YES; Urine Blood Negative (Negative); Urine Ketones Negative (Negative); Urine Protein Negative (Neg-Trace)
[2022-12-06 18:48] LABS: Bacteria Urine 4+ (None Seen); Hyaline Casts Urine 0-2 /LPF (0-2); RBC Urine 0-2 /HPF (0-2); Squamous Epithelial Cell Urine 0-2 /HPF (0-2); UACC Culture Trigger YES; WBC Urine 21-50 /HPF (0-5)
[2022-12-06 19:02] LABS: COVID-19 Test Negative (Negative); IDNOW Serial# 9DB6401D
[2022-12-06 20:16] VITALS: BP 159/81; PULSE 68; RESP 16; TEMP 36.6; O2SAT 98
[2022-12-06 20:17] LABS: MANUAL DIFF FLAG NO
[2022-12-06 20:18] LABS: Basophils Absolute Auto 0.1 X10*3/uL (0.0-0.2); Basophils Percent Auto 0.5 % (0-2); Eosinophils Absolute Auto 0.2 X10*3/uL (0.0-0.4); Eosinophils Percent Auto 1.8 % (0-4); Hematocrit 39.3 % (37.0-47.0); Imm Gran Abs Auto 0.02 X10*3/uL (0.00-0.03); Imm Gran Pct Auto 0.2 % (0.0-0.4); Lymphocytes Absolute Auto 3.2 X10*3/uL (1.2-4.9); Lymphocytes Percent Auto 30.6 % (20-40); Mean Corpuscular HGB Conc 33.1 g/dl (31.0-35.0); Mean Corpuscular Hemoglobin 26.7 pg (27.0-33.0); Mean Corpuscular Volume 80.7 fL (80.0-98.0); Mean Platelet Volume 10.2 fL (9.4-12.3); Monocytes Absolute Auto 0.5 X10*3/uL (0.1-1.2); Monocytes Percent Auto 4.8 % (2-11); Neutrophils Absolute Auto 6.4 x10*3/uL (2.0-8.3); Neutrophils Percent Auto 62.1 % (45-73); Platelet Count 303 X10*3/uL (160-400); Red Blood Count 4.87 X10*6/uL (4.20-5.50); Red Cell Distribution Width 12.6 % (11.0-16.0); White Blood Count 10.3 X10*3/uL (4.8-10.8)
--- NOTE | 2022-12-06 20:18 | MHC.EDTECH ---
PT BLOOD DRAWN AND SENT TO LAB ,VITALS SIGN TAKEN .
[2022-12-06 20:42] LABS: Anion Gap 13 (12-20); Blood Urea Nitrogen 14 mg/dL (9-16); Calcium 9.4 mg/dL (8.4-10.2); Carbon Dioxide 27 mmol/L (22-29); Chloride 103 mmol/L (96-108); Estimated Glomerular Filt Rate > 60; Glucose Random 310 mg/dL (60-115); Potassium 4.6 mmol/L (3.3-5.1); Sodium 138 mmol/L (135-145)
[2022-12-06 22:50] VITALS: BP 139/78; PULSE 69; RESP 18; TEMP 36.6; O2SAT 98
--- NOTE | 2022-12-07 01:09 | ED_ITS ---
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 Patient unable to speaking full sentences. But communicates that she has discomfort with urination and diarrhea. Related Data Home Medications Medication Instructions Recorded Confirmed albuterol sulfate 90 mcg/actuation 2 puff inhalation Q4H PRN Wheezing 08/26/22 10/09/22 aerosol inhaler hydroxyzine HCl 50 mg tablet 50 mg PO QID PRN Anxiety 08/26/22 10/09/22 insulin glargine 100 unit/mL 12 unit subcut QAM 08/26/22 10/09/22 subcutaneous solution (Lantus U-100 Insulin) losartan 25 mg tablet 1 tab PO DAILY 08/26/22 10/09/22 multivitamin 1 tab PO DAILY 08/26/22 10/09/22 acetaminophen 325 mg tablet 650 mg PO Q4H PRN Pain 10/09/22 10/09/22 diclofenac sodium 1 % topical gel 4 g topical BID 10/09/22 10/09/22 ondansetron 4 mg disintegrating 4 mg PO Q8H PRN Nausea 10/09/22 10/09/22 tablet simethicone 80 mg chewable tablet 80 mg PO DAILY PRN flatulence 10/09/22 Previous Rx's Medication Instructions Recorded cefuroxime axetil 500 mg tablet 500 mg PO BID 7 days #14 tabs 10/09/22 fluconazole 100 mg tablet 100 mg PO DAILY #9 tabs 10/09/22 (Diflucan) dicyclomine 20 mg tablet 20 mg PO QID PRN abdominal pain 10/12/22 #20 tabs ondansetron 4 mg disintegrating 4 mg PO Q6-8H PRN nausea and 10/12/22 tablet vomiting #7 tabs ondansetron 4 mg disintegrating 4 mg PO Q8H PRN nausea and 10/21/22 tablet vomiting #20 tabs loperamide 2 mg tablet 2 mg PO Q4H PRN loose stool #10 12/07/22 tabs ondansetron HCl 4 mg tablet 4 mg PO Q6H PRN nausea and 12/07/22 vomiting #10 tabs Allergies Allergy/AdvReac Type Severity Reaction Status Date / Time cephalexin [CEPHALEXIN] Allergy Unknown Vomiting Verified 10/12/22 19:05 Review of Systems Review of Systems: Constitutional : No Weight loss, No Fever, No Chills, No Night Sweats, No Fatigue, No Malaise ENT/Mouth : No Hearing loss, No Ear Pain, No Nasal Congestion, No Sinus Pain, No Hoarseness, No sore throat, No Rhinorrhea, No Swallowing Difficulty Eyes: No Eye Pain, No Swelling, No Redness, No Foreign Body, No Discharge, No Vision Changes Cardiovascular : No Chest Pain, No SOB, No Dyspnea on Exertion, No Orthopnea, No Edema, No Palpitations Respiratory : No Cough, No Sputum, No Wheezing, No Smoke Exposure, No Dyspnea Gastrointestinal : No Nausea, No Vomiting, complaining of Diarrhea, No Constipation, No abdominal Pain, No Hematochezia, No Melena Genitourinary : no irregular bleeding, complaining of Dysuria, No Urinary Frequency, No Hematuria, No Urinary Incontinence, No Urgency, No Flank Pain, No Urinary Flow Changes, No Hesitancy Musculoskeletal : No joint pain, No Myalgias, No Joint Swelling Skin : No Skin Lesions, No rash Neuro : No Weakness, No Numbness, No Paresthesias, No Loss of Consciousness, No Dizziness, No Headache Psych : No Anxiety/Panic, No Depression, No SI/HI/AH/VH, No Social Issues, Heme/Lymph: No Bruising, No Bleeding,No Lymphadenopathy Endocrine : No Polyuria, No Polydipsia, No Temperature Intolerance [facility] Past Medical History Medical History Acute pancreatitis Bipolar disorder CVA (cerebral vascular accident) Diabetes Hypertension Psychiatric diagnosis Social History Social History Household Members: Other Housing: House Do you presently have visiting nurse or other home services: Yes Alcohol intake: never Patient Tobacco Use Status: Never used Tobacco Advance Directives: Yes Advance Directives on File: Yes Advance Directives Date on File: 03/17/21 service: No Current occupational status: disabled Physical Exam ED Vital Signs: Vital Signs - 24 hr 12/06/22 17:53 12/06/22 20:16 12/06/22 22:50 Temperature 97.7 F 97.8 F 98 F Pulse Rate 70 68 69 Respiratory Rate 16 16 18 Blood Pressure 171/81 H 159/81 H 139/78 Pulse Oximetry 98 98 98 Oxygen Delivery Method Room Air Room Air Room Air BMI result Body Mass Index 39.0 Const Other: Appearance: Alert. No acute distress. Well-appearing Eyes: Pupils equal, round and reactive to light. ENT: Pharynx normal. Neck: Normal inspection. Neck supple. No lymph nodes noted. No crepitus CVS: Normal heart rate and rhythm. Pulses normal. Normal S1 and S2 Respiratory: No respiratory distress. Breath sounds normal. No Wheezing. No rales Abdomen: Soft and nontender. No rigidity. No distention. Skin: Skin warm and dry. Normal skin color. Normal skin turgor. Extremities: No lower extremity edema. No Lacerations. No Rash Neuro: Chronic speech impairment. No motor deficit. No sensory deficit. Moving all extremities. No slurred speech. CN 2 through 12 grossly intact Psych: calm, cooperative, normal affect Course Course Course Narrative: - Medical Decision Making Medical Decision Making [facility] Narrative: -patient has a UTI, patient was given levofloxacin, patient allergic to cephalosporins. White blood cell count within normal limits, normal vitals, no fever, sepsis not suspected. -for hyperglycemia, patient received 5 units of insulin lispro. -also, patient received 1 dose of p.o. loperamide and transiting wall on the trunk. -patient does not have any other complaints, states that she feels well Differential Diagnosis Differential Diagnoses: The differential diagnosis associated with the p resentation includes (UTI, pyelonephritis, gastroenteritis) Lab Data [facility] Lab Attestation statement: I reviewed the patient's lab results. 12/06/22 20:12 12/06/22 20:12 Labs: Lab Results 12/06/22 12/06/22 12/06/22 Range/Units 18:32 18:32 20:12 WBC 10.3 (4.8-10.8) X10*3/uL RBC 4.87 (4.20-5.50) X10*6/uL Hgb 13.0 (12.0-16.0) g/dl Hct 39.3 (37.0-47.0) % MCV 80.7 (80.0-98.0) fL MCH 26.7 L (27.0-33.0) pg MCHC 33.1 (31.0-35.0) g/dl RDW 12.6 (11.0-16.0) % Plt Count 303 (160-400) X10*3/uL MPV 10.2 (9.4-12.3) fL Immature Gran % (Auto) 0.2 (0.0-0.4) % Neut % (Auto) 62.1 (45-73) % Lymph % (Auto) 30.6 (20-40) % [place] % (Auto) 4.8 (2-11) % Eos % (Auto) 1.8 (0-4) % Baso % (Auto) 0.5 (0-2) % Lymph # (Auto) 3.2 (1.2-4.9) X10*3/uL [place] # (Auto) 0.5 (0.1-1.2) X10*3/uL Eos # (Auto) 0.2 (0.0-0.4) X10*3/uL Baso # (Auto) 0.1 (0.0-0.2) X10*3/uL Abs Immat Gran (auto) 0.02 (0.00-0.03) X10*3/uL Absolute Neuts (auto) 6.4 (2.0-8.3) x10*3/uL Absolute Nucleated RBC 0.000 (0.0-0.012) X10*3/uL Nucleated RBC % (auto) 0.0 (0.0-0.2) /100WBC Sodium (135-145) mmol/L Potassium (3.3-5.1) mmol/L Chloride (96-108) mmol/L Carbon Dioxide (22-29) mmol/L Anion Gap (12-20) BUN (9-16) mg/dL Creatinine (0.5-1.4) mg/dL Estim Creat Clear Calc Estimated GFR Random Glucose (60-115) mg/dL Calcium (8.4-10.2) mg/dL Urine Color Yellow Urine Appearance Hazy Urine pH 6.5 (5.0-9.0) Ur Specific [place] 1.020 (1.005-1.025) Urine Protein Negative (Neg-Trace) mg/dL Urine Glucose (UA) >=1000 H (Negative) mg/dL Urine Ketones Negative (Negative) mg/dL Urine Blood Negative (Negative) Urine Nitrite Positive H (Negative) Ur Leukocyte Esterase Negative (Negative) Urine RBC 0-2 (0-2) /HPF Urine WBC 21-50 H (0-5) /HPF Ur Squamous Epith Cells 0-2 (0-2) /HPF Urine Bacteria 4+ (None Seen) Hyaline Casts 0-2 (0-2) /LPF COVID-19 (ANAHI) Negative (Negative) COVID-19 Clin Com See Note 12/06/22 Range/Units 20:12 WBC (4.8-10.8) X10*3/uL RBC (4.20-5.50) X10*6/uL Hgb (12.0-16.0) g/dl Hct (37.0-47.0) % MCV (80.0-98.0) fL MCH (27.0-33.0) pg MCHC (31.0-35.0) g/dl RDW (11.0-16.0) % Plt Count (160-400) X10*3/uL MPV (9.4-12.3) fL Immature Gran % (Auto) (0.0-0.4) % Neut % (Auto) (45-73) % Lymph % (Auto) (20-40) % [place] % (Auto) (2-11) % Eos % (Auto) (0-4) % Baso % (Auto) (0-2) % Lymph # (Auto) (1.2-4.9) X10*3/uL [place] # (Auto) (0.1-1.2) X10*3/uL Eos # (Auto) (0.0-0.4) X10*3/uL Baso # (Auto) (0.0-0.2) X10*3/uL Abs Immat Gran (auto) (0.00-0.03) X10*3/uL Absolute Neuts (auto) (2.0-8.3) x10*3/uL Absolute Nucleated RBC (0.0-0.012) X10*3/uL Nucleated RBC % (auto) (0.0-0.2) /100WBC Sodium 138 (135-145) mmol/L Potassium 4.6 (3.3-5.1) mmol/L Chloride 103 (96-108) mmol/L Carbon Dioxide 27 (22-29) mmol/L Anion Gap 13 (12-20) BUN 14 (9-16) mg/dL Creatinine 0.76 (0.5-1.4) mg/dL Estim Creat Clear Calc 74.0 Estimated GFR > 60 Random Glucose 310 H (60-115) mg/dL Calcium 9.4 (8.4-10.2) mg/dL Urine Color Urine Appearance Urine pH (5.0-9.0) Ur Specific [place] (1.005-1.025) Urine Protein (Neg-Trace) mg/dL Urine Glucose (UA) (Negative) mg/dL Urine Ketones (Negative) mg/dL Urine Blood (Negative) Urine Nitrite (Negative) Ur Leukocyte Esterase (Negative) Urine RBC (0-2) /HPF Urine WBC (0-5) /HPF Ur Squamous Epith Cells (0-2) /HPF Urine Bacteria (None Seen) Hyaline Casts (0-2) /LPF COVID-19 (ANAHI) (Negative) COVID-19 Clin Com Discharge Plan Discharge Clinical Impression: Acute UTI, Diarrhea, Acute hyperglycemia Patient Disposition: Home, Self-Care Instructions: Acute Diarrhea (ED), Diabetic Hyperglycemia (ED) Additional Instructions: Please follow-up with your primary care physician tomorrow. If you have any worsening or new symptoms, please return to the emergency room or call 911 Prescriptions: New loperamide 2 mg tablet 2 mg PO Q4H PRN (Reason: loose stool) Qty: 10 0RF Rx Instructions: administer after each loose stool until symptoms controlled; do not exceed 8 mg per 24 hrs ondansetron HCl 4 mg tablet 4 mg PO Q6H PRN (Reason: nausea and vomiting) Qty: 10 0RF No Action ondansetron 4 mg Tablet,Disintegrating 4 mg PO Q8H PRN (Reason: Nausea) simethicone 80 mg Tablet,Chewable 80 mg PO DAILY PRN (Reason: flatulence) acetaminophen 325 mg Tablet 650 mg PO Q4H PRN (Reason: Pain) diclofenac sodium 1 % Gel 4 g TOPICAL BID Rx Instructions: apply to single knee, ankle, foot; for foot includes sole/toes/top of foot fluconazole [Diflucan] 100 mg tablet 100 mg PO DAILY Qty: 9 0RF cefuroxime axetil 500 mg tablet 500 mg PO BID 7 Days Qty: 14 0RF ondansetron 4 mg tablet,disintegrating 4 mg PO Q8H PRN (Reason: nausea and vomiting) Qty: 20 0RF insulin glargine [Lantus U-100 Insulin] 100 unit/mL solution 12 unit subcut QAM hydroxyzine HCl 50 mg Tablet 50 mg PO QID PRN (Reason: Anxiety) losartan 25 mg tablet 1 tab PO DAILY albuterol sulfate 90 mcg/actuation Hfa Aerosol Inhaler 2 puff INHALATION Q4H PRN (Reason: Wheezing) multivitamin Tablet 1 tab PO DAILY dicyclomine 20 mg tablet 20 mg PO QID PRN (Reason: abdominal pain) Qty: 20 0RF ondansetron 4 mg tablet,disintegrating 4 mg PO Q6-8H PRN (Reason: nausea and vomiting) Qty: 7 0RF
[2022-12-07] MEDS: Insulin Lispro 100 UNIT/ML 3 ML VIAL SUBCUT (01:26)
[2022-12-07] MEDS: levoFLOXacin 500 MG TABLET PO (01:26)
[2022-12-07] MEDS: Loperamide HCl 2 MG CAPSULE PO (01:26)
[2022-12-07] MEDS: Ondansetron ODT 4 MG TAB.RAPDIS TRANSLINGU (01:26)
[2022-12-07 01:37] LABS: Glucose, Whole Blood 225 mg/dL (60-115)
== END 2022-12-07 01:33 | disposition home or self-care (01) ==
PROVIDERS: Emergency Provider Emergency Medicine; PCP Internal Medicine
DX: N39.0 Urinary tract infection, site not specified (principal); E11.65 Type 2 diabetes mellitus with hyperglycemia; I45.10 Unspecified right bundle-branch block; Z79.4 Long term (current) use of insulin; Z20.822 Contact with and (suspected) exposure to COVID-19; Z20.828 Contact with and (suspected) exposure to other viral communicable diseases; Z79.899 Other long term (current) drug therapy
CPT/HCPCS: 80048; 81001; 82947; 85025; 87086; 87088; 87186; 87635; 93005; 99284

== ENCOUNTER 2024-01-27 11:12 | Emergency (ER) | payer MEDICARE, MEDICAID, SELFPAY ==
--- NOTE | ~2024-01-27 | XR_ITS ---
EXAMINATION: XR RIBS, LEFT CLINICAL INFORMATION: Fall chest pain COMPARISON: Chest radiograph from 10/21/2022 TECHNIQUE: 3 views of the left ribs were obtained. FINDINGS: No focal consolidation. No pneumothorax. Trachea is midline. Cardiac mediastinal is not enlarged. No large pleural effusion. Soft tissues are unremarkable. Partially visualized hernia mesh in the upper abdomen. Multilevel degenerative changes of the thoracolumbar spine. No acute visualized left-sided rib fracture. XR/XR ribs LT min 3V w CXR1V IMPRESSION: 1. No acute cardiopulmonary process. 2. No acute visualized left-sided rib fracture.
--- NOTE | 2024-01-27 11:16 | ECG_ITS ---
Test Reason : chest pain Blood Pressure : / mmHG Vent. Rate : 113 BPM Atrial Rate : 113 BPM P-R Int : 146 ms QRS Dur : 092 ms QT Int : 320 ms P-R-T Axes : 047 -18 027 degrees QTc Int : 438 ms Sinus tachycardia Incomplete right bundle branch block Minimal voltage criteria for LVH, may be normal variant ( R in aVL ) Borderline ECG When compared with ECG of 06-DEC-2022 18:10, Vent. rate has increased BY 39 BPM Referred By: Generic ED Physician Electronically Signed By:EVAN CASTORENA MD
[2024-01-27 11:51] VITALS: BP 133/80; BP 150/88; PULSE 106; PULSE 117; RESP 19; TEMP 36.8; O2SAT 95; O2SAT 96; BMI 37.6
[2024-01-27 11:57] VITALS: BP 150/88; PULSE 102; RESP 19; TEMP 36.8; O2SAT 95
--- NOTE | 2024-01-27 12:14 | ED.CHESTPAIN ---
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 Patient came in for evaluation of chest pain that started since yesterday describes the pain involving the whole entire chest but mostly to the left side with radiation to the left arm, a fall was reported 3 days ago landing on her left side of the chest, patient is experiencing reproducible tenderness with the exam. Patient also been having shortness of breath with the chest pain, no lower extremity swelling or edema. Related Data Home Medications ?Medication ?Instructions ?Recorded ?Confirmed albuterol sulfate 90 mcg/actuation 2 puff inhalation Q4H PRN Wheezing 08/26/22 01/27/24 aerosol inhaler insulin glargine 100 unit/mL 20 unit subcut DAILY 08/26/22 01/27/24 subcutaneous solution (Lantus U-100 Insulin) losartan 25 mg tablet 1 tab PO DAILY 08/26/22 01/27/24 multivitamin 1 tab PO DAILY 08/26/22 01/27/24 acetaminophen 325 mg tablet 650 mg PO Q6H PRN Pain (Scale 10/09/22 01/27/24 Score 1-3) diclofenac sodium 1 % topical gel 4 g topical BID PRN Pain (Scale 10/09/22 01/27/24 Score 1-3) ondansetron 4 mg disintegrating 4 mg PO Q8H PRN Nausea 10/09/22 01/27/24 tablet albuterol sulfate 2.5 mg/3 mL 2.5 mg inhalation Q6H PRN ASTHMA 01/27/24 01/27/24 (0.083 %) solution for nebulization calcium citrate 315 mg 2 tab PO BID 01/27/24 01/27/24 calcium-vitamin D3 6.25 mcg (250 unit) tablet cetirizine 10 mg tablet 10 mg PO DAILY 01/27/24 01/27/24 cholecalciferol (vitamin D3) 25 25 mcg PO DAILY 01/27/24 01/27/24 mcg (1,000 unit) tablet dextrose 40 % oral gel 20 g PO Q15M PRN LOW BLOOD SUGAR 01/27/24 01/27/24 docusate sodium 100 mg capsule 100 mg PO BID PRN Constipation 01/27/24 01/27/24 fluticasone propionate 113 1 inh inhalation BID 01/27/24 01/27/24 mcg/actuation breath activated pwdr inhal,sensor (ArmonAir Digihaler) metoprolol succinate 25 mg 25 mg PO DAILY 01/27/24 01/27/24 tablet,extended release 24 hr omeprazole 40 mg capsule,delayed 40 mg PO DAILY@0630 01/27/24 01/27/24 release scopolamine base 1 mg over 3 days 1 mg topical Q72H 01/27/24 01/27/24 transdermal patch Previous Rx's ?Medication ?Instructions ?Recorded loperamide 2 mg tablet 2 mg PO Q4H PRN loose stool #10 12/07/22 tabs Allergies Allergy/AdvReac Type Severity Reaction Status Date / Time cephalexin [CEPHALEXIN] Allergy Unknown Vomiting Verified 01/27/24 11:56 Review of Systems Review of Systems: All other systems are reviewed and are negative Constitutional: Reports as per HPI and Reports no additional constitutional complaints Eyes: Reports as per HPI and Reports no additional eye complaints Reports system reviewed and no additional complaints, except as documented Cardiovascular: Reports as per HPI and Reports no additional cardiovascular complaints Respiratory: Reports as per HPI and Reports no additional respiratory complaints Gastrointestinal: Reports as per HPI and Reports no additional gastrointestinal complaints Genitourinary: Reports no additional female genitourinary complaints Musculoskeletal: Reports no additional musculoskeletal complaints Skin/Breast: Reports system reviewed and no additional complaints, except as docu Psychiatric: Reports no additional psychiatric complaints Endocrine: Reports no additional endocrine complaints Hematologic/Lymphatic: Reports no additional hematologic/lymphatic complaints Allergic/Immunologic: Reports no additional allergic/immunologic complaints Reports system reviewed and no additional complaints, except as documented and Reports Abnormal speech present ON LICENSE OF [facility] Past Medical History Medical History Acute pancreatitis Bipolar disorder Psychiatric diagnosis Diabetes Hypertension CVA (cerebral vascular accident) Social History Social History Household Members: Other Housing: House Do you presently have visiting nurse or other home services: Yes Alcohol intake: never Patient Tobacco Use Status: Never used Tobacco Smoked in Last 30 Days: No Use of substances other than those prescribed or required for medical reasons: No Advance Directives: No Advance Directives Date on File: 03/17/21 service: No Current occupational status: disabled Physical Exam Vital Signs: Vital Signs: Last Vital Signs Temp 98 F 01/27/24 14:50 Pulse 92 01/27/24 14:50 Resp 18 01/27/24 14:50 BP 147/82 H 01/27/24 14:50 Pulse Ox 97 01/27/24 14:50 O2 Del Method Room Air 01/27/24 14:50 BMI result Body Mass Index 37.6 Vital signs have been reviewed and appear to be correct. Blood pressure elevated. Heart rate normal. Respiratory rate normal. Temperature normal. Oxygen saturation normal. Appearance: Alert. Oriented X3. No acute distress. Head: Normal external exam. Normocephalic. Atraumatic. No Mayer signs noted. No raccoon eyes noted Eyes: PERRLA. EOMI. Conjunctiva and sclera normal. Eyelids normal. ENT: TM's Normal. Pharynx normal. Uvula midline. Moist mucous membranes. No trismus noted. No drooling noted. No muffled voice noted. Neck: Normal inspection. Neck supple. FROM. No adenopathy. Thyroid Normal. No meningeal signs. No neck mass noted. CVS: Normal heart rate and rhythm. Heart sound normal. No murmurs noted. Pulses normal throughout. Respiratory: No respiratory distress. Painless inspiration. Breath sounds normal. No wheezes/rales/rhonchi noted. Diffuse chest wall tenderness, no step-off, no deformity. No accessory muscle usage noted or decreased air movement noted. Abdomen: Soft and nontender. Bowel sounds normal in all 4 quadrants. No distention noted. No organomegaly noted. No visible injury noted. Back: No CVA tenderness. Full range of motion noted. Skin: Skin warm and dry. Normal skin color. Normal skin turgor. No rashes/lesions/lacerations noted. Extremities: No lower extremity edema. Extremities exhibit normal range of motion. Extremities nontender. Neuro: Oriented X 3. Cranial nerve exam: II-XII are grossly intact No motor deficit. No sensory deficit. Reflexes normal. Course Reevaluation(s) Reevaluation #1: 68-year-old female came in with left-sided chest pain there is a reported history of a fall 3 days ago with left-sided chest contusion, patient had negative troponin x2, patient was instructed to control her pain with Tylenol versus ibuprofen and follow-up with PCP. Time: 17:18 Medications Administered Discontinued Medications Generic Name Dose Route Start Last Admin Trade Name Pradeepq PRN Reason Stop Dose Admin Ibuprofen 600 mg 01/27/24 12:21 01/27/24 12:41 Ibuprofen 600 Mg Tablet PO 01/27/24 12:22 600 mg ONCE ONE Administration Oxycodone HCl 5 mg 01/27/24 15:06 01/27/24 15:33 Oxycodone Hcl Immed Release 5 Mg Tablet PO 01/27/24 15:07 5 mg ONCE ONE Administration Medical Decision Making Differential Diagnosis Differential Diagnoses: The differential diagnosis associated with the presentation includes ( Chest wall contusion, rib fracture, pneumonia, pneumothorax, pleural effusion, ACS, electrolyte derangement, severe anemia.) Admission/Observation Consideration of admission/observation: Escalation of care including admission/observation considered Lab Data MDM Lab Attestation statement: I reviewed the patient's lab results. 01/27/24 12:39 Labs: Lab Results 01/27/24 01/27/24 01/27/24 Range/Units 12:39 12:40 15:46 D-Dimer High Sensitivty 197 NG/ML Sodium 135 (135-145) mmol/L Potassium 4.2 (3.3-5.1) mmol/L Chloride 103 (96-108) mmol/L Carbon Dioxide 21 L (22-29) mmol/L Anion Gap 15 (12-20) BUN 11 (9-16) mg/dL Creatinine 0.67 (0.5-1.4) mg/dL Estim Creat Clear Calc 87.7 Estimated GFR > 60 Random Glucose 310 H (60-115) mg/dL Calcium 9.7 (8.4-10.2) mg/dL Total Bilirubin 0.7 (0.0-1.0) mg/dL Direct Bilirubin 0.2 (0.0-0.5) mg/dL AST 17 (5-31) U/L ALT 15 (0-31) U/L Alkaline Phosphatase 102 (39-117) U/L Troponin I High Sens < 2.7 < 2.7 (<3.5-17.0) ng/L B-Natriuretic Peptide 33 (<100) pg/mL Total Protein 7.4 (6.5-8.0) g/dL Albumin 3.8 (3.5-5.0) g/dL Lipase 12 (8-78) U/L Influenza Type A (PCR) NEGATIVE (Negative) Influenza Type B (PCR) NEGATIVE (Negative) RSV RNA Qual (PCR) NEGATIVE (Negative) SARS-CoV-2 RNA (RT-PCR) NEGATIVE (Negative) Independent Interpretation I performed an independent interpretation of an: EKG ( Sinus tachycardia at 113 beats per minutes, incomplete right bundle-branch block, LVH present, no acute changes from previous EKG.) and Plain X-Ray ( Chest:1. No acute cardiopulmonary process. 2. No acute visualized left-sided rib fracture. ) Radiology Impression Discussion of test interpretation with radiology: I have reviewed the radiologist's reading. Discharge Plan Discharge Clinical Impression: Chest wall contusion, Anterior chest wall pain Patient Disposition: Xfer SNF Instructions: Contusion in Adults (ED) Prescriptions: No Action ondansetron 4 mg Tablet,Disintegrating 4 mg PO Q8H PRN (Reason: Nausea) acetaminophen 325 mg Tablet 650 mg PO Q6H PRN (Reason: Pain (Scale Score 1-3)) diclofenac sodium 1 % Gel 4 g TOPICAL BID PRN (Reason: Pain (Scale Score 1-3)) Rx Instructions: apply to single knee, ankle, foot; for foot includes sole/toes/top of foot insulin glargine [Lantus U-100 Insulin] 100 unit/mL solution 20 unit subcut DAILY losartan 25 mg tablet 1 tab PO DAILY albuterol sulfate 90 mcg/actuation Hfa Aerosol Inhaler 2 puff INHALATION Q4H PRN (Reason: Wheezing) multivitamin Tablet 1 tab PO DAILY loperamide 2 mg tablet 2 mg PO Q4H PRN (Reason: loose stool) Qty: 10 0RF Rx Instructions: administer after each loose stool until symptoms controlled; do not exceed 8 mg per 24 hrs albuterol sulfate 2.5 mg /3 mL (0.083 %) solution for nebulization 2.5 mg inhalation Q6H PRN (Reason: ASTHMA) cetirizine 10 mg tablet 10 mg PO DAILY dextrose [Insta-Glucose] 40 % Gel 20 g PO Q15M PRN (Reason: LOW BLOOD SUGAR) Rx Instructions: until symptoms of low blood sugar are controlled omeprazole 40 mg capsule,delayed release(DR/EC) 40 mg PO DAILY@0630 docusate sodium 100 mg Capsule 100 mg PO BID PRN (Reason: Constipation) metoprolol succinate 25 mg tablet extended release 24 hr 25 mg PO DAILY scopolamine base 1 mg over 3 days patch 3 day 1 mg topical Q72H cholecalciferol (vitamin D3) 25 mcg (1,000 unit) tablet 25 mcg PO DAILY calcium citrate-vitamin D3 315 mg-6.25 mcg (250 unit) tablet 2 tab PO BID ArmonAir Digihaler 113 mcg/actuation aero powdr breath act w/sensor 1 inh inhalation BID Referrals: Sushant Goldstein MD [Primary Care Provider] - Print Language: Croatian
--- NOTE | 2024-01-27 12:18 | PC.NURSE ---
Pt presents to ED from retirement via EMS. Pt is aphasic and bed bound at baseline, staff member with pt from retirement. EMS gave pt 324 mg PO of ASA and 4 mg of Zofran IM for nausea. Pt able to nod head and answer some questions, alert and oriented. Breathing even and slightly elevated. Pt reports severe CP left sided radiating to left arm since yesterday, pain is very reproducible, increased pain on any movement, 10/10, sharp. Pt reports she did fall at retirement 3 days ago onto left side with head hit, denies LOC. Also reports symptoms of nausea, vomiting and cough for past couple of days. Pt on bedside residential monitor, sinus tach. VSS.
[2024-01-27] MEDS: Ibuprofen 600 MG TABLET PO (12:41)
[2024-01-27 13:03] LABS: D Dimer High Sensitivity 197 NG/ML
[2024-01-27 13:07] LABS: Alanine Aminotransferase 15 U/L (0-31); Albumin Level 3.8 g/dL (3.5-5.0); Alkaline Phosphatase 102 U/L (39-117); Anion Gap 15 (12-20); Aspartate Amino Transferase 17 U/L (5-31); Bilirubin Direct 0.2 mg/dL (0.0-0.5); Bilirubin Total 0.7 mg/dL (0.0-1.0); Blood Urea Nitrogen 11 mg/dL (9-16); Calcium 9.7 mg/dL (8.4-10.2); Carbon Dioxide 21 mmol/L (22-29); Chloride 103 mmol/L (96-108); Creatinine Clr Calc Pharmacy 87.7; Estimated Glomerular Filt Rate > 60; Glucose Random 310 mg/dL (60-115); Lipase 12 U/L (8-78); Potassium 4.2 mmol/L (3.3-5.1); Sodium 135 mmol/L (135-145); Total Protein 7.4 g/dL (6.5-8.0)
[2024-01-27 13:11] LABS: B Type Natriuretic Peptide 33 pg/mL (<100)
[2024-01-27 13:17] LABS: Troponin-I High Sensitivity < 2.7 ng/L (<3.5-17.0)
[2024-01-27 13:28] LABS: Influenza A PCR NEGATIVE (Negative); Influenza B PCR NEGATIVE (Negative); Resp Syncy Virus RNA Qual PCR NEGATIVE (Negative); SARS COV2 PCR INHOUSE NEGATIVE (Negative)
[2024-01-27 14:50] VITALS: BP 147/82; PULSE 92; RESP 18; TEMP 36.6; O2SAT 97
[2024-01-27] MEDS: oxyCODONE HCl Immed Release 5 MG TABLET PO (15:33)
[2024-01-27 16:19] LABS: Troponin-I High Sensitivity < 2.7 ng/L (<3.5-17.0)
--- NOTE | 2024-01-27 16:42 | PHA.MEDREC ---
Pharmacy Consult ? Medication Reconciliation Pharmacy has completed the medication reconciliation, LIST FROM [facility].
[2024-01-27 17:47] VITALS: BP 147/82; PULSE 88; RESP 18; TEMP 36.6; O2SAT 97
== END 2024-01-27 17:48 | disposition skilled nursing facility (03) ==
PROVIDERS: Emergency Provider Emergency Medicine; PCP Internal Medicine
DX: S20.212A Contusion of left front wall of thorax, initial encounter (principal); W19.XXXA Unspecified fall, initial encounter; Y93.9 Activity, unspecified; Y92.9 Unspecified place or not applicable; Y99.9 Unspecified external cause status; G80.9 Cerebral palsy, unspecified; I69.320 Aphasia following cerebral infarction; I69.398 Other sequelae of cerebral infarction; I10 Essential (primary) hypertension; I73.9 Peripheral vascular disease, unspecified; E11.9 Type 2 diabetes mellitus without complications; Z79.899 Other long term (current) drug therapy; Z03.818 Encounter for observation for suspected exposure to other biological agents ruled out
CPT/HCPCS: 0241U; 36415; 71101; 80048; 80076; 83690; 83880; 84484; 85379; 93005; 99283; 99285

== ENCOUNTER → 2024-01-27 11:16 | Outpatient (BNV) | payer MEDICARE, MEDICAID, SELFPAY | PROVIDERS: Emergency Provider Emergency Medicine; PCP Internal Medicine; Visit Provider Internal Medicine Cardiovascular Disease | DX: R07.9 Chest pain, unspecified (principal) | CPT/HCPCS: 93010 ==